=== PATIENT | male | born 1940 | race Two or more races ===

== ENCOUNTER → 2016-11-29 | Outpatient (CLI) | payer OTHER ==
[~2016-11-29] MED LIST: AMLO10TA2; ISOS1TAB37; LISI-646; SIMV-13 OR; WARF5INJ
[2016-11-29 09:54] LABS: Urine RBC None Seen /hpf (0 - 3)
[2016-11-29 10:02] LABS: Basophils # (auto) 0 uL; Basophils % (auto) 0.5 % (0.0-2.0); Eosinophils # (auto) 0.2 uL; Eosinophils % (auto) 2.5 % (0.0-7.0); Hematocrit 43.4 % (41.0-53.0); Hemoglobin 14.6 g/dL (13.5-17.5); Lymphocytes # (auto) 1.9 uL; Lymphocytes % (auto) 24.2 % (10.0-50.0); Mean Corpuscular Hemoglobin 29.6 pg (28.0-32.0); Mean Corpuscular Hgb Conc. 33.6 g/dL (32.0-36.0); Mean Platelet Volume 8.8 fL (7.4-10.4); Monocytes # (auto) 0.7 uL; Monocytes % (auto) 9.1 % (0.0-12.0); Neutrophils # (auto) 4.9 uL; Neutrophils % (auto) 63.7 % (37.0-80.0); Platelet Count (auto) 259 10^3/uL (140-450); Red Cell Distribution Width 13.8 % (11.6-16.0); White Blood Cell 7.7 10^3/uL (4.4-10.8)
[2016-11-29 10:12] LABS: Urine Bilirubin Negative (Negative); Urine Blood Negative /uL (Negative); Urine Color Yellow (Yellow); Urine Glucose Normal (Normal); Urine Ketone Negative (Negative); Urine Mucus FEW (None Seen); Urine Nitrite Negative (Negative); Urine Squamous Epithelial Cell FEW /hpf (<5); Urine Urobilinogen Normal (Negative); Urine pH 5.5 (5.0-8.0)
[2016-11-29 11:17] LABS: Albumin 4.3 g/dL (3.4-5.0); BUN/Creatinine Ratio 19.5; Bilirubin, Total 0.6 mg/dL (0.2-1.0); Calcium 9.5 mg/dL (8.5-10.1); Potassium 4.8 mmol/L (3.5-5.1); Total Protein 7.9 g/dL (6.4-8.2)
== END | disposition home or self-care (01) ==
LOC: LAB 09:39
PROVIDERS: ATTEND Family Medicine
DX: Z95.2 Presence of prosthetic heart valve (principal)
CPT/HCPCS: 36415; 80053; 80061; 81001; 84153; 85025

== ENCOUNTER → 2017-09-05 | Outpatient (CLI) | payer OTHER ==
[~2017-09-05] MED LIST changes: +ASPI81CH43 PO; +ATO40T PO; +CLOP75TA28 PO; +LISI10TA6 PO; +MET25T PO
[2017-09-05 10:56] LABS: Urine Bacteria FEW /hpf (None Seen); Urine Blood 1+ /uL (Negative); Urine Mucus FEW (None Seen); Urine Specific Gravity 1.016 (1.001-1.035); Urine WBC 14 /hpf (0 - 3)
[2017-09-05 11:12] LABS: Albumin 4.2 g/dL (3.4-5.0); BUN/Creatinine Ratio 20.3; Bilirubin, Total 0.5 mg/dL (0.2-1.0); CRP High Sensitivity 0.33 mg/dL (< 0.3); Calcium 9.1 mg/dL (8.5-10.1); Potassium 4.4 mmol/L (3.5-5.1); Total Protein 7.7 g/dL (6.4-8.2)
== END | disposition home or self-care (01) ==
LOC: LAB 10:09
PROVIDERS: ATTEND Internal Medicine
DX: N52.9 Male erectile dysfunction, unspecified (principal); I10 Essential (primary) hypertension; Z95.4 Presence of other heart-valve replacement
CPT/HCPCS: 36415; 80053; 80061; 81001; 83036; 84153; 84403; 84443; 86141

== ENCOUNTER → 2017-11-18 | Outpatient (CLI) | payer OTHER ==
[~2017-11-18] MED LIST changes: -AMLO10TA2; -LISI-646; -SIMV-13 OR
== END | disposition home or self-care (01) ==
LOC: XYW 09:07
PROVIDERS: ATTEND Internal Medicine
DX: I05.0 Rheumatic mitral stenosis (principal); I35.1 Nonrheumatic aortic (valve) insufficiency; I10 Essential (primary) hypertension; Z95.2 Presence of prosthetic heart valve
CPT/HCPCS: 93306

== ENCOUNTER 2018-03-31 12:18 | Inpatient (IN) | payer OTHER ==
[~2018-03-31] VITALS: Ht 162.6 cm; Wt 63.8 kg
[2018-03-31] VITALS (18 sets, daily range): BP systolic 87–147; BP diastolic 24–57
[2018-03-31] MEDS ORDERED: SODIUM CHLORIDE 0.9% 1,000 ML IVB ONE (12:43)
[2018-03-31] MEDS ORDERED: MORPHINE SULFATE 4 MG/ML SYR/VIAL IV ONE (12:45)
[2018-03-31] MEDS ORDERED: ONDANSETRON HCL 4 MG/2 ML VIAL IV ONE (12:45)
[2018-03-31] MEDS ORDERED: ASPirin 81 mg TAB PO ONE (12:45)
[2018-03-31] MEDS ORDERED: fentaNYL CITRATE 100 MCG/2 ML VL ONE (13:13)
[2018-03-31] MEDS ORDERED: EPINEPHrine HCL 1 MG/10 ML SYRG ONE (13:13)
[2018-03-31] MEDS ORDERED: SODIUM CHL 0.9% 50 ML ONE (13:13)
[2018-03-31] MEDS ORDERED: MIDAZOLAM HCL 1MG/1ML-2 ML VIAL ONE (13:13)
[2018-03-31] MEDS ORDERED: ATROPINE SULF 1 MG/10ml SYR ONE (13:13)
[2018-03-31] MEDS ORDERED: ANGIOMAX 250 MG VIAL IV ONE (13:13)
[2018-03-31] MEDS ORDERED: EPTIFIBATIDE DRIP(0.75MG/ML) 0 ML IV ONE (13:14)
[2018-03-31] MEDS ORDERED: EPTIFIBATIDE INJ (2MG/ML) 10ML VIAL IV ONE (13:14)
[2018-03-31] MEDS ORDERED: LIDOCAINE 2% (LOCAL ANESTH.) PF 5ml SDV ONE (13:20)
[2018-03-31] MEDS ORDERED: IODIXANOL 320MG/ML 100ML BTL IV ONE (13:20)
[2018-03-31] MEDS ORDERED: ACETAMINOPHEN 325 MG TAB PO ONE (13:45)
[2018-03-31 14:06] LABS: Basophils # (auto) 0 uL; Basophils % (auto) 0.3 % (0.0-2.0); Eosinophils # (auto) 0 uL; Eosinophils % (auto) 0.3 % (0.0-7.0); Hematocrit 42.8 % (41.0-53.0); Hemoglobin 14.7 g/dL (13.5-17.5); Lymphocytes # (auto) 0.3 uL; Lymphocytes % (auto) 3.5 % (10.0-50.0); Mean Corpuscular Hemoglobin 30.5 pg (28.0-32.0); Mean Corpuscular Hgb Conc. 34.4 g/dL (32.0-36.0); Mean Corpuscular Volume 88.5 fL (80.0-100.0); Monocytes # (auto) 0.2 uL; Monocytes % (auto) 1.8 % (0.0-12.0); Neutrophils # (auto) 7.8 uL; Neutrophils % (auto) 94.1 % (37.0-80.0); Nucleated Red Blood Cells % 0.2 %; Platelet Count (auto) 177 10^3/uL (140-450); Red Blood Cells 4.84 10^6/uL (4.5-5.90); Red Cell Distribution Width 14.2 % (11.8-14.3); White Blood Cell 8.3 10^3/uL (4.4-10.8)
[2018-03-31] MEDS ORDERED: NALOXONE HCL 0.4 MG/ML VIAL ONE (14:12)
[2018-03-31] MEDS ORDERED: diphenhdrAMINE HCL 50 MG/1 ML VL ONE (14:12)
[2018-03-31] MEDS ORDERED: FLUMAZENIL 0.1 MG/ML INJ 10ML MDV IV ONE (14:12)
[2018-03-31] MEDS ORDERED: VANCOMYCIN 1GM/250ML 250 ML IV ONE ×2 (14:18→15:00)
[2018-03-31 14:20] LABS: INR 1.53 (0.9-1.15); Partial Thromboplastin Time 30.2 sec (23.78-33.04)
[2018-03-31 14:47] LABS: Alanine Aminotransferase 30 U/L (16-61); Albumin 3.8 g/dL (3.4-5.0); Anion Gap 10 (5-15); Aspartate Aminotransferase 14 U/L (15-37); Blood Urea Nitrogen 26 mg/dL (7-18); Calcium 8.8 mg/dL (8.5-10.1); Carbon Dioxide 23 mmol/L (21-32); Chloride 105 mmol/L (98-107); GFR African American 65 mL/min; GFR Non-African American 53 mL/min; Glucose 133 mg/dL (74-106); Magnesium 2.2 mg/dL (1.6-2.6); Potassium 4.4 mmol/L (3.5-5.1); Sodium 138 mmol/L (136-145)
[2018-03-31 14:48] LABS: Lactic Acid w/Reflex 2.8 mmol/L (0.4-2.0)
[2018-03-31 14:52] LABS: Alkaline Phosphatase 79 U/L (45-117); Bilirubin, Total 1.2 mg/dL (0.2-1.0); Total Protein 7.6 g/dL (6.4-8.2)
[2018-03-31] MEDS ORDERED: NITROGLYCERIN 0.4 MG SL TAB SL PRN ×4 (15:00→15:45)
[2018-03-31] MEDS ORDERED: MORPHINE SULFATE 4 MG/ML SYR/VIAL IV PRN ×3 (15:00→15:45)
[2018-03-31] MEDS ORDERED: ONDANSETRON HCL 4 MG/2 ML VIAL IV PRN ×2 (15:00→15:45)
[2018-03-31] MEDS ORDERED: cefTRIAXone 1GM/10ml IVPUSH 10 ML IV ONE (15:00)
[2018-03-31] MEDS ORDERED: WARF7.5T20 PO (15:17)
[2018-03-31 15:21] LABS: Urine Bacteria NONE SEEN /hpf (None Seen); Urine Blood 2+ /uL (Negative); Urine WBC 2 /hpf (0 - 3)
[2018-03-31 15:38] LABS: Urine Specific Gravity > 1.050 (1.001-1.035)
[2018-03-31] MEDS ORDERED: ALUM & MAG HYDROX-SIMETH LIQ(MAALOX) 30 ML PO ONE (15:45)
[2018-03-31] MEDS ORDERED: DEXTROSE (50%) 50ML SYRG IV PRN (15:45)
[2018-03-31] MEDS ORDERED: LORazepam 0.5 MG TAB PO PRN (15:45)
[2018-03-31] MEDS ORDERED: ZOLPIDEM TARTRATE 5 MG TAB PO PRN (15:45)
[2018-03-31] MEDS ORDERED: VANCOMYCIN PER PHARMACY 0 MG IV SCH (15:45)
[2018-03-31] MEDS ORDERED: ENOXAPARIN SOD 60 MG/0.6 ML SYRINGE SC ONE (16:00)
[2018-03-31] MEDS ORDERED: WARFARIN SODIUM 5 MG TAB PO ONE (17:00)
[2018-03-31] MEDS: InsuLIN REG 1unit/0.01ml Soln (100units/ml) SC SCH ×2 (17:00→21:02)
[2018-03-31] MEDS: ACETAMINOPHEN 325 MG TAB PO PRN (17:55)
[2018-03-31] MEDS: ACCU-CHEK COMFORT CURVE STRIP VI SCH ×2 (17:57→21:08)
[2018-03-31] MEDS ORDERED: LORazepam 2MG/ML-1ML VIAL ONE (20:49)
[2018-03-31] MEDS ORDERED: ALBUMIN 5% 250 ML IV ONE (21:00)
[2018-03-31] MEDS ORDERED: LORazepam 2MG/ML-1ML VIAL IV ONE (21:00)
[2018-03-31] MEDS ORDERED: LORazepam 2MG/ML-1ML VIAL IM ONE (21:00)
[2018-03-31] MEDS: SODIUM CHLOR 0.9% PF (SALINE LOCK) 10ML VIAL/SYR IV SCH (21:02)
[2018-03-31] MEDS: ATORVASTATIN 20 MG TAB PO SCH (21:02)
[2018-03-31] MEDS: METOPROLOL TARTRATE 25 MG TAB PO SCH (21:02)
[2018-03-31 21:27] LABS: Red Cell Distribution Width 14.5 % (11.8-14.3); White Blood Cell 2.8 10^3/uL (4.4-10.8)
[2018-03-31 21:32] LABS: Hematocrit 39.7 % (41.0-53.0); Hemoglobin 13.7 g/dL (13.5-17.5); Mean Corpuscular Hemoglobin 30.6 pg (28.0-32.0); Mean Corpuscular Hgb Conc. 34.5 g/dL (32.0-36.0); Mean Corpuscular Volume 88.7 fL (80.0-100.0); Platelet Count (auto) 154 10^3/uL (140-450); Red Blood Cells 4.48 10^6/uL (4.5-5.90)
[2018-03-31 21:39] LABS: BUN/Creatinine Ratio 12.9; Calcium 7.9 mg/dL (8.5-10.1); Potassium 4.7 mmol/L (3.5-5.1)
[2018-03-31 21:43] LABS: Basophils % (manual) 0 (0.0-2.0); Blast Cells 0; Eosinophils % (manual) 0 (0-7); Metamyelocytes % 0; Myelocytes % 0; Promyelocytes % 0; Reactive Lymphocytes 0
[2018-03-31 22:36] LABS: Band Neutrophils % (manual) 3; Lymphocytes % (manual) 14 (10.0-50.0); Monocytes % (manual) 2 (0-12)
[2018-04-01] VITALS (52 sets, daily range): BP systolic 77–134; BP diastolic 30–80
[2018-04-01] MEDS: ENOXAPARIN SOD 60 MG/0.6 ML SYRINGE SC SCH ×2 (05:17→18:24)
[2018-04-01] MEDS: SODIUM CHLOR 0.9% PF (SALINE LOCK) 10ML VIAL/SYR IV SCH ×3 (05:17→22:00)
[2018-04-01] MEDS: ACCU-CHEK COMFORT CURVE STRIP VI SCH ×4 (05:18→22:30)
[2018-04-01 06:01] LABS: Basophils # (auto) 0 uL; Basophils % (auto) 0.3 % (0.0-2.0); Eosinophils # (auto) 0 uL; Eosinophils % (auto) 0.4 % (0.0-7.0); Hematocrit 35.7 % (41.0-53.0); Hemoglobin 12.4 g/dL (13.5-17.5); Lymphocytes # (auto) 0.5 uL; Lymphocytes % (auto) 4.5 % (10.0-50.0); Mean Corpuscular Hemoglobin 30.7 pg (28.0-32.0); Mean Corpuscular Hgb Conc. 34.8 g/dL (32.0-36.0); Mean Corpuscular Volume 88.3 fL (80.0-100.0); Monocytes # (auto) 0.5 uL; Neutrophils # (auto) 9.1 uL; Neutrophils % (auto) 89.8 % (37.0-80.0); Platelet Count (auto) 137 10^3/uL (140-450); Red Blood Cells 4.04 10^6/uL (4.5-5.90); Red Cell Distribution Width 14.7 % (11.8-14.3); White Blood Cell 10.2 10^3/uL (4.4-10.8)
[2018-04-01] MEDS: InsuLIN REG 1unit/0.01ml Soln (100units/ml) SC SCH ×4 (06:04→22:30)
[2018-04-01 06:25] LABS: Albumin 3.1 g/dL (3.4-5.0); BUN/Creatinine Ratio 15.5; Bilirubin, Total 1.2 mg/dL (0.2-1.0); Calcium 7.6 mg/dL (8.5-10.1); Magnesium 2.1 mg/dL (1.6-2.6); Potassium 4.9 mmol/L (3.5-5.1); Total Protein 6.1 g/dL (6.4-8.2)
[2018-04-01] MEDS: ACETAMINOPHEN 500 MG TAB PO PRN ×3 (08:03→18:48)
[2018-04-01 08:42] LABS: Basophils # (auto) 0 uL; Basophils % (auto) 0.5 % (0.0-2.0); Eosinophils # (auto) 0 uL; Eosinophils % (auto) 0.3 % (0.0-7.0); Hematocrit 36.1 % (41.0-53.0); Hemoglobin 12.1 g/dL (13.5-17.5); Lymphocytes # (auto) 0.4 uL; Lymphocytes % (auto) 4.4 % (10.0-50.0); Mean Corpuscular Hemoglobin 29.3 pg (28.0-32.0); Mean Corpuscular Hgb Conc. 33.4 g/dL (32.0-36.0); Mean Corpuscular Volume 87.6 fL (80.0-100.0); Monocytes # (auto) 0.4 uL; Monocytes % (auto) 4.3 % (0.0-12.0); Neutrophils # (auto) 7.6 uL; Neutrophils % (auto) 90.5 % (37.0-80.0); Platelet Count (auto) 136 10^3/uL (140-450); Red Blood Cells 4.13 10^6/uL (4.5-5.90); Red Cell Distribution Width 14.6 % (11.8-14.3); White Blood Cell 8.4 10^3/uL (4.4-10.8)
[2018-04-01 08:58] LABS: INR 2.1 (0.9-1.15); Partial Thromboplastin Time 45.9 sec (23.78-33.04); Prothrombin Time 21.5 sec (9.27-12.13)
[2018-04-01] MEDS ORDERED: cefTRIAXone 1GM/10ml IVPUSH 10 ML IV SCH (09:00)
[2018-04-01] MEDS: METOPROLOL TARTRATE 25 MG TAB PO SCH (10:00)
[2018-04-01] MEDS ORDERED: CLOPIDOGREL BISULFATE 75 MG TAB PO SCH (10:00)
[2018-04-01] MEDS ORDERED: LISINOPRIL 10 MG TAB PO SCH (10:00)
[2018-04-01] MEDS: DOCUSATE SOD 100 MG CAP PO SCH (10:08)
[2018-04-01] MEDS: CLOPIDOGREL BISULFATE 75 MG TAB PO SCH (10:08)
[2018-04-01] MEDS ORDERED: KETOROLAC TROMETH 30 MG/ML 1ML VIAL IV PRN ×2 (11:00→18:45)
[2018-04-01] MEDS ORDERED: D5W/SOD CHLO 0.9% 1,000 ML IV SCH (13:00)
[2018-04-01] MEDS ORDERED: VANCOMYCIN 1GM/250ML 250 ML IV SCH (14:00)
[2018-04-01] MEDS ORDERED: SODIUM CHLORIDE 0.9% 1,000 ML IV SCH (14:30)
[2018-04-01] MEDS ORDERED: WARFARIN SODIUM 5 MG TAB PO ONE (17:00)
[2018-04-01] MEDS ORDERED: ETOMIDATE (2MG/ML) 20ML VIAL IV ONE (17:07)
[2018-04-01] MEDS ORDERED: SUCCINYLCHOLINE CHLORIDE 20 MG/ML 10ML VIAL IV ONE (17:07)
[2018-04-01] MEDS ORDERED: ROCURONIUM 10MG/ML 10ML VIAL IV ONE (17:07)
[2018-04-01] MEDS ORDERED: FUROSEMIDE 40 MG/4 ML VIAL ONE (17:09)
[2018-04-01] MEDS: PIPERACILLIN-TAZOB 2.25GM 50 ML IV SCH (18:24)
[2018-04-01] MEDS: ACETAMINOPHEN 325 MG TAB PO PRN (22:40)
[2018-04-01] MEDS: ATORVASTATIN 20 MG TAB PO SCH (23:28)
[2018-04-02] VITALS (83 sets, daily range): BP systolic 59–148; BP diastolic 30–83
[2018-04-02] MEDS: PIPERACILLIN-TAZOB 2.25GM 50 ML IV SCH ×2 (00:03→06:33)
[2018-04-02] MEDS: PHENYLEPHRINE INJ 20 MG in SODIUM CHL 0.9% 250 ML IV SCH ×3 (00:20→16:55)
[2018-04-02] MEDS ORDERED: PHENYLEPHRINE IV 250 ML IV ONE (00:21)
[2018-04-02] MEDS: SOD CHL 0.45% 1,000 ML IV SCH ×2 (00:39→13:35)
[2018-04-02 04:05] LABS: Basophils # (auto) 0 uL; Basophils % (auto) 0.2 % (0.0-2.0); Eosinophils # (auto) 0.2 uL; Eosinophils % (auto) 1.3 % (0.0-7.0); Hematocrit 33.8 % (41.0-53.0); Hemoglobin 11.4 g/dL (13.5-17.5); Lymphocytes # (auto) 0.6 uL; Lymphocytes % (auto) 4.7 % (10.0-50.0); Mean Corpuscular Hemoglobin 29.7 pg (28.0-32.0); Mean Corpuscular Hgb Conc. 33.7 g/dL (32.0-36.0); Mean Corpuscular Volume 87.9 fL (80.0-100.0); Monocytes # (auto) 0.6 uL; Monocytes % (auto) 4.4 % (0.0-12.0); Neutrophils # (auto) 11.5 uL; Neutrophils % (auto) 89.4 % (37.0-80.0); Platelet Count (auto) 108 10^3/uL (140-450); Red Blood Cells 3.85 10^6/uL (4.5-5.90); Red Cell Distribution Width 14.8 % (11.8-14.3); White Blood Cell 12.9 10^3/uL (4.4-10.8)
[2018-04-02 04:10] LABS: INR 2.08 (0.9-1.15); Prothrombin Time 21.4 sec (9.27-12.13)
[2018-04-02 04:25] LABS: Albumin 2.8 g/dL (3.4-5.0); BUN/Creatinine Ratio 16.3; Calcium 7.3 mg/dL (8.5-10.1); Potassium 4.6 mmol/L (3.5-5.1); Total Protein 6.1 g/dL (6.4-8.2)
[2018-04-02] MEDS: ENOXAPARIN SOD 60 MG/0.6 ML SYRINGE SC SCH (06:00)
[2018-04-02] MEDS: SODIUM CHLOR 0.9% PF (SALINE LOCK) 10ML VIAL/SYR IV SCH ×3 (06:19→22:00)
[2018-04-02] MEDS: InsuLIN REG 1unit/0.01ml Soln (100units/ml) SC SCH ×2 (06:42→12:40)
[2018-04-02] MEDS: ACCU-CHEK COMFORT CURVE STRIP VI SCH ×2 (06:42→12:30)
[2018-04-02] MEDS: ACETAMINOPHEN 500 MG TAB PO PRN (08:00)
[2018-04-02] MEDS: CLOPIDOGREL BISULFATE 75 MG TAB PO SCH (09:59)
[2018-04-02] MEDS ORDERED: ENOXAPARIN SOD 30 MG/0.3 ML SYRINGE SC SCH (10:00)
[2018-04-02] MEDS: DOCUSATE SOD 100 MG CAP PO SCH (10:00)
[2018-04-02] MEDS ORDERED: ENOXAPARIN SOD 60 MG/0.6 ML SYRINGE SC SCH (10:00)
[2018-04-02 10:12] LABS: INR 2.21 (0.9-1.15); Partial Thromboplastin Time 47.5 sec (23.78-33.04); Prothrombin Time 22.6 sec (9.27-12.13)
[2018-04-02] MEDS ORDERED: ERTAPENEM SOD INJ 1 GM in SODIUM CHL 0.9% 50 ML IV ONE (10:30)
[2018-04-02] MEDS ORDERED: fentaNYL CITRATE 100 MCG/2 ML VL ONE (13:31)
[2018-04-02] MEDS ORDERED: MIDAZOLAM HCL 5 MG/ML-1ML VIAL ONE (13:31)
[2018-04-02] MEDS ORDERED: WARFARIN SODIUM 5 MG TAB PO ONE (17:00)
[2018-04-02] MEDS: ATORVASTATIN 20 MG TAB PO SCH (22:00)
[2018-04-03] VITALS (32 sets, daily range): BP systolic 109–145; BP diastolic 31–97
[2018-04-03] MEDS: PHENYLEPHRINE INJ 20 MG in SODIUM CHL 0.9% 250 ML IV SCH ×2 (01:15→09:35)
[2018-04-03] MEDS: SOD CHL 0.45% 1,000 ML IV SCH ×2 (03:30→16:15)
[2018-04-03 03:48] LABS: Basophils # (auto) 0 uL; Basophils % (auto) 0.2 % (0.0-2.0); Eosinophils # (auto) 0.1 uL; Eosinophils % (auto) 1.1 % (0.0-7.0); Hematocrit 30.1 % (41.0-53.0); Hemoglobin 10.5 g/dL (13.5-17.5); Lymphocytes # (auto) 0.6 uL; Mean Corpuscular Hemoglobin 29.8 pg (28.0-32.0); Mean Corpuscular Hgb Conc. 34.8 g/dL (32.0-36.0); Mean Corpuscular Volume 85.6 fL (80.0-100.0); Monocytes # (auto) 0.6 uL; Monocytes % (auto) 7.8 % (0.0-12.0); Neutrophils # (auto) 6.3 uL; Neutrophils % (auto) 82.9 % (37.0-80.0); Platelet Count (auto) 89 10^3/uL (140-450); Red Blood Cells 3.51 10^6/uL (4.5-5.90); Red Cell Distribution Width 14.9 % (11.8-14.3); White Blood Cell 7.6 10^3/uL (4.4-10.8)
[2018-04-03 04:01] LABS: INR 3.19 (0.9-1.15)
[2018-04-03 04:07] LABS: BUN/Creatinine Ratio 29.5; Calcium 7.2 mg/dL (8.5-10.1); Potassium 3.9 mmol/L (3.5-5.1)
[2018-04-03] MEDS: SODIUM CHLOR 0.9% PF (SALINE LOCK) 10ML VIAL/SYR IV SCH ×3 (06:00→21:55)
[2018-04-03] MEDS: CLOPIDOGREL BISULFATE 75 MG TAB PO SCH (10:32)
[2018-04-03] MEDS: ERTAPENEM SOD INJ 0.5 GM in SODIUM CHL 0.9% 50 ML IV SCH (10:32)
[2018-04-03] MEDS ORDERED: WARFARIN SODIUM 5 MG TAB PO ONE (17:00)
[2018-04-03] MEDS: TAMSULOSIN HYDROCHLORIDE 0.4 MG CAP PO SCH (18:02)
[2018-04-03] MEDS: ACETAMINOPHEN 500 MG TAB PO PRN (18:02)
[2018-04-03] MEDS: ATORVASTATIN 20 MG TAB PO SCH (21:55)
[2018-04-04 06:00] VITALS: BP 132/67
[2018-04-04] MEDS: SODIUM CHLOR 0.9% PF (SALINE LOCK) 10ML VIAL/SYR IV SCH ×3 (06:00→22:29)
[2018-04-04] MEDS: SOD CHL 0.45% 1,000 ML IV SCH (06:36)
[2018-04-04 07:45] LABS: Basophils # (auto) 0 uL; Basophils % (auto) 0.3 % (0.0-2.0); Eosinophils # (auto) 0.2 uL; Eosinophils % (auto) 2.4 % (0.0-7.0); Hematocrit 30.8 % (41.0-53.0); Hemoglobin 10.8 g/dL (13.5-17.5); Lymphocytes # (auto) 0.5 uL; Lymphocytes % (auto) 6.7 % (10.0-50.0); Mean Corpuscular Hemoglobin 30.5 pg (28.0-32.0); Mean Corpuscular Hgb Conc. 35.2 g/dL (32.0-36.0); Mean Corpuscular Volume 86.8 fL (80.0-100.0); Monocytes # (auto) 0.9 uL; Monocytes % (auto) 12.4 % (0.0-12.0); Neutrophils # (auto) 5.8 uL; Neutrophils % (auto) 78.2 % (37.0-80.0); Platelet Count (auto) 109 10^3/uL (140-450); Red Blood Cells 3.55 10^6/uL (4.5-5.90); Red Cell Distribution Width 14.7 % (11.8-14.3); White Blood Cell 7.4 10^3/uL (4.4-10.8)
[2018-04-04 07:56] LABS: BUN/Creatinine Ratio 28.6; Calcium 7.7 mg/dL (8.5-10.1); Potassium 4.3 mmol/L (3.5-5.1)
[2018-04-04 08:03] LABS: INR 3.49 (0.9-1.15); Partial Thromboplastin Time 50.9 sec (23.78-33.04); Prothrombin Time 34.8 sec (9.27-12.13)
[2018-04-04 08:40] VITALS: BP 119/51
[2018-04-04] MEDS: CLOPIDOGREL BISULFATE 75 MG TAB PO SCH (11:06)
[2018-04-04] MEDS: ERTAPENEM SOD INJ 0.5 GM in SODIUM CHL 0.9% 50 ML IV SCH (11:07)
[2018-04-04] MEDS: ACETAMINOPHEN 500 MG TAB PO PRN (12:21)
[2018-04-04 12:27] VITALS: BP 127/58
[2018-04-04] MEDS: ENSURE CLEAR Mixed Berry 8oz Carton PO SCH ×2 (13:57→18:12)
[2018-04-04] MEDS ORDERED: WARFARIN SODIUM 1 MG TAB PO ONE (17:00)
[2018-04-04 17:02] VITALS: BP 120/59
[2018-04-04] MEDS: TAMSULOSIN HYDROCHLORIDE 0.4 MG CAP PO SCH (18:12)
[2018-04-04 22:24] VITALS: BP 124/53
[2018-04-04] MEDS: ATORVASTATIN 20 MG TAB PO SCH (22:30)
[2018-04-05 05:20] VITALS: BP 138/63
[2018-04-05 05:54] LABS: INR 3.49 (0.9-1.15); Prothrombin Time 34.8 sec (9.27-12.13)
[2018-04-05] MEDS: SODIUM CHLOR 0.9% PF (SALINE LOCK) 10ML VIAL/SYR IV SCH ×3 (06:00→22:45)
[2018-04-05 06:02] LABS: Calcium 8.1 mg/dL (8.5-10.1)
[2018-04-05 06:04] LABS: BUN/Creatinine Ratio 23.4
[2018-04-05 08:36] VITALS: BP 128/60
[2018-04-05] MEDS: ENSURE CLEAR Mixed Berry 8oz Carton PO SCH ×3 (10:57→18:16)
[2018-04-05] MEDS: CLOPIDOGREL BISULFATE 75 MG TAB PO SCH (10:57)
[2018-04-05] MEDS: ERTAPENEM SOD INJ 1 GM in SODIUM CHL 0.9% 50 ML IV SCH (10:57)
[2018-04-05 12:32] VITALS: BP 142/72
[2018-04-05 17:00] VITALS: BP 135/69
[2018-04-05] MEDS ORDERED: WARFARIN SODIUM 2 MG TAB PO ONE (17:00)
[2018-04-05] MEDS: TAMSULOSIN HYDROCHLORIDE 0.4 MG CAP PO SCH (17:14)
[2018-04-05 22:21] VITALS: BP 136/60
[2018-04-05] MEDS: ATORVASTATIN 20 MG TAB PO SCH (22:45)
[2018-04-06 05:47] VITALS: BP 127/64
[2018-04-06 05:54] LABS: INR 2.57 (0.9-1.15); Prothrombin Time 26.1 sec (9.27-12.13)
[2018-04-06] MEDS: SODIUM CHLOR 0.9% PF (SALINE LOCK) 10ML VIAL/SYR IV SCH ×3 (06:00→22:18)
[2018-04-06 08:00] VITALS: BP 140/65
[2018-04-06] MEDS: CLOPIDOGREL BISULFATE 75 MG TAB PO SCH (10:11)
[2018-04-06] MEDS: ERTAPENEM SOD INJ 1 GM in SODIUM CHL 0.9% 50 ML IV SCH (10:11)
[2018-04-06] MEDS: ENSURE CLEAR Mixed Berry 8oz Carton PO SCH ×3 (10:12→18:17)
[2018-04-06 12:00] VITALS: BP 132/60
[2018-04-06 17:00] VITALS: BP 132/56
[2018-04-06] MEDS ORDERED: WARFARIN SODIUM 1 MG TAB PO ONE (17:00)
[2018-04-06] MEDS: TAMSULOSIN HYDROCHLORIDE 0.4 MG CAP PO SCH (17:29)
[2018-04-06 21:30] VITALS: BP 126/58
[2018-04-06] MEDS: ATORVASTATIN 20 MG TAB PO SCH (22:19)
[2018-04-07 04:55] VITALS: BP 109/47
[2018-04-07] MEDS: SODIUM CHLOR 0.9% PF (SALINE LOCK) 10ML VIAL/SYR IV SCH ×3 (05:47→22:28)
[2018-04-07 06:13] LABS: Hematocrit 33.2 % (41.0-53.0); Hemoglobin 11.6 g/dL (13.5-17.5); Mean Corpuscular Hemoglobin 30.1 pg (28.0-32.0); Mean Corpuscular Volume 86.1 fL (80.0-100.0); Platelet Count (auto) 242 10^3/uL (140-450); Red Blood Cells 3.86 10^6/uL (4.5-5.90); Red Cell Distribution Width 14.4 % (11.8-14.3); White Blood Cell 8.8 10^3/uL (4.4-10.8)
[2018-04-07 06:21] LABS: Basophils % (manual) 0 (0.0-2.0); Blast Cells 0; Promyelocytes % 0; Reactive Lymphocytes 0
[2018-04-07 06:24] LABS: INR 1.98 (0.9-1.15); Prothrombin Time 20.4 sec (9.27-12.13)
[2018-04-07 06:28] LABS: Calcium 8.3 mg/dL (8.5-10.1); Potassium 3.8 mmol/L (3.5-5.1)
[2018-04-07 06:32] LABS: BUN/Creatinine Ratio 18.4
[2018-04-07 06:56] LABS: Band Neutrophils % (manual) 2; Eosinophils % (manual) 6 (0-7); Lymphocytes % (manual) 17 (10.0-50.0); Metamyelocytes % 1; Monocytes % (manual) 6 (0-12); Myelocytes % 1
[2018-04-07 08:43] VITALS: BP 133/62
[2018-04-07] MEDS: ERTAPENEM SOD INJ 1 GM in SODIUM CHL 0.9% 50 ML IV SCH (09:42)
[2018-04-07] MEDS: ENSURE CLEAR Mixed Berry 8oz Carton PO SCH ×3 (09:42→19:12)
[2018-04-07] MEDS: CLOPIDOGREL BISULFATE 75 MG TAB PO SCH (09:42)
[2018-04-07 13:00] VITALS: BP 106/63
[2018-04-07 17:00] VITALS: BP 120/49
[2018-04-07] MEDS ORDERED: WARFARIN SODIUM 1 MG TAB PO ONE (17:00)
[2018-04-07] MEDS: TAMSULOSIN HYDROCHLORIDE 0.4 MG CAP PO SCH (17:19)
[2018-04-07 20:00] VITALS: BP 118/54
[2018-04-07] MEDS: ATORVASTATIN 20 MG TAB PO SCH (22:28)
[2018-04-08 05:00] VITALS: BP 115/58
[2018-04-08] MEDS: SODIUM CHLOR 0.9% PF (SALINE LOCK) 10ML VIAL/SYR IV SCH ×2 (06:12→13:48)
[2018-04-08 06:30] LABS: INR 1.66 (0.9-1.15); Prothrombin Time 17.3 sec (9.27-12.13)
[2018-04-08 07:46] VITALS: BP 121/49
[2018-04-08] MEDS: CLOPIDOGREL BISULFATE 75 MG TAB PO SCH (09:34)
[2018-04-08] MEDS: ERTAPENEM SOD INJ 1 GM in SODIUM CHL 0.9% 50 ML IV SCH (09:34)
[2018-04-08] MEDS: ENSURE CLEAR Mixed Berry 8oz Carton PO SCH ×3 (09:34→18:51)
[2018-04-08] MEDS ORDERED: POTASSIUM EFFERVESENT TAB 25 MEQ PO ONE (11:30)
[2018-04-08] MEDS ORDERED: CARVEDILOL 3.125 MG TAB PO ONE (11:30)
[2018-04-08 11:56] LABS: Albumin 2.4 g/dL (3.4-5.0); BUN/Creatinine Ratio 21.8; Bilirubin, Total 0.8 mg/dL (0.2-1.0); Calcium 7.7 mg/dL (8.5-10.1)
[2018-04-08 12:10] VITALS: BP 119/46
[2018-04-08] MEDS: MAGNESIUM SULFATE 1GM/100ML 100 ML IV SCH ×2 (12:40→13:48)
[2018-04-08] MEDS ORDERED: WARFARIN SODIUM 2 MG TAB PO ONE (17:00)
[2018-04-08 17:15] VITALS: BP 118/61
[2018-04-08] MEDS: TAMSULOSIN HYDROCHLORIDE 0.4 MG CAP PO SCH (17:34)
[2018-04-08] MEDS ORDERED: CARVEDILOL 3.125 MG TAB PO SCH (22:00)
[2018-04-17] MEDS ORDERED: fentaNYL CITRATE 100 MCG/2 ML VL IV ONE (07:45)
[2018-04-17] MEDS ORDERED: MIDAZOLAM HCL 1MG/1ML-2 ML VIAL IV ONE (07:45)
== END 2018-04-08 21:30 | disposition home health service (06) | DRG 853 ==
LOC: ER 12:33 → CATH 1 13:32 → DOU IN ICU 13:33 → ICU WEST 04-01 17:16 → TELE-EAST 04-03 17:16
PROVIDERS: ADMIT Internal Medicine; ATTEND Internal Medicine
PROC: 027034Z Dilation of Coronary Artery, One Artery with Drug-eluting Intraluminal Device, Percutaneous Approach (ICD-10-PCS; principal; 2018-03-31)
PROC: 4A023N7 Measurement of Cardiac Sampling and Pressure, Left Heart, Percutaneous Approach (ICD-10-PCS; 2018-03-31)
PROC: B2111ZZ Fluoroscopy of Multiple Coronary Arteries using Low Osmolar Contrast (ICD-10-PCS; 2018-03-31)
PROC: B2131ZZ Fluoroscopy of Multiple Coronary Artery Bypass Grafts using Low Osmolar Contrast (ICD-10-PCS; 2018-03-31)
PROC: B24BZZ4 Ultrasonography of Heart with Aorta, Transesophageal (ICD-10-PCS; 2018-04-02)
DX: A41.51 Sepsis due to Escherichia coli [E. coli] (principal); I21.3 ST elevation (STEMI) myocardial infarction of unspecified site; R65.21 Severe sepsis with septic shock; N17.0 Acute kidney failure with tubular necrosis; D68.9 Coagulation defect, unspecified; I13.0 Hypertensive heart and chronic kidney disease with heart failure and stage 1 through stage 4 chronic kidney disease, or unspecified chronic kidney disease; N39.0 Urinary tract infection, site not specified; I42.9 Cardiomyopathy, unspecified; I38 Endocarditis, valve unspecified; I25.710 Atherosclerosis of autologous vein coronary artery bypass graft(s) with unstable angina pectoris; B96.20 Unspecified Escherichia coli [E. coli] as the cause of diseases classified elsewhere; E11.21 Type 2 diabetes mellitus with diabetic nephropathy; E11.22 Type 2 diabetes mellitus with diabetic chronic kidney disease; E11.65 Type 2 diabetes mellitus with hyperglycemia; E78.5 Hyperlipidemia, unspecified; N40.0 Benign prostatic hyperplasia without lower urinary tract symptoms; Z16.12 Extended spectrum beta lactamase (ESBL) resistance; Z79.01 Long term (current) use of anticoagulants; Z82.49 Family history of ischemic heart disease and other diseases of the circulatory system; Z95.1 Presence of aortocoronary bypass graft; Z95.2 Presence of prosthetic heart valve; Z95.5 Presence of coronary angioplasty implant and graft; Z90.49 Acquired absence of other specified parts of digestive tract; I50.9 Heart failure, unspecified
CPT/HCPCS: 36415; 36600; 70450; 71045; 74176; 78582; 80048; 80053; 80061; 81001; 82805; 82962; 83036; 83605; 83735; 83880; 84443; 84484; 85007; 85025; 85027; 85379; 85610; 85730; 87040; 87077; 87081; 87086; 87186; 92937; 93005; 93306; 93312; 93459; 97110; 97116; 97163; 97530; 99152; 99153; A6257; C1874; J0330; J0696; J1335; J1885; J2001; J2250; J2405; J2543; J7042; Q9967

== ENCOUNTER → 2018-04-22 | Outpatient (CLI) | payer OTHER ==
[~2018-04-22] MED LIST changes: -ASPI81CH43 PO; -ISOS1TAB37; -WARF5INJ; +WARF7.5T20 PO
[2018-04-22 09:46] LABS: Basophils # (auto) 0.1 uL; Basophils % (auto) 0.8 % (0.0-2.0); Eosinophils # (auto) 0.2 uL; Eosinophils % (auto) 3.1 % (0.0-7.0); Hematocrit 39.2 % (41.0-53.0); Lymphocytes # (auto) 1.1 uL; Lymphocytes % (auto) 14.3 % (10.0-50.0); Mean Corpuscular Hemoglobin 28.8 pg (28.0-32.0); Mean Corpuscular Hgb Conc. 33.2 g/dL (32.0-36.0); Mean Corpuscular Volume 86.8 fL (80.0-100.0); Monocytes # (auto) 0.7 uL; Monocytes % (auto) 8.6 % (0.0-12.0); Neutrophils # (auto) 5.7 uL; Neutrophils % (auto) 73.2 % (37.0-80.0); Platelet Count (auto) 351 10^3/uL (140-450); Red Blood Cells 4.52 10^6/uL (4.5-5.90); Red Cell Distribution Width 14.6 % (11.8-14.3); White Blood Cell 7.7 10^3/uL (4.4-10.8)
[2018-04-22 09:52] LABS: Urine Bacteria FEW /hpf (None Seen); Urine Blood Negative /uL (Negative); Urine Mucus FEW (None Seen); Urine Specific Gravity 1.016 (1.001-1.035); Urine WBC 103 /hpf (0 - 3)
[2018-04-22 10:16] LABS: Albumin 3.5 g/dL (3.4-5.0); BUN/Creatinine Ratio 17.3; Bilirubin, Total 0.6 mg/dL (0.2-1.0); Calcium 8.7 mg/dL (8.5-10.1); Total Protein 7.3 g/dL (6.4-8.2)
== END | disposition home or self-care (01) ==
LOC: LAB 09:26
PROVIDERS: ATTEND Nurse Practitioner
DX: N39.0 Urinary tract infection, site not specified (principal)
CPT/HCPCS: 36415; 80053; 81001; 85025

== ENCOUNTER 2018-11-29 11:33 | Emergency (ER) | payer OTHER ==
[~2018-11-29] VITALS: Ht 162.6 cm; Wt 63.5 kg
[~2018-11-29 11:33] MED LIST changes: +ATOR40TA52 PO; +CARV3.1240 PO; +METO25TA5 PO; +TAMS0.4C36 PO; +TICA90TA PO; +WARF6TAB21 PO
[2018-11-29 12:10] LABS: Basophils # (auto) 0 uL; Basophils % (auto) 0.5 % (0.0-2.0); Eosinophils # (auto) 0.1 uL; Eosinophils % (auto) 1.5 % (0.0-7.0); Hematocrit 41.6 % (41.0-53.0); Lymphocytes # (auto) 1.1 uL; Lymphocytes % (auto) 14.9 % (10.0-50.0); Mean Corpuscular Hemoglobin 30.1 pg (28.0-32.0); Mean Corpuscular Hgb Conc. 33.5 g/dL (32.0-36.0); Mean Corpuscular Volume 89.7 fL (80.0-100.0); Monocytes # (auto) 0.7 uL; Monocytes % (auto) 9.4 % (0.0-12.0); Neutrophils # (auto) 5.4 uL; Neutrophils % (auto) 73.7 % (37.0-80.0); Nucleated Red Blood Cells % 0.1 %; Platelet Count (auto) 215 10^3/uL (140-450); Red Blood Cells 4.64 10^6/uL (4.5-5.90); Red Cell Distribution Width 14.5 % (11.8-14.3); White Blood Cell 7.4 10^3/uL (4.4-10.8)
[2018-11-29 12:21] LABS: Albumin 3.9 g/dL (3.4-5.0); Calcium 8.4 mg/dL (8.5-10.1); Potassium 4.1 mmol/L (3.5-5.1)
[2018-11-29 12:26] LABS: BUN/Creatinine Ratio 17.7; Bilirubin, Total 0.5 mg/dL (0.2-1.0); Total Protein 7.4 g/dL (6.4-8.2)
[2018-11-29] MEDS ORDERED: DONNATAL 5ml ORAL Elix (BELLADONNA ALK-PHENOBARB) PO ONE (13:15)
[2018-11-29] MEDS ORDERED: LIDOCAINE VISCOUS 2% 15ML UD PO ONE (13:15)
[2018-11-29] MEDS ORDERED: ALUM & MAG HYDROX-SIMETH LIQ(MAALOX) 30 ML PO ONE (13:15)
[2018-11-29 13:26] LABS: Urine Bacteria NONE SEEN /hpf (None Seen); Urine Blood Negative /uL (Negative); Urine Specific Gravity 1.006 (1.001-1.035); Urine WBC 2 /hpf (0 - 3)
[2018-11-29 14:16] VITALS: BP 137/58
== END 2018-11-29 14:24 | disposition home or self-care (01) ==
LOC: ER 11:33 → MERGE 11:33 → ER 14:23
DX: K29.70 Gastritis, unspecified, without bleeding (principal); I10 Essential (primary) hypertension; Z95.1 Presence of aortocoronary bypass graft; Z98.61 Coronary angioplasty status
CPT/HCPCS: 36415; 80053; 81001; 84484; 85025; 93005

== ENCOUNTER → 2018-12-28 | Outpatient (CLI) | payer OTHER ==
[2018-12-28 10:11] LABS: Basophils # (auto) 0 uL; Basophils % (auto) 0.7 % (0.0-2.0); Eosinophils # (auto) 0.2 uL; Eosinophils % (auto) 2.6 % (0.0-7.0); Hematocrit 38.1 % (41.0-53.0); Hemoglobin 13.2 g/dL (13.5-17.5); Lymphocytes # (auto) 1.1 uL; Mean Corpuscular Hemoglobin 30.9 pg (28.0-32.0); Mean Corpuscular Hgb Conc. 34.7 g/dL (32.0-36.0); Monocytes # (auto) 0.5 uL; Monocytes % (auto) 8.2 % (0.0-12.0); Neutrophils # (auto) 4.7 uL; Neutrophils % (auto) 71.5 % (37.0-80.0); Platelet Count (auto) 292 10^3/uL (140-450); Red Blood Cells 4.28 10^6/uL (4.5-5.90); White Blood Cell 6.6 10^3/uL (4.4-10.8)
[2018-12-28 10:16] LABS: Urine Bacteria NONE SEEN /hpf (None Seen); Urine Blood Negative /uL (Negative); Urine Specific Gravity 1.013 (1.001-1.035); Urine WBC 4 /hpf (0 - 3)
[2018-12-28 12:26] LABS: Potassium 4.3 mmol/L (3.5-5.1)
[2018-12-28 12:41] LABS: Albumin 3.6 g/dL (3.4-5.0); BUN/Creatinine Ratio 23.4; Bilirubin, Total 0.5 mg/dL (0.2-1.0); Total Protein 7.1 g/dL (6.4-8.2); Uric Acid 7.2 mg/dL (3.5-7.2)
[2018-12-28 12:56] LABS: Prostate Specific Antigen 1.9 ng/mL (0.0-4.0)
[2018-12-28 12:57] LABS: Folate (Folic Acid) 17.52 ng/mL (5.38-24)
== END | disposition home or self-care (01) ==
LOC: LAB 09:37
PROVIDERS: ATTEND Nurse Practitioner
DX: E78.5 Hyperlipidemia, unspecified (principal)
CPT/HCPCS: 36415; 80053; 80061; 81001; 82306; 82607; 82746; 83036; 84153; 84443; 84550; 85025

== ENCOUNTER → 2019-04-06 | Outpatient (CLI) | payer OTHER, MEDICARE ==
[2019-04-06 10:17] LABS: BUN/Creatinine Ratio 24.8; Calcium 8.4 mg/dL (8.5-10.1); Potassium 4.5 mmol/L (3.5-5.1)
== END | disposition home or self-care (01) ==
LOC: LAB 09:04
PROVIDERS: ATTEND Urology
DX: N40.0 Benign prostatic hyperplasia without lower urinary tract symptoms (principal)
CPT/HCPCS: 36415; 80048; 84153

== ENCOUNTER → 2019-04-13 | Outpatient (CLI) | payer OTHER ==
[~2019-04-13] VITALS: Ht 162.6 cm; Wt 63.5 kg
[~2019-04-13] MED LIST changes: +ADENOSINE 53 MG in GIVE UN-DILUTED 0 ML IV STA
[2019-04-13 09:30] VITALS: BP 137/55
== END | disposition home or self-care (01) ==
LOC: XY 08:04
PROVIDERS: ATTEND Internal Medicine
DX: Z01.818 Encounter for other preprocedural examination (principal); I10 Essential (primary) hypertension; E78.5 Hyperlipidemia, unspecified; Z87.891 Personal history of nicotine dependence
CPT/HCPCS: 78452; 93017; A9500; J0153

== ENCOUNTER 2019-06-07 05:58 | Day surgery (SDC) | payer OTHER ==
[2019-06-03 12:42] LABS: Basophils # (auto) 0 uL; Basophils % (auto) 0.8 % (0.0-2.0); Eosinophils # (auto) 0.2 uL; Eosinophils % (auto) 3.6 % (0.0-7.0); Hematocrit 39.4 % (41.0-53.0); Hemoglobin 13.4 g/dL (13.5-17.5); Lymphocytes # (auto) 1.1 uL; Lymphocytes % (auto) 18.6 % (10.0-50.0); Mean Corpuscular Hemoglobin 30.2 pg (28.0-32.0); Mean Corpuscular Hgb Conc. 34.1 g/dL (32.0-36.0); Mean Corpuscular Volume 88.6 fL (80.0-100.0); Monocytes # (auto) 0.7 uL; Monocytes % (auto) 10.8 % (0.0-12.0); Neutrophils % (auto) 66.2 % (37.0-80.0); Nucleated Red Blood Cells % 0.1 %; Platelet Count (auto) 201 10^3/uL (140-450); Red Blood Cells 4.44 10^6/uL (4.5-5.90); Red Cell Distribution Width 14.2 % (11.8-14.3); White Blood Cell 6.1 10^3/uL (4.4-10.8)
[2019-06-03 12:57] LABS: INR 2.38 (0.9-1.15); Partial Thromboplastin Time 34.5 sec (23.64-32.05)
[2019-06-03 13:28] LABS: Urine Bacteria FEW /hpf (None Seen); Urine Blood Negative /uL (Negative); Urine Mucus FEW (None Seen); Urine Specific Gravity 1.015 (1.001-1.035); Urine WBC 11 /hpf (0 - 3)
[2019-06-03 13:58] LABS: Albumin 3.9 g/dL (3.4-5.0); Calcium 8.9 mg/dL (8.5-10.1); Potassium 5.3 mmol/L (3.5-5.1)
[2019-06-03 14:03] LABS: BUN/Creatinine Ratio 25.2; Bilirubin, Total 0.4 mg/dL (0.2-1.0); Total Protein 7.2 g/dL (6.4-8.2)
[~2019-06-07] VITALS: Ht 162.6 cm; Wt 63.5 kg
[~2019-06-07 05:58] MED LIST changes: -ADENOSINE 53 MG in GIVE UN-DILUTED 0 ML IV STA; -ATOR40TA52 PO; -CLOP75TA28 PO; -METO25TA5 PO; -TICA90TA PO; -WARF6TAB21 PO
[2019-06-07] MEDS ORDERED: SUCCINYLCHOLINE CHLORIDE 20 MG/ML 10ML VIAL IV ONE (07:02)
[2019-06-07] MEDS ORDERED: MITOMYCIN 40 MG in STERILE WATER 60 ML IS ONE (07:15)
[2019-06-07] MEDS ORDERED: ROCURONIUM 10MG/ML 10ML VIAL IV ONE (07:22)
[2019-06-07] MEDS ORDERED: MIDAZOLAM HCL 1MG/1ML-2 ML VIAL ONE (07:22)
[2019-06-07] MEDS ORDERED: ONDANSETRON HCL 4 MG/2 ML VIAL ONE (07:22)
[2019-06-07] MEDS ORDERED: fentaNYL CITRATE 100 MCG/2 ML VL ONE (07:22)
[2019-06-07] MEDS ORDERED: PROPOFOL 10 MG/ML 20 ML IV ONE (07:22)
[2019-06-07] MEDS ORDERED: SODIUM CHLORIDE LOCK 10 ML ONE ×2 (07:22→08:19)
[2019-06-07 07:38] LABS: INR 1.16 (0.9-1.15); Partial Thromboplastin Time 27.7 sec (23.64-32.05)
[2019-06-07 07:43] LABS: BUN/Creatinine Ratio 26.4; Calcium 8.1 mg/dL (8.5-10.1); Potassium 4.6 mmol/L (3.5-5.1)
[2019-06-07] MEDS ORDERED: ceFAZolin 1GM/50ML 50 ML IV ONE (07:46)
[2019-06-07] MEDS ORDERED: fentaNYL CITRATE 100 MCG/2 ML VL IV PRN (08:45)
[2019-06-07] MEDS ORDERED: HYDROmorphone HCL 2 MG/ML VL IV PRN (08:45)
[2019-06-07] MEDS ORDERED: METOCLOPRAMIDE HCL 5MG/ml INJ 2ml VIAL IV PRN (08:45)
[2019-06-07 10:15] VITALS: BP 134/59
[2019-06-09] MEDS ORDERED: ceFAZolin 1GM/50ML 100 ML IV ONE (12:53)
== END 2019-06-07 10:25 | disposition home or self-care (01) ==
LOC: SUR 05:58
PROVIDERS: ATTEND Urology
DX: D49.4 Neoplasm of unspecified behavior of bladder (principal); C67.5 Malignant neoplasm of bladder neck; C67.4 Malignant neoplasm of posterior wall of bladder; N36.8 Other specified disorders of urethra; I12.9 Hypertensive chronic kidney disease with stage 1 through stage 4 chronic kidney disease, or unspecified chronic kidney disease; N18.3 Chronic kidney disease, stage 3 (moderate); I25.2 Old myocardial infarction; E78.5 Hyperlipidemia, unspecified; I25.10 Atherosclerotic heart disease of native coronary artery without angina pectoris; I72.2 Aneurysm of renal artery; Z79.01 Long term (current) use of anticoagulants; Z79.899 Other long term (current) drug therapy; Z88.8 Allergy status to other drugs, medicaments and biological substances; Z95.2 Presence of prosthetic heart valve; Z95.1 Presence of aortocoronary bypass graft; Z95.818 Presence of other cardiac implants and grafts
CPT/HCPCS: 36415; 51720; 52235; 53899; 80048; 80053; 81001; 85025; 85610; 85730; 88305; J0330; J0690; J2250; J2405; J2704; J3010; J9280

== ENCOUNTER 2019-06-14 20:17 | Emergency (ER) | payer OTHER ==
[~2019-06-14] VITALS: Ht 162.6 cm; Wt 63.5 kg
[2019-06-14 22:13] LABS: Urine Bacteria NONE SEEN /hpf (None Seen); Urine Blood 2+ /uL (Negative); Urine Mucus FEW (None Seen); Urine Specific Gravity 1.014 (1.001-1.035); Urine WBC 1426 /hpf (0 - 3)
[2019-06-14] MEDS ORDERED: LEVOFLOXACIN 250 MG TAB PO ONE (22:30)
[2019-06-14] MEDS ORDERED: PHENAZOPYRIDINE HCL 100 MG TAB PO ONE (22:30)
[2019-06-14] MEDS ORDERED: PHENAZOPYRIDINE HCL 100 MG TAB ONE (22:47)
[2019-06-14 22:52] VITALS: BP 140/32
== END 2019-06-14 22:55 | disposition home or self-care (01) ==
LOC: ER 20:19
DX: N39.0 Urinary tract infection, site not specified (principal); I10 Essential (primary) hypertension; E78.5 Hyperlipidemia, unspecified; Z86.73 Personal history of transient ischemic attack (TIA), and cerebral infarction without residual deficits; Z90.49 Acquired absence of other specified parts of digestive tract; Z98.61 Coronary angioplasty status; Z90.89 Acquired absence of other organs
CPT/HCPCS: 81001

== ENCOUNTER → 2019-06-17 | Outpatient (CLI) | payer OTHER | END | disposition home or self-care (01) | LOC: LAB 17:00 | PROVIDERS: ATTEND Urology | DX: R35.1 Nocturia (principal) | CPT/HCPCS: 87086 ==

== ENCOUNTER → 2019-07-05 | Outpatient (CLI) | payer OTHER ==
[2019-07-05 09:34] LABS: Basophils # (auto) 0 uL; Basophils % (auto) 0.6 % (0.0-2.0); Eosinophils # (auto) 0.4 uL; Eosinophils % (auto) 5.4 % (0.0-7.0); Hematocrit 35.9 % (41.0-53.0); Hemoglobin 12.2 g/dL (13.5-17.5); Lymphocytes # (auto) 0.9 uL; Lymphocytes % (auto) 14.4 % (10.0-50.0); Mean Corpuscular Hemoglobin 30.4 pg (28.0-32.0); Mean Corpuscular Volume 89.4 fL (80.0-100.0); Monocytes # (auto) 0.6 uL; Monocytes % (auto) 9.7 % (0.0-12.0); Neutrophils # (auto) 4.6 uL; Neutrophils % (auto) 69.9 % (37.0-80.0); Platelet Count (auto) 214 10^3/uL (140-450); Red Blood Cells 4.02 10^6/uL (4.5-5.90); Red Cell Distribution Width 14.2 % (11.8-14.3); White Blood Cell 6.5 10^3/uL (4.4-10.8)
[2019-07-05 09:39] LABS: Urine Bacteria FEW /hpf (None Seen); Urine Blood 1+ /uL (Negative); Urine Specific Gravity 1.013 (1.001-1.035); Urine WBC 135 /hpf (0 - 3); Urine WBC Clumps PRESENT /hpf (None Seen)
[2019-07-05 10:19] LABS: Potassium 4.7 mmol/L (3.5-5.1)
[2019-07-05 10:29] LABS: Albumin 3.5 g/dL (3.4-5.0); Bilirubin, Total 0.6 mg/dL (0.2-1.0); Calcium 8.3 mg/dL (8.5-10.1); Total Protein 6.7 g/dL (6.4-8.2)
== END | disposition home or self-care (01) ==
LOC: LAB 08:55
PROVIDERS: ATTEND Nurse Practitioner
DX: E78.5 Hyperlipidemia, unspecified (principal); Z87.891 Personal history of nicotine dependence; Z95.1 Presence of aortocoronary bypass graft; Z98.890 Other specified postprocedural states; Z83.42 Family history of familial hypercholesterolemia; Z82.5 Family history of asthma and other chronic lower respiratory diseases; Z82.3 Family history of stroke; Z82.49 Family history of ischemic heart disease and other diseases of the circulatory system; Z80.1 Family history of malignant neoplasm of trachea, bronchus and lung
CPT/HCPCS: 36415; 80053; 80061; 81001; 85025

== ENCOUNTER 2019-07-19 09:05 | Day surgery (SDC) | payer OTHER ==
[2019-07-15 10:50] LABS: Basophils # (auto) 0 uL; Basophils % (auto) 0.7 % (0.0-2.0); Eosinophils # (auto) 0.3 uL; Eosinophils % (auto) 4.4 % (0.0-7.0); Hematocrit 36.4 % (41.0-53.0); Hemoglobin 12.4 g/dL (13.5-17.5); Lymphocytes # (auto) 0.8 uL; Lymphocytes % (auto) 13.3 % (10.0-50.0); Mean Corpuscular Hemoglobin 30.6 pg (28.0-32.0); Monocytes # (auto) 0.5 uL; Neutrophils # (auto) 4.6 uL; Neutrophils % (auto) 73.6 % (37.0-80.0); Platelet Count (auto) 174 10^3/uL (140-450); Red Blood Cells 4.04 10^6/uL (4.5-5.90); Red Cell Distribution Width 14.4 % (11.8-14.3); White Blood Cell 6.3 10^3/uL (4.4-10.8)
[2019-07-15 10:59] LABS: INR 3.12 (0.9-1.15); Partial Thromboplastin Time 39.3 sec (23.64-32.05)
[~2019-07-19] VITALS: Ht 162.6 cm; Wt 63.5 kg
[2019-07-19] MEDS ORDERED: SODIUM CHLORIDE LOCK 10 ML ONE (09:12)
[2019-07-19] MEDS ORDERED: LIDOCAINE VISCOUS 2% 15ML UD ONE (09:12)
[2019-07-19] MEDS ORDERED: diphenhdrAMINE HCL 50 MG/1 ML VL ONE (09:13)
[2019-07-19 10:24] LABS: INR 1.22 (0.9-1.15); Partial Thromboplastin Time 28.3 sec (23.64-32.05)
[2019-07-19] MEDS: MIDAZOLAM HCL 5 MG/ML-1ML VIAL ONE ×2 (11:28→11:31)
[2019-07-19] MEDS: fentaNYL CITRATE 100 MCG/2 ML VL ONE ×2 (11:28→11:31)
[2019-07-19 12:52] VITALS: BP 139/53
== END 2019-07-19 12:56 | disposition home or self-care (01) ==
LOC: GI 09:05
PROVIDERS: ATTEND Internal Medicine Gastroenterology
DX: Z12.11 Encounter for screening for malignant neoplasm of colon (principal); K63.89 Other specified diseases of intestine; K29.50 Unspecified chronic gastritis without bleeding; K29.80 Duodenitis without bleeding; K64.8 Other hemorrhoids; K57.30 Diverticulosis of large intestine without perforation or abscess without bleeding; Z87.19 Personal history of other diseases of the digestive system; Z88.8 Allergy status to other drugs, medicaments and biological substances; Z79.01 Long term (current) use of anticoagulants; Z79.899 Other long term (current) drug therapy; Z98.890 Other specified postprocedural states; Z95.1 Presence of aortocoronary bypass graft; Z95.818 Presence of other cardiac implants and grafts
CPT/HCPCS: 36415; 43239; 45380; 85025; 85610; 85730; 88305; 88342; J1200; J2250; J3010; J7030; 99152

== ENCOUNTER 2019-08-17 23:56 | Inpatient (IN) | payer OTHER ==
[~2019-08-17] VITALS: Ht 162.6 cm; Wt 68.0 kg
[2019-08-18] MEDS ORDERED: IPRATROPIUM BROM 0.5 MG/2.5ML INH SOL HHN ONE (00:30)
[2019-08-18] MEDS ORDERED: ALBUTEROL SULF 2.5 MG/0.5ML(0.5%) NEB SOLN HHN ONE (00:30)
[2019-08-18 00:40] LABS: Basophils # (auto) 0.1 uL; Basophils % (auto) 1.4 % (0.0-2.0); Eosinophils # (auto) 0.6 uL; Eosinophils % (auto) 6.8 % (0.0-7.0); Hematocrit 39.4 % (41.0-53.0); Hemoglobin 13.2 g/dL (13.5-17.5); Lymphocytes # (auto) 1.5 uL; Lymphocytes % (auto) 18.2 % (10.0-50.0); Mean Corpuscular Hemoglobin 30.1 pg (28.0-32.0); Mean Corpuscular Hgb Conc. 33.6 g/dL (32.0-36.0); Mean Corpuscular Volume 89.4 fL (80.0-100.0); Monocytes # (auto) 0.9 uL; Monocytes % (auto) 10.9 % (0.0-12.0); Neutrophils # (auto) 5.1 uL; Neutrophils % (auto) 62.7 % (37.0-80.0); Platelet Count (auto) 205 10^3/uL (140-450); Red Blood Cells 4.41 10^6/uL (4.5-5.90); Red Cell Distribution Width 14.2 % (11.8-14.3); White Blood Cell 8.1 10^3/uL (4.4-10.8)
[2019-08-18 00:56] LABS: INR 2.69 (0.9-1.15); Partial Thromboplastin Time 41.2 sec (23.64-32.05)
[2019-08-18 01:00] LABS: Albumin 3.6 g/dL (3.4-5.0); Anion Gap 8 (5-15); Aspartate Aminotransferase 29 U/L (15-37); BUN/Creatinine Ratio 17.1; Blood Urea Nitrogen 22 mg/dL (7-18); Calcium 8.3 mg/dL (8.5-10.1); Carbon Dioxide 19 mmol/L (21-32); Chloride 109 mmol/L (98-107); GFR African American 69 mL/min; GFR Non-African American 57 mL/min; Glucose 152 mg/dL (74-106); Sodium 136 mmol/L (136-145)
[2019-08-18 01:13] LABS: Alanine Aminotransferase 33 U/L (16-61); Alkaline Phosphatase 93 U/L (45-117); Bilirubin, Total 0.3 mg/dL (0.2-1.0); Total Protein 7.6 g/dL (6.4-8.2)
[2019-08-18] MEDS ORDERED: IPRATROPIUM BROM 0.5 MG/2.5ML INH SOL NEB ONE (02:30)
[2019-08-18] MEDS ORDERED: ALBUTEROL SULF 2.5 MG/0.5ML(0.5%) NEB SOLN NEB ONE (02:30)
[2019-08-18] MEDS ORDERED: ACETAMINOPHEN 325 MG TAB PO ONE (03:30)
[2019-08-18] MEDS ORDERED: methylPREDNISolone SOD SUCC 125 MG/2 ML VL IV ONE (03:45)
[2019-08-18] MEDS ORDERED: IPRATROPIUM BROM 0.5 MG/2.5ML INH SOL NEB PRN (05:15)
[2019-08-18] MEDS ORDERED: ONDANSETRON HCL 4 MG/2 ML VIAL IV PRN (05:15)
[2019-08-18] MEDS ORDERED: TEMAZEPAM 15 MG CAP PO PRN (05:15)
[2019-08-18] MEDS ORDERED: ACETAMINOPHEN 325 MG TAB PO PRN (05:15)
[2019-08-18] MEDS: guaiFENesin-DM 100/10mg/5ml SYR PO PRN ×2 (06:44→16:52)
[2019-08-18] MEDS: ALBUTEROL SULF 2.5 MG/0.5ML(0.5%) NEB SOLN NEB SCH ×2 (06:55→11:34)
[2019-08-18 07:07] VITALS: BP 135/52
--- NOTE | 2019-08-18 08:40 | NUR ---
MS admit from ER SAMUEL FISHMAN admitted to tele/MS, no SBAR received. Patient oriented to TOD HAQUE RN primary RN, unit, room, bed, and unit policies regarding patient care and visiting hours. Patient is awake, alert and oriented x4. No signs or symptoms of distress noted at this time. Patient is on room air, respirations even and unlabored. Patient denies pain at this time. Reviewed plan of care with patient, patient verbalized understanding. Bed in low and locked position, call light within reach. Will continue to monitor Q1 hour and PRN.
[2019-08-18] MEDS ORDERED: cefTRIAXone 1GM/50ML D5W 50 ML IV SCH (09:00)
[2019-08-18 09:25] VITALS: BP 152/73
[2019-08-18] MEDS ORDERED: methylPREDNISolone SOD SUCC 125 MG/2 ML VL IV SCH (10:00)
[2019-08-18] MEDS ORDERED: LISINOPRIL 10 MG TAB PO SCH (10:00)
[2019-08-18] MEDS ORDERED: METOPROLOL SUCCINATE XL 50 MG TAB PO SCH (10:00)
[2019-08-18] MEDS ORDERED: FAMOTIDINE 20 MG TAB PO SCH (10:00)
[2019-08-18] MEDS ORDERED: CARVEDILOL 3.125 MG TAB PO SCH (10:00)
--- NOTE | 2019-08-18 11:36 | NUR ---
Dr. Mary at bedside Discussing plan of care with patient and this RN. Patient is to discharge later today after receiving another breathing treatment. Patient verbalized understanding. Bed in low and locked position, call light within reach. Will continue to monitor Q1 hour and PRN.
[2019-08-18 13:00] VITALS: BP 138/69
--- NOTE | 2019-08-18 15:21 | NUR ---
Dr. Mary at bedside Updating patient on plan of care. Instructed patient and daughter to discontinue home medication Metoprolol. Patient verbalized understanding. Awaiting discharge order. Will continue to monitor Q1 hour and PRN.
[2019-08-18 16:04] VITALS: BP 138/69
[2019-08-18 17:00] VITALS: BP 147/66
[2019-08-18] MEDS ORDERED: WARFARIN SODIUM 1 MG TAB PO ONE (17:00)
--- NOTE | 2019-08-18 17:33 | NUR ---
Discharge Discharge instructions given as ordered. Encourage to follow up with PMD as instructed. All questions and concerns addressed. Patient verbalized understanding. Medication reconciliation form completed and copy given to patient. New prescriptions filled in [facility] for patient. IV catheter remove, catheter intact, pressure dressing applied. Patient refused to be taken down via wheelchair, patient ambulated to private vehicle accompanied by daughter with all personal belongings. No signs or symptoms of distress noted at this time.
[2019-08-18] MEDS ORDERED: TAMSULOSIN HYDROCHLORIDE 0.4 MG CAP PO SCH (18:00)
[2019-08-18] MEDS ORDERED: ATORVASTATIN 20 MG TAB PO SCH (22:00)
== END 2019-08-18 17:30 | disposition home or self-care (01) | DRG 190 ==
LOC: ER 23:58 → OVERFLOW 23:59 → EAST 08-18 08:47
PROVIDERS: ADMIT Nurse Practitioner; ATTEND Internal Medicine
DX: J44.0 Chronic obstructive pulmonary disease with (acute) lower respiratory infection (principal); J18.9 Pneumonia, unspecified organism; D68.9 Coagulation defect, unspecified; I25.10 Atherosclerotic heart disease of native coronary artery without angina pectoris; I10 Essential (primary) hypertension; E78.5 Hyperlipidemia, unspecified; Z82.49 Family history of ischemic heart disease and other diseases of the circulatory system; Z95.2 Presence of prosthetic heart valve; Z95.1 Presence of aortocoronary bypass graft; Z90.49 Acquired absence of other specified parts of digestive tract
CPT/HCPCS: 36415; 36600; 71045; 80053; 82805; 83036; 83735; 83880; 84484; 85025; 85610; 85730; 87804; 93005; 94640; 96374; G0378; J0696

== ENCOUNTER → 2019-10-15 | Outpatient (CLI) | payer OTHER ==
[~2019-10-15] MED LIST changes: -MET25T PO
== END | disposition home or self-care (01) ==
LOC: XYW 08:32
PROVIDERS: ATTEND Internal Medicine
DX: Z01.818 Encounter for other preprocedural examination (principal); I35.1 Nonrheumatic aortic (valve) insufficiency; I51.7 Cardiomegaly; Z95.2 Presence of prosthetic heart valve
CPT/HCPCS: 93306

== ENCOUNTER 2019-11-24 07:48 | Day surgery (SDC) | payer OTHER ==
[2019-11-22 11:00] LABS: Basophils # (auto) 0 10 ^3/uL (0-0.2); Basophils % (auto) 0.8 % (0.0-2.0); Eosinophils # (auto) 0.2 10 ^3/uL (0-0.8); Eosinophils % (auto) 3.5 % (0.0-7.0); Hematocrit 39.3 % (41.0-53.0); Hemoglobin 13.6 g/dL (13.5-17.5); Lymphocytes # (auto) 1.1 10 ^3/uL (0.4-5.4); Lymphocytes % (auto) 16.8 % (10.0-50.0); Mean Corpuscular Hemoglobin 30.4 pg (28.0-32.0); Mean Corpuscular Hgb Conc. 34.6 g/dL (32.0-36.0); Mean Corpuscular Volume 87.9 fL (80.0-100.0); Monocytes # (auto) 0.6 10 ^3/uL (0-1.3); Monocytes % (auto) 9.3 % (0.0-12.0); Neutrophils # (auto) 4.4 10 ^3/uL (1.6-8.6); Neutrophils % (auto) 69.6 % (37.0-80.0); Nucleated Red Blood Cells % 0.1 %; Platelet Count (auto) 178 10^3/uL (140-450); Red Blood Cells 4.47 10^6/uL (4.5-5.90); White Blood Cell 6.3 10^3/uL (4.4-10.8)
[2019-11-22 11:15] LABS: Albumin 3.7 g/dL (3.4-5.0); Calcium 9.2 mg/dL (8.5-10.1); Partial Thromboplastin Time 31.7 sec (23.64-32.05); Potassium 4.9 mmol/L (3.5-5.1)
[2019-11-22 11:19] LABS: BUN/Creatinine Ratio 19.2; Bilirubin, Total 0.6 mg/dL (0.2-1.0); Total Protein 7.2 g/dL (6.4-8.2)
[~2019-11-24] VITALS: Ht 162.6 cm; Wt 63.5 kg
[~2019-11-24 07:48] MED LIST changes: +METO25TA5 PO
[2019-11-24] MEDS ORDERED: LIDOCAINE 2%HCL (LOCAL ANESTH.) INJ 20ML MDV ONE (08:35)
[2019-11-24] MEDS ORDERED: IODIXANOL 320MG/ML 100ML BTL IV ONE ×2 (08:35→08:37)
[2019-11-24] MEDS ORDERED: fentaNYL CITRATE 100 MCG/2 ML VL ONE (08:37)
[2019-11-24] MEDS ORDERED: MIDAZOLAM HCL 1MG/1ML-2 ML VIAL ONE (08:37)
[2019-11-24] MEDS ORDERED: ANGIOMAX 250 MG VIAL IV ONE (08:37)
[2019-11-24] MEDS ORDERED: SODIUM CHL 0.9% 0 ML ONE (08:37)
[2019-11-24] MEDS ORDERED: HEPARIN SODIUM (PORCINE) 5000 UNITS/ML 1ML VIAL ONE ×2 (08:40→10:09)
[2019-11-24] MEDS ORDERED: VERAPAMIL 2.5MG/ML INJ 2ML VIAL IV ONE (08:40)
[2019-11-24] MEDS ORDERED: diphenhdrAMINE HCL 50 MG/1 ML VL ONE (09:54)
[2019-11-24] MEDS ORDERED: ONDANSETRON HCL 4 MG/2 ML VIAL IV PRN (11:15)
[2019-11-24] MEDS ORDERED: HYDROcodone-ACET 5/325MG TAB PO PRN (11:15)
[2019-11-24] MEDS ORDERED: ACETAMINOPHEN 500 MG TAB PO PRN (11:15)
== END 2019-11-24 14:36 | disposition home or self-care (01) ==
LOC: CATH 07:48
PROVIDERS: ATTEND Internal Medicine
DX: I25.10 Atherosclerotic heart disease of native coronary artery without angina pectoris (principal); I42.9 Cardiomyopathy, unspecified; I11.0 Hypertensive heart disease with heart failure; I50.9 Heart failure, unspecified; I43 Cardiomyopathy in diseases classified elsewhere; Z95.1 Presence of aortocoronary bypass graft; Z79.01 Long term (current) use of anticoagulants; Z87.891 Personal history of nicotine dependence; Z79.899 Other long term (current) drug therapy; Z88.8 Allergy status to other drugs, medicaments and biological substances
CPT/HCPCS: 36415; 80053; 85025; 85610; 85730; 93459; C1769; C1887; C1894; J1200; J1644; J2250; J3010; J7030; Q9967; 99152; 99153

== ENCOUNTER 2020-02-09 10:45 | Inpatient (IN) | payer MEDICARE, OTHER ==
[~2020-02-09] VITALS: Ht 162.6 cm; Wt 67.6 kg
[~2020-02-09 10:45] MED LIST changes: -CARV3.1240 PO; -METO25TA5 PO
[2020-02-09 11:31] LABS: Basophils # (auto) 0 10 ^3/uL (0-0.2); Basophils % (auto) 0.6 % (0.0-2.0); Eosinophils # (auto) 0.2 10 ^3/uL (0-0.8); Eosinophils % (auto) 2.4 % (0.0-7.0); Hematocrit 39.5 % (41.0-53.0); Hemoglobin 13.3 g/dL (13.5-17.5); Lymphocytes # (auto) 1.1 10 ^3/uL (0.4-5.4); Lymphocytes % (auto) 17.3 % (10.0-50.0); Mean Corpuscular Hemoglobin 29.6 pg (28.0-32.0); Mean Corpuscular Hgb Conc. 33.6 g/dL (32.0-36.0); Mean Corpuscular Volume 88.1 fL (80.0-100.0); Monocytes # (auto) 0.5 10 ^3/uL (0-1.3); Neutrophils # (auto) 4.7 10 ^3/uL (1.6-8.6); Neutrophils % (auto) 71.7 % (37.0-80.0); Platelet Count (auto) 200 10^3/uL (140-450); Red Blood Cells 4.48 10^6/uL (4.5-5.90); Red Cell Distribution Width 14.2 % (11.8-14.3); White Blood Cell 6.6 10^3/uL (4.4-10.8)
[2020-02-09 11:50] LABS: INR 1.14 (0.9-1.15); Partial Thromboplastin Time 27.1 sec (23.64-32.05)
[2020-02-09 11:51] LABS: Albumin 3.7 g/dL (3.4-5.0); Anion Gap 4 (5-15); Blood Urea Nitrogen 29 mg/dL (7-18); Calcium 8.4 mg/dL (8.5-10.1); Carbon Dioxide 24 mmol/L (21-32); Chloride 110 mmol/L (98-107); Glucose 157 mg/dL (74-106); Magnesium 2.4 mg/dL (1.6-2.6); Potassium 4.7 mmol/L (3.5-5.1); Sodium 138 mmol/L (136-145)
[2020-02-09 11:58] LABS: Alanine Aminotransferase 45 U/L (16-61); Alkaline Phosphatase 91 U/L (45-117); Aspartate Aminotransferase 31 U/L (15-37); BUN/Creatinine Ratio 20.1; Bilirubin, Total 0.7 mg/dL (0.2-1.0); GFR African American 61 mL/min; GFR Non-African American 50 mL/min; Total Protein 6.8 g/dL (6.4-8.2)
[2020-02-09] MEDS ORDERED: HYDROcodone-ACET 5/325MG TAB PO PRN (14:30)
[2020-02-09] MEDS ORDERED: ONDANSETRON HCL 4 MG/2 ML VIAL IV PRN (14:30)
[2020-02-09] MEDS ORDERED: ACETAMINOPHEN 500 MG TAB PO PRN (14:30)
[2020-02-09] MEDS ORDERED: MORPHINE SULF INJ 2 MG/ML SYRINGE 1ML IV PRN (14:30)
[2020-02-09] MEDS ORDERED: NITROGLYCERIN 0.4 MG SL TAB SL PRN (14:30)
[2020-02-09] MEDS: SODIUM CHLORIDE 0.9% 1,000 ML IV SCH (15:15)
[2020-02-09 15:29] LABS: Cholesterol 130 mg/dL (< 200)
[2020-02-09 15:32] LABS: HDL Cholesterol 39 mg/dL (40-59); LDL Cholesterol 84 mg/dL (< 100); Triglycerides 68 mg/dL (< 150)
[2020-02-09] MEDS: CARVEDILOL 3.125 MG TAB PO SCH (18:17)
[2020-02-09] MEDS: TAMSULOSIN HYDROCHLORIDE 0.4 MG CAP PO SCH (18:18)
[2020-02-09 22:00] VITALS: BP 164/73
[2020-02-09] MEDS: LISINOPRIL 10 MG TAB PO SCH (22:34)
[2020-02-10] MEDS: SODIUM CHLORIDE 0.9% 1,000 ML IV SCH ×2 (03:36→10:30)
[2020-02-10 05:00] VITALS: BP 146/65
[2020-02-10] MEDS: CARVEDILOL 3.125 MG TAB PO SCH ×2 (08:00→18:40)
[2020-02-10 09:14] LABS: Urine Bacteria NONE SEEN /hpf (None Seen); Urine Blood Negative /uL (Negative); Urine Specific Gravity 1.012 (1.001-1.035); Urine WBC 2 /hpf (0 - 3)
[2020-02-10 09:49] VITALS: BP 145/65
[2020-02-10] MEDS: ATORVASTATIN 20 MG TAB PO SCH (09:51)
[2020-02-10] MEDS: FAMOTIDINE 20 MG TAB PO SCH (09:51)
[2020-02-10] MEDS ORDERED: CIPROFLOXACIN 400MG/200ML 200 ML IV ONE (10:53)
[2020-02-10] MEDS ORDERED: VANCOMYCIN PER PHARMACY 0 MG IV SCH (11:15)
[2020-02-10] MEDS ORDERED: PIPERACILLIN-TAZO 4.5GM 100 ML IV ONE (11:15)
[2020-02-10] MEDS ORDERED: VANCOMYCIN HCL 1000 MG VL ONE (11:21)
[2020-02-10] MEDS ORDERED: fentaNYL CITRATE 100 MCG/2 ML VL ONE (11:44)
[2020-02-10] MEDS ORDERED: PROPOFOL 10 MG/ML 20 ML IV ONE (11:46)
[2020-02-10] MEDS ORDERED: LISI-646 PO (12:06)
[2020-02-10] MEDS ORDERED: MORPHINE SULF INJ 2 MG/ML SYRINGE 1ML ONE (13:03)
[2020-02-10] MEDS ORDERED: MORPHINE SULF INJ 2 MG/ML SYRINGE 1ML IV ONE (13:15)
[2020-02-10 14:00] VITALS: BP 152/76
[2020-02-10] MEDS: MORPHINE SULF INJ 2 MG/ML SYRINGE 1ML IV PRN ×2 (14:24→20:01)
[2020-02-10] MEDS ORDERED: VANCOMYCIN 750mg/250ml 250 ML IV SCH (15:00)
[2020-02-10 16:18] VITALS: BP 147/66
[2020-02-10] MEDS: PIPERACILLIN-TAZOB 3.375GM 100 ML IV SCH (18:00)
[2020-02-10] MEDS: TAMSULOSIN HYDROCHLORIDE 0.4 MG CAP PO SCH (18:39)
[2020-02-10] MEDS: LISINOPRIL 10 MG TAB PO SCH (22:41)
[2020-02-10 23:00] VITALS: BP 138/65
[2020-02-11] MEDS: PIPERACILLIN-TAZOB 3.375GM 100 ML IV SCH ×3 (00:17→12:48)
[2020-02-11 05:10] VITALS: BP 120/59
[2020-02-11 06:01] LABS: Basophils # (auto) 0 10 ^3/uL (0-0.2); Basophils % (auto) 0.4 % (0.0-2.0); Eosinophils # (auto) 0.2 10 ^3/uL (0-0.8); Eosinophils % (auto) 2.2 % (0.0-7.0); Hematocrit 37.2 % (41.0-53.0); Hemoglobin 12.6 g/dL (13.5-17.5); Lymphocytes # (auto) 0.6 10 ^3/uL (0.4-5.4); Lymphocytes % (auto) 6.4 % (10.0-50.0); Mean Corpuscular Hemoglobin 30.1 pg (28.0-32.0); Mean Corpuscular Volume 88.7 fL (80.0-100.0); Monocytes # (auto) 0.8 10 ^3/uL (0-1.3); Monocytes % (auto) 7.7 % (0.0-12.0); Neutrophils # (auto) 8.2 10 ^3/uL (1.6-8.6); Neutrophils % (auto) 83.3 % (37.0-80.0); Nucleated Red Blood Cells % 0.1 %; Platelet Count (auto) 184 10^3/uL (140-450); Red Blood Cells 4.19 10^6/uL (4.5-5.90); White Blood Cell 9.9 10^3/uL (4.4-10.8)
[2020-02-11 06:22] LABS: Potassium 4.2 mmol/L (3.5-5.1)
[2020-02-11 06:28] LABS: INR 1.13 (0.9-1.15)
[2020-02-11 06:31] LABS: BUN/Creatinine Ratio 16.5; Calcium 8.4 mg/dL (8.5-10.1)
[2020-02-11 08:43] VITALS: BP 131/62
[2020-02-11] MEDS: ATORVASTATIN 20 MG TAB PO SCH (09:34)
[2020-02-11] MEDS: CARVEDILOL 3.125 MG TAB PO SCH (09:34)
[2020-02-11] MEDS: FAMOTIDINE 20 MG TAB PO SCH (09:34)
[2020-02-11] MEDS ORDERED: BELLADONNA ALKAL/OPIUM (16.2/30MG) RECT SUPP PR SCH (10:00)
[2020-02-11 12:39] VITALS: BP 132/59
[2020-02-11 14:20] VITALS: BP 132/59
[2020-02-12] MEDS ORDERED: FAMOTIDINE 20 MG TAB PO SCH (10:00)
== END 2020-02-11 15:00 | disposition home or self-care (01) | DRG 713 ==
LOC: ER 10:45 → TELE 10:46 → TELE-CENTR 22:57
PROVIDERS: ADMIT Nurse Practitioner Acute Care; ATTEND Internal Medicine
PROC: 0VB08ZZ Excision of Prostate, Via Natural or Artificial Opening Endoscopic (ICD-10-PCS; principal; 2020-02-10 11:35)
DX: N40.0 Benign prostatic hyperplasia without lower urinary tract symptoms (principal); N17.0 Acute kidney failure with tubular necrosis; I42.9 Cardiomyopathy, unspecified; I50.22 Chronic systolic (congestive) heart failure; I49.9 Cardiac arrhythmia, unspecified; I25.10 Atherosclerotic heart disease of native coronary artery without angina pectoris; E86.0 Dehydration; I49.3 Ventricular premature depolarization; I34.0 Nonrheumatic mitral (valve) insufficiency; R31.9 Hematuria, unspecified; I11.0 Hypertensive heart disease with heart failure; E78.5 Hyperlipidemia, unspecified; I44.0 Atrioventricular block, first degree; I48.91 Unspecified atrial fibrillation; Z79.01 Long term (current) use of anticoagulants; Z79.899 Other long term (current) drug therapy; Z82.49 Family history of ischemic heart disease and other diseases of the circulatory system; Z83.3 Family history of diabetes mellitus; Z95.1 Presence of aortocoronary bypass graft; Z95.2 Presence of prosthetic heart valve; Z95.5 Presence of coronary angioplasty implant and graft; Z90.49 Acquired absence of other specified parts of digestive tract
CPT/HCPCS: 36415; 80048; 80053; 80061; 81001; 83036; 83735; 84484; 85025; 85610; 85730; 86850; 86900; 86901; 93005; G0378; J2405; J2543; J2704

== ENCOUNTER → 2020-03-17 | Outpatient (CLI) | payer OTHER ==
[~2020-03-17] MED LIST changes: +LISI-646 PO; -LISI10TA6 PO
[2020-03-17 10:03] LABS: Basophils # (auto) 0.1 10 ^3/uL (0-0.2); Basophils % (auto) 0.8 % (0.0-2.0); Eosinophils # (auto) 0.3 10 ^3/uL (0-0.8); Eosinophils % (auto) 3.9 % (0.0-7.0); Hemoglobin 13.3 g/dL (13.5-17.5); Lymphocytes # (auto) 1.2 10 ^3/uL (0.4-5.4); Lymphocytes % (auto) 16.9 % (10.0-50.0); Mean Corpuscular Hemoglobin 29.9 pg (28.0-32.0); Mean Corpuscular Hgb Conc. 34.1 g/dL (32.0-36.0); Mean Corpuscular Volume 87.7 fL (80.0-100.0); Monocytes # (auto) 0.6 10 ^3/uL (0-1.3); Monocytes % (auto) 9.2 % (0.0-12.0); Neutrophils # (auto) 4.8 10 ^3/uL (1.6-8.6); Neutrophils % (auto) 69.2 % (37.0-80.0); Nucleated Red Blood Cells % 0.1 %; Platelet Count (auto) 179 10^3/uL (140-450); Red Blood Cells 4.44 10^6/uL (4.5-5.90); Red Cell Distribution Width 14.3 % (11.8-14.3); White Blood Cell 6.9 10^3/uL (4.4-10.8)
[2020-03-17 10:09] LABS: Urine Bacteria FEW /hpf (None Seen); Urine Blood 2+ /uL (Negative); Urine Specific Gravity 1.017 (1.001-1.035); Urine WBC 199 /hpf (0 - 3); Urine WBC Clumps PRESENT /hpf (None Seen)
[2020-03-17 10:58] LABS: Albumin 3.8 g/dL (3.4-5.0); BUN/Creatinine Ratio 23.9; Bilirubin, Total 0.6 mg/dL (0.2-1.0); Calcium 9.1 mg/dL (8.5-10.1); Total Protein 7.1 g/dL (6.4-8.2)
[2020-03-17 11:36] LABS: Potassium 5.7 mmol/L (3.5-5.1)
== END | disposition home or self-care (01) ==
LOC: LAB 09:48
PROVIDERS: ATTEND Nurse Practitioner
DX: I10 Essential (primary) hypertension (principal); E78.5 Hyperlipidemia, unspecified
CPT/HCPCS: 36415; 80053; 80061; 81001; 84443; 85025

== ENCOUNTER → 2020-03-21 | Outpatient (CLI) | payer OTHER ==
[2020-03-21 11:11] LABS: Albumin 3.7 g/dL (3.4-5.0); Calcium 8.4 mg/dL (8.5-10.1); Potassium 4.9 mmol/L (3.5-5.1)
[2020-03-21 11:14] LABS: BUN/Creatinine Ratio 23.9; Bilirubin, Total 0.5 mg/dL (0.2-1.0)
== END | disposition home or self-care (01) ==
LOC: LAB 10:11
PROVIDERS: ATTEND Nurse Practitioner
DX: E87.6 Hypokalemia (principal)
CPT/HCPCS: 36415; 80053

== ENCOUNTER → 2020-06-12 | Outpatient (CLI) | payer OTHER | END | disposition home or self-care (01) | LOC: LAB 09:51 | PROVIDERS: ATTEND Urology | DX: N40.1 Benign prostatic hyperplasia with lower urinary tract symptoms (principal) | CPT/HCPCS: 84153 ==

== ENCOUNTER → 2020-11-17 | Outpatient (CLI) | payer OTHER ==
[2020-11-17 11:06] LABS: Urine Bacteria NONE SEEN /hpf (None Seen); Urine Blood TRACE /uL (Negative); Urine Specific Gravity 1.015 (1.001-1.035); Urine WBC 23 /hpf (0 - 3)
== END | disposition home or self-care (01) ==
LOC: LAB 10:25
PROVIDERS: ATTEND Urology
DX: C67.9 Malignant neoplasm of bladder, unspecified (principal); N40.0 Benign prostatic hyperplasia without lower urinary tract symptoms
CPT/HCPCS: 81001; 84153

== ENCOUNTER → 2021-02-23 | Outpatient (CLI) | payer OTHER ==
[~2021-02-23] MED LIST changes: -LISI-646 PO; +LISI20TA28 PO
== END | disposition home or self-care (01) ==
LOC: XYW 09:48
PROVIDERS: ATTEND Internal Medicine
DX: Z01.810 Encounter for preprocedural cardiovascular examination (principal); I08.2 Rheumatic disorders of both aortic and tricuspid valves; I44.0 Atrioventricular block, first degree
CPT/HCPCS: 93306

== ENCOUNTER 2021-03-15 12:14 | Emergency (ER) | payer OTHER ==
[~2021-03-15] VITALS: Ht 160 cm; Wt 63.5 kg
[2021-03-15 12:54] LABS: Basophils # (auto) 0.1 10 ^3/uL (0-0.2); Basophils % (auto) 0.6 % (0.0-2.0); Eosinophils # (auto) 0 10 ^3/uL (0-0.8); Eosinophils % (auto) 0.3 % (0.0-7.0); Hematocrit 39.8 % (41.0-53.0); Hemoglobin 13.6 g/dL (13.5-17.5); Lymphocytes % (auto) 7.1 % (10.0-50.0); Mean Corpuscular Hgb Conc. 34.2 g/dL (32.0-36.0); Mean Corpuscular Volume 87.6 fL (80.0-100.0); Monocytes # (auto) 0.6 10 ^3/uL (0-1.3); Monocytes % (auto) 4.4 % (0.0-12.0); Neutrophils # (auto) 12.7 10 ^3/uL (1.6-8.6); Neutrophils % (auto) 87.6 % (37.0-80.0); Red Blood Cells 4.54 10^6/uL (4.5-5.90); Red Cell Distribution Width 14.2 % (11.8-14.3); White Blood Cell 14.5 10^3/uL (4.4-10.8)
[2021-03-15 13:05] LABS: Albumin 3.9 g/dL (3.4-5.0); Anion Gap 6 (5-15); Blood Urea Nitrogen 23 mg/dL (7-18); Calcium 8.8 mg/dL (8.5-10.1); Carbon Dioxide 20 mmol/L (21-32); Chloride 115 mmol/L (98-107); Glucose 165 mg/dL (74-106); Lipase 229 U/L (73-393); Potassium 3.9 mmol/L (3.5-5.1); Sodium 141 mmol/L (136-145)
[2021-03-15 13:11] LABS: Alanine Aminotransferase 40 U/L (16-61); Alkaline Phosphatase 79 U/L (45-117); Aspartate Aminotransferase 25 U/L (15-37); BUN/Creatinine Ratio 17.6; Bilirubin, Total 0.6 mg/dL (0.2-1.0); GFR African American 68 mL/min; GFR Non-African American 56 mL/min; Total Protein 7.2 g/dL (6.4-8.2)
[2021-03-15] MEDS ORDERED: SODIUM CHLORIDE 0.9% 1,000 ML IV ONE (14:45)
[2021-03-15 17:52] LABS: Urine Bacteria FEW /hpf (None Seen); Urine Blood TRACE /uL (Negative); Urine Mucus FEW (None Seen); Urine Specific Gravity 1.016 (1.001-1.035); Urine WBC 3 /hpf (0 - 3)
[2021-03-15 18:00] VITALS: BP 142/45
== END 2021-03-15 18:29 | disposition home or self-care (01) ==
LOC: ER 12:14
DX: G45.9 Transient cerebral ischemic attack, unspecified (principal); E78.5 Hyperlipidemia, unspecified; I10 Essential (primary) hypertension; Z86.73 Personal history of transient ischemic attack (TIA), and cerebral infarction without residual deficits; Z90.49 Acquired absence of other specified parts of digestive tract; Z98.61 Coronary angioplasty status; Z95.1 Presence of aortocoronary bypass graft; Z90.89 Acquired absence of other organs; Z20.822 Contact with and (suspected) exposure to COVID-19
CPT/HCPCS: 36415; 70450; 71045; 80053; 81001; 83690; 84484; 85025; 87426; 93005; 99285; J7030; 96360

== ENCOUNTER → 2021-03-20 | Outpatient (CLI) | payer OTHER ==
[~2021-03-20] VITALS: Ht 162.6 cm; Wt 63.5 kg
[~2021-03-20] MED LIST changes: +ADENOSINE 53 MG in GIVE UN-DILUTED 0 ML IV ONE
[2021-03-20 10:15] VITALS: BP 133/57
== END | disposition home or self-care (01) ==
LOC: XY 08:49
PROVIDERS: ATTEND Internal Medicine
DX: Z01.810 Encounter for preprocedural cardiovascular examination (principal); I10 Essential (primary) hypertension; I25.10 Atherosclerotic heart disease of native coronary artery without angina pectoris; E78.5 Hyperlipidemia, unspecified
CPT/HCPCS: 78452; 93017; A9500; J0153

== ENCOUNTER 2021-04-05 07:09 | Day surgery (SDC) | payer OTHER ==
[2021-04-02 12:54] LABS: Basophils # (auto) 0 10 ^3/uL (0-0.2); Basophils % (auto) 0.6 % (0.0-2.0); Eosinophils # (auto) 0.1 10 ^3/uL (0-0.8); Eosinophils % (auto) 1.2 % (0.0-7.0); Hematocrit 39.1 % (41.0-53.0); Hemoglobin 13.5 g/dL (13.5-17.5); Lymphocytes # (auto) 1.2 10 ^3/uL (0.4-5.4); Lymphocytes % (auto) 15.1 % (10.0-50.0); Mean Corpuscular Hemoglobin 30.2 pg (28.0-32.0); Mean Corpuscular Hgb Conc. 34.5 g/dL (32.0-36.0); Mean Corpuscular Volume 87.5 fL (80.0-100.0); Monocytes # (auto) 0.8 10 ^3/uL (0-1.3); Monocytes % (auto) 10.1 % (0.0-12.0); Neutrophils # (auto) 5.6 10 ^3/uL (1.6-8.6); Red Blood Cells 4.47 10^6/uL (4.5-5.90); Red Cell Distribution Width 14.1 % (11.8-14.3); White Blood Cell 7.7 10^3/uL (4.4-10.8)
[2021-04-02 12:59] LABS: Urine Bacteria NONE SEEN /hpf (None Seen); Urine Blood Negative /uL (Negative); Urine WBC 1 /hpf (0 - 3)
[2021-04-02 13:34] LABS: Calcium 8.9 mg/dL (8.5-10.1); Potassium 5.1 mmol/L (3.5-5.1)
[2021-04-02 13:42] LABS: Albumin 3.7 g/dL (3.4-5.0); BUN/Creatinine Ratio 17.2; Bilirubin, Total 0.6 mg/dL (0.2-1.0); Total Protein 7.1 g/dL (6.4-8.2)
[~2021-04-05] VITALS: Ht 162.6 cm; Wt 63.5 kg
[~2021-04-05 07:09] MED LIST changes: -ADENOSINE 53 MG in GIVE UN-DILUTED 0 ML IV ONE
[2021-04-05] MEDS ORDERED: PHENYLEPHRINE HCL 10 MG/ML VL IV ONE (07:10)
[2021-04-05 08:34] LABS: INR 1.1 (0.9-1.15); Partial Thromboplastin Time 24.4 sec (23.6-33.0)
[2021-04-05] MEDS ORDERED: CIPROFLOXACIN 400MG/200ML 200 ML IV ONE (09:04)
[2021-04-05] MEDS ORDERED: fentaNYL CITRATE 100 MCG/2 ML VL ONE (10:00)
[2021-04-05] MEDS ORDERED: MIDAZOLAM HCL 2MG/2ML 2ml VIAL (1mg/ml) ONE (10:01)
[2021-04-05] MEDS ORDERED: ROPIVACAINE 0.5% (5MG/ML) 20ML AMPULE IJ ONE (10:04)
[2021-04-05] MEDS ORDERED: BUPIVACAINE 0.5% P/F INJ 10 ML VIAL ONE (10:05)
[2021-04-05] MEDS ORDERED: PROPOFOL 10 MG/ML 20 ML IV ONE (10:27)
[2021-04-05] MEDS ORDERED: ePHEDrine SULFATE 50 MG/ML AMP IV PRN (10:30)
[2021-04-05] MEDS ORDERED: MORPHINE SULFATE 4 MG/ML SYR/VIAL IV PRN (10:30)
[2021-04-05] MEDS ORDERED: MIDAZOLAM HCL 2MG/2ML 2ml VIAL (1mg/ml) IV PRN (10:30)
[2021-04-05] MEDS ORDERED: HYDROmorphone HCL 2 MG/ML VL IV PRN (10:30)
[2021-04-05] MEDS ORDERED: ONDANSETRON HCL 4 MG/2 ML VIAL IV PRN (10:30)
[2021-04-05] MEDS ORDERED: LABETALOL HCL 5 MG/ML 4ML SYRINGE IV PRN (10:30)
[2021-04-05 12:05] VITALS: BP 129/46
== END 2021-04-05 13:10 | disposition home or self-care (01) ==
LOC: SUR 07:09
PROVIDERS: ATTEND Urology
DX: N32.0 Bladder-neck obstruction (principal); I10 Essential (primary) hypertension; I25.810 Atherosclerosis of coronary artery bypass graft(s) without angina pectoris; E78.5 Hyperlipidemia, unspecified; N40.0 Benign prostatic hyperplasia without lower urinary tract symptoms; I25.2 Old myocardial infarction; Z79.899 Other long term (current) drug therapy; Z98.890 Other specified postprocedural states; Z85.3 Personal history of malignant neoplasm of breast; Z20.822 Contact with and (suspected) exposure to COVID-19
CPT/HCPCS: 36415; 52640; 80053; 81001; 85025; 85610; 85730; J0744; J2250; J2370; J2704; J2795; J3010; J3490; U0003

== ENCOUNTER 2021-04-22 15:59 | Emergency (ER) | payer OTHER ==
[~2021-04-22] VITALS: Ht 162.6 cm; Wt 63.5 kg
[2021-04-22 16:08] VITALS: BP 108/66
[2021-04-22 18:28] LABS: Basophils # (auto) 0.1 10 ^3/uL (0-0.2); Basophils % (auto) 0.6 % (0.0-2.0); Eosinophils # (auto) 0.2 10 ^3/uL (0-0.8); Eosinophils % (auto) 2.8 % (0.0-7.0); Hematocrit 39.9 % (41.0-53.0); Hemoglobin 13.6 g/dL (13.5-17.5); Lymphocytes # (auto) 1.3 10 ^3/uL (0.4-5.4); Lymphocytes % (auto) 15.3 % (10.0-50.0); Mean Corpuscular Hemoglobin 29.9 pg (28.0-32.0); Mean Corpuscular Hgb Conc. 34.1 g/dL (32.0-36.0); Mean Corpuscular Volume 87.9 fL (80.0-100.0); Monocytes # (auto) 0.7 10 ^3/uL (0-1.3); Monocytes % (auto) 8.4 % (0.0-12.0); Neutrophils # (auto) 6.4 10 ^3/uL (1.6-8.6); Neutrophils % (auto) 72.9 % (37.0-80.0); Nucleated Red Blood Cells % 0.1 %; Red Blood Cells 4.54 10^6/uL (4.5-5.90); Red Cell Distribution Width 14.3 % (11.8-14.3); White Blood Cell 8.8 10^3/uL (4.4-10.8)
[2021-04-22 18:40] LABS: INR 2.82 (0.9-1.15); Partial Thromboplastin Time 34.2 sec (23.6-33.0)
[2021-04-22 19:15] LABS: Urine Bacteria NONE SEEN /hpf (None Seen); Urine Blood 3+ /uL (Negative); Urine WBC 1171 /hpf (0 - 3); Urine WBC Clumps PRESENT /hpf (None Seen)
== END 2021-04-22 23:17 | disposition left against medical advice (07) ==
LOC: ER 15:59
DX: R31.9 Hematuria, unspecified (principal); I10 Essential (primary) hypertension; I25.2 Old myocardial infarction; E78.5 Hyperlipidemia, unspecified; Z90.49 Acquired absence of other specified parts of digestive tract; Z98.61 Coronary angioplasty status; Z95.1 Presence of aortocoronary bypass graft; Z90.89 Acquired absence of other organs; Z86.73 Personal history of transient ischemic attack (TIA), and cerebral infarction without residual deficits; Z53.29 Procedure and treatment not carried out because of patient's decision for other reasons
CPT/HCPCS: 36415; 81001; 85025; 85610; 85730; 87086

== ENCOUNTER → 2021-10-18 | Outpatient (CLI) | payer OTHER ==
[2021-10-18 10:27] LABS: Urine Bacteria NONE SEEN /hpf (None Seen); Urine Blood TRACE /uL (Negative); Urine Specific Gravity 1.015 (1.001-1.035); Urine WBC 12 /hpf (0 - 3)
== END | disposition home or self-care (01) ==
LOC: LAB 09:42
PROVIDERS: ATTEND Urology
DX: C67.9 Malignant neoplasm of bladder, unspecified (principal); R30.0 Dysuria; N32.0 Bladder-neck obstruction; R97.0 Elevated carcinoembryonic antigen [CEA]
CPT/HCPCS: 81001; 84153; 87086

== ENCOUNTER → 2021-10-23 | Outpatient (CLI) | payer OTHER | END | disposition home or self-care (01) | LOC: XYW 08:54 | PROVIDERS: ATTEND Internal Medicine | DX: I11.0 Hypertensive heart disease with heart failure (principal); I50.22 Chronic systolic (congestive) heart failure; I35.8 Other nonrheumatic aortic valve disorders | CPT/HCPCS: 93306 ==

== ENCOUNTER → 2021-10-26 | Outpatient (CLI) | payer OTHER ==
[~2021-10-26] VITALS: Ht 162.6 cm; Wt 63.5 kg
[~2021-10-26] MED LIST changes: +ADENOSINE 54 MG in GIVE UN-DILUTED 0 ML IV STA
== END | disposition home or self-care (01) ==
LOC: XY 08:04
PROVIDERS: ATTEND Internal Medicine
DX: I13.0 Hypertensive heart and chronic kidney disease with heart failure and stage 1 through stage 4 chronic kidney disease, or unspecified chronic kidney disease (principal); I50.22 Chronic systolic (congestive) heart failure; N18.31 Chronic kidney disease, stage 3a; I48.20 Chronic atrial fibrillation, unspecified; I70.0 Atherosclerosis of aorta; I42.8 Other cardiomyopathies; Z95.2 Presence of prosthetic heart valve
CPT/HCPCS: 78452; 93017; A9500; J0153

== ENCOUNTER 2021-11-28 09:35 | Day surgery (SDC) | payer OTHER ==
[2021-11-26 12:24] LABS: Basophils # (auto) 0 10 ^3/uL (0-0.2); Basophils % (auto) 0.4 % (0.0-2.0); Eosinophils # (auto) 0.1 10 ^3/uL (0-0.8); Eosinophils % (auto) 1.1 % (0.0-7.0); Hematocrit 38.4 % (41.0-53.0); Hemoglobin 13.6 g/dL (13.5-17.5); Lymphocytes # (auto) 0.9 10 ^3/uL (0.4-5.4); Lymphocytes % (auto) 11.7 % (10.0-50.0); Mean Corpuscular Hemoglobin 30.2 pg (28.0-32.0); Mean Corpuscular Hgb Conc. 35.4 g/dL (32.0-36.0); Mean Corpuscular Volume 85.3 fL (80.0-100.0); Monocytes # (auto) 0.7 10 ^3/uL (0-1.3); Monocytes % (auto) 8.8 % (0.0-12.0); Neutrophils # (auto) 5.8 10 ^3/uL (1.6-8.6); Red Blood Cells 4.51 10^6/uL (4.5-5.90); Red Cell Distribution Width 13.8 % (11.8-14.3); White Blood Cell 7.5 10^3/uL (4.4-10.8)
[2021-11-26 12:40] LABS: INR 1.42 (0.9-1.15); Partial Thromboplastin Time 29.1 sec (23.6-33.0)
[2021-11-26 12:52] LABS: Albumin 3.7 g/dL (3.4-5.0); Calcium 8.9 mg/dL (8.5-10.1); Potassium 4.4 mmol/L (3.5-5.1)
[2021-11-26 12:57] LABS: Bilirubin, Total 0.6 mg/dL (0.2-1.0); Total Protein 6.8 g/dL (6.4-8.2)
[~2021-11-28] VITALS: Ht 162.6 cm; Wt 56.3 kg
[~2021-11-28 09:35] MED LIST changes: -ADENOSINE 54 MG in GIVE UN-DILUTED 0 ML IV STA; +CARV3.1240 PO; -LISI20TA28 PO; +PANT40TA2 PO; +SACU1TAB4 PO
[2021-11-28] MEDS ORDERED: HEPARIN SODIUM (PORCINE) 5000 UNITS/ML 1ML VIAL ONE (12:03)
[2021-11-28] MEDS ORDERED: ANGIOMAX 250 MG VIAL IV ONE (12:03)
[2021-11-28] MEDS ORDERED: MIDAZOLAM HCL 2MG/2ML 2ml VIAL (1mg/ml) ONE (12:04)
[2021-11-28] MEDS ORDERED: LIDOCAINE 2%HCL (LOCAL ANESTH.) INJ 10ml MDV ONE ×2 (12:04→12:53)
[2021-11-28] MEDS ORDERED: IODIXANOL 320MG/ML 100ML BTL IV ONE (12:04)
[2021-11-28] MEDS ORDERED: VERAPAMIL 2.5MG/ML INJ 2ML VIAL IV ONE (12:04)
[2021-11-28] MEDS ORDERED: SODIUM CHL 0.9% 0 ML ONE (12:04)
[2021-11-28] MEDS ORDERED: fentaNYL CITRATE 100 MCG/2 ML VL ONE (12:04)
== END 2021-11-28 16:20 | disposition home or self-care (01) ==
LOC: CATH 09:35
PROVIDERS: ATTEND Internal Medicine
DX: R94.39 Abnormal result of other cardiovascular function study (principal); I25.118 Atherosclerotic heart disease of native coronary artery with other forms of angina pectoris; I10 Essential (primary) hypertension; E78.5 Hyperlipidemia, unspecified; Z95.5 Presence of coronary angioplasty implant and graft; Z82.5 Family history of asthma and other chronic lower respiratory diseases; Z83.42 Family history of familial hypercholesterolemia; Z80.1 Family history of malignant neoplasm of trachea, bronchus and lung; Z82.49 Family history of ischemic heart disease and other diseases of the circulatory system; Z83.3 Family history of diabetes mellitus; Z83.49 Family history of other endocrine, nutritional and metabolic diseases; Z82.69 Family history of other diseases of the musculoskeletal system and connective tissue; Z20.822 Contact with and (suspected) exposure to COVID-19; Z87.891 Personal history of nicotine dependence; Z79.02 Long term (current) use of antithrombotics/antiplatelets
CPT/HCPCS: 36415; 80053; 85025; 85610; 85730; 93458; C1760; C1769; C1887; C1894; J1644; J2001; J2250; J3010; J7030; Q9967; U0003; 99152; 99153

== ENCOUNTER 2021-12-11 20:35 | Inpatient (IN) | payer OTHER ==
[~2021-12-11] VITALS: Ht 162.6 cm; Wt 65.3 kg
[2021-12-11] MEDS ORDERED: IOHEXOL 350 MG/ML 100ML IJ ONE ×2 (21:12→21:13)
[2021-12-11 21:26] LABS: Basophils # (auto) 0.1 10 ^3/uL (0-0.2); Basophils % (auto) 0.8 % (0.0-2.0); Eosinophils # (auto) 0.1 10 ^3/uL (0-0.8); Hematocrit 39.4 % (41.0-53.0); Lymphocytes # (auto) 1.9 10 ^3/uL (0.4-5.4); Lymphocytes % (auto) 20.3 % (10.0-50.0); Mean Corpuscular Hemoglobin 30.7 pg (28.0-32.0); Mean Corpuscular Hgb Conc. 35.4 g/dL (32.0-36.0); Mean Corpuscular Volume 86.8 fL (80.0-100.0); Monocytes # (auto) 0.9 10 ^3/uL (0-1.3); Monocytes % (auto) 9.7 % (0.0-12.0); Neutrophils # (auto) 6.6 10 ^3/uL (1.6-8.6); Neutrophils % (auto) 68.2 % (37.0-80.0); Nucleated Red Blood Cells % 0.1 %; Red Blood Cells 4.54 10^6/uL (4.5-5.90); Red Cell Distribution Width 14.3 % (11.8-14.3); White Blood Cell 9.6 10^3/uL (4.4-10.8)
[2021-12-11 21:36] LABS: Urine Bacteria NONE SEEN /hpf (None Seen); Urine Blood 1+ /uL (Negative); Urine Specific Gravity 1.005 (1.001-1.035); Urine WBC 1 /hpf (0 - 3)
[2021-12-11 21:40] LABS: Albumin 3.8 g/dL (3.4-5.0); Calcium 8.7 mg/dL (8.5-10.1); Potassium 3.7 mmol/L (3.5-5.1)
[2021-12-11 21:45] LABS: BUN/Creatinine Ratio 16.8; Bilirubin, Total 0.6 mg/dL (0.2-1.0); Total Protein 7.1 g/dL (6.4-8.2)
[2021-12-11 21:49] LABS: INR 1.99 (0.9-1.15); Partial Thromboplastin Time 32.3 sec (23.6-33.0)
[2021-12-12] MEDS ORDERED: NITROGLYCERIN 0.4 MG SL TAB SL PRN (01:30)
[2021-12-12] MEDS ORDERED: ACETAMINOPHEN 325 MG TAB PO PRN (01:30)
[2021-12-12] MEDS ORDERED: ONDANSETRON HCL 4 MG/2 ML VIAL IV PRN (01:30)
[2021-12-12] MEDS ORDERED: MORPHINE SULFATE INJECTION 2 MG/ML SYRG IV PRN (01:30)
[2021-12-12] MEDS ORDERED: PNEUMOCOCCAL VACC POLYS 25 MCG/0.5 ML VIAL IM ONE (05:45)
[2021-12-12 06:00] VITALS: BP 129/57
[2021-12-12 09:00] VITALS: BP 129/57
[2021-12-12] MEDS: SACUBITRIL-VALSARTAN 24mg/26mg TAB PO SCH ×2 (10:23→21:44)
[2021-12-12] MEDS: PANTOPRAZOLE 40 MG TAB PO SCH (10:23)
[2021-12-12] MEDS: CARVEDILOL 3.125 MG TAB PO SCH ×2 (10:24→21:44)
[2021-12-12 17:00] VITALS: BP 131/61
[2021-12-12] MEDS ORDERED: SODIUM CHLORIDE 0.9% 500 ML IV SCH (17:15)
[2021-12-12] MEDS ORDERED: SODIUM CHLORIDE 0.9% 1,000 ML IV SCH (17:15)
[2021-12-12] MEDS ORDERED: TAMSULOSIN HYDROCHLORIDE 0.4 MG CAP PO SCH (18:00)
[2021-12-12 22:00] VITALS: BP 120/57
[2021-12-12] MEDS ORDERED: ATORVASTATIN 20 MG TAB PO SCH (22:00)
[2021-12-13 05:00] VITALS: BP 120/66
[2021-12-13 06:30] LABS: Basophils # (auto) 0.1 10 ^3/uL (0-0.2); Basophils % (auto) 0.8 % (0.0-2.0); Eosinophils # (auto) 0.3 10 ^3/uL (0-0.8); Eosinophils % (auto) 3.6 % (0.0-7.0); Hematocrit 35.1 % (41.0-53.0); Hemoglobin 12.7 g/dL (13.5-17.5); Lymphocytes # (auto) 1.4 10 ^3/uL (0.4-5.4); Lymphocytes % (auto) 18.2 % (10.0-50.0); Mean Corpuscular Hemoglobin 30.9 pg (28.0-32.0); Mean Corpuscular Hgb Conc. 36.2 g/dL (32.0-36.0); Mean Corpuscular Volume 85.6 fL (80.0-100.0); Monocytes # (auto) 0.8 10 ^3/uL (0-1.3); Monocytes % (auto) 10.3 % (0.0-12.0); Neutrophils % (auto) 67.1 % (37.0-80.0); Red Cell Distribution Width 14.2 % (11.8-14.3); White Blood Cell 7.5 10^3/uL (4.4-10.8)
[2021-12-13 06:44] LABS: Albumin 3.3 g/dL (3.4-5.0); BUN/Creatinine Ratio 19.1; Bilirubin, Total 0.9 mg/dL (0.2-1.0); Calcium 8.4 mg/dL (8.5-10.1); Total Protein 6.1 g/dL (6.4-8.2)
[2021-12-13 09:00] VITALS: BP 143/57
[2021-12-13] MEDS: SACUBITRIL-VALSARTAN 24mg/26mg TAB PO SCH (09:46)
[2021-12-13] MEDS: CARVEDILOL 3.125 MG TAB PO SCH (09:47)
[2021-12-13] MEDS: PANTOPRAZOLE 40 MG TAB PO SCH (09:47)
[2021-12-13 13:00] VITALS: BP 147/60
[2021-12-13 15:51] VITALS: BP 143/57
== END 2021-12-13 17:10 | disposition home or self-care (01) | DRG 64 ==
LOC: ER 20:35 → TELE 12-12 01:28 → TELE-WESTW 12-12 04:15
PROVIDERS: ADMIT Nurse Practitioner; ATTEND Internal Medicine
DX: I63.519 Cerebral infarction due to unspecified occlusion or stenosis of unspecified middle cerebral artery (principal); N17.0 Acute kidney failure with tubular necrosis; I50.22 Chronic systolic (congestive) heart failure; E78.5 Hyperlipidemia, unspecified; Z20.822 Contact with and (suspected) exposure to COVID-19; I25.10 Atherosclerotic heart disease of native coronary artery without angina pectoris; I11.0 Hypertensive heart disease with heart failure; Z53.29 Procedure and treatment not carried out because of patient's decision for other reasons; Z82.49 Family history of ischemic heart disease and other diseases of the circulatory system; Z83.3 Family history of diabetes mellitus; Z95.1 Presence of aortocoronary bypass graft; Z95.2 Presence of prosthetic heart valve; Z79.01 Long term (current) use of anticoagulants; Z90.49 Acquired absence of other specified parts of digestive tract; I25.2 Old myocardial infarction
CPT/HCPCS: 36415; 70450; 70496; 70498; 70545; 70551; 71045; 80053; 81001; 84484; 85025; 85610; 85730; 93005; 97116; 97530; 99291; G0378

== ENCOUNTER → 2021-12-20 | Day surgery (SDC) | payer OTHER ==
[2021-12-17 14:46] LABS: Urine Bacteria NONE SEEN /hpf (None Seen); Urine Blood Negative /uL (Negative); Urine Specific Gravity 1.006 (1.001-1.035); Urine WBC 2 /hpf (0 - 3)
[2021-12-17 14:48] LABS: Basophils # (auto) 0.1 10 ^3/uL (0-0.2); Basophils % (auto) 0.9 % (0.0-2.0); Eosinophils # (auto) 0.2 10 ^3/uL (0-0.8); Eosinophils % (auto) 2.1 % (0.0-7.0); Hematocrit 37.8 % (41.0-53.0); Lymphocytes % (auto) 13.9 % (10.0-50.0); Mean Corpuscular Hemoglobin 30.1 pg (28.0-32.0); Mean Corpuscular Hgb Conc. 34.3 g/dL (32.0-36.0); Mean Corpuscular Volume 87.6 fL (80.0-100.0); Monocytes # (auto) 0.6 10 ^3/uL (0-1.3); Monocytes % (auto) 7.4 % (0.0-12.0); Neutrophils # (auto) 5.7 10 ^3/uL (1.6-8.6); Neutrophils % (auto) 75.7 % (37.0-80.0); Nucleated Red Blood Cells % 0.1 %; Red Blood Cells 4.32 10^6/uL (4.5-5.90); Red Cell Distribution Width 14.4 % (11.8-14.3); White Blood Cell 7.5 10^3/uL (4.4-10.8)
[2021-12-17 15:10] LABS: INR 1.1 (0.9-1.15); Partial Thromboplastin Time 25.9 sec (23.6-33.0)
[2021-12-17 15:13] LABS: Albumin 3.5 g/dL (3.4-5.0); BUN/Creatinine Ratio 16.7; Calcium 8.4 mg/dL (8.5-10.1); Potassium 4.7 mmol/L (3.5-5.1)
[2021-12-17 15:16] LABS: Bilirubin, Total 0.6 mg/dL (0.2-1.0); Total Protein 6.5 g/dL (6.4-8.2)
[~2021-12-20] VITALS: Ht 162.6 cm; Wt 63.5 kg
[~2021-12-20] MED LIST changes: +DexAMETHasone SOD PHOS 10MG/1ML VIAL INJ ONE; +ETOMIDATE (2MG/ML) 20ML VIAL IV ONE; +LIDOCAINE 2% (LOCAL ANESTH.) PF 5ml SDV IJ ONE; +MIDAZOLAM HCL 2MG/2ML 2ml VIAL (1mg/ml) ONE; +ONDANSETRON HCL 4 MG/2 ML VIAL ONE; -PANT40TA2 PO; +PROPOFOL 10 MG/ML 20 ML IV ONE; +SUCCINYLCHOLINE CHLORIDE 20 MG/ML 10ML VIAL IV ONE; -TAMS0.4C36 PO; +ceFAZolin 1GM/50ML 100 ML IV ONE; +fentaNYL CITRATE 100 MCG/2 ML VL ONE
[2021-12-20 13:00] VITALS: BP 134/52
== END | disposition home or self-care (01) ==
LOC: SUR 08:04
PROVIDERS: ATTEND Urology
DX: R31.0 Gross hematuria (principal); I13.0 Hypertensive heart and chronic kidney disease with heart failure and stage 1 through stage 4 chronic kidney disease, or unspecified chronic kidney disease; I50.9 Heart failure, unspecified; N18.9 Chronic kidney disease, unspecified; I25.119 Atherosclerotic heart disease of native coronary artery with unspecified angina pectoris; E78.5 Hyperlipidemia, unspecified; Z98.890 Other specified postprocedural states; Z95.5 Presence of coronary angioplasty implant and graft; Z79.899 Other long term (current) drug therapy; Z20.822 Contact with and (suspected) exposure to COVID-19; Z82.49 Family history of ischemic heart disease and other diseases of the circulatory system; Z83.42 Family history of familial hypercholesterolemia; Z80.1 Family history of malignant neoplasm of trachea, bronchus and lung; Z82.5 Family history of asthma and other chronic lower respiratory diseases; Z82.69 Family history of other diseases of the musculoskeletal system and connective tissue; Z83.49 Family history of other endocrine, nutritional and metabolic diseases; Z83.3 Family history of diabetes mellitus
CPT/HCPCS: 36415; 52224; 80053; 81001; 85025; 85610; 85730; 86850; 86900; 86901; J0330; J0690; J1100; J2250; J2405; J2704; J3010; J7030; U0003; J2001

== ENCOUNTER 2021-12-22 10:22 | Emergency (ER) | payer OTHER ==
[~2021-12-22] VITALS: Ht 162.6 cm; Wt 63.5 kg
[~2021-12-22 10:22] MED LIST changes: -DexAMETHasone SOD PHOS 10MG/1ML VIAL INJ ONE; -ETOMIDATE (2MG/ML) 20ML VIAL IV ONE; -LIDOCAINE 2% (LOCAL ANESTH.) PF 5ml SDV IJ ONE; -MIDAZOLAM HCL 2MG/2ML 2ml VIAL (1mg/ml) ONE; -ONDANSETRON HCL 4 MG/2 ML VIAL ONE; -PROPOFOL 10 MG/ML 20 ML IV ONE; -SUCCINYLCHOLINE CHLORIDE 20 MG/ML 10ML VIAL IV ONE; -ceFAZolin 1GM/50ML 100 ML IV ONE; -fentaNYL CITRATE 100 MCG/2 ML VL ONE
[2021-12-22 11:24] LABS: Basophils # (auto) 0 10 ^3/uL (0-0.2); Basophils % (auto) 0.4 % (0.0-2.0); Eosinophils # (auto) 0.3 10 ^3/uL (0-0.8); Eosinophils % (auto) 3.1 % (0.0-7.0); Hematocrit 38.3 % (41.0-53.0); Hemoglobin 12.4 g/dL (13.5-17.5); Lymphocytes # (auto) 1.2 10 ^3/uL (0.4-5.4); Lymphocytes % (auto) 12.1 % (10.0-50.0); Mean Corpuscular Hemoglobin 29.1 pg (28.0-32.0); Mean Corpuscular Hgb Conc. 32.5 g/dL (32.0-36.0); Mean Corpuscular Volume 89.7 fL (80.0-100.0); Monocytes # (auto) 0.7 10 ^3/uL (0-1.3); Neutrophils # (auto) 7.6 10 ^3/uL (1.6-8.6); Neutrophils % (auto) 77.4 % (37.0-80.0); Red Blood Cells 4.27 10^6/uL (4.5-5.90); Red Cell Distribution Width 14.6 % (11.8-14.3); White Blood Cell 9.8 10^3/uL (4.4-10.8)
[2021-12-22 11:32] LABS: Albumin 3.4 g/dL (3.4-5.0); BUN/Creatinine Ratio 18.1; Calcium 8.6 mg/dL (8.5-10.1); Potassium 4.3 mmol/L (3.5-5.1)
[2021-12-22 11:34] LABS: Bilirubin, Total 0.5 mg/dL (0.2-1.0); Total Protein 6.1 g/dL (6.4-8.2)
[2021-12-22 11:45] LABS: INR 1.08 (0.9-1.15)
[2021-12-22 11:51] LABS: Urine Bacteria NONE SEEN /hpf (None Seen); Urine Blood 3+ /uL (Negative); Urine Hyaline Cast MOD /lpf (0 - 2); Urine WBC 187 /hpf (0 - 3)
[2021-12-22 14:29] LABS: Magnesium 2.2 mg/dL (1.6-2.6)
[2021-12-22] MEDS ORDERED: IOHEXOL 350 MG/ML 100ML IJ ONE (19:29)
[2021-12-22] MEDS ORDERED: SODIUM CHLORIDE 0.9% 1,000 ML IV ONE (19:30)
[2021-12-22 20:56] LABS: Albumin 2.4 g/dL (3.4-5.0); Calcium 6.7 mg/dL (8.5-10.1); Potassium 3.5 mmol/L (3.5-5.1)
[2021-12-22 20:59] LABS: Bilirubin, Total 0.4 mg/dL (0.2-1.0); Total Protein 4.3 g/dL (6.4-8.2)
[2021-12-22 23:26] VITALS: BP 127/51
== END 2021-12-22 23:28 | disposition home or self-care (01) ==
LOC: ER 10:22
DX: M54.50 Low back pain, unspecified (principal); M79.652 Pain in left thigh; M79.651 Pain in right thigh; E78.5 Hyperlipidemia, unspecified; I10 Essential (primary) hypertension; Z90.49 Acquired absence of other specified parts of digestive tract
CPT/HCPCS: 36415; 71275; 74176; 80053; 81001; 82550; 82553; 83605; 83735; 85025; 85379; 85610; 93005; 93970; 96360; 99285; J7030; Q9967

== ENCOUNTER → 2022-03-28 | Outpatient (CLI) | payer OTHER | END | disposition home or self-care (01) | LOC: XYW 08:54 | PROVIDERS: ATTEND Internal Medicine | DX: I70.0 Atherosclerosis of aorta (principal) | CPT/HCPCS: 93886 ==

== ENCOUNTER → 2022-04-08 | Outpatient (CLI) | payer OTHER ==
[2022-04-08 11:29] LABS: Basophils # (auto) 0 10 ^3/uL (0-0.2); Basophils % (auto) 0.6 % (0.0-2.0); Eosinophils # (auto) 0.2 10 ^3/uL (0-0.8); Eosinophils % (auto) 2.2 % (0.0-7.0); Hematocrit 41.6 % (41.0-53.0); Hemoglobin 13.7 g/dL (13.5-17.5); Lymphocytes # (auto) 1.2 10 ^3/uL (0.4-5.4); Lymphocytes % (auto) 15.6 % (10.0-50.0); Mean Corpuscular Volume 87.8 fL (80.0-100.0); Monocytes # (auto) 0.6 10 ^3/uL (0-1.3); Monocytes % (auto) 7.7 % (0.0-12.0); Neutrophils # (auto) 5.6 10 ^3/uL (1.6-8.6); Neutrophils % (auto) 73.9 % (37.0-80.0); Red Blood Cells 4.74 10^6/uL (4.5-5.90); Red Cell Distribution Width 14.5 % (11.8-14.3); White Blood Cell 7.6 10^3/uL (4.4-10.8)
[2022-04-08 11:48] LABS: Albumin 3.6 g/dL (3.4-5.0); Potassium 5.5 mmol/L (3.5-5.1)
[2022-04-08 11:54] LABS: Bilirubin, Total 0.7 mg/dL (0.2-1.0); Total Protein 6.9 g/dL (6.4-8.2)
== END | disposition home or self-care (01) ==
LOC: LAB 10:40
PROVIDERS: ATTEND Internal Medicine
DX: I11.0 Hypertensive heart disease with heart failure (principal); I50.32 Chronic diastolic (congestive) heart failure; E78.5 Hyperlipidemia, unspecified
CPT/HCPCS: 36415; 80053; 80061; 84439; 84443; 85025

== ENCOUNTER → 2022-05-09 | Outpatient (CLI) | payer OTHER | END | disposition home or self-care (01) | LOC: LAB 10:05 | PROVIDERS: ATTEND Otolaryngology | DX: Z01.812 Encounter for preprocedural laboratory examination (principal) | CPT/HCPCS: 36415; 82565; 84520 ==

== ENCOUNTER → 2022-06-07 | Outpatient (CLI) | payer OTHER, MEDICARE | END | disposition home or self-care (01) | LOC: LAB 10:03 | PROVIDERS: ATTEND Urology | DX: N40.0 Benign prostatic hyperplasia without lower urinary tract symptoms (principal); N32.0 Bladder-neck obstruction | CPT/HCPCS: 84153 ==

== ENCOUNTER → 2022-06-14 | Outpatient (CLI) | payer OTHER ==
[2022-06-14 12:53] LABS: Urine Bacteria NONE SEEN /hpf (None Seen); Urine Blood 3+ /uL (Negative); Urine WBC 3 /hpf (0 - 3)
== END | disposition home or self-care (01) ==
LOC: LAB 09:37
PROVIDERS: ATTEND Urology
DX: N39.0 Urinary tract infection, site not specified (principal)
CPT/HCPCS: 81001; 87086

== ENCOUNTER → 2022-08-16 | Outpatient (CLI) | payer OTHER ==
[2022-08-16 10:07] LABS: INR 5.22 (0.9-1.15)
== END | disposition home or self-care (01) ==
LOC: LAB 09:31
PROVIDERS: ATTEND Physician Assistant
DX: Z95.4 Presence of other heart-valve replacement (principal)
CPT/HCPCS: 36415; 85610

== ENCOUNTER 2022-10-25 11:36 | Inpatient (IN) | payer MEDICARE, OTHER ==
[~2022-10-25] VITALS: Ht 162.6 cm; Wt 64.9 kg
[2022-10-25 12:44] LABS: Basophils # (auto) 0 10 ^3/uL (0-0.2); Basophils % (auto) 0.5 % (0.0-2.0); Eosinophils # (auto) 0.1 10 ^3/uL (0-0.8); Hematocrit 36.7 % (41.0-53.0); Lymphocytes # (auto) 0.7 10 ^3/uL (0.4-5.4); Lymphocytes % (auto) 8.6 % (10.0-50.0); Mean Corpuscular Hemoglobin 31.1 pg (28.0-32.0); Mean Corpuscular Hgb Conc. 35.4 g/dL (32.0-36.0); Mean Corpuscular Volume 87.9 fL (80.0-100.0); Monocytes # (auto) 0.9 10 ^3/uL (0-1.3); Monocytes % (auto) 11.6 % (0.0-12.0); Neutrophils # (auto) 6.1 10 ^3/uL (1.6-8.6); Neutrophils % (auto) 78.3 % (37.0-80.0); Red Blood Cells 4.17 10^6/uL (4.5-5.90); Red Cell Distribution Width 14.6 % (11.8-14.3); White Blood Cell 7.8 10^3/uL (4.4-10.8)
[2022-10-25] MEDS ORDERED: SODIUM CHLORIDE 0.9% 500 ML IV ONE (13:00)
[2022-10-25] MEDS ORDERED: ACETAMINOPHEN 500 MG TAB PO ONE (13:00)
[2022-10-25 13:06] LABS: Albumin 3.4 g/dL (3.4-5.0); Potassium 3.9 mmol/L (3.5-5.1)
[2022-10-25 13:08] LABS: BUN/Creatinine Ratio 26.9
[2022-10-25 13:11] LABS: Bilirubin, Total 0.5 mg/dL (0.2-1.0); Total Protein 6.4 g/dL (6.4-8.2)
[2022-10-25 13:31] LABS: Urine Bacteria NONE SEEN /hpf (None Seen); Urine Blood 3+ /uL (Negative); Urine Specific Gravity 1.017 (1.001-1.035); Urine WBC 13 /hpf (0 - 3)
[2022-10-26] MEDS: FOLIC ACID 1 MG, MULTIPLE VITAMIN 10 ML, MAGNESIUM SULF SDV 50% 8 MEQ, THIAMINE INJ 100... INJ SCH ×10 (00:17→14:30)
[2022-10-26] MEDS ORDERED: NITROGLYCERIN 0.4 MG SL TAB SL PRN (01:15)
[2022-10-26] MEDS ORDERED: ACETAMINOPHEN 325 MG TAB PO PRN (01:15)
[2022-10-26] MEDS ORDERED: ONDANSETRON HCL 4 MG/2 ML VIAL IV PRN (01:15)
[2022-10-26] MEDS ORDERED: HYDROcodone-ACET 5/325MG TAB PO PRN (01:15)
[2022-10-26] MEDS ORDERED: MORPHINE SULFATE INJ 2 MG/ml SYRG IV PRN (01:15)
[2022-10-26] MEDS: SODIUM CHLORIDE 0.9% 1,000 ML IV SCH ×2 (01:51→18:36)
[2022-10-26 06:14] LABS: Basophils # (auto) 0 10 ^3/uL (0-0.2); Basophils % (auto) 0.5 % (0.0-2.0); Eosinophils # (auto) 0.2 10 ^3/uL (0-0.8); Eosinophils % (auto) 3.8 % (0.0-7.0); Hematocrit 32.4 % (41.0-53.0); Hemoglobin 11.4 g/dL (13.5-17.5); Lymphocytes # (auto) 0.9 10 ^3/uL (0.4-5.4); Lymphocytes % (auto) 20.1 % (10.0-50.0); Mean Corpuscular Hgb Conc. 35.1 g/dL (32.0-36.0); Mean Corpuscular Volume 88.1 fL (80.0-100.0); Monocytes # (auto) 0.8 10 ^3/uL (0-1.3); Monocytes % (auto) 16.6 % (0.0-12.0); Neutrophils # (auto) 2.7 10 ^3/uL (1.6-8.6); Red Blood Cells 3.68 10^6/uL (4.5-5.90); White Blood Cell 4.7 10^3/uL (4.4-10.8)
[2022-10-26 06:38] LABS: Albumin 2.7 g/dL (3.4-5.0); BUN/Creatinine Ratio 26.4; Calcium 7.8 mg/dL (8.5-10.1); Potassium 4.6 mmol/L (3.5-5.1)
[2022-10-26 06:41] LABS: Bilirubin, Total 0.3 mg/dL (0.2-1.0); Total Protein 5.4 g/dL (6.4-8.2)
[2022-10-27 05:03] LABS: Basophils # (auto) 0 10 ^3/uL (0-0.2); Basophils % (auto) 0.6 % (0.0-2.0); Eosinophils # (auto) 0.3 10 ^3/uL (0-0.8); Eosinophils % (auto) 4.2 % (0.0-7.0); Hemoglobin 11.7 g/dL (13.5-17.5); Lymphocytes # (auto) 1.2 10 ^3/uL (0.4-5.4); Mean Corpuscular Hemoglobin 31.4 pg (28.0-32.0); Mean Corpuscular Hgb Conc. 35.6 g/dL (32.0-36.0); Mean Corpuscular Volume 88.3 fL (80.0-100.0); Monocytes # (auto) 0.9 10 ^3/uL (0-1.3); Neutrophils # (auto) 3.9 10 ^3/uL (1.6-8.6); Neutrophils % (auto) 62.2 % (37.0-80.0); Nucleated Red Blood Cells % 0.1 %; Red Blood Cells 3.74 10^6/uL (4.5-5.90); Red Cell Distribution Width 15.1 % (11.8-14.3); White Blood Cell 6.2 10^3/uL (4.4-10.8)
[2022-10-27 06:05] LABS: BUN/Creatinine Ratio 17.2; Bilirubin, Total 0.4 mg/dL (0.2-1.0); Calcium 7.7 mg/dL (8.5-10.1); Phosphorus 2.4 mg/dL (2.5-4.90); Potassium 4.5 mmol/L (3.5-5.1); Total Protein 5.6 g/dL (6.4-8.2); Uric Acid 5.8 mg/dL (3.5-7.2)
[2022-10-27] MEDS: metroNIDAZOLE 500MG/100ML 100 ML IV SCH ×2 (06:12→14:49)
[2022-10-27] MEDS: SODIUM CHLORIDE 0.9% 1,000 ML IV SCH (10:35)
[2022-10-27] MEDS: FOLIC ACID 1 MG, MULTIPLE VITAMIN 10 ML, MAGNESIUM SULF SDV 50% 8 MEQ, THIAMINE INJ 100... INJ SCH ×5 (12:00)
[2022-10-27 12:22] VITALS: BP 148/56
[2022-10-27] MEDS ORDERED: MIRA50TA PO (12:37)
[2022-10-27 13:00] VITALS: BP 141/53
[2022-10-27 13:24] LABS: Urine Blood TRACE /uL (Negative); Urine Specific Gravity 1.014 (1.001-1.035)
[2022-10-27] MEDS ORDERED: CIPR500T4 PO (16:47)
[2022-10-27] MEDS ORDERED: METR500T PO (16:47)
[2022-10-27 17:07] VITALS: BP 139/48
[2022-10-27 17:59] VITALS: BP 139/48
== END 2022-10-27 19:14 | disposition home or self-care (01) | DRG 391 ==
LOC: ER 11:36 → OVERFLOW 10-26 01:13 → CENTRAL 10-27 12:10
PROVIDERS: ADMIT Nurse Practitioner Family; ATTEND Nurse Practitioner Family
DX: K52.9 Noninfective gastroenteritis and colitis, unspecified (principal); N17.0 Acute kidney failure with tubular necrosis; E86.0 Dehydration; I10 Essential (primary) hypertension; N40.0 Benign prostatic hyperplasia without lower urinary tract symptoms; R53.1 Weakness; Z20.822 Contact with and (suspected) exposure to COVID-19; E78.5 Hyperlipidemia, unspecified; I25.10 Atherosclerotic heart disease of native coronary artery without angina pectoris; R73.9 Hyperglycemia, unspecified; Z90.49 Acquired absence of other specified parts of digestive tract; Z95.1 Presence of aortocoronary bypass graft; Z98.61 Coronary angioplasty status; I25.2 Old myocardial infarction; Z82.49 Family history of ischemic heart disease and other diseases of the circulatory system; Z83.3 Family history of diabetes mellitus
CPT/HCPCS: 36415; 74176; 80053; 81001; 81003; 82570; 83036; 83735; 84100; 84156; 84300; 84550; 85025; 87426; 96360; G0378; J3490

== ENCOUNTER → 2022-12-13 | Outpatient (CLI) | payer OTHER ==
[~2022-12-13] MED LIST changes: +CIPR500T4 PO; +METR500T PO; +MIRA50TA PO
[2022-12-13 11:36] LABS: Calcium 9.6 mg/dL (8.5-10.1)
== END | disposition home or self-care (01) ==
LOC: LAB 10:15
PROVIDERS: ATTEND Internal Medicine
DX: I67.1 Cerebral aneurysm, nonruptured (principal); G45.9 Transient cerebral ischemic attack, unspecified
CPT/HCPCS: 36415; 80048

== ENCOUNTER 2023-01-27 08:11 | Inpatient (IN) | payer MEDICARE, OTHER ==
[~2023-01-27] VITALS: Ht 162.6 cm; Wt 61.2 kg
[~2023-01-27 08:11] MED LIST changes: +WARF-114 PO; -WARF7.5T20 PO
[2023-01-27 08:40] LABS: Basophils # (auto) 0 10 ^3/uL (0-0.2); Basophils % (auto) 0.4 % (0.0-2.0); Eosinophils # (auto) 0.1 10 ^3/uL (0-0.8); Eosinophils % (auto) 1.3 % (0.0-7.0); Hematocrit 37.5 % (41.0-53.0); Hemoglobin 13.1 g/dL (13.5-17.5); Lymphocytes # (auto) 0.4 10 ^3/uL (0.4-5.4); Lymphocytes % (auto) 5.6 % (10.0-50.0); Mean Corpuscular Hemoglobin 30.6 pg (28.0-32.0); Mean Corpuscular Hgb Conc. 34.9 g/dL (32.0-36.0); Mean Corpuscular Volume 87.7 fL (80.0-100.0); Monocytes # (auto) 0.1 10 ^3/uL (0-1.3); Monocytes % (auto) 1.2 % (0.0-12.0); Neutrophils # (auto) 7.2 10 ^3/uL (1.6-8.6); Neutrophils % (auto) 91.5 % (37.0-80.0); Nucleated Red Blood Cells % 0.1 %; Red Blood Cells 4.27 10^6/uL (4.5-5.90); Red Cell Distribution Width 14.6 % (11.8-14.3); White Blood Cell 7.9 10^3/uL (4.4-10.8)
[2023-01-27 08:59] LABS: Albumin 3.4 g/dL (3.4-5.0); Calcium 8.1 mg/dL (8.5-10.1); Potassium 4.6 mmol/L (3.5-5.1)
[2023-01-27 09:02] LABS: BUN/Creatinine Ratio 18.4 (10.0-20.0); Bilirubin, Total 1.2 mg/dL (0.2-1.0); Total Protein 6.4 g/dL (6.4-8.2)
[2023-01-27] MEDS ORDERED: SODIUM CHLORIDE 0.9% 1,000 ML IV ONE ×2 (10:45→20:15)
[2023-01-27 12:48] LABS: Urine Bacteria NONE SEEN /hpf (None Seen); Urine Blood Negative /uL (Negative); Urine Specific Gravity 1.017 (1.001-1.035); Urine WBC 6 /hpf (0 - 3)
[2023-01-27] MEDS ORDERED: ONDANSETRON HCL 4 MG/2 ML VIAL IV ONE (13:15)
[2023-01-27] MEDS ORDERED: MORPHINE SULFATE INJ 2 MG/ml SYRG IV ONE (13:15)
[2023-01-27] MEDS ORDERED: HYDROcodone-ACET 5/325MG TAB PO ONE (15:15)
[2023-01-27] MEDS ORDERED: MORPHINE SULFATE INJ 2 MG/ml SYRG IV PRN (16:45)
[2023-01-27] MEDS ORDERED: NITROGLYCERIN 0.4 MG SL TAB SL PRN (16:45)
[2023-01-27] MEDS ORDERED: AZITHROMYCIN 500MG/ 250ML 250 ML IV SCH (17:30)
[2023-01-27] MEDS: cefTRIAXone 1GM/50ML D5W 50 ML IV SCH (17:57)
[2023-01-27] MEDS ORDERED: WARFARIN SODIUM 2.5 MG TAB PO ONE (18:30)
[2023-01-27] MEDS ORDERED: ASPirin 81 mg TAB PO ONE (18:45)
[2023-01-27 19:55] LABS: Partial Thromboplastin Time 50.1 sec (24.6-33.4)
[2023-01-27 19:58] LABS: INR 4.5 (0.9-1.15)
[2023-01-27 22:00] VITALS: BP 104/52
[2023-01-27] MEDS ORDERED: CARVEDILOL 3.125 MG TAB PO SCH (22:00)
[2023-01-27] MEDS: ATORVASTATIN 20 MG TAB PO SCH (22:06)
[2023-01-27 22:33] VITALS: BP 104/52
[2023-01-28 05:00] VITALS: BP 112/50
[2023-01-28 06:18] LABS: INR 3.79 (0.9-1.15)
[2023-01-28 06:25] LABS: Calcium 7.2 mg/dL (8.5-10.1)
[2023-01-28 06:30] LABS: Albumin 2.6 g/dL (3.4-5.0); Bilirubin, Total 1.1 mg/dL (0.2-1.0); Total Protein 5.2 g/dL (6.4-8.2)
[2023-01-28 06:36] LABS: BUN/Creatinine Ratio 21.4 (10.0-20.0)
[2023-01-28 06:50] LABS: Basophils # (auto) 0 10 ^3/uL (0-0.2); Basophils % (auto) 0.4 % (0.0-2.0); Eosinophils # (auto) 0.2 10 ^3/uL (0-0.8); Eosinophils % (auto) 1.7 % (0.0-7.0); Hematocrit 32.1 % (41.0-53.0); Hemoglobin 11.2 g/dL (13.5-17.5); Lymphocytes # (auto) 1.1 10 ^3/uL (0.4-5.4); Lymphocytes % (auto) 11.8 % (10.0-50.0); Mean Corpuscular Hemoglobin 30.9 pg (28.0-32.0); Mean Corpuscular Hgb Conc. 34.7 g/dL (32.0-36.0); Monocytes # (auto) 1.3 10 ^3/uL (0-1.3); Monocytes % (auto) 13.8 % (0.0-12.0); Neutrophils % (auto) 72.3 % (37.0-80.0); Nucleated Red Blood Cells % 0.2 %; Red Blood Cells 3.61 10^6/uL (4.5-5.90); Red Cell Distribution Width 14.8 % (11.8-14.3); White Blood Cell 9.6 10^3/uL (4.4-10.8)
[2023-01-28 09:00] VITALS: BP 144/57
[2023-01-28] MEDS: FUROSEMIDE 20 MG/2 ML VIAL IV SCH (09:19)
[2023-01-28] MEDS: cefTRIAXone 1GM/50ML D5W 50 ML IV SCH (09:19)
[2023-01-28] MEDS: ASPirin 81 mg TAB PO SCH (09:20)
[2023-01-28 13:00] VITALS: BP 119/46
[2023-01-28 17:00] VITALS: BP 142/59
[2023-01-28] MEDS: ATORVASTATIN 20 MG TAB PO SCH (21:26)
[2023-01-28 22:00] VITALS: BP 147/58
[2023-01-28] MEDS ORDERED: ACETAMINOPHEN 325 MG TAB PO PRN (23:30)
[2023-01-29] VITALS (9 sets, daily range): BP systolic 116–152; BP diastolic 48–100
[2023-01-29 05:46] LABS: Basophils # (auto) 0.1 10 ^3/uL (0-0.2); Basophils % (auto) 1.1 % (0.0-2.0); Eosinophils # (auto) 0.2 10 ^3/uL (0-0.8); Eosinophils % (auto) 2.7 % (0.0-7.0); Hematocrit 30.7 % (41.0-53.0); Hemoglobin 11.2 g/dL (13.5-17.5); Lymphocytes % (auto) 11.5 % (10.0-50.0); Mean Corpuscular Hemoglobin 31.5 pg (28.0-32.0); Mean Corpuscular Hgb Conc. 36.3 g/dL (32.0-36.0); Mean Corpuscular Volume 86.8 fL (80.0-100.0); Monocytes # (auto) 1.2 10 ^3/uL (0-1.3); Monocytes % (auto) 13.9 % (0.0-12.0); Neutrophils # (auto) 6.1 10 ^3/uL (1.6-8.6); Neutrophils % (auto) 70.8 % (37.0-80.0); Red Blood Cells 3.54 10^6/uL (4.5-5.90); Red Cell Distribution Width 14.4 % (11.8-14.3); White Blood Cell 8.7 10^3/uL (4.4-10.8)
[2023-01-29 06:01] LABS: Calcium 7.7 mg/dL (8.5-10.1); Magnesium 1.9 mg/dL (1.6-2.6); Potassium 4.2 mmol/L (3.5-5.1)
[2023-01-29 06:08] LABS: Albumin 2.7 g/dL (3.4-5.0); BUN/Creatinine Ratio 24.7 (10.0-20.0); Bilirubin, Total 0.8 mg/dL (0.2-1.0); Total Protein 4.9 g/dL (6.4-8.2)
[2023-01-29 06:35] LABS: INR 1.67 (0.9-1.15); Partial Thromboplastin Time 46.1 sec (24.6-33.4)
[2023-01-29] MEDS: ASPirin 81 mg TAB PO SCH (09:08)
[2023-01-29] MEDS: FUROSEMIDE 20 MG/2 ML VIAL IV SCH (09:09)
[2023-01-29] MEDS: cefTRIAXone 1GM/50ML D5W 50 ML IV SCH (09:09)
[2023-01-29] MEDS ORDERED: ERGOCALCIFEROL 50,000 UNIT(1.25MG) CAP PO SCH (10:00)
[2023-01-29] MEDS: SODIUM CHLORIDE 0.9% 500 ML IV SCH ×2 (11:00→21:13)
[2023-01-29] MEDS ORDERED: ANGIOMAX 250 MG VIAL IV ONE (14:23)
[2023-01-29] MEDS ORDERED: SODIUM CHL 0.9% 0 ML ONE (14:24)
[2023-01-29] MEDS ORDERED: MIDAZOLAM HCL 2MG/2ML 2ml VIAL (1mg/ml) ONE (14:24)
[2023-01-29] MEDS ORDERED: fentaNYL CITRATE 100 MCG/2 ML VL ONE (14:24)
[2023-01-29] MEDS ORDERED: VERAPAMIL 2.5MG/ML INJ 2ML VIAL IV ONE (14:24)
[2023-01-29] MEDS ORDERED: HEPARIN SODIUM (PORCINE) 5000 UNITS/ML 1ML VIAL ONE (14:24)
[2023-01-29] MEDS ORDERED: WARFARIN SODIUM 5 MG TAB PO ONE (17:00)
[2023-01-29] MEDS: ATORVASTATIN 20 MG TAB PO SCH (21:13)
[2023-01-30] MEDS: SODIUM CHLORIDE 0.9% 500 ML IV SCH (02:00)
[2023-01-30 05:00] VITALS: BP 141/53
[2023-01-30 05:18] LABS: Basophils # (auto) 0 10 ^3/uL (0-0.2); Basophils % (auto) 0.4 % (0.0-2.0); Eosinophils # (auto) 0.3 10 ^3/uL (0-0.8); Eosinophils % (auto) 3.6 % (0.0-7.0); Hematocrit 32.3 % (41.0-53.0); Hemoglobin 11.5 g/dL (13.5-17.5); Lymphocytes # (auto) 0.9 10 ^3/uL (0.4-5.4); Lymphocytes % (auto) 11.6 % (10.0-50.0); Mean Corpuscular Hemoglobin 30.9 pg (28.0-32.0); Mean Corpuscular Hgb Conc. 35.6 g/dL (32.0-36.0); Monocytes # (auto) 1.1 10 ^3/uL (0-1.3); Monocytes % (auto) 13.8 % (0.0-12.0); Neutrophils # (auto) 5.4 10 ^3/uL (1.6-8.6); Neutrophils % (auto) 70.6 % (37.0-80.0); Red Blood Cells 3.71 10^6/uL (4.5-5.90); Red Cell Distribution Width 14.4 % (11.8-14.3); White Blood Cell 7.6 10^3/uL (4.4-10.8)
[2023-01-30 05:31] LABS: INR 1.46 (0.9-1.15)
[2023-01-30 05:38] LABS: BUN/Creatinine Ratio 23.1 (10.0-20.0); Calcium 8.5 mg/dL (8.5-10.1); Potassium 4.2 mmol/L (3.5-5.1)
[2023-01-30 09:00] VITALS: BP 131/58
[2023-01-30] MEDS: FUROSEMIDE 20 MG/2 ML VIAL IV SCH (09:30)
[2023-01-30] MEDS: ASPirin 81 mg TAB PO SCH (09:30)
[2023-01-30] MEDS: cefTRIAXone 1GM/50ML D5W 50 ML IV SCH (09:31)
[2023-01-30 13:00] VITALS: BP 141/52
[2023-01-30 15:16] VITALS: BP 141/52
[2023-01-30 16:36] VITALS: BP 140/83
[2023-01-30] MEDS ORDERED: WARFARIN SODIUM 2 MG TAB PO ONE (17:00)
[2023-01-30] MEDS ORDERED: CIPROFLOXACIN HCL 500 MG TAB PO SCH (22:00)
== END 2023-01-30 17:00 | disposition home or self-care (01) | DRG 280 ==
LOC: EDBD 08:11 → ER 08:11 → TELE 16:53 → TELE-CENTR 21:30
PROVIDERS: ADMIT Nurse Practitioner Family; ATTEND Internal Medicine Geriatric Medicine
PROC: 4A023N7 Measurement of Cardiac Sampling and Pressure, Left Heart, Percutaneous Approach (ICD-10-PCS; principal; 2023-01-29)
PROC: B215YZZ Fluoroscopy of Left Heart using Other Contrast (ICD-10-PCS; 2023-01-29)
PROC: B21FYZZ Fluoroscopy of Other Bypass Graft using Other Contrast (ICD-10-PCS; 2023-01-29)
PROC: B218YZZ Fluoroscopy of Left Internal Mammary Bypass Graft using Other Contrast (ICD-10-PCS; 2023-01-29)
DX: I21.4 Non-ST elevation (NSTEMI) myocardial infarction (principal); J18.9 Pneumonia, unspecified organism; N17.0 Acute kidney failure with tubular necrosis; I13.0 Hypertensive heart and chronic kidney disease with heart failure and stage 1 through stage 4 chronic kidney disease, or unspecified chronic kidney disease; I42.9 Cardiomyopathy, unspecified; N30.00 Acute cystitis without hematuria; E44.0 Moderate protein-calorie malnutrition; E78.5 Hyperlipidemia, unspecified; E86.0 Dehydration; I25.10 Atherosclerotic heart disease of native coronary artery without angina pectoris; N18.32 Chronic kidney disease, stage 3b; B96.20 Unspecified Escherichia coli [E. coli] as the cause of diseases classified elsewhere; Z68.23 Body mass index [BMI] 23.0-23.9, adult; I25.2 Old myocardial infarction; Z79.01 Long term (current) use of anticoagulants; Z82.49 Family history of ischemic heart disease and other diseases of the circulatory system; Z83.3 Family history of diabetes mellitus; Z95.1 Presence of aortocoronary bypass graft; Z95.2 Presence of prosthetic heart valve; Z90.49 Acquired absence of other specified parts of digestive tract
CPT/HCPCS: 36415; 71045; 74176; 76775; 76937; 78582; 80048; 80053; 80061; 81001; 82306; 83036; 83605; 83735; 83880; 84443; 84484; 85025; 85379; 85610; 85730; 86850; 86900; 86901; 87040; 87086; 87088; 87186; 87205; 93005; 93306; 93459; 93970; 99152; G0378; J0696; J2250; J2405

== ENCOUNTER → 2023-03-13 | Outpatient (CLI) | payer OTHER ==
[2023-03-13 10:09] LABS: INR 2.69 (0.9-1.15); Partial Thromboplastin Time 44.1 SEC (24.5-34.5)
== END | disposition home or self-care (01) ==
LOC: LAB 09:27
PROVIDERS: ATTEND Physician Assistant
DX: D68.69 Other thrombophilia (principal); Z95.4 Presence of other heart-valve replacement
CPT/HCPCS: 36415; 85610; 85730

== ENCOUNTER → 2023-06-12 | Outpatient (CLI) | payer OTHER ==
[2023-06-12 13:30] LABS: Basophils # (auto) 0 10 ^3/uL (0-0.2); Basophils % (auto) 0.2 % (0.0-2.0); Eosinophils # (auto) 0.2 10 ^3/uL (0-0.8); Eosinophils % (auto) 2.6 % (0.0-7.0); Hemoglobin 12.6 g/dL (13.5-17.5); Lymphocytes % (auto) 12.5 % (10.0-50.0); Mean Corpuscular Hemoglobin 30.4 pg (28.0-32.0); Mean Corpuscular Hgb Conc. 33.9 g/dL (32.0-36.0); Mean Corpuscular Volume 89.6 fL (80.0-100.0); Monocytes # (auto) 0.7 10 ^3/uL (0-1.3); Neutrophils # (auto) 6.1 10 ^3/uL (1.6-8.6); Neutrophils % (auto) 75.7 % (37.0-80.0); Red Blood Cells 4.13 10^6/uL (4.5-5.90); Red Cell Distribution Width 14.3 % (11.8-14.3); White Blood Cell 8.1 10^3/uL (4.4-10.8)
[2023-06-12 13:51] LABS: Alanine Aminotransferase 20 U/L (7-40); Albumin 4.1 g/dL (3.2-4.8); Alkaline Phosphatase 80 U/L (46-116); Anion Gap 6 (5-15); Aspartate Aminotransferase 15 U/L (13-40); BUN/Creatinine Ratio 14.7 (10.0-20.0); Bilirubin, Total 1.1 mg/dL (0.2-1.0); Blood Urea Nitrogen 24 mg/dL (9-23); Calcium 9.4 mg/dL (8.5-10.1); Carbon Dioxide 25 mmol/L (20-30); Chloride 108 mmol/L (98-107); Cholesterol 119 mg/dL (< 200); Glucose 110 mg/dL (74-106); HDL Cholesterol 39 mg/dL (40-59); LDL Cholesterol 65 mg/dL (< 100); Sodium 139 mmol/L (136-145); Total Protein 6.8 g/dL (5.7-8.2); Triglycerides 72 mg/dL (< 150)
[2023-06-12 15:04] LABS: Uric Acid 6.6 mg/dL (3.7-9.2)
== END | disposition home or self-care (01) ==
LOC: LAB 13:06
PROVIDERS: ATTEND Internal Medicine
DX: I13.0 Hypertensive heart and chronic kidney disease with heart failure and stage 1 through stage 4 chronic kidney disease, or unspecified chronic kidney disease (principal); I50.32 Chronic diastolic (congestive) heart failure; N18.2 Chronic kidney disease, stage 2 (mild)
CPT/HCPCS: 36415; 80053; 80061; 83036; 84443; 84550; 85025

== ENCOUNTER → 2023-06-23 | Outpatient (CLI) | payer OTHER ==
[2023-06-23 12:38] LABS: Calcium 9.1 mg/dL (8.7-10.4); Chloride 107 mmol/L (98-107); Sodium 138 mmol/L (136-145)
[2023-06-23 12:39] LABS: Anion Gap 7 (5-15); Carbon Dioxide 24 mmol/L (20-30)
[2023-06-23 12:44] LABS: BUN/Creatinine Ratio 18.5 (10.0-20.0); Blood Urea Nitrogen 27 mg/dL (9-23); Glucose 137 mg/dL (74-106)
== END | disposition home or self-care (01) ==
LOC: LAB 11:25
PROVIDERS: ATTEND Internal Medicine
DX: I42.8 Other cardiomyopathies (principal)
CPT/HCPCS: 36415; 80048

== ENCOUNTER 2023-07-16 15:01 | Inpatient (IN) | payer MEDICARE, OTHER ==
[~2023-07-16] VITALS: Ht 160 cm; Wt 60.0 kg
[2023-07-16 16:03] LABS: Basophils # (auto) 0 10 ^3/uL (0-0.2); Basophils % (auto) 0.6 % (0.0-2.0); Eosinophils # (auto) 0.3 10 ^3/uL (0-0.8); Eosinophils % (auto) 3.7 % (0.0-7.0); Hemoglobin 13.1 g/dL (13.5-17.5); Lymphocytes # (auto) 1.4 10 ^3/uL (0.4-5.4); Lymphocytes % (auto) 19.8 % (10.0-50.0); Mean Corpuscular Hemoglobin 30.8 pg (28.0-32.0); Mean Corpuscular Hgb Conc. 34.4 g/dL (32.0-36.0); Mean Corpuscular Volume 89.6 fL (80.0-100.0); Monocytes # (auto) 0.7 10 ^3/uL (0-1.3); Monocytes % (auto) 9.5 % (0.0-12.0); Neutrophils # (auto) 4.7 10 ^3/uL (1.6-8.6); Neutrophils % (auto) 66.4 % (37.0-80.0); Nucleated Red Blood Cells % 0.1 %; Red Blood Cells 4.24 10^6/uL (4.5-5.90); Red Cell Distribution Width 14.3 % (11.8-14.3); White Blood Cell 7.1 10^3/uL (4.4-10.8)
[2023-07-16 16:11] LABS: Alanine Aminotransferase 38 U/L (7-40); Albumin 3.9 g/dL (3.2-4.8); Alkaline Phosphatase 77 U/L (46-116); Anion Gap 5 (5-15); Aspartate Aminotransferase 32 U/L (13-40); BUN/Creatinine Ratio 21.5 (10.0-20.0); Blood Urea Nitrogen 26 mg/dL (9-23); Calcium 8.9 mg/dL (8.5-10.1); Carbon Dioxide 25 mmol/L (20-30); Chloride 110 mmol/L (98-107); Glucose 145 mg/dL (74-106); Potassium 5.1 mmol/L (3.5-5.1); Sodium 140 mmol/L (136-145)
[2023-07-16 16:12] LABS: Bilirubin, Total 0.5 mg/dL (0.2-1.0)
[2023-07-16 16:20] LABS: Urine Bacteria NONE SEEN /hpf (None Seen); Urine Blood TRACE /uL (Negative); Urine Clarity Clear (Clear); Urine Color Colorless (Yellow); Urine Protein, UAD Negative (Negative); Urine Specific Gravity 1.007 (1.001-1.035); Urine Urobilinogen Normal (Negative); Urine WBC 1 /hpf (0 - 3); Urine pH 5.5 (5.0-8.0)
[2023-07-16 16:24] LABS: Lipase 76 U/L (12-53)
[2023-07-16] MEDS ORDERED: PIPERACILLIN-TAZOB 3.375GM 100 ML IV ONE (18:45)
[2023-07-16] MEDS ORDERED: ASPirin 325 MG TAB PO ONE (18:45)
[2023-07-16] MEDS ORDERED: LABETALOL HCL 5 MG/ML 4ML SYRINGE IV ONE (18:45)
[2023-07-16 19:36] VITALS: PULSE 67; RESP 11; O2SAT 97
[2023-07-16] MEDS ORDERED: ACETAMINOPHEN 325 MG TAB PO PRN (21:15)
[2023-07-16] MEDS ORDERED: hydrALAZINE HCL 20 MG/ML VL IV PRN (21:15)
[2023-07-16] MEDS ORDERED: ONDANSETRON HCL 4 MG/2 ML VIAL IV PRN (21:15)
[2023-07-16] MEDS ORDERED: NITROGLYCERIN 0.4 MG SL TAB SL PRN (21:15)
[2023-07-16] MEDS ORDERED: MORPHINE SULFATE INJ 2 MG/ml SYRG IV PRN (21:15)
[2023-07-16 21:39] LABS: Chloride 113 mmol/L (98-107); Potassium 4.7 mmol/L (3.5-5.1); Sodium 139 mmol/L (136-145)
[2023-07-16 21:40] LABS: Anion Gap 4 (5-15); Calcium 8.6 mg/dL (8.7-10.4); Carbon Dioxide 22 mmol/L (20-30)
[2023-07-16 21:41] LABS: INR 2.86 (0.9-1.15); Partial Thromboplastin Time 38.1 SEC (24.5-34.5)
[2023-07-16 21:45] LABS: BUN/Creatinine Ratio 14.2 (10.0-20.0); Blood Urea Nitrogen 18 mg/dL (9-23); Glucose 132 mg/dL (74-106)
[2023-07-16] MEDS ORDERED: ATORVASTATIN 20 MG TAB PO SCH (22:00)
[2023-07-16] MEDS: CARVEDILOL 3.125 MG TAB PO SCH (22:34)
[2023-07-16] MEDS: SACUBITRIL-VALSARTAN 24mg/26mg TAB PO SCH (22:37)
[2023-07-17 05:09] LABS: Basophils # (auto) 0 10 ^3/uL (0-0.2); Basophils % (auto) 0.7 % (0.0-2.0); Eosinophils # (auto) 0.3 10 ^3/uL (0-0.8); Hematocrit 35.5 % (41.0-53.0); Hemoglobin 12.3 g/dL (13.5-17.5); Lymphocytes # (auto) 1.5 10 ^3/uL (0.4-5.4); Lymphocytes % (auto) 21.7 % (10.0-50.0); Mean Corpuscular Hemoglobin 30.6 pg (28.0-32.0); Mean Corpuscular Hgb Conc. 34.7 g/dL (32.0-36.0); Mean Corpuscular Volume 88.3 fL (80.0-100.0); Monocytes # (auto) 0.7 10 ^3/uL (0-1.3); Monocytes % (auto) 10.4 % (0.0-12.0); Neutrophils # (auto) 4.4 10 ^3/uL (1.6-8.6); Neutrophils % (auto) 63.2 % (37.0-80.0); Red Blood Cells 4.03 10^6/uL (4.5-5.90); Red Cell Distribution Width 14.4 % (11.8-14.3); White Blood Cell 6.9 10^3/uL (4.4-10.8)
[2023-07-17 05:18] LABS: Alanine Aminotransferase 30 U/L (7-40); Albumin 3.6 g/dL (3.2-4.8); Alkaline Phosphatase 69 U/L (46-116); Anion Gap 6 (5-15); Aspartate Aminotransferase 21 U/L (13-40); Blood Urea Nitrogen 22 mg/dL (9-23); Calcium 8.4 mg/dL (8.7-10.4); Carbon Dioxide 23 mmol/L (20-30); Chloride 112 mmol/L (98-107); Glucose 97 mg/dL (74-106); Potassium 4.5 mmol/L (3.5-5.1); Sodium 141 mmol/L (136-145)
[2023-07-17 05:19] LABS: Bilirubin, Total 0.7 mg/dL (0.2-1.0); Total Protein 5.6 g/dL (5.7-8.2)
[2023-07-17 07:27] LABS: BUN/Creatinine Ratio 16.2 (10.0-20.0)
[2023-07-17 07:40] VITALS: PULSE 65; RESP 18; TEMP 97.8; O2SAT 97
[2023-07-17] MEDS ORDERED: ASPirin 81 mg TAB PO SCH (10:00)
[2023-07-17] MEDS ORDERED: EMPA1TAB PO (11:30)
[2023-07-17] MEDS ORDERED: SPIR25TA PO (11:30)
[2023-07-17] MEDS ORDERED: ASPI-325 PO (11:30)
[2023-07-17] MEDS ORDERED: SACU1TAB PO (11:30)
[2023-07-17] MEDS: SACUBITRIL-VALSARTAN 24mg/26mg TAB PO SCH (11:46)
[2023-07-17] MEDS: CARVEDILOL 3.125 MG TAB PO SCH (11:47)
[2023-07-17 12:19] LABS: INR 2.47 (0.9-1.15); Partial Thromboplastin Time 35.8 SEC (24.5-34.5); Prothrombin Time 24.4 sec (9.3-11.8)
[2023-07-17 15:37] VITALS: BP 140/62; PULSE 76; RESP 16; O2SAT 97
[2023-07-18] MEDS ORDERED: EMPAGLIFLOZIN 10 MG TAB PO SCH (07:00)
[2023-07-18] MEDS ORDERED: SPIRONOLACTONE 25 MG TAB PO SCH (10:00)
[2023-07-18] MEDS ORDERED: ASPirin 81 mg TAB PO SCH (10:00)
== END 2023-07-17 15:38 | disposition home or self-care (01) | DRG 280 ==
LOC: ER 15:01 → TELE 21:11
PROVIDERS: ADMIT Internal Medicine
DX: I16.0 Hypertensive urgency (principal); I21.A1 Myocardial infarction type 2; I50.23 Acute on chronic systolic (congestive) heart failure; I11.0 Hypertensive heart disease with heart failure; E78.5 Hyperlipidemia, unspecified; I25.10 Atherosclerotic heart disease of native coronary artery without angina pectoris; Z79.01 Long term (current) use of anticoagulants; Z95.5 Presence of coronary angioplasty implant and graft; Z90.49 Acquired absence of other specified parts of digestive tract; Z95.2 Presence of prosthetic heart valve; Z95.1 Presence of aortocoronary bypass graft; Z83.3 Family history of diabetes mellitus; Z82.49 Family history of ischemic heart disease and other diseases of the circulatory system
CPT/HCPCS: 36415; 70450; 71045; 74176; 80048; 80053; 81001; 83036; 83605; 83690; 83880; 84443; 84484; 85025; 85610; 85730; 93005; 93306; 96365; G0378; J2543

== ENCOUNTER → 2023-08-11 | Outpatient (CLI) | payer OTHER ==
[~2023-08-11] MED LIST changes: +ASPI-325 PO; +EMPA1TAB PO; +SACU1TAB PO; +SPIR25TA PO
[2023-08-11 12:22] LABS: Urine Bacteria NONE SEEN /hpf (None Seen); Urine Blood Negative /uL (Negative); Urine Clarity Clear (Clear); Urine Protein, UAD Negative (Negative); Urine Specific Gravity 1.011 (1.001-1.035); Urine Urobilinogen Normal (Negative); Urine WBC <1 /hpf (0 - 3); Urine pH 6.5 (5.0-8.0)
[2023-08-11 12:24] LABS: Urine Color Straw (Yellow)
== END | disposition home or self-care (01) ==
LOC: LAB 07:43
PROVIDERS: ATTEND Urology
DX: R30.0 Dysuria (principal)
CPT/HCPCS: 81001; 87086; 87088; 87186

== ENCOUNTER 2023-09-12 13:54 | Emergency (ER) | payer OTHER ==
[~2023-09-12] VITALS: Ht 162.6 cm; Wt 60.5 kg
[2023-09-12 17:09] LABS: Chloride 109 mmol/L (98-107); Potassium 5.5 mmol/L (3.5-5.1); Sodium 141 mmol/L (136-145)
[2023-09-12 17:10] LABS: Anion Gap 4 (5-15); Carbon Dioxide 28 mmol/L (20-30)
[2023-09-12 17:11] LABS: Basophils # (auto) 0.1 10 ^3/uL (0-0.2); Basophils % (auto) 0.7 % (0.0-2.0); Calcium 9.7 mg/dL (8.5-10.1); Eosinophils # (auto) 0.3 10 ^3/uL (0-0.8); Eosinophils % (auto) 4.3 % (0.0-7.0); Hemoglobin 12.6 g/dL (13.5-17.5); Lymphocytes # (auto) 1.3 10 ^3/uL (0.4-5.4); Lymphocytes % (auto) 15.8 % (10.0-50.0); Mean Corpuscular Hemoglobin 30.1 pg (28.0-32.0); Mean Corpuscular Hgb Conc. 33.2 g/dL (32.0-36.0); Mean Corpuscular Volume 90.7 fL (80.0-100.0); Monocytes # (auto) 0.8 10 ^3/uL (0-1.3); Monocytes % (auto) 10.6 % (0.0-12.0); Neutrophils # (auto) 5.5 10 ^3/uL (1.6-8.6); Neutrophils % (auto) 68.6 % (37.0-80.0); Nucleated Red Blood Cells % 0.2 %; Red Blood Cells 4.19 10^6/uL (4.5-5.90); Red Cell Distribution Width 14.7 % (11.8-14.3)
[2023-09-12 17:15] LABS: BUN/Creatinine Ratio 16.2 (10.0-20.0); Glucose 114 mg/dL (74-106)
[2023-09-12 17:19] LABS: Blood Urea Nitrogen 32 mg/dL (9-23)
[2023-09-12] MEDS ORDERED: SODIUM ZIRCONIUM CYCL 10 GM PAK PO ONE (18:30)
[2023-09-12 18:39] VITALS: BP 130/51; PULSE 72; RESP 17; TEMP 97.8; O2SAT 99
== END 2023-09-12 18:49 | disposition home or self-care (01) ==
LOC: ER 13:54
DX: E87.5 Hyperkalemia (principal); I10 Essential (primary) hypertension; I25.10 Atherosclerotic heart disease of native coronary artery without angina pectoris; I25.2 Old myocardial infarction; Z98.890 Other specified postprocedural states; Z79.899 Other long term (current) drug therapy
CPT/HCPCS: 36415; 80048; 84132; 85025; 93005

== ENCOUNTER 2023-09-18 14:08 | Emergency (ER) | payer OTHER ==
[~2023-09-18] VITALS: Ht 162.6 cm; Wt 57.5 kg
[2023-09-18] MEDS ORDERED: SODIUM BICARBONATE 8.4 % INJ 50ML VIAL IV ONE (17:00)
[2023-09-18] MEDS ORDERED: CALCIUM GLUC 1,000mg/50ml-NS 50 ML IV ONE (17:00)
[2023-09-18 17:12] LABS: Basophils # (auto) 0 10 ^3/uL (0-0.2); Basophils % (auto) 0.4 % (0.0-2.0); Eosinophils # (auto) 0.3 10 ^3/uL (0-0.8); Eosinophils % (auto) 4.2 % (0.0-7.0); Hematocrit 36.9 % (41.0-53.0); Hemoglobin 12.5 g/dL (13.5-17.5); Lymphocytes # (auto) 1.2 10 ^3/uL (0.4-5.4); Lymphocytes % (auto) 15.2 % (10.0-50.0); Mean Corpuscular Hemoglobin 30.6 pg (28.0-32.0); Mean Corpuscular Hgb Conc. 33.8 g/dL (32.0-36.0); Mean Corpuscular Volume 90.6 fL (80.0-100.0); Monocytes # (auto) 0.8 10 ^3/uL (0-1.3); Monocytes % (auto) 10.1 % (0.0-12.0); Neutrophils # (auto) 5.6 10 ^3/uL (1.6-8.6); Neutrophils % (auto) 70.1 % (37.0-80.0); Nucleated Red Blood Cells % 0.1 %; Red Blood Cells 4.07 10^6/uL (4.5-5.90); Red Cell Distribution Width 15.2 % (11.8-14.3)
[2023-09-18 17:13] LABS: Chloride 111 mmol/L (98-107); Sodium 139 mmol/L (136-145)
[2023-09-18 17:14] LABS: Anion Gap 5 (5-15); Calcium 9.3 mg/dL (8.5-10.1); Carbon Dioxide 23 mmol/L (20-30)
[2023-09-18 17:19] LABS: Blood Urea Nitrogen 29 mg/dL (9-23); Glucose 102 mg/dL (74-106)
[2023-09-18 17:35] VITALS: BP 144/52; PULSE 77; RESP 16; TEMP 98; O2SAT 100
== END 2023-09-18 17:39 | disposition home or self-care (01) ==
LOC: ER 14:08
DX: R79.89 Other specified abnormal findings of blood chemistry (principal); I10 Essential (primary) hypertension; I25.2 Old myocardial infarction; I25.10 Atherosclerotic heart disease of native coronary artery without angina pectoris; Z98.890 Other specified postprocedural states; Z79.899 Other long term (current) drug therapy
CPT/HCPCS: 36415; 80048; 85025; 93005

== ENCOUNTER → 2023-09-18 | Outpatient (CLI) | payer OTHER ==
[2023-09-18 13:05] LABS: Chloride 110 mmol/L (98-107); Sodium 139 mmol/L (136-145)
[2023-09-18 13:06] LABS: Anion Gap 4 (5-15); Carbon Dioxide 25 mmol/L (20-30)
[2023-09-18 13:07] LABS: Calcium 9.9 mg/dL (8.5-10.1)
[2023-09-18 13:11] LABS: BUN/Creatinine Ratio 21.6 (10.0-20.0); Blood Urea Nitrogen 30 mg/dL (9-23); Glucose 105 mg/dL (74-106)
[2023-09-18 13:13] LABS: % Iron Saturation 29.3 % (20-55)
[2023-09-18 13:17] LABS: Ferritin 107.5 ng/mL (22-322); Folate (Folic Acid) > 24.00 ng/mL (>5.38)
[2023-09-18 13:24] LABS: Potassium 5.9 mmol/L (3.5-5.1)
== END | disposition home or self-care (01) ==
LOC: LAB 11:57
PROVIDERS: ATTEND Internal Medicine
DX: N18.31 Chronic kidney disease, stage 3a (principal); E87.5 Hyperkalemia
CPT/HCPCS: 36415; 80048; 82607; 82728; 82746; 83036; 83540; 83550

== ENCOUNTER 2023-10-25 21:04 | Inpatient (IN) | payer OTHER ==
[~2023-10-25] VITALS: Ht 162.6 cm; Wt 66.5 kg
[2023-10-25 21:51] LABS: Urine Bacteria FEW /hpf (None Seen); Urine Blood 3+ /uL (Negative); Urine Clarity Clear (Clear); Urine Color Yellow (Yellow); Urine Hyaline Cast FEW /lpf (0 - 2); Urine Protein, UAD 1+ (Negative); Urine Specific Gravity 1.007 (1.001-1.035); Urine Urobilinogen Normal (Negative); Urine WBC 65 /hpf (0 - 3)
[2023-10-25 21:59] LABS: Basophils # (auto) 0.1 10 ^3/uL (0-0.2); Basophils % (auto) 0.6 % (0.0-2.0); Eosinophils # (auto) 0.2 10 ^3/uL (0-0.8); Eosinophils % (auto) 2.7 % (0.0-7.0); Hematocrit 36.8 % (41.0-53.0); Hemoglobin 12.6 g/dL (13.5-17.5); Lymphocytes # (auto) 1.2 10 ^3/uL (0.4-5.4); Lymphocytes % (auto) 13.7 % (10.0-50.0); Mean Corpuscular Hemoglobin 30.1 pg (28.0-32.0); Mean Corpuscular Hgb Conc. 34.1 g/dL (32.0-36.0); Mean Corpuscular Volume 88.3 fL (80.0-100.0); Monocytes # (auto) 1.1 10 ^3/uL (0-1.3); Monocytes % (auto) 12.4 % (0.0-12.0); Neutrophils # (auto) 6.1 10 ^3/uL (1.6-8.6); Neutrophils % (auto) 70.6 % (37.0-80.0); Red Blood Cells 4.17 10^6/uL (4.5-5.90); Red Cell Distribution Width 14.6 % (11.8-14.3); White Blood Cell 8.6 10^3/uL (4.4-10.8)
[2023-10-25 22:15] LABS: Alanine Aminotransferase 17 U/L (7-40); Albumin 4.1 g/dL (3.2-4.8); Alkaline Phosphatase 79 U/L (46-116); Anion Gap 6 (5-15); Aspartate Aminotransferase 19 U/L (13-40); BUN/Creatinine Ratio 15.4 (10.0-20.0); Bilirubin, Total 0.7 mg/dL (0.2-1.0); Blood Urea Nitrogen 23 mg/dL (9-23); Calcium 8.8 mg/dL (8.7-10.4); Carbon Dioxide 24 mmol/L (20-30); Chloride 107 mmol/L (98-107); Glucose 111 mg/dL (74-106); Potassium 4.9 mmol/L (3.5-5.1); Sodium 137 mmol/L (136-145)
[2023-10-25 22:16] LABS: Total Protein 6.5 g/dL (5.7-8.2)
[2023-10-25 23:14] LABS: INR 2.38 (0.9-1.15); Prothrombin Time 23.6 sec (9.3-11.8)
[2023-10-26] VITALS (8 sets, daily range): BP systolic 121–133; BP diastolic 39–76; PULSE 39–89; RESP 12–68; TEMP 97.2–98.3; O2SAT 96–99
[2023-10-26] MEDS: ONDANSETRON HCL 4 MG/2 ML VIAL IV ONE (01:51)
[2023-10-26] MEDS: SODIUM CHLORIDE 0.9% 1,000 ML IV ONE (01:51)
[2023-10-26] MEDS: ACETAMINOPHEN 325 MG TAB PO ONE (01:51)
[2023-10-26] MEDS: cefTRIAXone 1GM/50ML D5W 50 ML IV ONE (01:52)
[2023-10-26] MEDS ORDERED: MORPHINE SULFATE INJ 2 MG/ml SYRG IV PRN (02:15)
[2023-10-26] MEDS ORDERED: NITROGLYCERIN 0.4 MG SL TAB SL PRN (02:15)
[2023-10-26] MEDS ORDERED: ONDANSETRON HCL 4 MG/2 ML VIAL IV PRN (02:15)
[2023-10-26] MEDS: SODIUM CHLORIDE 0.9% 1,000 ML IV SCH (04:06)
[2023-10-26 05:06] LABS: Basophils # (auto) 0 10 ^3/uL (0-0.2); Basophils % (auto) 0.5 % (0.0-2.0); Eosinophils # (auto) 0.2 10 ^3/uL (0-0.8); Eosinophils % (auto) 2.9 % (0.0-7.0); Hematocrit 33.6 % (41.0-53.0); Hemoglobin 11.5 g/dL (13.5-17.5); Lymphocytes # (auto) 1.4 10 ^3/uL (0.4-5.4); Lymphocytes % (auto) 19.8 % (10.0-50.0); Mean Corpuscular Hgb Conc. 34.2 g/dL (32.0-36.0); Mean Corpuscular Volume 90.6 fL (80.0-100.0); Monocytes # (auto) 0.9 10 ^3/uL (0-1.3); Monocytes % (auto) 13.1 % (0.0-12.0); Neutrophils # (auto) 4.6 10 ^3/uL (1.6-8.6); Neutrophils % (auto) 63.7 % (37.0-80.0); Nucleated Red Blood Cells % 0.1 %; Red Blood Cells 3.71 10^6/uL (4.5-5.90); Red Cell Distribution Width 14.4 % (11.8-14.3); White Blood Cell 7.2 10^3/uL (4.4-10.8)
[2023-10-26 05:19] LABS: Alanine Aminotransferase 14 U/L (7-40); Albumin 3.5 g/dL (3.2-4.8); Alkaline Phosphatase 66 U/L (46-116); Anion Gap 6 (5-15); Aspartate Aminotransferase 16 U/L (13-40); BUN/Creatinine Ratio 16.5 (10.0-20.0); Bilirubin, Total 0.6 mg/dL (0.2-1.0); Blood Urea Nitrogen 23 mg/dL (9-23); Calcium 8.3 mg/dL (8.7-10.4); Carbon Dioxide 23 mmol/L (20-30); Chloride 111 mmol/L (98-107); Glucose 104 mg/dL (74-106); Potassium 4.8 mmol/L (3.5-5.1); Sodium 140 mmol/L (136-145); Total Protein 5.6 g/dL (5.7-8.2)
[2023-10-26] MEDS: FAMOTIDINE (10MG/ML) 2ML VL IV SCH (13:33)
[2023-10-26] MEDS: ACETAMINOPHEN 325 MG TAB PO PRN (13:55)
[2023-10-26] MEDS: HYDROcodone-ACET 5/325MG TAB PO PRN (18:31)
[2023-10-27] VITALS (8 sets, daily range): BP systolic 114–146; BP diastolic 44–69; PULSE 60–77; RESP 16–72; TEMP 97.8–98.3; O2SAT 96–99
[2023-10-27] MEDS: cefTRIAXone 1GM/50ML D5W 50 ML IV SCH (05:08)
[2023-10-27 06:59] LABS: Basophils # (auto) 0 10 ^3/uL (0-0.2); Basophils % (auto) 0.7 % (0.0-2.0); Eosinophils # (auto) 0.2 10 ^3/uL (0-0.8); Eosinophils % (auto) 3.4 % (0.0-7.0); Hematocrit 30.1 % (41.0-53.0); Hemoglobin 10.6 g/dL (13.5-17.5); Lymphocytes # (auto) 1.2 10 ^3/uL (0.4-5.4); Lymphocytes % (auto) 18.2 % (10.0-50.0); Mean Corpuscular Hemoglobin 31.1 pg (28.0-32.0); Mean Corpuscular Hgb Conc. 35.2 g/dL (32.0-36.0); Mean Corpuscular Volume 88.3 fL (80.0-100.0); Monocytes # (auto) 0.7 10 ^3/uL (0-1.3); Monocytes % (auto) 11.2 % (0.0-12.0); Neutrophils # (auto) 4.3 10 ^3/uL (1.6-8.6); Neutrophils % (auto) 66.5 % (37.0-80.0); Nucleated Red Blood Cells % 0.1 %; Red Blood Cells 3.41 10^6/uL (4.5-5.90); Red Cell Distribution Width 14.5 % (11.8-14.3); White Blood Cell 6.4 10^3/uL (4.4-10.8)
[2023-10-27 07:31] LABS: Alanine Aminotransferase 14 U/L (7-40); Alkaline Phosphatase 58 U/L (46-116); Anion Gap 6 (5-15); BUN/Creatinine Ratio 15.2 (10.0-20.0); Blood Urea Nitrogen 19 mg/dL (9-23); Calcium 8.4 mg/dL (8.5-10.1); Carbon Dioxide 21 mmol/L (20-30); Chloride 113 mmol/L (98-107); Glucose 87 mg/dL (74-106); Potassium 4.4 mmol/L (3.5-5.1); Sodium 140 mmol/L (136-145)
[2023-10-27 07:32] LABS: Albumin 3.2 g/dL (3.2-4.8); Aspartate Aminotransferase 25 U/L (13-40); Bilirubin, Total 0.6 mg/dL (0.2-1.0); Total Protein 5.4 g/dL (5.7-8.2)
[2023-10-27 22:14] LABS: Basophils # (auto) 0.1 10 ^3/uL (0-0.2); Basophils % (auto) 1.1 % (0.0-2.0); Eosinophils # (auto) 0.2 10 ^3/uL (0-0.8); Eosinophils % (auto) 3.6 % (0.0-7.0); Hematocrit 32.9 % (41.0-53.0); Lymphocytes # (auto) 1.1 10 ^3/uL (0.4-5.4); Lymphocytes % (auto) 17.1 % (10.0-50.0); Mean Corpuscular Hemoglobin 29.9 pg (28.0-32.0); Mean Corpuscular Hgb Conc. 33.4 g/dL (32.0-36.0); Mean Corpuscular Volume 89.5 fL (80.0-100.0); Monocytes # (auto) 0.6 10 ^3/uL (0-1.3); Monocytes % (auto) 9.9 % (0.0-12.0); Neutrophils # (auto) 4.3 10 ^3/uL (1.6-8.6); Neutrophils % (auto) 68.3 % (37.0-80.0); Red Blood Cells 3.68 10^6/uL (4.5-5.90); Red Cell Distribution Width 14.5 % (11.8-14.3); White Blood Cell 6.3 10^3/uL (4.4-10.8)
[2023-10-27 22:29] LABS: INR 1.4 (0.9-1.15); Partial Thromboplastin Time 31.3 SEC (24.5-34.5); Prothrombin Time 14.4 sec (9.3-11.8)
[2023-10-27 22:33] LABS: Alanine Aminotransferase 15 U/L (7-40); Albumin 3.6 g/dL (3.2-4.8); Alkaline Phosphatase 62 U/L (46-116); Anion Gap 5 (5-15); Aspartate Aminotransferase 20 U/L (13-40); BUN/Creatinine Ratio 14.4 (10.0-20.0); Blood Urea Nitrogen 19 mg/dL (9-23); Calcium 8.5 mg/dL (8.7-10.4); Carbon Dioxide 22 mmol/L (20-30); Chloride 112 mmol/L (98-107); Glucose 99 mg/dL (74-106); Potassium 4.3 mmol/L (3.5-5.1); Sodium 139 mmol/L (136-145)
[2023-10-27 22:34] LABS: Bilirubin, Total 0.8 mg/dL (0.2-1.0); Total Protein 5.8 g/dL (5.7-8.2)
[2023-10-28] VITALS (7 sets, daily range): BP systolic 119–158; BP diastolic 50–63; PULSE 43–96; RESP 16–18; TEMP 97.5–98.3; O2SAT 96–99
[2023-10-28] MEDS ORDERED: LIDOCAINE HCL 2% TOP JELLY 5ML TOP ONE (12:00)
[2023-10-28] MEDS ORDERED: DexAMETHasone SOD PHOS 10MG/1ML VIAL INJ ONE (12:00)
[2023-10-28] MEDS ORDERED: PROPOFOL 10 MG/ML 20 ML IV ONE (12:00)
[2023-10-28] MEDS ORDERED: SUGAMMADEX 200mg/2ml Vial (100MG/ML) IV ONE (12:00)
[2023-10-28] MEDS ORDERED: GLYCOPYRROLATE 0.2 MG/ML 1ML VIAL ONE (12:00)
[2023-10-28] MEDS ORDERED: ONDANSETRON HCL 4 MG/2 ML VIAL ONE (12:00)
[2023-10-28] MEDS ORDERED: LIDOCAINE 2% (LOCAL ANESTH.) PF 5ml SDV ONE (12:00)
[2023-10-28] MEDS ORDERED: KETAMINE 50mg/ML 1ml syringe ONE (12:01)
[2023-10-28] MEDS: CIPROFLOXACIN 400MG/200ML 200 ML IV ONE (12:18)
[2023-10-28] MEDS ORDERED: SODIUM CHLORIDE LOCK 10 ML ONE (12:54)
[2023-10-28] MEDS ORDERED: METOPROLOL TARTRATE 1MG/1ML-5ML VIAL IV ONE (13:24)
[2023-10-28] MEDS ORDERED: PHYTONADIONE (VIT K)10 MG/ML 1ML VIAL SUBCUT ONE (13:45)
[2023-10-28] MEDS ORDERED: fentaNYL CITRATE 100 MCG/2 ML VL ONE (13:50)
[2023-10-28] MEDS: HYDROmorphone HCL 2 MG/ML VL/or syr IV PRN (14:14)
[2023-10-28] MEDS ORDERED: NALOXONE HCL 0.4 MG/ML VIAL IV PRN (14:15)
[2023-10-28] MEDS ORDERED: hydrALAZINE HCL 20 MG/ML VL IV PRN (14:15)
[2023-10-28] MEDS ORDERED: ONDANSETRON HCL 4 MG/2 ML VIAL IV PRN (14:15)
[2023-10-28] MEDS ORDERED: LABETALOL HCL 5 MG/ML 4ML SYRINGE IV PRN (14:15)
[2023-10-28] MEDS ORDERED: FLUMAZENIL 0.1 MG/ML INJ 10ML MDV IV PRN (14:15)
[2023-10-28] MEDS ORDERED: ePHEDrine SULFATE 50 MG/ML AMP IV PRN (14:15)
[2023-10-28] MEDS ORDERED: fentaNYL CITRATE 100 MCG/2 ML VL IV PRN (14:15)
[2023-10-28] MEDS: phytonadione 2.5 MG in SODIUM CHL 0.9% 50 ML IV ONE (15:00)
[2023-10-28] MEDS ORDERED: PHENYLEPHRINE HCL 0.25 % NASAL SPRAY 15ML ONE (15:15)
[2023-10-29] VITALS (7 sets, daily range): BP systolic 113–157; BP diastolic 44–80; PULSE 61–81; RESP 14–18; TEMP 97.3–98.4; O2SAT 96–100
[2023-10-29 06:07] LABS: Basophils # (auto) 0 10 ^3/uL (0-0.2); Basophils % (auto) 0.1 % (0.0-2.0); Eosinophils # (auto) 0 10 ^3/uL (0-0.8); Hematocrit 28.5 % (41.0-53.0); Hemoglobin 9.9 g/dL (13.5-17.5); Lymphocytes # (auto) 0.5 10 ^3/uL (0.4-5.4); Lymphocytes % (auto) 5.6 % (10.0-50.0); Mean Corpuscular Hemoglobin 31.1 pg (28.0-32.0); Mean Corpuscular Hgb Conc. 34.6 g/dL (32.0-36.0); Mean Corpuscular Volume 89.8 fL (80.0-100.0); Monocytes # (auto) 0.6 10 ^3/uL (0-1.3); Monocytes % (auto) 7.6 % (0.0-12.0); Neutrophils # (auto) 7.2 10 ^3/uL (1.6-8.6); Neutrophils % (auto) 86.7 % (37.0-80.0); Red Blood Cells 3.18 10^6/uL (4.5-5.90); Red Cell Distribution Width 14.6 % (11.8-14.3); White Blood Cell 8.3 10^3/uL (4.4-10.8)
[2023-10-29 06:18] LABS: Anion Gap 6 (5-15); Carbon Dioxide 21 mmol/L (20-30); Chloride 114 mmol/L (98-107); Sodium 141 mmol/L (136-145)
[2023-10-29 06:19] LABS: Calcium 8.6 mg/dL (8.5-10.1)
[2023-10-29 06:24] LABS: Blood Urea Nitrogen 22 mg/dL (9-23); Glucose 171 mg/dL (74-106)
[2023-10-29 06:32] LABS: BUN/Creatinine Ratio 15.2 (10.0-20.0)
[2023-10-29] MEDS: DOCUSATE SOD 100 MG CAP PO PRN (17:56)
[2023-10-30 05:00] VITALS: BP 101/50; PULSE 63; RESP 18; TEMP 97.6; O2SAT 97
[2023-10-30 07:29] LABS: Basophils # (auto) 0.1 10 ^3/uL (0-0.2); Basophils % (auto) 0.6 % (0.0-2.0); Eosinophils # (auto) 0.4 10 ^3/uL (0-0.8); Eosinophils % (auto) 3.8 % (0.0-7.0); Hemoglobin 10.2 g/dL (13.5-17.5); Lymphocytes # (auto) 1.4 10 ^3/uL (0.4-5.4); Lymphocytes % (auto) 14.4 % (10.0-50.0); Mean Corpuscular Hemoglobin 30.6 pg (28.0-32.0); Mean Corpuscular Hgb Conc. 34.2 g/dL (32.0-36.0); Mean Corpuscular Volume 89.6 fL (80.0-100.0); Monocytes # (auto) 0.8 10 ^3/uL (0-1.3); Monocytes % (auto) 8.4 % (0.0-12.0); Neutrophils # (auto) 6.8 10 ^3/uL (1.6-8.6); Neutrophils % (auto) 72.8 % (37.0-80.0); Red Blood Cells 3.34 10^6/uL (4.5-5.90); Red Cell Distribution Width 14.2 % (11.8-14.3); White Blood Cell 9.4 10^3/uL (4.4-10.8)
[2023-10-30 07:32] LABS: Anion Gap 6 (5-15); Carbon Dioxide 24 mmol/L (20-30); Chloride 114 mmol/L (98-107); Potassium 4.3 mmol/L (3.5-5.1); Sodium 144 mmol/L (136-145)
[2023-10-30 07:34] LABS: Calcium 9.2 mg/dL (8.5-10.1)
[2023-10-30 07:38] LABS: Glucose 93 mg/dL (74-106)
[2023-10-30 07:39] LABS: BUN/Creatinine Ratio 15.3 (10.0-20.0); Blood Urea Nitrogen 18 mg/dL (9-23)
[2023-10-30 07:55] VITALS: BP 97/58; PULSE 74; RESP 16; TEMP 97.8; O2SAT 97
[2023-10-30 09:17] VITALS: BP 97/58; PULSE 74; RESP 16; TEMP 97.8; O2SAT 97
[2023-10-30 13:27] VITALS: BP 133/59; PULSE 81; RESP 18; TEMP 97.4; O2SAT 96
[2023-10-30] MEDS ORDERED: CIPR-173 PO (15:53)
[2023-10-30 17:05] VITALS: BP 133/59; PULSE 81; RESP 18; TEMP 97.4; O2SAT 96
[2023-10-30 17:51] VITALS: BP 156/52; PULSE 86; RESP 18; TEMP 97.4; O2SAT 100
== END 2023-10-30 18:06 | disposition home or self-care (01) | DRG 666 ==
LOC: ER 21:04 → TELE 10-26 02:15 → TELE-WESTW 10-26 07:57 → WEST WING 10-29
PROVIDERS: ADMIT Nurse Practitioner Family; ATTEND Internal Medicine
PROC: 0VT08ZZ Resection of Prostate, Via Natural or Artificial Opening Endoscopic (ICD-10-PCS; 2023-10-28)
PROC: 0TBC8ZZ Excision of Bladder Neck, Via Natural or Artificial Opening Endoscopic (ICD-10-PCS; principal; 2023-10-28 12:54)
DX: T83.511A Infection and inflammatory reaction due to indwelling urethral catheter, initial encounter (principal); D68.9 Coagulation defect, unspecified; N17.9 Acute kidney failure, unspecified; C67.9 Malignant neoplasm of bladder, unspecified; N39.0 Urinary tract infection, site not specified; R31.0 Gross hematuria; Y84.6 Urinary catheterization as the cause of abnormal reaction of the patient, or of later complication, without mention of misadventure at the time of the procedure; E11.9 Type 2 diabetes mellitus without complications; K57.90 Diverticulosis of intestine, part unspecified, without perforation or abscess without bleeding; N40.0 Benign prostatic hyperplasia without lower urinary tract symptoms; I25.10 Atherosclerotic heart disease of native coronary artery without angina pectoris; E78.00 Pure hypercholesterolemia, unspecified; Z85.51 Personal history of malignant neoplasm of bladder; Z95.1 Presence of aortocoronary bypass graft; Z79.82 Long term (current) use of aspirin; Z79.899 Other long term (current) drug therapy; Z79.2 Long term (current) use of antibiotics; Z83.3 Family history of diabetes mellitus; Z82.49 Family history of ischemic heart disease and other diseases of the circulatory system; Y92.89 Other specified places as the place of occurrence of the external cause; Z79.84 Long term (current) use of oral hypoglycemic drugs
CPT/HCPCS: 36415; 71045; 80048; 80053; 81001; 83605; 85025; 85610; 85730; 86850; 86900; 86901; 87040; 87077; 87081; 87086; G0378; J1100; J2001; J2405; J2704; J3430; J3490

== ENCOUNTER → 2023-11-03 | Outpatient (CLI) | payer OTHER ==
[~2023-11-03] MED LIST changes: +CIPR-173 PO; -CIPR500T4 PO; -METR500T PO; -SACU1TAB4 PO
[2023-11-03 11:43] LABS: Alanine Aminotransferase 22 U/L (7-40); Albumin 3.8 g/dL (3.2-4.8); Alkaline Phosphatase 66 U/L (46-116); Anion Gap 5 (5-15); Aspartate Aminotransferase 17 U/L (13-40); BUN/Creatinine Ratio 14.1 (10.0-20.0); Blood Urea Nitrogen 19 mg/dL (9-23); Calcium 9.4 mg/dL (8.5-10.1); Carbon Dioxide 26 mmol/L (20-30); Chloride 110 mmol/L (98-107); Glucose 124 mg/dL (74-106); Potassium 5.1 mmol/L (3.5-5.1); Sodium 141 mmol/L (136-145)
[2023-11-03 11:44] LABS: Bilirubin, Total 0.7 mg/dL (0.2-1.0); Total Protein 5.8 g/dL (5.7-8.2)
== END | disposition home or self-care (01) ==
LOC: LAB 10:28
PROVIDERS: ATTEND Student in an Organized Health Care Education/Training Program
DX: I42.0 Dilated cardiomyopathy (principal); I10 Essential (primary) hypertension
CPT/HCPCS: 36415; 80053

== ENCOUNTER → 2023-12-19 | Outpatient (CLI) | payer OTHER ==
[~2023-12-19] MED LIST changes: -ATO40T PO; +ATOR-507 PO
[2023-12-19 10:00] LABS: Urine Bacteria None Seen /hpf (None Seen)
[2023-12-19 10:41] LABS: Alanine Aminotransferase 24 U/L (7-40); Albumin 4.1 g/dL (3.2-4.8); Alkaline Phosphatase 71 U/L (46-116); Anion Gap 10 (5-15); Aspartate Aminotransferase 22 U/L (13-40); BUN/Creatinine Ratio 14.5 (10.0-20.0); Bilirubin, Total 0.6 mg/dL (0.2-1.0); Blood Urea Nitrogen 24 mg/dL (9-23); Calcium 9.5 mg/dL (8.5-10.1); Carbon Dioxide 21 mmol/L (20-30); Chloride 107 mmol/L (98-107); Cholesterol 126 mg/dL (< 200); Glucose 134 mg/dL (74-106); HDL Cholesterol 34 mg/dL (40-59); LDL Cholesterol 76 mg/dL (< 100); Potassium 5.2 mmol/L (3.5-5.1); Sodium 138 mmol/L (136-145); Total Protein 6.3 g/dL (5.7-8.2); Triglycerides 91 mg/dL (< 150)
[2023-12-19 10:49] LABS: Basophils # (auto) 0.1 10 ^3/uL (0-0.2); Basophils % (auto) 0.8 % (0.0-2.0); Eosinophils # (auto) 0.3 10 ^3/uL (0-0.8); Eosinophils % (auto) 3.6 % (0.0-7.0); Hematocrit 37.6 % (41.0-53.0); Hemoglobin 12.6 g/dL (13.5-17.5); Lymphocytes # (auto) 1.3 10 ^3/uL (0.4-5.4); Lymphocytes % (auto) 16.8 % (10.0-50.0); Mean Corpuscular Hemoglobin 30.2 pg (28.0-32.0); Mean Corpuscular Hgb Conc. 33.5 g/dL (32.0-36.0); Mean Corpuscular Volume 90.1 fL (80.0-100.0); Monocytes # (auto) 0.8 10 ^3/uL (0-1.3); Monocytes % (auto) 10.5 % (0.0-12.0); Neutrophils # (auto) 5.3 10 ^3/uL (1.6-8.6); Neutrophils % (auto) 68.3 % (37.0-80.0); Nucleated Red Blood Cells % 0.1 %; Red Blood Cells 4.17 10^6/uL (4.5-5.90); Red Cell Distribution Width 13.9 % (11.8-14.3); White Blood Cell 7.7 10^3/uL (4.4-10.8)
[2023-12-19 12:09] LABS: Urine Blood Negative /uL (Negative); Urine Budding Yeast OCCASIONAL /hpf (None Seen); Urine Clarity Clear (Clear); Urine Protein, UAD Negative (Negative); Urine Specific Gravity 1.008 (1.001-1.035); Urine Urobilinogen Normal (Negative); Urine WBC 43 /hpf (0 - 3); Urine pH 6.5 (5.0-9.0)
[2023-12-19 12:14] LABS: Urine Color Yellow (Yellow)
== END | disposition home or self-care (01) ==
LOC: LAB 09:49
PROVIDERS: ATTEND Nurse Practitioner Gerontology
DX: Z13.1 Encounter for screening for diabetes mellitus (principal); Z29.9 Encounter for prophylactic measures, unspecified; I13.0 Hypertensive heart and chronic kidney disease with heart failure and stage 1 through stage 4 chronic kidney disease, or unspecified chronic kidney disease; I50.9 Heart failure, unspecified; N18.9 Chronic kidney disease, unspecified; D64.9 Anemia, unspecified; Z79.899 Other long term (current) drug therapy
CPT/HCPCS: 36415; 80053; 80061; 81001; 85025; 87086

== ENCOUNTER 2024-02-07 15:47 | Inpatient (IN) | payer OTHER ==
[~2024-02-07] VITALS: Ht 162.6 cm; Wt 60.4 kg
[2024-02-07 16:17] LABS: Urine Bacteria None Seen /hpf (None Seen)
[2024-02-07 16:42] LABS: Urine Blood 3+ /uL (Negative); Urine Clarity Ex.Turbid (Clear); Urine Color Colorless (Yellow); Urine Protein, UAD 2+ (Negative); Urine Specific Gravity 1.017 (1.001-1.035); Urine Urobilinogen Normal (Negative); Urine WBC 616 /hpf (0 - 3); Urine pH 5.5 (5.0-9.0)
[2024-02-07] MEDS ORDERED: cefTRIAXone 2GM/50ML D5W 50 ML IV ONE (17:30)
[2024-02-07 17:38] LABS: Basophils # (auto) 0 10 ^3/uL (0-0.2); Basophils % (auto) 0.5 % (0.0-2.0); Eosinophils # (auto) 0.1 10 ^3/uL (0-0.8); Eosinophils % (auto) 1.7 % (0.0-7.0); Hematocrit 32.5 % (41.0-53.0); Hemoglobin 10.9 g/dL (13.5-17.5); Lymphocytes # (auto) 0.9 10 ^3/uL (0.4-5.4); Lymphocytes % (auto) 11.2 % (10.0-50.0); Mean Corpuscular Hemoglobin 31.1 pg (28.0-32.0); Mean Corpuscular Hgb Conc. 33.5 g/dL (32.0-36.0); Mean Corpuscular Volume 92.9 fL (80.0-100.0); Monocytes # (auto) 0.7 10 ^3/uL (0-1.3); Monocytes % (auto) 8.4 % (0.0-12.0); Neutrophils # (auto) 6.4 10 ^3/uL (1.6-8.6); Neutrophils % (auto) 78.2 % (37.0-80.0); Red Blood Cells 3.49 10^6/uL (4.5-5.90); Red Cell Distribution Width 14.8 % (11.8-14.3); White Blood Cell 8.2 10^3/uL (4.4-10.8)
[2024-02-07 17:46] LABS: Alanine Aminotransferase 29 U/L (7-40); Albumin 4.2 g/dL (3.2-4.8); Alkaline Phosphatase 71 U/L (46-116); Anion Gap 11 (5-15); Aspartate Aminotransferase 21 U/L (13-40); BUN/Creatinine Ratio 16.5 (10.0-20.0); Bilirubin, Total 0.4 mg/dL (0.2-1.0); Blood Urea Nitrogen 40 mg/dL (9-23); Calcium 9.7 mg/dL (8.7-10.4); Carbon Dioxide 16 mmol/L (20-30); Chloride 111 mmol/L (98-107); Glucose 104 mg/dL (74-106); Lipase 102 U/L (12-53); Sodium 138 mmol/L (136-145); Total Protein 6.8 g/dL (5.7-8.2)
[2024-02-07 17:56] LABS: INR 1.91 (0.9-1.15); Partial Thromboplastin Time 30.7 SEC (24.5-34.5); Prothrombin Time 19.3 sec (9.3-11.8)
[2024-02-07 18:12] LABS: Potassium 5.8 mmol/L (3.5-5.1)
[2024-02-07] MEDS ORDERED: InsuLIN REG 1unit/0.01ml Soln (100units/ml) IV ONE (18:45)
[2024-02-07] MEDS ORDERED: DEXTROSE (50%) 50ML SYRG IV ONE (18:45)
[2024-02-07] MEDS: ALBUTEROL SULF 2.5 MG/0.5ML(0.5%) NEB SOLN NEB ONE (18:58)
[2024-02-07] MEDS: SODIUM CHLORIDE 0.9% 1,000 ML IVB ONE (20:57)
[2024-02-07] MEDS: cefTRIAXone 1GM/50ML D5W 50 ML IV ONE (21:19)
[2024-02-07] MEDS: LACTULOSE 20Gm/30ML SOLN PO ONE (22:19)
[2024-02-07] MEDS ORDERED: ACETAMINOPHEN 325 MG TAB PO PRN (23:00)
[2024-02-07] MEDS ORDERED: HYDROcodone-ACET 5/325MG TAB PO PRN (23:00)
[2024-02-07] MEDS ORDERED: hydrALAZINE HCL 20 MG/ML VL IV PRN (23:00)
[2024-02-07] MEDS ORDERED: ONDANSETRON HCL 4 MG/2 ML VIAL IV PRN (23:00)
[2024-02-07] MEDS ORDERED: DOCUSATE SOD 100 MG CAP PO PRN (23:00)
[2024-02-07] MEDS: SODIUM CHLORIDE 0.9% 1,000 ML IV SCH (23:00)
[2024-02-08] MEDS ORDERED: NITROGLYCERIN 0.4 MG SL TAB SL PRN
[2024-02-08] MEDS ORDERED: MORPHINE SULFATE INJ 2 MG/ml SYRG IV PRN
[2024-02-08 03:10] LABS: Basophils # (auto) 0 10 ^3/uL (0-0.2); Basophils % (auto) 0.5 % (0.0-2.0); Eosinophils # (auto) 0.1 10 ^3/uL (0-0.8); Eosinophils % (auto) 1.3 % (0.0-7.0); Hematocrit 30.8 % (41.0-53.0); Hemoglobin 10.5 g/dL (13.5-17.5); Lymphocytes # (auto) 0.8 10 ^3/uL (0.4-5.4); Lymphocytes % (auto) 10.9 % (10.0-50.0); Mean Corpuscular Hemoglobin 31.2 pg (28.0-32.0); Mean Corpuscular Hgb Conc. 34.2 g/dL (32.0-36.0); Monocytes # (auto) 0.9 10 ^3/uL (0-1.3); Monocytes % (auto) 12.9 % (0.0-12.0); Neutrophils # (auto) 5.2 10 ^3/uL (1.6-8.6); Neutrophils % (auto) 74.4 % (37.0-80.0); Nucleated Red Blood Cells % 0.1 %; Red Blood Cells 3.38 10^6/uL (4.5-5.90); Red Cell Distribution Width 14.3 % (11.8-14.3)
[2024-02-08 03:20] LABS: Alanine Aminotransferase 31 U/L (7-40); Alkaline Phosphatase 68 U/L (46-116); Anion Gap 9 (5-15); Aspartate Aminotransferase 21 U/L (13-40); BUN/Creatinine Ratio 19.4 (10.0-20.0); Blood Urea Nitrogen 44 mg/dL (9-23); Calcium 9.4 mg/dL (8.7-10.4); Carbon Dioxide 15 mmol/L (20-30); Chloride 114 mmol/L (98-107); Glucose 109 mg/dL (74-106); Sodium 138 mmol/L (136-145)
[2024-02-08 03:21] LABS: Bilirubin, Total 0.3 mg/dL (0.2-1.0); Total Protein 6.1 g/dL (5.7-8.2)
[2024-02-08 03:23] LABS: Potassium 5.7 mmol/L (3.5-5.1)
[2024-02-08] MEDS: SODIUM BICARB 50mEq/50ml Vial 150 ML in D5W 5% 1,000 ML IV ONE (08:45)
[2024-02-08] MEDS: CARVEDILOL 3.125 MG TAB PO SCH (10:08)
[2024-02-08] MEDS: ASPirin 81 mg TAB PO SCH (10:08)
[2024-02-08] MEDS: cefTRIAXone 1GM/50ML D5W 50 ML IV SCH (10:09)
[2024-02-08] MEDS: SODIUM ZIRCONIUM CYCL 10 GM PAK PO SCH (18:15)
[2024-02-08 18:32] VITALS: BP 132/54; PULSE 71; RESP 18; TEMP 98.2; O2SAT 98
[2024-02-08 20:00] VITALS: PULSE 69; RESP 18; O2SAT 99
[2024-02-08] MEDS ORDERED: CARV6.2551 PO (20:23)
[2024-02-08] MEDS ORDERED: SACU1TAB4 PO (20:23)
[2024-02-08 22:00] VITALS: BP 145/48; PULSE 69; RESP 18; TEMP 97.8; O2SAT 99
[2024-02-08] MEDS: ATORVASTATIN 20 MG TAB PO SCH (23:20)
[2024-02-09 01:00] VITALS: BP 137/46; PULSE 85; RESP 19; TEMP 97.6; O2SAT 96
[2024-02-09 05:00] VITALS: BP 119/46; PULSE 80; RESP 18; TEMP 97.6; O2SAT 97
[2024-02-09 06:35] LABS: Anion Gap 5 (5-15); Carbon Dioxide 18 mmol/L (20-30); Chloride 114 mmol/L (98-107); Sodium 137 mmol/L (136-145)
[2024-02-09 06:37] LABS: Calcium 9.1 mg/dL (8.5-10.1)
[2024-02-09 06:41] LABS: Glucose 89 mg/dL (74-106)
[2024-02-09 06:42] LABS: BUN/Creatinine Ratio 18.1 (10.0-20.0); Blood Urea Nitrogen 35 mg/dL (9-23)
[2024-02-09 08:45] VITALS: BP 124/54; PULSE 72; RESP 15; TEMP 97.6; O2SAT 98
[2024-02-09 13:00] VITALS: BP 136/50; PULSE 71; RESP 15; TEMP 97.8; O2SAT 99
[2024-02-09 16:45] VITALS: BP 136/50; PULSE 62; RESP 15; TEMP 97.5; O2SAT 97
[2024-02-09] MEDS: SODIUM BICARB 50mEq/50ml Vial 50 ML in SOD CHL 0.45% 1,000 ML IV SCH (18:55)
[2024-02-09 21:00] VITALS: BP 141/47; PULSE 61; RESP 22; TEMP 97.6; O2SAT 99
[2024-02-10 01:00] VITALS: BP 146/51; PULSE 67; RESP 20; TEMP 97.8; O2SAT 97
[2024-02-10 05:00] VITALS: BP 126/45; PULSE 65; RESP 20; TEMP 97.8; O2SAT 97
[2024-02-10 07:29] LABS: Chloride 112 mmol/L (98-107); Potassium 3.9 mmol/L (3.5-5.1); Sodium 141 mmol/L (136-145)
[2024-02-10 07:30] LABS: Anion Gap 6 (5-15); Carbon Dioxide 23 mmol/L (20-30)
[2024-02-10 07:31] LABS: Calcium 8.7 mg/dL (8.7-10.4)
[2024-02-10 07:35] LABS: Glucose 85 mg/dL (74-106)
[2024-02-10 07:36] LABS: BUN/Creatinine Ratio 19.3 (10.0-20.0); Blood Urea Nitrogen 31 mg/dL (9-23)
[2024-02-10 08:35] VITALS: BP 127/65; PULSE 71; RESP 16; TEMP 97.8; O2SAT 96
[2024-02-10] MEDS ORDERED: CEPH250C PO (11:17)
[2024-02-10 12:04] VITALS: BP 137/65; PULSE 69; TEMP 36.6
[2024-02-10 12:35] VITALS: BP 139/64; PULSE 68; RESP 14; TEMP 97.5; O2SAT 100
== END 2024-02-10 14:10 | disposition home or self-care (01) | DRG 690 ==
LOC: ER 15:47 → OVERFLOW 23:50 → WEST WING 02-08 18:26
PROVIDERS: ADMIT Nurse Practitioner Family; ATTEND Internal Medicine
DX: N13.6 Pyonephrosis (principal); E87.20 Acidosis, unspecified; N17.9 Acute kidney failure, unspecified; E87.5 Hyperkalemia; I10 Essential (primary) hypertension; D64.9 Anemia, unspecified; N40.0 Benign prostatic hyperplasia without lower urinary tract symptoms; C67.9 Malignant neoplasm of bladder, unspecified; I25.10 Atherosclerotic heart disease of native coronary artery without angina pectoris; E78.5 Hyperlipidemia, unspecified; Z95.1 Presence of aortocoronary bypass graft; I25.2 Old myocardial infarction; Z90.49 Acquired absence of other specified parts of digestive tract; Z98.61 Coronary angioplasty status; Z83.3 Family history of diabetes mellitus; Z82.49 Family history of ischemic heart disease and other diseases of the circulatory system
CPT/HCPCS: 36415; 74176; 80048; 80053; 81001; 83605; 83690; 84132; 84484; 85025; 85610; 85730; 87040; 87086; 94640; G0378

== ENCOUNTER → 2024-02-19 | Outpatient (CLI) | payer OTHER ==
[~2024-02-19] MED LIST changes: -ASPI-325 PO; -CARV3.1240 PO; +CARV6.2551 PO; +CEPH250C PO; -CIPR-173 PO; -EMPA1TAB PO; -MIRA50TA PO; -SACU1TAB PO; -SPIR25TA PO
[2024-02-19 06:29] LABS: Urine Bacteria None Seen /hpf (None Seen)
[2024-02-19 11:16] LABS: Urine Blood 2+ /uL (Negative); Urine Clarity Clear (Clear); Urine Color Light-Yellow (Yellow); Urine Protein, UAD Negative (Negative); Urine Urobilinogen Normal (Negative); Urine WBC 41 /hpf (0 - 3)
== END | disposition home or self-care (01) ==
LOC: LAB 06:26
PROVIDERS: ATTEND Urology
DX: N39.0 Urinary tract infection, site not specified (principal)
CPT/HCPCS: 81001; 87086

== ENCOUNTER → 2024-02-20 | Outpatient (CLI) | payer OTHER ==
[2024-02-20 14:14] LABS: Urine Bacteria None Seen /hpf (None Seen)
[2024-02-20 14:43] LABS: Urine Blood TRACE /uL (Negative); Urine Budding Yeast OCCASIONAL /hpf (None Seen); Urine Clarity Clear (Clear); Urine Color Light-Yellow (Yellow); Urine Protein, UAD TRACE (Negative); Urine Specific Gravity 1.012 (1.001-1.035); Urine Urobilinogen Normal (Negative); Urine WBC 8 /hpf (0 - 3)
== END | disposition home or self-care (01) ==
LOC: LAB 14:10
PROVIDERS: ATTEND Internal Medicine
DX: N39.0 Urinary tract infection, site not specified (principal)
CPT/HCPCS: 81001; 87086

== ENCOUNTER → 2024-03-08 | Outpatient (CLI) | payer OTHER ==
[2024-03-08 10:56] LABS: Urine Bacteria None Seen /hpf (None Seen)
[2024-03-08 11:16] LABS: Urine Blood 3+ /uL (Negative); Urine Clarity Turbid (Clear); Urine Color Light-Brown (Yellow); Urine Mucus FEW (None Seen); Urine Protein, UAD 1+ (Negative); Urine Specific Gravity 1.016 (1.001-1.035); Urine Urobilinogen Normal (Negative); Urine WBC 444 /hpf (0 - 3); Urine WBC Clumps PRESENT /hpf (None Seen); Urine pH 5.5 (5.0-9.0)
[2024-03-08 12:02] LABS: Potassium 4.4 mmol/L (3.5-5.1)
[2024-03-08 12:03] LABS: Calcium 9.7 mg/dL (8.7-10.4)
[2024-03-08 12:07] LABS: Uric Acid 7.3 mg/dL (3.7-9.2)
[2024-03-08 12:08] LABS: BUN/Creatinine Ratio 17.6 (10.0-20.0)
[2024-03-08 12:10] LABS: Albumin 3.9 g/dL (3.2-4.8)
[2024-03-08 12:39] LABS: Basophils # (auto) 0.1 10 ^3/uL (0-0.2); Basophils % (auto) 0.8 % (0.0-2.0); Eosinophils # (auto) 0.2 10 ^3/uL (0-0.8); Eosinophils % (auto) 2.5 % (0.0-7.0); Hematocrit 32.9 % (41.0-53.0); Hemoglobin 11.1 g/dL (13.5-17.5); Lymphocytes # (auto) 0.9 10 ^3/uL (0.4-5.4); Lymphocytes % (auto) 13.1 % (10.0-50.0); Mean Corpuscular Hemoglobin 30.6 pg (28.0-32.0); Mean Corpuscular Hgb Conc. 33.8 g/dL (32.0-36.0); Mean Corpuscular Volume 90.5 fL (80.0-100.0); Monocytes # (auto) 0.6 10 ^3/uL (0-1.3); Monocytes % (auto) 9.2 % (0.0-12.0); Neutrophils # (auto) 4.9 10 ^3/uL (1.6-8.6); Neutrophils % (auto) 74.4 % (37.0-80.0); Red Blood Cells 3.63 10^6/uL (4.5-5.90); Red Cell Distribution Width 14.9 % (11.8-14.3); White Blood Cell 6.6 10^3/uL (4.4-10.8)
[2024-03-08 14:30] LABS: Creatinine, Urine 105.55 mg/dL (30.0-125.0)
== END | disposition home or self-care (01) ==
LOC: LAB 10:43
PROVIDERS: ATTEND Internal Medicine
DX: E11.21 Type 2 diabetes mellitus with diabetic nephropathy (principal); E55.9 Vitamin D deficiency, unspecified; M10.9 Gout, unspecified; E21.3 Hyperparathyroidism, unspecified; R80.9 Proteinuria, unspecified; N39.0 Urinary tract infection, site not specified; D63.1 Anemia in chronic kidney disease; N18.30 Chronic kidney disease, stage 3 unspecified
CPT/HCPCS: 36415; 80069; 81001; 82043; 82306; 82570; 83970; 84550; 85025; 87086

== ENCOUNTER → 2024-03-29 | Outpatient (CLI) | payer OTHER ==
[2024-03-29 11:19] LABS: Basophils # (auto) 0 10 ^3/uL (0-0.2); Basophils % (auto) 0.7 % (0.0-2.0); Eosinophils # (auto) 0.3 10 ^3/uL (0-0.8); Eosinophils % (auto) 4.3 % (0.0-7.0); Hematocrit 34.9 % (41.0-53.0); Hemoglobin 11.8 g/dL (13.5-17.5); Lymphocytes # (auto) 0.8 10 ^3/uL (0.4-5.4); Lymphocytes % (auto) 12.9 % (10.0-50.0); Mean Corpuscular Hemoglobin 31.1 pg (28.0-32.0); Mean Corpuscular Hgb Conc. 33.7 g/dL (32.0-36.0); Mean Corpuscular Volume 92.3 fL (80.0-100.0); Monocytes # (auto) 0.5 10 ^3/uL (0-1.3); Monocytes % (auto) 8.6 % (0.0-12.0); Neutrophils # (auto) 4.3 10 ^3/uL (1.6-8.6); Neutrophils % (auto) 73.5 % (37.0-80.0); Red Blood Cells 3.78 10^6/uL (4.5-5.90); Red Cell Distribution Width 14.4 % (11.8-14.3); White Blood Cell 5.9 10^3/uL (4.4-10.8)
[2024-03-29 11:38] LABS: Anion Gap 6 (5-15); Calcium 9.2 mg/dL (8.7-10.4); Carbon Dioxide 22 mmol/L (20-30); Chloride 110 mmol/L (98-107); Potassium 4.6 mmol/L (3.5-5.1); Sodium 138 mmol/L (136-145)
[2024-03-29 11:44] LABS: BUN/Creatinine Ratio 18.9 (10.0-20.0); Blood Urea Nitrogen 28 mg/dL (9-23); Glucose 140 mg/dL (74-106)
== END | disposition home or self-care (01) ==
LOC: LAB 10:45
PROVIDERS: ATTEND Internal Medicine
DX: I13.0 Hypertensive heart and chronic kidney disease with heart failure and stage 1 through stage 4 chronic kidney disease, or unspecified chronic kidney disease (principal); I50.9 Heart failure, unspecified; N18.9 Chronic kidney disease, unspecified; E87.5 Hyperkalemia; D64.9 Anemia, unspecified
CPT/HCPCS: 36415; 80048; 85025

== ENCOUNTER 2024-05-18 06:09 | Day surgery (SDC) | payer OTHER ==
[2024-05-13 12:31] LABS: Urine Bacteria None Seen /hpf (None Seen)
[2024-05-13 12:40] LABS: Basophils # (auto) 0 10 ^3/uL (0-0.2); Basophils % (auto) 0.7 % (0.0-2.0); Eosinophils # (auto) 0.2 10 ^3/uL (0-0.8); Eosinophils % (auto) 2.9 % (0.0-7.0); Hematocrit 34.8 % (41.0-53.0); Hemoglobin 12.2 g/dL (13.5-17.5); Lymphocytes % (auto) 15.8 % (10.0-50.0); Mean Corpuscular Hemoglobin 31.5 pg (28.0-32.0); Mean Corpuscular Volume 89.9 fL (80.0-100.0); Monocytes # (auto) 0.7 10 ^3/uL (0-1.3); Monocytes % (auto) 10.7 % (0.0-12.0); Neutrophils # (auto) 4.5 10 ^3/uL (1.6-8.6); Neutrophils % (auto) 69.9 % (37.0-80.0); Platelet Count (auto) 164 10^3/uL (140-450); Red Blood Cells 3.88 10^6/uL (4.5-5.90); Red Cell Distribution Width 13.4 % (11.8-14.3); White Blood Cell 6.4 10^3/uL (4.4-10.8)
[2024-05-13 12:56] LABS: Urine Blood TRACE /uL (Negative); Urine Clarity Clear (Clear); Urine Color Light-Yellow (Yellow); Urine Protein, UAD Negative (Negative); Urine Specific Gravity 1.006 (1.001-1.035); Urine Urobilinogen Normal (Negative); Urine WBC 51 /hpf (0 - 3)
[2024-05-13 12:57] LABS: INR 2.36 (0.9-1.15); Partial Thromboplastin Time 32.3 SEC (24.5-34.5); Prothrombin Time 23.5 sec (9.3-11.8)
[2024-05-13 13:48] LABS: Alanine Aminotransferase 17 U/L (7-40); Albumin 4.1 g/dL (3.2-4.8); Alkaline Phosphatase 78 U/L (46-116); Anion Gap 5 (5-15); Aspartate Aminotransferase 12 U/L (13-40); BUN/Creatinine Ratio 12.9 (10.0-20.0); Bilirubin, Total 0.5 mg/dL (0.2-1.0); Blood Urea Nitrogen 26 mg/dL (9-23); Calcium 9.4 mg/dL (8.7-10.4); Carbon Dioxide 26 mmol/L (20-30); Chloride 108 mmol/L (98-107); Glucose 106 mg/dL (74-106); Sodium 139 mmol/L (136-145); Total Protein 6.2 g/dL (5.7-8.2)
[2024-05-13 13:51] LABS: Potassium 5.6 mmol/L (3.5-5.1)
[~2024-05-18] VITALS: Ht 160 cm; Wt 59.0 kg
[~2024-05-18 06:09] MED LIST changes: -CEPH250C PO; +HYDR50TA47 PO
[2024-05-18 07:29] LABS: INR 1.17 (0.9-1.15); Partial Thromboplastin Time 25.6 SEC (24.5-34.5); Prothrombin Time 12.3 sec (9.3-11.8)
[2024-05-18] MEDS ORDERED: fentaNYL CITRATE 100 MCG/2 ML VL ONE (08:52)
[2024-05-18] MEDS ORDERED: PROPOFOL 10 MG/ML 20 ML IV ONE (08:52)
[2024-05-18] MEDS: CIPROFLOXACIN 400MG/200ML 200 ML IV ONE (09:09)
[2024-05-18] MEDS: mitoMYcin 40 MG in STERILE WATER 80 ML IS ONE (09:44)
[2024-05-18 09:54] VITALS: TEMP 97.4
[2024-05-18 11:10] VITALS: BP 158/60; PULSE 71; RESP 18; O2SAT 96
== END 2024-05-18 11:20 | disposition home or self-care (01) ==
LOC: SUR 06:09
PROVIDERS: ATTEND Urology
DX: N32.9 Bladder disorder, unspecified (principal); N32.0 Bladder-neck obstruction; N30.20 Other chronic cystitis without hematuria; I25.2 Old myocardial infarction; I12.9 Hypertensive chronic kidney disease with stage 1 through stage 4 chronic kidney disease, or unspecified chronic kidney disease; N18.30 Chronic kidney disease, stage 3 unspecified; I25.10 Atherosclerotic heart disease of native coronary artery without angina pectoris; I48.91 Unspecified atrial fibrillation; E21.3 Hyperparathyroidism, unspecified; Z95.1 Presence of aortocoronary bypass graft; Z95.4 Presence of other heart-valve replacement; Z86.2 Personal history of diseases of the blood and blood-forming organs and certain disorders involving the immune mechanism; Z85.51 Personal history of malignant neoplasm of bladder; Z86.73 Personal history of transient ischemic attack (TIA), and cerebral infarction without residual deficits
CPT/HCPCS: 36415; 51720; 52240; 52500; 80053; 81001; 85025; 85610; 85730; 87086; 87088; 87186; 88307; J0744; J2704; J3010; J7030; J9280; 93459; C9602

== ENCOUNTER → 2024-08-06 | Outpatient (CLI) | payer OTHER ==
[2024-08-06 11:02] LABS: Urine Bacteria None Seen /hpf (None Seen)
[2024-08-06 11:26] LABS: Basophils # (auto) 0 10 ^3/uL (0-0.2); Basophils % (auto) 0.5 % (0.0-2.0); Eosinophils # (auto) 0.2 10 ^3/uL (0-0.8); Hematocrit 35.3 % (41.0-53.0); Lymphocytes % (auto) 15.4 % (10.0-50.0); Mean Corpuscular Hemoglobin 30.7 pg (28.0-32.0); Mean Corpuscular Hgb Conc. 34.1 g/dL (32.0-36.0); Mean Corpuscular Volume 90.1 fL (80.0-100.0); Monocytes # (auto) 0.5 10 ^3/uL (0-1.3); Monocytes % (auto) 7.8 % (0.0-12.0); Neutrophils # (auto) 4.7 10 ^3/uL (1.6-8.6); Neutrophils % (auto) 73.3 % (37.0-80.0); Nucleated Red Blood Cells % 0.1 %; Platelet Count (auto) 187 10^3/uL (140-450); Red Blood Cells 3.92 10^6/uL (4.5-5.90); Red Cell Distribution Width 14.8 % (11.8-14.3); White Blood Cell 6.5 10^3/uL (4.4-10.8)
[2024-08-06 11:31] LABS: Urine Blood 3+ /uL (Negative); Urine Clarity Clear (Clear); Urine Color Colorless (Yellow); Urine Protein, UAD Negative (Negative); Urine Specific Gravity 1.012 (1.001-1.035); Urine Urobilinogen Normal (Negative); Urine WBC 22 /hpf (0 - 3); Urine pH 6.5 (5.0-9.0)
[2024-08-06 11:41] LABS: Calcium 9.5 mg/dL (8.7-10.4)
[2024-08-06 11:45] LABS: Uric Acid 7.7 mg/dL (3.7-9.2)
[2024-08-06 11:46] LABS: BUN/Creatinine Ratio 18.1 (10.0-20.0)
[2024-08-06 11:48] LABS: Albumin 4.2 g/dL (3.2-4.8)
[2024-08-06 11:49] LABS: Phosphorus 3.7 mg/dL (2.4-5.1)
[2024-08-06 11:55] LABS: Protein, Urine 16.7 mg/dL (1-14)
[2024-08-06 11:56] LABS: Creatinine, Urine 52.39 mg/dL (30.0-125.0); Urine Protein/Creatinine Ratio 0.32
[2024-08-06 13:09] LABS: Potassium 5.9 mmol/L (3.5-5.1)
== END | disposition home or self-care (01) ==
LOC: LAB 10:47
PROVIDERS: ATTEND Internal Medicine
DX: E11.21 Type 2 diabetes mellitus with diabetic nephropathy (principal); E11.22 Type 2 diabetes mellitus with diabetic chronic kidney disease; N18.30 Chronic kidney disease, stage 3 unspecified; N39.0 Urinary tract infection, site not specified; R80.9 Proteinuria, unspecified; E21.3 Hyperparathyroidism, unspecified; M10.9 Gout, unspecified; E55.9 Vitamin D deficiency, unspecified; D63.1 Anemia in chronic kidney disease
CPT/HCPCS: 36415; 80069; 81001; 82570; 83970; 84156; 84550; 85025

== ENCOUNTER 2024-09-10 13:37 | Emergency (ER) | payer OTHER ==
[~2024-09-10] VITALS: Ht 160 cm; Wt 60.2 kg
--- NOTE | 2024-09-10 14:23 | ED.PDOC ---
History of Present Illness HPI Comments 84 year old male presents to the ED with chief complaint of HTN. Patient reports that he took his blood pressure this morning and it was noted to be in the 190s systolically. Patient relays that he takes Carvedilol daily and has not had any recent salty foods. Patient denies any chest pain, SOB, dizziness, headache, numbness, weakness, or N/V. Chief Complaint: High Blood Pressure Time Seen by MD: 14:21 Primary Care Provider: PARIS Evans Notes: Nurses Notes, Medications, Allergies Allergies: Coded Allergies: NO KNOWN ALLERGIES (Unverified , 03/20/21) Home Meds Reported Medications Hydralazine Hcl (Hydralazine Hcl) 50 Mg Tab, 25 MG PO, TAB 05/17/24 Carvedilol (Carvedilol) 6.25 Mg Tab, 1 TAB PO DAILY 02/08/24 Warfarin Sodium (Warfarin Sodium) 7.5 Mg Tab, 7.5 MG PO HS for CAD TAKE 1 TABLET PO EVERY DAY EXCEPT 0.5 TABLET ON Fri & Friday03/31/18 Atorvastatin Calcium (Lipitor) 40 Mg Tab, 1 TAB PO QPM for HIGH CHOLESTEROL 11/13/17 Information Source: Patient Mode of Arrival: Ambulatory Severity: Moderate Timing: Hours Duration: Since onset Prehospital treatment: None Medication Refill: For: Hypertension Past Medical History PAST MEDICAL HISTORY: CAD, High Lipids, HTN, SD Surgical History: Appendectomy, CABG, Cholecystectomy, Hernia Repair, PTCA Family History Family History: Family hx of DM, Family hx of heart mari, Family hx of HTN Social History Smoker: Non-Smoker Alcohol: Denies ETOH Use Drugs: Denies Drug Use Lives In: Home Constitutional: denies: chills, diaphoresis, fatigue, fever, malaise, sweats, weakness, others EENTM: denies: blurred vision, double vision, ear bleeding, ear discharge, ear drainage, ear pain, ear ringing, eye pain, eye redness, hearing loss, mouth pain, mouth swelling, nasal discharge, nose bleeding, nose congestion, nose pain, photophobia, tearing, throat pain, throat swelling, voice changes, others Respiratory: denies: cough, hemoptysis, orthopnea, SOB at rest, shortness of breath, SOB with excertion, stridor, wheezing, others Cardiovascular: denies: chest pain, dizzy spells, diaphoresis, Dyspnea on exertion, edema, irregular heart beat, left arm pain, lightheadedness, palpitations, PND, syncope, others Gastrointestinal: denies: abdomen distended, abdominal pain, blood streaked bowels, constipated, diarrhea, dysphagia, difficulty swallowing, hematemesis, melena, nausea, poor appetite, poor fluid intake, rectal bleeding, rectal pain, vomiting, others Genitourinary: denies: burning, dysuria, flank pain, frequency, hematuria, incontinence, penile discharge, penile sore, pain, testicle pain, testicle swelling, urgency, others Neurological: denies: dizziness, fainting, headache, left sided numbness, left sided weakness, numbness, paresthesia, pre-existing deficit, right sided numbness, right sided weakness, seizure, speech problems, tingling, tremors, weakness, others Musculoskeletal: denies: back pain, gout, joint pain, joint swelling, muscle pain, muscle stiffness, neck pain, others Integumetry: denies: bruises, change in color, change in hair/nails, dryness, laceration, lesions, lumps, rash, wounds, others Allergic/Immunocompromised: denies: Difficulty Healing, Frequent Infections, Hives, Itching, others Hematologic/Lymphatic: denies: anemia, blood clots, easy bleeding, easy bruising, swollen glands, others Endocrine: denies: excessive hunger, excessive sweating, excessive thirst, excessive urination, flushing, intolerance to cold, intolerance to heat, unexplained weight gain, unexplained weight loss, others Psychiatric: denies: anxiety, bipolar disorder, depression, hopeless, panic disorder, schizophrenia, sleepless, suicidal, others All Other Systems: Reviewed and Negative Physical Exam General Appearance: No Apparent Distress, Normal HEENT: Normal ENT Inspection, PERRL/EOMI Neck: Full Range of Motion, Non-Tender, Normal, Normal Inspection Respiratory: Chest Non-Tender, Lungs Clear, No Accessory Muscle Use, No Respiratory Distress, Normal Breath Sounds Cardiovascular: No Edema, No JVD, No Murmur, No Gallop, Normal Peripheral Pulses, Regular Rate/Rhythm Breast Exam: Deferred Gastrointestinal: No Organomegaly, Non Tender, No Pulsatile Mass, Normal Bowel Sounds, Soft Genitalia: Deferred Pelvic: Deferred Rectal: Deferred Extremities: No calf tenderness, Normal capillary refill, Normal inspection, Normal range of motion, Non-tender, No pedal edema Musculoskeletal : Apperance: Normal 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 Was a procedure done?: No Differential Dx Considerations may include: Medication noncompliance, anxiety, weight gain, dietary indiscretion X-Ray, Labs, Meds, VS Vital Signs Date Time Temp Pulse Resp B/P (MAP) Pulse Ox O2 Delivery O2 Flow Rate FiO2 09/10/24 14:43 72 09/10/24 13:40 97.7 78 24 166/60 (95) 99 Lab Test 09/10/24 15:46 09/10/24 14:34 Range/Units Troponin I High Sensitivity 24 22 </=54 ng/L White Blood Count 6.7 4.4-10.8 10^3/uL Red Blood Count 3.94 L 4.5-5.90 10^6/uL Hemoglobin 12.2 L 13.5-17.5 g/dL Hematocrit 35.4 L 41.0-53.0 % Mean Corpuscular Volume 89.8 80.0-100.0 fL Mean Corpuscular Hemoglobin 30.9 28.0-32.0 pg Mean Corpuscular Hemoglobin Concent 34.5 32.0-36.0 g/dL Red Cell Distribution Width 14.6 H 11.8-14.3 % Platelet Count 208 140-450 10^3/uL Mean Platelet Volume 9.2 6.9-10.8 fL Neutrophils (%) (Auto) 71.5 37.0-80.0 % Lymphocytes (%) (Auto) 14.8 10.0-50.0 % Monocytes (%) (Auto) 10.1 0.0-12.0 % Eosinophils (%) (Auto) 3.0 0.0-7.0 % Basophils (%) (Auto) 0.6 0.0-2.0 % Neutrophils # (Auto) 4.8 1.6-8.6 10 ^3/uL Lymphocytes # (Auto) 1.0 0.4-5.4 10 ^3/uL Monocytes # (Auto) 0.7 0-1.3 10 ^3/uL Eosinophils # (Auto) 0.2 0-0.8 10 ^3/uL Basophils # (Auto) 0 0-0.2 10 ^3/uL Nucleated Red Blood Cells 0.1 % Sodium Level 138 136-145 mmol/L Potassium Level 5.5 H 3.5-5.1 mmol/L Chloride Level 107 98-107 mmol/L Carbon Dioxide Level 27 20-31 mmol/L Anion Gap 4 L 5-15 Blood Urea Nitrogen 25 H 9-23 mg/dL Creatinine 1.85 H 0.700-1.30 mg/dL Glomerular Filtration Rate Calc 35 >90 mL/min BUN/Creatinine Ratio 13.5 10.0-20.0 Serum Glucose 104 74-106 mg/dL Calcium Level 9.5 8.7-10.4 mg/dL Chest XR: FINDINGS: Lines and Tubes: Sternal wire sutures in place. Cardiac prosthetic valve visualized. Lungs: No focal consolidation. Pleura: No effusion. No pneumothorax. Cardiomediastinal contours: Unremarkable Bones: No acute osseous abnormality. IMPRESSION: 1. No acute cardiopulmonary disease. 2. No significant change from 10/28/2023 Time of 1ST Reevaluation: 15:21 Reevaluation 1ST: Improved (Latest blood pressure is in 160s. Patient was and remained asymptomatic.) Patient Education/Counseling: Diagnosis, Treatment Family Education/Counseling: No Family Present Additional Information I reviewed the following notes from patient's past medical encounters: 02/07/2024 for UTI The following tests were ordered, and results were reviewed by me: Chest XR, EKG, CBC, BMP, Troponin Additional Information was gathered from interviewing the following independent historians: None I reviewed and agreed with the following test results read by other providers: Chest XR I discussed treatment and results with medical personnel. Departure 1 Departure Time of Disposition: 17:07 Impression: Primary Impression: Uncontrolled hypertension Disposition: 01 HOME / SELF CARE / HOMELESS Condition: Stable Additional Instructions: Thank you for visiting our Emergency Room. I wish you full and complete recovery. Please follow the following instructions: 1. Take your medication bottles with you to EVERY DOCTOR'S VISIT (including your primary doctor). 2. Please follow up with your primary doctor in 2-3 days or sooner if symptoms do not improve. 3. Please read all the papers given to you at the time of the discharge so that you understand your condition better. 4. Please note that the emergency room visits are focused and not necessarily comprehensive. Therefore, it is possible that some occult medical conditions may go undiagnosed in the ER. 5. The emergency room visits are not and should not be thought of as replacement for regular visits with your primary doctor. 6. Therefore, it is absolutely critical that you follows up with your primary doctor on regular basis to make sure you receives a complete and comprehensive care. 7. I recommended the you take the hospital discharge papers to your primary care physician and other doctors' offices with you. 8. Go to your nearest emergency room if you think your condition gets worse or you think your condition is an emergency. Follow up with your primary care physician right away to better control the blood pressure. Discharged With: Self Critical Care Note Critical Care Time?: No Stability Stability form required: No Heart Score Heart Score: Heart Score Response (Comments) Value History Moderate Suspicious 1 EKG Normal 0 Age >65 2 Risk Factors >3 or Hx ASHD 2 Troponin Normal limit 0 Total 5 I personally scribed for RADHA ARROYO MD ([email or web address]) on 09/10/24 at 14:23. Electronically submitted by Victor Manuel Connolly ([email or web address]). I personally scribed for RADHA ARROYO MD ([email or web address]) on 09/10/24 at 15:12. Electronically submitted by Victor Manuel Connolly ([email or web address]). RADHA ARROYO MD Sep 10, 2024 14:23
--- NOTE | 2024-09-10 14:37 | DVH ---
CHEST RADIOGRAPH Indication: sob Technique: Single frontal view of the chest was obtained Comparison: XY CHEST PORTABLE on DOS: 10/28/23, XY CHEST PORTABLE on DOS: 07/16/23, XY CHEST PORTABLE on DOS: 01/27/23 FINDINGS: Lines and Tubes: Sternal wire sutures in place. Cardiac prosthetic valve visualized. Lungs: No focal consolidation. Pleura: No effusion. No pneumothorax. Cardiomediastinal contours: Unremarkable Bones: No acute osseous abnormality. IMPRESSION: 1. No acute cardiopulmonary disease. 2. No significant change from 10/28/2023
[2024-09-10 15:27] LABS: Basophils # (auto) 0 10 ^3/uL (0-0.2); Basophils % (auto) 0.6 % (0.0-2.0); Eosinophils # (auto) 0.2 10 ^3/uL (0-0.8); Hematocrit 35.4 % (41.0-53.0); Hemoglobin 12.2 g/dL (13.5-17.5); Lymphocytes % (auto) 14.8 % (10.0-50.0); Mean Corpuscular Hemoglobin 30.9 pg (28.0-32.0); Mean Corpuscular Hgb Conc. 34.5 g/dL (32.0-36.0); Mean Corpuscular Volume 89.8 fL (80.0-100.0); Monocytes # (auto) 0.7 10 ^3/uL (0-1.3); Monocytes % (auto) 10.1 % (0.0-12.0); Neutrophils # (auto) 4.8 10 ^3/uL (1.6-8.6); Neutrophils % (auto) 71.5 % (37.0-80.0); Nucleated Red Blood Cells % 0.1 %; Platelet Count (auto) 208 10^3/uL (140-450); Red Blood Cells 3.94 10^6/uL (4.5-5.90); Red Cell Distribution Width 14.6 % (11.8-14.3); White Blood Cell 6.7 10^3/uL (4.4-10.8)
[2024-09-10 15:36] LABS: Chloride 107 mmol/L (98-107); Sodium 138 mmol/L (136-145)
[2024-09-10 15:37] LABS: Anion Gap 4 (5-15); Carbon Dioxide 27 mmol/L (20-31)
[2024-09-10 15:38] LABS: Calcium 9.5 mg/dL (8.7-10.4)
[2024-09-10 15:43] LABS: BUN/Creatinine Ratio 13.5 (10.0-20.0); Glucose 104 mg/dL (74-106)
[2024-09-10 15:46] LABS: Blood Urea Nitrogen 25 mg/dL (9-23); Potassium 5.5 mmol/L (3.5-5.1)
[2024-09-10 18:46] VITALS: BP 157/65; PULSE 67; RESP 17; TEMP 98.7; O2SAT 99
--- NOTE | 2024-09-15 09:45 | ECG ---
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
--- NOTE | 2024-09-16 12:50 | ECG ---
[facility] Test Date: 2024-09-10 Test Time: 14:43:19 Pat Name: SAMUEL BAH Department: ER Room: Gender: M [employer] [place] Measurer: Musa : 1940 Requested By: RADHA ARROYO Order Number: [id number] Reading MD: Measurements Intervals [place] Rate: 72 P: 263 [place]: 309 QRS: 68 QRSD: 116 T: 198 QT: 396 QTc: 434 Interpretive Statements Sinus or ectopic atrial rhythm Prolonged [place] interval LVH with IVCD and secondary repol abnrm Anterior ST elevation, probably due to LVH Baseline wander in lead(s) V3 Please click the below link to view image of tracing.
== END 2024-09-10 18:53 | disposition home or self-care (01) ==
LOC: ER 13:37
DX: I10 Essential (primary) hypertension (principal); I25.10 Atherosclerotic heart disease of native coronary artery without angina pectoris; Z79.899 Other long term (current) drug therapy; Z87.440 Personal history of urinary (tract) infections; Z90.49 Acquired absence of other specified parts of digestive tract; Z95.1 Presence of aortocoronary bypass graft; Z98.890 Other specified postprocedural states
CPT/HCPCS: 36415; 71045; 80048; 84484; 85025; 93005

== ENCOUNTER → 2024-10-14 | Day surgery (SDC) | payer OTHER ==
[2024-10-07 11:15] LABS: Urine Bacteria None Seen /hpf (None Seen)
[2024-10-07 11:27] LABS: Basophils # (auto) 0 10 ^3/uL (0-0.2); Basophils % (auto) 0.8 % (0.0-2.0); Eosinophils # (auto) 0.2 10 ^3/uL (0-0.8); Eosinophils % (auto) 3.3 % (0.0-7.0); Mean Corpuscular Hgb Conc. 34.2 g/dL (32.0-36.0); Mean Corpuscular Volume 90.6 fL (80.0-100.0); Monocytes # (auto) 0.5 10 ^3/uL (0-1.3); Monocytes % (auto) 8.6 % (0.0-12.0); Neutrophils # (auto) 4.3 10 ^3/uL (1.6-8.6); Neutrophils % (auto) 71.3 % (37.0-80.0); Nucleated Red Blood Cells % 0.1 %; Platelet Count (auto) 178 10^3/uL (140-450); Red Blood Cells 3.86 10^6/uL (4.5-5.90); Red Cell Distribution Width 14.7 % (11.8-14.3)
[2024-10-07 11:40] LABS: INR 1.77 (0.9-1.15); Partial Thromboplastin Time 30.3 SEC (24.5-34.5); Prothrombin Time 17.7 sec (9.3-11.8)
[2024-10-07 11:45] LABS: Urine Blood 2+ /uL (Negative); Urine Clarity Clear (Clear); Urine Color Colorless (Yellow); Urine Protein, UAD Negative (Negative); Urine Specific Gravity 1.006 (1.001-1.035); Urine Squamous Epithelial Cell None Seen /hpf (<5); Urine Urobilinogen Normal (Negative); Urine WBC 1 /HPF (0-3); Urine pH 6.5 (5.0-9.0)
[2024-10-07 11:48] LABS: Alanine Aminotransferase 23 U/L (7-40); Albumin 4.2 g/dL (3.2-4.8); Alkaline Phosphatase 82 U/L (46-116); Anion Gap 7 (5-15); Aspartate Aminotransferase 17 U/L (13-40); BUN/Creatinine Ratio 14.5 (10.0-20.0); Bilirubin, Total 0.6 mg/dL (0.2-1.0); Blood Urea Nitrogen 22 mg/dL (9-23); Calcium 9.5 mg/dL (8.7-10.4); Carbon Dioxide 25 mmol/L (20-31); Chloride 107 mmol/L (98-107); Potassium 4.9 mmol/L (3.5-5.1); Sodium 139 mmol/L (136-145); Total Protein 6.5 g/dL (5.7-8.2)
[2024-10-07 11:51] LABS: Glucose 148 mg/dL (74-106)
[~2024-10-14] VITALS: Ht 160 cm; Wt 59.0 kg
[~2024-10-14] MED LIST changes: +DexAMETHasone SOD PHOS 10MG/1ML VIAL INJ ONE; +ETOMIDATE (2MG/ML) 20ML VIAL IV ONE; +MEPERIDINE HCL (25 MG/ML) 1ML VIAL ONE; +MIDAZOLAM HCL 2MG/2ML 2ml VIAL (1mg/ml) IV PRN; +MIDAZOLAM HCL 2MG/2ML 2ml VIAL (1mg/ml) ONE; +MORPHINE SULFATE 4 MG/ML SYR/VIAL IV PRN; +ONDANSETRON HCL 4 MG/2 ML VIAL IV ONE; +SOLI10TA39 PO; +ePHEDrine SULFATE 50 MG/ML AMP IV PRN; +fentaNYL CITRATE 100 MCG/2 ML VL ONE; +hydrALAZINE HCL 20 MG/ML VL IV PRN; +mitoMYcin 40 MG in STERILE WATER 80 ML IS ONE
[2024-10-14 11:36] LABS: INR 1.24 (0.9-1.15); Partial Thromboplastin Time 27.8 SEC (24.5-34.5); Prothrombin Time 12.9 sec (9.3-11.8)
[2024-10-14] MEDS: CIPROFLOXACIN 400MG/200ML 200 ML IV ONE (12:01)
[2024-10-14 12:50] VITALS: PULSE 79; RESP 15; TEMP 97.6; O2SAT 96
[2024-10-14 12:55] VITALS: PULSE 76; PULSE 79; RESP 12; O2SAT 97; O2SAT 99
[2024-10-14] MEDS: HYDROmorphone HCL 2 MG/ML VL/or syr IV PRN (13:28)
[2024-10-14 14:45] VITALS: BP 151/48; PULSE 70; RESP 16; O2SAT 94
== END | disposition home or self-care (01) ==
LOC: SUR 10:22
PROVIDERS: ATTEND Urology
DX: N30.00 Acute cystitis without hematuria (principal); D49.4 Neoplasm of unspecified behavior of bladder; N32.89 Other specified disorders of bladder; N30.20 Other chronic cystitis without hematuria; I25.2 Old myocardial infarction; Z79.899 Other long term (current) drug therapy; I12.9 Hypertensive chronic kidney disease with stage 1 through stage 4 chronic kidney disease, or unspecified chronic kidney disease; N18.30 Chronic kidney disease, stage 3 unspecified; N40.0 Benign prostatic hyperplasia without lower urinary tract symptoms; Z98.890 Other specified postprocedural states; Z86.73 Personal history of transient ischemic attack (TIA), and cerebral infarction without residual deficits; Z90.49 Acquired absence of other specified parts of digestive tract; Z95.1 Presence of aortocoronary bypass graft
CPT/HCPCS: 36415; 51720; 52204; 52500; 80053; 81001; 85025; 85610; 85730; 87086; 88307; 88312; 88342; J0744; J1100; J1171; J2175; J2250; J3010; J9280

== ENCOUNTER → 2024-12-15 | Outpatient (CLI) | payer OTHER ==
[~2024-12-15] MED LIST changes: -DexAMETHasone SOD PHOS 10MG/1ML VIAL INJ ONE; -ETOMIDATE (2MG/ML) 20ML VIAL IV ONE; -MEPERIDINE HCL (25 MG/ML) 1ML VIAL ONE; -MIDAZOLAM HCL 2MG/2ML 2ml VIAL (1mg/ml) IV PRN; -MIDAZOLAM HCL 2MG/2ML 2ml VIAL (1mg/ml) ONE; -MORPHINE SULFATE 4 MG/ML SYR/VIAL IV PRN; -ONDANSETRON HCL 4 MG/2 ML VIAL IV ONE; -ePHEDrine SULFATE 50 MG/ML AMP IV PRN; -fentaNYL CITRATE 100 MCG/2 ML VL ONE; -hydrALAZINE HCL 20 MG/ML VL IV PRN; -mitoMYcin 40 MG in STERILE WATER 80 ML IS ONE
[2024-12-15 10:33] LABS: Urine Bacteria None Seen /hpf (None Seen)
[2024-12-15 10:58] LABS: Basophils # (auto) 0 10 ^3/uL (0-0.2); Basophils % (auto) 0.8 % (0.0-2.0); Eosinophils # (auto) 0.3 10 ^3/uL (0-0.8); Eosinophils % (auto) 4.4 % (0.0-7.0); Hemoglobin 11.7 g/dL (13.5-17.5); Lymphocytes # (auto) 0.8 10 ^3/uL (0.4-5.4); Lymphocytes % (auto) 13.5 % (10.0-50.0); Mean Corpuscular Hemoglobin 30.3 pg (28.0-32.0); Mean Corpuscular Hgb Conc. 33.4 g/dL (32.0-36.0); Mean Corpuscular Volume 90.6 fL (80.0-100.0); Monocytes # (auto) 0.6 10 ^3/uL (0-1.3); Monocytes % (auto) 9.3 % (0.0-12.0); Neutrophils # (auto) 4.3 10 ^3/uL (1.6-8.6); Platelet Count (auto) 160 10^3/uL (140-450); Red Blood Cells 3.86 10^6/uL (4.5-5.90); Red Cell Distribution Width 13.8 % (11.8-14.3)
[2024-12-15 11:16] LABS: Urine Blood TRACE /uL (Negative); Urine Clarity Clear (Clear); Urine Color Light-Yellow (Yellow); Urine Protein, UAD TRACE (Negative); Urine Specific Gravity 1.017 (1.001-1.035); Urine Squamous Epithelial Cell None Seen /hpf (<5); Urine Urobilinogen Normal (Negative); Urine WBC 19 /HPF (0-3)
[2024-12-15 11:20] LABS: Protein, Urine 47.6 mg/dL (1-14)
[2024-12-15 11:23] LABS: Creatinine, Urine 102.66 mg/dL (30.0-125.0); Urine Protein/Creatinine Ratio 0.46
[2024-12-15 11:26] LABS: Alanine Aminotransferase 18 U/L (7-40); Albumin 3.9 g/dL (3.2-4.8); Alkaline Phosphatase 86 U/L (46-116); Anion Gap 7 (5-15); Aspartate Aminotransferase 16 U/L (13-40); BUN/Creatinine Ratio 17.1 (10.0-20.0); Bilirubin, Total 0.8 mg/dL (0.2-1.0); Calcium 9.2 mg/dL (8.7-10.4); Carbon Dioxide 25 mmol/L (20-31); Potassium 4.3 mmol/L (3.5-5.1); Sodium 141 mmol/L (136-145); Total Protein 6.4 g/dL (5.7-8.2); Uric Acid 7.4 mg/dL (3.7-9.2)
[2024-12-15 11:29] LABS: Blood Urea Nitrogen 26 mg/dL (9-23); Chloride 109 mmol/L (98-107); Glucose 108 mg/dL (74-106)
== END | disposition home or self-care (01) ==
LOC: LAB 10:15
PROVIDERS: ATTEND Internal Medicine
DX: E11.22 Type 2 diabetes mellitus with diabetic chronic kidney disease (principal); N18.30 Chronic kidney disease, stage 3 unspecified; E11.21 Type 2 diabetes mellitus with diabetic nephropathy; E21.3 Hyperparathyroidism, unspecified; E55.9 Vitamin D deficiency, unspecified; M10.9 Gout, unspecified; N39.0 Urinary tract infection, site not specified; R80.9 Proteinuria, unspecified; D63.1 Anemia in chronic kidney disease
CPT/HCPCS: 36415; 80053; 81001; 82306; 82570; 83970; 84156; 84550; 85025

== ENCOUNTER 2025-02-09 09:15 | Outpatient (CLI) | payer OTHER ==
[2025-02-09 09:29] LABS: Urine Bacteria None Seen /hpf (None Seen)
[2025-02-09 09:35] LABS: Basophils # (auto) 0 10 ^3/uL (0-0.2); Basophils % (auto) 0.6 % (0.0-2.0); Eosinophils # (auto) 0.2 10 ^3/uL (0-0.8); Eosinophils % (auto) 3.7 % (0.0-7.0); Hematocrit 34.2 % (41.0-53.0); Hemoglobin 11.7 g/dL (13.5-17.5); Lymphocytes # (auto) 0.9 10 ^3/uL (0.4-5.4); Lymphocytes % (auto) 12.9 % (10.0-50.0); Mean Corpuscular Hemoglobin 30.5 pg (28.0-32.0); Mean Corpuscular Hgb Conc. 34.1 g/dL (32.0-36.0); Mean Corpuscular Volume 89.5 fL (80.0-100.0); Monocytes # (auto) 0.7 10 ^3/uL (0-1.3); Neutrophils # (auto) 4.9 10 ^3/uL (1.6-8.6); Neutrophils % (auto) 72.8 % (37.0-80.0); Platelet Count (auto) 155 10^3/uL (140-450); Red Blood Cells 3.83 10^6/uL (4.5-5.90); Red Cell Distribution Width 14.4 % (11.8-14.3); White Blood Cell 6.7 10^3/uL (4.4-10.8)
[2025-02-09 10:01] LABS: Alanine Aminotransferase 16 U/L (7-40); Albumin 3.8 g/dL (3.2-4.8); Alkaline Phosphatase 71 U/L (46-116); Anion Gap 6 (5-15); Aspartate Aminotransferase 15 U/L (13-40); Calcium 9.3 mg/dL (8.7-10.4); Carbon Dioxide 27 mmol/L (20-31); Cholesterol 116 mg/dL (< 200); LDL Cholesterol 72 mg/dL (< 100); Sodium 143 mmol/L (136-145); Total Protein 6.1 g/dL (5.7-8.2); Triglycerides 52 mg/dL (< 150)
[2025-02-09 10:02] LABS: Bilirubin, Total 0.6 mg/dL (0.2-1.0)
[2025-02-09 10:03] LABS: Blood Urea Nitrogen 33 mg/dL (9-23); Chloride 110 mmol/L (98-107); Glucose 111 mg/dL (74-106); HDL Cholesterol 33 mg/dL (40-59); Potassium 5.5 mmol/L (3.5-5.1)
[2025-02-09 10:18] LABS: Urine Blood 3+ /uL (Negative); Urine Clarity Turbid (Clear); Urine Color Yellow (Yellow); Urine Hyaline Cast FEW /lpf (0 - 2); Urine Protein, UAD TRACE (Negative); Urine Specific Gravity 1.019 (1.001-1.035); Urine Squamous Epithelial Cell FEW /hpf (<5); Urine Urobilinogen Normal (Negative); Urine WBC 142 /HPF (0-3)
== END 2025-02-09 17:00 | disposition home or self-care (01) ==
LOC: LAB 09:15
PROVIDERS: ATTEND Internal Medicine
DX: I13.0 Hypertensive heart and chronic kidney disease with heart failure and stage 1 through stage 4 chronic kidney disease, or unspecified chronic kidney disease (principal); N18.32 Chronic kidney disease, stage 3b; I50.42 Chronic combined systolic (congestive) and diastolic (congestive) heart failure; Z00.01 Encounter for general adult medical examination with abnormal findings; Z79.899 Other long term (current) drug therapy
CPT/HCPCS: 36415; 80053; 80061; 81001; 83036; 84439; 84443; 85025

== ENCOUNTER 2025-02-16 11:13 | Outpatient (CLI) | payer OTHER ==
[2025-02-16 11:57] LABS: Potassium 4.6 mmol/L (3.5-5.1); Sodium 143 mmol/L (136-145)
[2025-02-16 11:58] LABS: Anion Gap 8 (5-15); Carbon Dioxide 23 mmol/L (20-31)
[2025-02-16 11:59] LABS: Calcium 9.4 mg/dL (8.7-10.4)
[2025-02-16 12:04] LABS: BUN/Creatinine Ratio 18.5 (10.0-20.0)
[2025-02-16 12:08] LABS: Chloride 112 mmol/L (98-107); Glucose 117 mg/dL (74-106)
[2025-02-16 12:09] LABS: Blood Urea Nitrogen 29 mg/dL (9-23)
== END 2025-02-16 17:00 | disposition home or self-care (01) ==
LOC: LAB 11:13
PROVIDERS: ATTEND Internal Medicine
DX: N18.32 Chronic kidney disease, stage 3b (principal); E78.5 Hyperlipidemia, unspecified; N17.9 Acute kidney failure, unspecified
CPT/HCPCS: 36415; 80048

== ENCOUNTER 2025-02-22 03:38 | Inpatient (IN) | payer OTHER ==
[~2025-02-22] VITALS: Ht 165.1 cm; Wt 68.5 kg
[2025-02-22] VITALS (7 sets, daily range): BP systolic 114–124; BP diastolic 38–49; PULSE 74–120; RESP 18–21; TEMP 97.4–98.1; O2SAT 93–95
--- NOTE | 2025-02-22 04:07 | ECG ---
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
--- NOTE | 2025-02-22 04:12 | ED.PDOC ---
History of Present Illness HPI Comments 84 y/o Russian speaking M is BIBA for c/o generalized weakness. Per EMS report, patient is A&Ox2 at baseline. Family called after patient had 2x witnessed falls when attempting to go use the bathroom, this morning. And with the ports that patient syncopized however they caught him and did not let admit his head. He was assisted to the ground in both instances without sustaining any injuries, with exception of an abrasion wound to the right side of his forehead. Only reported history of CVA and HTN. Vitals were noted to have been stable and within normal limits on scene and en route. Patient has no further reported acute symptoms at this time. Chief Complaint: Fall Injury Time Seen by MD: 03:50 Reviewed Notes: Nurses Notes, Automated Equipment Engineer Technician Notes, Medications, Allergies Allergies: Coded Allergies: NO KNOWN ALLERGIES (Unverified , 02/22/25) Information Source: Emergency Med Personnel Mode of Arrival: EMS Severity: Moderate Timing: Hours Duration: Since onset Prehospital treatment: 12 Lead EKG, Accucheck, Film Reader Past Medical History PAST MEDICAL HISTORY: CVA, HTN Past Medical History (Other): A&O x2 at baseline Surgical History: Unknown, Unobtainable Family History Family History: Unknown, Unobtainable Social History Smoker: Unknown, Unobtainable Alcohol: Unknown, Unobtainable Drugs: Unknown, Unobtainable Lives In: Home, Assisted Care All Other Systems: Reviewed and Negative (Comprehensive systems review obtained and negative except for what is stated in the HPI.) Physical Exam General Appearance: No Apparent Distress, Normal HEENT: Normal ENT Inspection, Pharynx Normal, TMs Normal Neck: Full Range of Motion, Non-Tender, Normal, Normal Inspection Respiratory: Chest Non-Tender, Lungs Clear, No Accessory Muscle Use, No Respiratory Distress, Normal Breath Sounds Cardiovascular: No Edema, No JVD, No Murmur, No Gallop, Normal Peripheral Pulses, Regular Rate/Rhythm Breast Exam: Deferred Gastrointestinal: No Organomegaly, Non Tender, No Pulsatile Mass, Normal Bowel Sounds, Soft Genitalia: Deferred Pelvic: Deferred Rectal: Deferred Extremities: No calf tenderness, Normal capillary refill, Normal inspection, Normal range of motion, Non-tender, No pedal edema Musculoskeletal : Apperance: Normal Neurologic: Alert (Alert and oriented x2), video photographer II-XII nml as Tested, No Motor Deficits, Normal Affect, Normal Mood, No Sensory Deficits Cerebellar Function: Normal Reflexes: Normal Skin: Dry, Normal Color, Warm, Wounds (Abrasion wound to right side of head) Lymphatic: No Adenopathy Was a procedure done? Was a procedure done?: No EKG EKG : Pulse Rate (adult): 94 [place]: Normal Cardiac Rhythm: NSR Block: None Hypertrophy: None ST: Normal Differential Dx Considerations may include: Electrolyte imbalance, viral syndrome, dehydration, URI, UTI, among others X-Ray, Labs, Meds, VS Vital Signs Date Time Temp Pulse Resp B/P (MAP) Pulse Ox O2 Delivery O2 Flow Rate FiO2 02/22/25 04:12 94 02/22/25 04:03 99.0 91 20 97/41 (59) 94 99.0 02/22/25 04:03 91 20 94 Room Air* 0 21 02/22/25 03:47 94 02/22/25 03:44 99.7 99 18 120/50 (73) 96 99.7 Lab Test 02/22/25 04:04 Range/Units White Blood Count 6.3 4.4-10.8 10^3/uL Red Blood Count 3.55 L 4.5-5.90 10^6/uL Hemoglobin 11.0 L 13.5-17.5 g/dL Hematocrit 31.4 L 41.0-53.0 % Mean Corpuscular Volume 88.6 80.0-100.0 fL Mean Corpuscular Hemoglobin 30.9 28.0-32.0 pg Mean Corpuscular Hemoglobin Concent 34.9 32.0-36.0 g/dL Red Cell Distribution Width 14.3 11.8-14.3 % Platelet Count 87 L 140-450 10^3/uL Mean Platelet Volume 8.6 6.9-10.8 fL Neutrophils (%) (Auto) 93.6 H 37.0-80.0 % Lymphocytes (%) (Auto) 2.2 L 10.0-50.0 % Monocytes (%) (Auto) 3.9 0.0-12.0 % Eosinophils (%) (Auto) 0.0 0.0-7.0 % Basophils (%) (Auto) 0.3 0.0-2.0 % Neutrophils # (Auto) 5.9 1.6-8.6 10 ^3/uL Lymphocytes # (Auto) 0.1 L 0.4-5.4 10 ^3/uL Monocytes # (Auto) 0.2 0-1.3 10 ^3/uL Eosinophils # (Auto) 0 0-0.8 10 ^3/uL Basophils # (Auto) 0 0-0.2 10 ^3/uL Nucleated Red Blood Cells 0.0 % Prothrombin Time 15.2 H 9.3-11.8 sec Prothrombin Time INR 1.49 H 0.9-1.15 Activated Partial Thromboplast Time 31.5 24.5-34.5 SEC Sodium Level 139 136-145 mmol/L Potassium Level 4.4 3.5-5.1 mmol/L Chloride Level 106 98-107 mmol/L Carbon Dioxide Level 21 20-31 mmol/L Anion Gap 12 5-15 Blood Urea Nitrogen 42 H 9-23 mg/dL Creatinine 2.28 H 0.700-1.30 mg/dL Glomerular Filtration Rate Calc 27 >90 mL/min BUN/Creatinine Ratio 18.4 10.0-20.0 Serum Glucose 117 H 74-106 mg/dL Lactic Acid Level 3.2 *H 0.4-2.0 mmol/L Calcium Level 8.6 L 8.7-10.4 mg/dL Troponin I High Sensitivity 91 *H </=54 ng/L B-Type Natriuretic Peptide 544.70 0-100 pg/mL Current Medications Medications (Trade) Dose Ordered Sig/Ophelia Route Start Time Stop Time Status Last Admin Sodium Chloride 1,000 ml @ 1,000 mls/hr Q1H ONCE IV 02/22/25 05:00 02/22/25 05:59 02/22/25 05:05 Cefepime HCl 50 ml @ 12.5 mls/hr ONCE ONCE IV 02/22/25 05:00 02/22/25 08:59 02/22/25 05:05 Vancomycin HCl 200 ml @ 200 mls/hr ONCE ONCE IV 02/22/25 05:00 02/22/25 05:59 02/22/25 05:[address] [address] Ph: [phone] DIAGNOSTIC IMAGING Diagnostic Imaging Report : [id number] Signed PATIENT: SAMUEL BAH ACCT: [id number] UNIT: [id number] : 1940 LOC: ER ROOM / BED: / AGE / SEX: 84 / M ADM STATUS: REG ER SERVICE 9 ORDERING PHYSICIAN: MARY PLASCENCIA MD PROCEDURE(s): RSHD2 - R SHOULDER 2+ VIEW XRAY REASON: fall ORDER NUMBER(s): [id number], ACCESSION NUMBER(s): [id number] EXAM: XY R SHOULDER 2+ VIEW XRAY HISTORY: fall COMPARISON: None TECHNIQUE: 3 views of the right shoulder were performed. FINDINGS: No acute fracture or dislocation are identified about the right shoulder. There is acromioclavicular hypertrophy. There is near-complete loss of subacromial space. There are postoperative changes of median sternotomy and cardiac valve replacement. IMPRESSION: 1. No acute fracture of the right shoulder. 2. Acromioclavicular hypertrophy and high-riding humeral head consistent with significant rotator cuff tendinopathy. ATED BY: LAZ MESSER MD DICTATED DATE/TIME: 02/22/25456 SIGNED BY: LAZ MESSER MD SIGNED DATE/TIME: 02/22/25456 CC: [place] [id number] Ph: [phone] DIAGNOSTIC IMAGING Diagnostic Imaging Report : [id number] Signed PATIENT: SAMUEL BAH ACCT: [id number] UNIT: [id number] : 1940 LOC: ER ROOM / BED: / AGE / SEX: 84 / M ADM STATUS: REG ER SERVICE 9 ORDERING PHYSICIAN: MARY PLASCENCIA MD PROCEDURE(s): HWOCT - HEAD WITHOUT CONTRAST REASON: syncope ORDER NUMBER(s): [id number], ACCESSION NUMBER(s): [id number] EXAM: CT HEAD WITHOUT CONTRAST HISTORY: syncope COMPARISON: None TECHNIQUE: Noncontrast axial CT images of the head were performed. Sagittal and coronal reformatted images were obtained. This CT exam was performed using 1 or more of the following dose reduction techniques: Automated exposure control, adjustment of the mA and/or kv according to patient size, or the use of i terative reconstruction techniques. Radiation Dose: CTDI volume is 53.97 mGy. Dose-length product is 757.24 mGy*cm FINDINGS: There is global brain atrophy. There is an old right temporal lobe infarct. There is an old lacunar infarct of the left frontal periventricular white matter. There are old infarcts of the bilateral cerebellar hemispheres. No intracranial hemorrhage, mass, midline shift, hydrocephalus, or evidence of acute large vessel infarct. There is mucosal thickening of the bilateral ethmoid and right maxillary sinuses, although the paranasal sinuses are not fully imaged here. There are old bilateral nasal bone fractures. The bilateral mastoid air cells and middle ear spaces are clear. No cranial fracture. There may be mild left frontal supraorbital scalp edema versus artifactual appearance. IMPRESSION: 1. Global brain atrophy and chronic ischemic changes without evidence of acute intracranial process. 2. Paranasal sinus disease. 3. Old bilateral nasal bone fractures. ATED BY: LAZ MESSER MD DICTATED DATE/TIME: 02/22/25454 SIGNED BY: LAZ MESSER MD SIGNED DATE/TIME: 02/22/25454 CC: [place] [id number] Ph: [phone] DIAGNOSTIC IMAGING Diagnostic Imaging Report : [id number] Signed PATIENT: SAMUEL BAH ACCT: [id number] UNIT: [id number] : 1940 LOC: ER ROOM / BED: / AGE / SEX: 84 / M ADM STATUS: REG ER SERVICE 9 ORDERING PHYSICIAN: MARY PLASCENCIA MD PROCEDURE(s): CXRP - CHEST PORTABLE REASON: syncope ORDER NUMBER(s): [id number], ACCESSION NUMBER(s): [id number] EXAM: XY CHEST PORTABLE HISTORY: syncope COMPARISON: None TECHNIQUE: Portable AP view of the chest was performed. FINDINGS: No no pneumothorax or consolidative infiltrates. There is Central interstitial prominence. There are postoperative changes of median sternotomy and cardiac valve replacement. The heart is borderline enlarged. The right humeral head is high-riding consistent with significant rotator cuff tendinopathy. IMPRESSION: 1. Central interstitial prominence BB due to reactive airways disease or CHF. 2. Postoperative changes of the heart and borderline cardiomegaly. ATED BY: LAZ MESSER MD DICTATED DATE/TIME: 02/22/25452 SIGNED BY: LAZ MESSER MD SIGNED DATE/TIME: 02/22/25452 CC: Time of 1ST Reevaluation: 04:20 Reevaluation 1ST: Unchanged Patient Education/Counseling: Other (Patient is altered at baseline) Family Education/Counseling: No Family Present Additional Information Previous visits reviewed: N/A The following tests were ordered, and results were reviewed by me: PT PTT, EKG, troponin, blood culture, chest x-ray, head CT without contrast, lactic acid with reflex, UA, CBC, BMP, BNP Additional Information was gathered from interviewing the following independent historians: EMS I reviewed and agreed with the following test results read by other providers: chest x-ray, head CT without contrast I discussed treatment and results with medical personnel and: patient SEPSIS Sepsis Screen Date sepsis recognized/suspect: Feb 22, 2025 Time Sepsis recognized/suspect: 345 Recent Procedure: No On Antibiotic Therapy: No Respiratory Rate >20: No Heart Rate >90: No Temp<36 C (96.8 F) or >38.3 C: No SBP <90 or MAP <65 mmHG: No New Acute Mental Status Change: No Is the patient on CPAP, BIPAP,: No Physician Orders Urinalysis (02/22/25 03:53) Head Without Contrast (02/22/25 04:30) Chest Portable (02/22/25 04:30) Blood Culture (02/22/25 03:53) Troponin-I Hs (02/22/25 04:53) Troponin-I Hs (02/22/25 06:53) Electrocardigram (02/22/25 04:53) Electrocardigram (02/22/25 06:53) R Shoulder 2+ View Xray (02/22/25 04:30) Sodium Chloride 0.9% (02/22/25 05:00) Cefepime 2gm/50ml Ns (Maxipime 2gm/50ml) (02/22/25 05:00) Vancomycin 1gm/200ml Pm (02/22/25 05:00) Vital Signs Date Time Temp Pulse Resp B/P (MAP) Pulse Ox O2 Delivery O2 Flow Rate FiO2 02/22/25 04:12 94 02/22/25 04:03 99.0 91 20 97/41 (59) 94 99.0 02/22/25 04:03 91 20 94 Room Air* 0 21 02/22/25 03:47 94 02/22/25 03:44 99.7 99 18 120/50 (73) 96 99.7 Laboratory Tests Test 02/22/25 04:04 Lactic Acid Level 3.2 mmol/L (0.4-2.0) *H White Blood Count 6.3 10^3/uL (4.4-10.8) Medications Medications Dose Ordered Sig/Ophelia Route Start Time Stop Time Status Last Admin Dose Admin Cefepime HCl 50 ml @ 12.5 mls/hr ONCE ONCE IV 02/22/25 05:00 02/22/25 08:59 02/22/25 05:05 Sodium Chloride 1,000 ml @ 1,000 mls/hr Q1H ONCE IV 02/22/25 05:00 02/22/25 05:59 02/22/25 05:05 Vancomycin HCl 200 ml @ 200 mls/hr ONCE ONCE IV 02/22/25 05:00 02/22/25 05:59 02/22/25 05:02 Departure 1 Departure Time of Disposition: 05:32 (Patient presented with syncope today and should be admitted. Data: 1. I ordered and reviewed the result of at least 3 labs including a CBC, BMP, and troponin. 2. I independently interpreted the following tests: EKG which shows a tenderness over the and a chest x-ray which shows benign chest and a CT head which shows benign brain.Risk:This patient has a high risk of morbidity due to further diagnostic testing or treatment and may suffer from an acute cardiac, neurologic, or infectious disorder. Rationale: Patient sh ould be admitted to the hospital for further management.) Impression: Primary Impression: Syncope and collapse Additional Impression: Generalized weakness Disposition: ADMITTED INPATIENT Admit to: Med Surg Condition: Guarded Critical Care Note Critical Care Time?: Yes Critical care comment: Altered mental status Authorized and Performed by: Mary Plascencia MD Total critical care time: Approximately 38 minutes Due to a high probability of clinically significant, life threatening deterioration, the patient required my highest level of preparedness to inte rvene emergently and I personally spent this critical care time directly and personally managing the patient. This critical care time included obtaining a history; examining the patient; pulse oximetry; ordering and review of studies; arranging urgent treatment with development of a management plan; evaluation of patient's response to treatment; frequent reassessment; and, discussions with other providers. This critical care time was performed to assess and manage the high probability of imminent, life-threatening deterioration that could result in multi-organ failure. It was exclusive of separately billable procedures and treating other patients and teaching time. Please see my other sections and the rest of the note for further information on patient assessment and treatment. Stability Stability form required: No Heart Score Heart Score: Heart Score Response (Comments) Value History N/A 0 EKG N/A 0 Age N/A 0 Risk Factors N/A 0 Troponin N/A 0 Total 0 I personally scribed for MARY PLASCENCIA MD ([email or web address]) on 02/22/25 at 04:12. El ectronically submitted by Juan Malcolm ([email or web address]). I personally scribed for MARY PLASCENCIA MD ([email or web address]) on 02/22/25 at 05:18. Electronically submitted by Juan Malcolm ([email or web address]). MARY PLASCENCIA MD Feb 22, 2025 04:12
[2025-02-22 04:32] LABS: Chloride 106 mmol/L (98-107); Potassium 4.4 mmol/L (3.5-5.1); Sodium 139 mmol/L (136-145)
[2025-02-22 04:33] LABS: Anion Gap 12 (5-15); Basophils # (auto) 0 10 ^3/uL (0-0.2); Basophils % (auto) 0.3 % (0.0-2.0); Carbon Dioxide 21 mmol/L (20-31); Eosinophils # (auto) 0 10 ^3/uL (0-0.8); Hematocrit 31.4 % (41.0-53.0); Lymphocytes # (auto) 0.1 10 ^3/uL (0.4-5.4); Lymphocytes % (auto) 2.2 % (10.0-50.0); Mean Corpuscular Hemoglobin 30.9 pg (28.0-32.0); Mean Corpuscular Hgb Conc. 34.9 g/dL (32.0-36.0); Mean Corpuscular Volume 88.6 fL (80.0-100.0); Monocytes # (auto) 0.2 10 ^3/uL (0-1.3); Monocytes % (auto) 3.9 % (0.0-12.0); Neutrophils # (auto) 5.9 10 ^3/uL (1.6-8.6); Neutrophils % (auto) 93.6 % (37.0-80.0); Platelet Count (auto) 87 10^3/uL (140-450); Red Blood Cells 3.55 10^6/uL (4.5-5.90); Red Cell Distribution Width 14.3 % (11.8-14.3); White Blood Cell 6.3 10^3/uL (4.4-10.8)
[2025-02-22 04:35] LABS: Calcium 8.6 mg/dL (8.7-10.4)
[2025-02-22 04:36] LABS: INR 1.49 (0.9-1.15); Partial Thromboplastin Time 31.5 SEC (24.5-34.5); Prothrombin Time 15.2 sec (9.3-11.8)
[2025-02-22 04:38] LABS: BUN/Creatinine Ratio 18.4 (10.0-20.0)
[2025-02-22 04:44] LABS: Lactic Acid w/Reflex 3.2 mmol/L (0.4-2.0)
[2025-02-22 04:45] LABS: Blood Urea Nitrogen 42 mg/dL (9-23); Glucose 117 mg/dL (74-106)
--- NOTE | 2025-02-22 04:56 | DVH ---
EXAM: XY CHEST PORTABLE HISTORY: syncope COMPARISON: None TECHNIQUE: Portable AP view of the chest was performed. FINDINGS: No no pneumothorax or consolidative infiltrates. There is Central interstitial prominence. There are postoperative changes of median sternotomy and cardiac valve replacement. The heart is borderline en larged. The right humeral head is high-riding consistent with significant rotator cuff tendinopathy. IMPRESSION: 1. Central interstitial prominence BB due to reactive airways disease or CHF. 2. Postoperative changes of the heart and borderline cardiomegaly.
--- NOTE | 2025-02-22 04:58 | DVH ---
EXAM: CT HEAD WITHOUT CONTRAST HISTORY: syncope COMPARISON: None TECHNIQUE: Noncontrast axial CT images of the head were performed. Sagittal and coronal reformatted i mages were obtained. This CT exam was performed using 1 or more of the following dose reduction techn iques: Automated exposure control, adjustment of the mA and/or kv according to patient size, or the u se of iterative reconstruction techniques. Radiation Dose: CTDI volume is 53.97 mGy. Dose-length product is 757.24 mGy*cm FINDINGS: There is global brain atrophy. There is an old right temporal lobe infarct. There is an old lacunar i nfarct of the left frontal periventricular white matter. There are old infarcts of the bilateral cere bellar hemispheres. No intracranial hemorrhage, mass, midline shift, hydrocephalus, or evidence of ac caryn large vessel infarct. There is mucosal thickening of the bilateral ethmoid and right maxillary si nuses, although the paranasal sinuses are not fully imaged here. There are old bilateral nasal bone f ractures. The bilateral mastoid air cells and middle ear spaces are clear. No cranial fracture. Ther e may be mild left frontal supraorbital scalp edema versus artifactual appearance. IMPRESSION: 1. Global brain atrophy and chronic ischemic changes without evidence of acute intracranial process. 2. Paranasal sinus disease. 3. Old bilateral nasal bone fractures.
--- NOTE | 2025-02-22 05:00 | DVH ---
EXAM: XY R SHOULDER 2+ VIEW XRAY HISTORY: fall COMPARISON: None TECHNIQUE: 3 views of the right shoulder were performed. FINDINGS: No acute fracture or dislocation are identified about the right shoulder. There is acromioclavicular hypertrophy. There is near-complete loss of subacromial space. There are postoperative changes of me sabine sternotomy and cardiac valve replacement. IMPRESSION: 1. No acute fracture of the right shoulder. 2. Acromioclavicular hypertrophy and high-riding humeral head consistent with significant rotator cuf f tendinopathy.
[2025-02-22] MEDS: VANCOMYCIN 1GM/200ML PM 200 ML IV ONE (05:02)
[2025-02-22] MEDS: CEFEPIME 2GM/50ML NS 50 ML IV ONE (05:05)
[2025-02-22] MEDS: SODIUM CHLORIDE 0.9% 1,000 ML IV ONE ×3 (05:05→18:34)
[2025-02-22] MEDS: MORPHINE SULFATE 4 MG/ML SYR/VIAL IV ONE (07:30)
[2025-02-22] MEDS: ONDANSETRON HCL 4 MG/2 ML VIAL IV ONE (07:30)
[2025-02-22] MEDS ORDERED: DOCUSATE SOD 100 MG CAP PO PRN (09:15)
[2025-02-22] MEDS ORDERED: MORPHINE SULFATE INJ 2 MG/ml SYRG IV PRN (09:15)
[2025-02-22] MEDS ORDERED: NITROGLYCERIN 0.4 MG SL TAB SL PRN (09:15)
[2025-02-22] MEDS ORDERED: ONDANSETRON HCL 4 MG/2 ML VIAL IV PRN (09:15)
--- NOTE | 2025-02-22 09:40 | DVHHP2 ---
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 Patient states he was at home attempting to use the restroom when he became dizzy and fell. His family member was able to catch him and help breath his fall so he did not hit the ground to hard, but he still hit on the right side of his body. He has a small abrasion to the right side of his face, and complains of severe pain to his right shoulder and difficulty moving the arm. 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 Past Surgical History: Cholecystectomy, Other (Open heart surgery-mechanical valve, PTCA-cardiac stents) Smoke: No ALCOHOL: none Drugs: None Lives: with Family Domestic Violence: Neg Review of Systems Constitutional: No: Fever, Chills, Sweats, Weakness, Malaise, Other Eyes: No: Pain, Vision change, Conjunctivae inflammation, Eyelid inflammation, Other, Redness ENT: No: Ear pain, Ear discharge, Nose pain, Nose discharge, Nose congestion, Mouth pain, Mouth swelling, Throat pain, Throat swelling, Other Respiratory: No: Cough, Dry, Shortness of breath, SOB with excertion, Wheezing, Hemoptysis, Pleuritic Pain, Sputum, Wheezing, Other Cardiovascular: No: Chest Pain, Palpitations, Orthopnea, Paroxysmal Noc. Dyspnea, Edema, Lt Headedness, Other Gastrointestinal: No: Nausea, Vomiting, Abdominal Pain, Diarrhea, Constipation, Melena, Hematochezia, Other Genitourinary: No Dysuria, No Frequency, No Incontinence, No Hematuria, No Retention, No Other Musculoskeletal: No: other, neck pain, shoulder pain, arm pain, back pain, hand pain, leg pain, foot pain Skin: No: Rash, Lesions, Jaundice, Bruising, Other Neurological: Weakness, Incoordination, Other (Dizziness); No: Numbness, Change in speech, Confusion, Seizures Allergies: Coded Allergies: NO KNOWN ALLERGIES (Unverified , 02/22/25) Medications Current Medications Medications Dose Ordered Sig/Ophelia Route Start Time Stop Time Status Last Admin Dose Admin Acetaminophen/ Hydrocodone Bitart 1 tab Q4HP PRN PO 02/22/25 09:15 UNV Exam Vital Signs Vital Signs Date Time Temp Pulse Resp B/P (MAP) Pulse Ox O2 Delivery O2 Flow Rate FiO2 02/22/25 08:00 90 02/22/25 07:30 98.0 20 106/52 (70) 94 98.0 02/22/25 04:03 Room Air* 0 21 General Appearance: Alert, Oriented X3, Cooperative, mild distress HEENT: Atraumatic, PERRLA Respiratory: Clear to auscultation, Normal air movement Cardiovascular: Regular rate, Normal S1, Normal S2 Abdominal: Normal bowel sounds, Soft, No tenderness Extremities: No clubbing, No cyanosis, No edema, Normal pulses, Other (right shoulder pain) Skin: No rashes, No breakdown, No significant lesion Neuro: Normal speech Psych/Mental Status: Mental status NL, Mood NL Labs/Xrays Labs Test 02/22/25 08:25 02/22/25 06:23 02/22/25 04:04 Range/Units Troponin I High Sensitivity 196 *H </=54 ng/L Lactic Acid Level 2.1 *H 0.4-2.0 mmol/L White Blood Count 6.3 4.4-10.8 10^3/uL Red Blood Count 3.55 L 4.5-5.90 10^6/uL Hemoglobin 11.0 L 13.5-17.5 g/dL Hematocrit 31.4 L 41.0-53.0 % Mean Corpuscular Volume 88.6 80.0-100.0 fL Mean Corpuscular Hemoglobin 30.9 28.0-32.0 pg Mean Corpuscular Hemoglobin Concent 34.9 32.0-36.0 g/dL Red Cell Distribution Width 14.3 11.8-14.3 % Platelet Count 87 L 140-450 10^3/uL Mean Platelet Volume 8.6 6.9-10.8 fL Neutrophils (%) (Auto) 93.6 H 37.0-80.0 % Lymphocytes (%) (Auto) 2.2 L 10.0-50.0 % Monocytes (%) (Auto) 3.9 0.0-12.0 % Eosinophils (%) (Auto) 0.0 0.0-7.0 % Basophils (%) (Auto) 0.3 0.0-2.0 % Neutrophils # (Auto) 5.9 1.6-8.6 10 ^3/uL Lymphocytes # (Auto) 0.1 L 0.4-5.4 10 ^3/uL Monocytes # (Auto) 0.2 0-1.3 10 ^3/uL Eosinophils # (Auto) 0 0-0.8 10 ^3/uL Basophils # (Auto) 0 0-0.2 10 ^3/uL Nucleated Red Blood Cells 0.0 % Prothrombin Time 15.2 H 9.3-11.8 sec Prothrombin Time INR 1.49 H 0.9-1.15 Activated Partial Thromboplast Time 31.5 24.5-34.5 SEC Sodium Level 139 136-145 mmol/L Potassium Level 4.4 3.5-5.1 mmol/L Chloride Level 106 98-107 mmol/L Carbon Dioxide Level 21 20-31 mmol/L Anion Gap 12 5-15 Blood Urea Nitrogen 42 H 9-23 mg/dL Creatinine 2.28 H 0.700-1.30 mg/dL Glomerular Filtration Rate Calc 27 >90 mL/min BUN/Creatinine Ratio 18.4 10.0-20.0 Serum Glucose 117 H 74-106 mg/dL Calcium Level 8.6 L 8.7-10.4 mg/dL B-Type Natriuretic Peptide 544.70 0-100 pg/mL EXAM: XY CHEST PORTABLE FINDINGS: No no pneumothorax or consolidative infiltrates. There is Central interstitial prominence. There are postoperative changes of median sternotomy and cardiac valve replacement. The heart is borderline enlarged. The right humeral head is high-riding consistent with significant rotator cuff tendinopathy. IMPRESSION: 1. Central interstitial prominence BB due to reactive airways disease or CHF. 2. Postoperative changes of the heart and borderline cardiomegaly. EXAM: CT HEAD WITHOUT CONTRAST FINDINGS: There is global brain atrophy. There is an old right temporal lobe infarct. There is an old lacunar infarct of the left frontal periventricular white matter. There are old infarcts of the bilateral cerebellar hemispheres. No in tracranial hemorrhage, mass, midline shift, hydrocephalus, or evidence of acute large vessel infarct. There is mucosal thickening of the bilateral ethmoid and right maxillary sinuses, although the paranasal sinuses are not fully imaged here. There are old bilateral nasal bone fractures. The bilateral mastoid air cells and middle ear spaces are clear. No cranial fracture. There may be mild left frontal supraorbital scalp edema versus artifactual appearance. IMPRESSION: 1. Global brain atrophy and chronic ischemic changes without evidence of acute intracranial process. 2. Paranasal sinus disease. 3. Old bilateral nasal bone fractures. EXAM: XY R SHOULDER 2+ VIEW X-RAY FINDINGS: No acute fracture or dislocation are identified about the right shoulder. There is acromioclavicular hypertrophy. There is near-complete loss of subacromial space. There are postoperative changes of median sternotomy and cardiac valve replacement. IMPRESSION: 1. No acute fracture of the right shoulder. 2. Acromioclavicular hypertrophy and high-riding humeral head consistent with significant rotator cuff tendinopathy. Assessment/Plan Assessment/Plan Assessment: Syncope and collapse, lactic acidosis, Elevated troponin, Acute kidney injury, Coronary artery disease, Mechanical valve, Plan: Admit to Tele, Cardiology consult, Consider Neurology consult, Carotid duplex, ECHO, TSH, Lipid panel, A1c, IV hydration, Fall precautions, Physical therapy evaluation, Blood cultures, Repeat labs in the afternoon, Consider shoulder MRI if symptoms do not improve, Home medications reconciled, Plan discussed with: Patient My Orders Orders - SUSAN OTTO [employer] Procedure Category Date Status Time Admit ADMIT 02/22/25 Transmitted 09:08 Code Status CODE 02/22/25 Transmitted 09:08 2 Gm Sodium Diet DIET 02/22/25 Transmitted Breakfast Hydrocodone-Acet PHA 02/22/25 Logged 5/325mg Tab ([place] 09:15 Ondansetron Hcl PHA 02/22/25 Transmitted (Zofran) 09:15 Docusate Sodium PHA 02/22/25 Transmitted Capsule (Colace 09:15 Fall Risk Precautions ROBYN 02/22/[address] 09:08 Complete Blood Count LAB 02/23/25 Verified 04:00 Comprehensive LAB 02/23/25 Verified Metabolic Panel 04:00 Pt Request For Service PT 02/22/25 Logged 09:08 Condition: Serious ROBYN 02/22/25 In Process 09:08 Acetaminophen Tablet PHA 02/22/25 Transmitted (Tylenol Tablet) 09:15 Morphine Sulfate PHA 02/22/25 Transmitted Injection 09:15 Nitroglycerin PHA 02/22/25 Transmitted Sublingual (Ntrostat 09:15 Morphine Sulfate PHA 02/22/25 Transmitted Injection 09:15 Stat Ekg For Chest ROBYN 02/22/25 In Process Pain 09:08 Notify Of Changes ROBYN 02/22/25 In Process From Base 09:08 [employer]ision [employer] Technician For [facility] 02/22/25 In Process 24 Hours 09:08 Emergency Dysrhythmia [facility] 02/22/25 In Process Protocol 09:08 Rhythm Strips Once [facility] 02/22/25 In Process Every Shift 09:08 Oxygen By Nasal RT 02/22/25 Transmitted Cannula 09:08 * Cardiology Consult CONS 02/22/25 Transmitted 09:08 Warfarin Per Rx PHA 02/22/25 Transmitted Protocol (Coumadin 09:30 Carvedilol Tablet PHA 02/22/25 Transmitted (Coreg Tablet) 10:00 Hydralazine Hcl [facility] 02/22/25 Transmitted Tablet (Apresoline 14:00 (Nf) Atorvastatin PHA 02/22/25 Transmitted Calcium 22:00 (Nf) Solifenacin [facility] 02/22/25 Transmitted Succinate 10:00 Date of Service: Feb 22, 2025 Billing Provider: SUSAN OTTO Common Visit Codes: [id number] INP/OBS CARE (MOD) SUSAN OTTO Feb 22, 2025 09:40
[2025-02-22 10:06] LABS: Triglycerides 99 mg/dL (< 150)
[2025-02-22 10:07] LABS: LDL Cholesterol 46 mg/dL (< 100)
[2025-02-22 10:08] LABS: Cholesterol 91 mg/dL (< 200); HDL Cholesterol 22 mg/dL (40-59)
[2025-02-22] MEDS: cefTRIAXone 1GM/50ML D5W 50 ML IV SCH (10:42)
--- NOTE | 2025-02-22 10:59 | DVHCONRES ---
Date Seen: Feb 22, 2025 Resident Creating Document: COLLETTE REHMAN RESIDENT Reason for Consultation Syncope and collapse, elevated trop History of Present Illness Patient is an 84-year-old male with past medical history of CVA, hypertension, s/p mechanical mitral valve, who comes in after sustaining a mechanical fall. According to the patient, yesterday on 02/21/2025 as he was returning from the bathroom after having an episode of vomiting, he lost balance and fell, patient notes he hit the right side of his head against his night stand and notes some impact to the right shoulder. Denies having similar symptoms in the past. Prior to the fall, patient had a visit to the urgent care for flu-like symptoms, nausea and vomiting that has been ongoing for the last 3-4 days. At baseline patient is able to ambulate independently without using a wheelchair or walker. On review of systems patient is complaining of fatigue, chills, nausea and constipation. CXR showed central interstitial prominence due to reactive airway disease or CHF, head CT showed global brain atrophy and chronic ischemic changes without evidence of acute intracranial process, paranasal sinus disease and old bilateral nasal bone fractures. Shoulder x-ray showed no acute fracture of the right shoulder. Serial troponins were 91, 144, 196. Serum BNP was 554, serum INR 1.49 (patient is on warfarin) and serum lactic acid 2.1. EKG shows ST depressions most prominent in V5 and V6 Past Medical History CVA, hypertension, s/p mechanical mitral valve Past Surgical History S/p mechanical mitral valve replacement, cholecystectomy Social History Smoking: Quit 40-50 years ago Alcohol: Denies Drugs: Denies Allergies: Coded Allergies: NO KNOWN ALLERGIES (Unverified , 02/22/25) Home Meds Reported Medications Solifenacin Succinate (Solifenacin Succinate) 10 Mg Tab, 1 TAB PO DAILY 02/22/25 Warfarin Sodium (Warfarin Sodium) 7.5 Mg Tab, 1 TAB PO DAILY 02/22/25 Hydralazine HCl (Hydralazine HCl) 25 Mg Tab, 1 TAB PO TID 02/22/25 Atorvastatin Calcium (ATORVASTATIN CALCIUM) 40 Mg Tab, 1 TAB PO HS 02/22/25 Carvedilol (Carvedilol) 12.5 Mg Tab, 1 TAB PO BID 02/22/25 Current Medications Current Medications Medications (Trade) Dose Ordered Sig/Ophelia Route PRN Reason Start Time Stop Time Status Last Admin Acetaminophen/ Hydrocodone Bitart ([place] 5/325MG Tab) 1 tab Q4HP PRN PO MODERATE PAIN (4-6 PAIN SCALE) 02/22/25 09:15 Ondansetron HCl (Zofran) 4 mg Q4HP PRN IV NAUSEA / VOMITING 02/22/25 09:15 Docusate Sodium (Colace Capsule) 100 mg BIDPRN PRN PO FOR CONSTIPATION 02/22/25 09:15 Acetaminophen (Tylenol Tablet) 650 mg Q6HP PRN PO PAIN SCALE 1-3 OR TEMP>100.4 02/22/25 09:15 Morphine Sulfate 2 mg Q4HPRN PRN IV SEVERE PAIN (7-10 PAIN SCALE) 02/22/25 09:15 Nitroglycerin (Ntrostat Sublingual) 0.4 mg Q5MINP PRN SL FOR CHEST PAIN 02/22/25 09:15 Morphine Sulfate 2 mg Q30M PRN IV FOR CHEST PAIN 02/22/25 09:15 Warfarin Sodium (Coumadin Per Rx Protocol) RX PROTOCOL PER PHARMACY PO 02/22/25 09:30 UNV Carvedilol (Coreg Tablet) 12.5 mg BID PO 02/22/25 10:00 UNV Hydralazine HCl (Apresoline Tablet) 25 mg TID PO 02/22/25 14:00 UNV Patient Own Medication 1 tab HS PO 02/22/25 22:00 UNV Patient Own Medication 1 tab DAILY PO 02/22/25 10:00 UNV Ceftriaxone Sodium 50 ml @ 100 mls/hr DAILY@09 IV 02/22/25 10:00 02/22/25 10:42 Review of Systems Patient seen and examined at bedside. Patient is alert and oriented to time, place person and responding to all questions. General: Fatigue, chills Eyes: No Pain, No Vision change, No Conjunctivae inflammation, No Eyelid inflammation, No Other, No Redness ENT: No Ear pain, No Ear discharge, No Nose pain, No Nose discharge, No Nose congestion, No Mouth pain, No Mouth swelling, No Throat pain, No Throat swelling, No Other Cardiovascular: No Chest Pain, No Palpitations, No Orthopnea, No Paroxysmal No Dyspnea, No Edema, No Lt Headedness, No Other Respiratory: No Cough, No Dry, No Shortness of breath, No SOB with exertion, No Wheezing, No Hemoptysis, No Pleuritic Pain, No Sputum, No Other Gastrointestinal: Nausea, No Vomiting, No Abdominal Pain, No Diarrhea, Constipation, No Melena, No Hematochezia, No Other Genitourinary: No Dysuria, No Frequency, No Incontinence, No Hematuria, No Retention, No Other Musculoskeletal: No other, No neck pain, No shoulder pain, No arm pain, No back pain, No hand pain, No leg pain, No foot pain Skin: No Rash, No Lesions, No Jaundice, No Bruising, No Other Vital Signs Vital Signs Date Time Temp Pulse Resp B/P (MAP) Pulse Ox O2 Delivery O2 Flow Rate FiO2 02/22/25 09:45 92 21 95 Room Air* 0 21 02/22/25 09:30 105/38 (60) 02/22/25 07:30 98.0 98.0 Physical Exam General Appearance: Cooperative. Well developed. Dry mucous membranes Head Exam: Normal inspection. Bruising noted along right temporal region Neck Exam: Normal inspection. Non-tender. Normal alignment Pulmonary/Respiratory: Chest non-tender. Clear bilateral breath sounds, no crackles, no wheezing. Cardiovascular/Chest: Regular rate and rhythm. No murmurs. No JVD. Peripheral Pulses: 2+ Radial (R). 2+ Radial (L). 2+ Pedal (R). 2+ Pedal (L) Abdominal Exam: Normal bowel sounds. Soft. normal abdomen, no visible veins, Nontender. No hepatospenomegaly. No masses Lower extremities: Trace lower extremity edema Neuro/Mental Status: A&O x4. Coherent. Thoughts/Psych: Normal thought pattern. Appropriate mood and affect. Good judgement and insight Skin Exam: Normal inspection. Normal color. Warm. Dry Labs/Diagnostic Data Labs Test 02/22/25 08:25 02/22/25 06:23 02/22/25 04:04 Range/Units Troponin I High Sensitivity 196 *H </=54 ng/L Lactic Acid Level 2.1 *H 0.4-2.0 mmol/L White Blood Count 6.3 4.4-10.8 10^3/uL Red Blood Count 3.55 L 4.5-5.90 10^6/uL Hemoglobin 11.0 L 13.5-17.5 g/dL Hematocrit 31.4 L 41.0-53.0 % Mean Corpuscular Volume 88.6 80.0-100.0 fL Mean Corpuscular Hemoglobin 30.9 28.0-32.0 pg Mean Corpuscular Hemoglobin Concent 34.9 32.0-36.0 g/dL Red Cell Distribution Width 14.3 11.8-14.3 % Platelet Count 87 L 140-450 10^3/uL Mean Platelet Volume 8.6 6.9-10.8 fL Neutrophils (%) (Auto) 93.6 H 37.0-80.0 % Lymphocytes (%) (Auto) 2.2 L 10.0-50.0 % Monocytes (%) (Auto) 3.9 0.0-12.0 % Eosinophils (%) (Auto) 0.0 0.0-7.0 % Basophils (%) (Auto) 0.3 0.0-2.0 % Neutrophils # (Auto) 5.9 1.6-8.6 10 ^3/uL Lymphocytes # (Auto) 0.1 L 0.4-5.4 10 ^3/uL Monocytes # (Auto) 0.2 0-1.3 10 ^3/uL Eosinophils # (Auto) 0 0-0.8 10 ^3/uL Basophils # (Auto) 0 0-0.2 10 ^3/uL Nucleated Red Blood Cells 0.0 % Prothrombin Time 15.2 H 9.3-11.8 sec Prothrombin Time INR 1.49 H 0.9-1.15 Activated Partial Thromboplast Time 31.5 24.5-34.5 SEC Sodium Level 139 136-145 mmol/L Potassium Level 4.4 3.5-5.1 mmol/L Chloride Level 106 98-107 mmol/L Carbon Dioxide Level 21 20-31 mmol/L Anion Gap 12 5-15 Blood Urea Nitrogen 42 H 9-23 mg/dL Creatinine 2.28 H 0.700-1.30 mg/dL Glomerular Filtration Rate Calc 27 >90 mL/min BUN/Creatinine Ratio 18.4 10.0-20.0 Serum Glucose 117 H 74-106 mg/dL Hemoglobin A1c 5.2 <5.7 % A1C Calcium Level 8.6 L 8.7-10.4 mg/dL B-Type Natriuretic Peptide 544.70 0-100 pg/mL Triglycerides Level 99 < 150 mg/dL Cholesterol Level 91 < 200 mg/dL LDL Cholesterol 46 < 100 mg/dL HDL Cholesterol 22 L 40-59 mg/dL Assessment NSTEMI type 1 versus type 2 S/p mechanical fall Possible upper respiratory tract infection History of congestive heart failure S/p mechanical mitral valve Essential hypertension History of CABG History of CVA Dehydration Possible pneumonia Questionable sepsis due to above? Subtherapeutic INR 1.49 Plan: Discontinued warfarin Heparin per pharmacy per ACS protocol Negative head CT Echocardiogram Monitor blood pressure We will consider MARTINA considering patient having subtherapeutic INR We will continue to trend troponins Rest of the plan as per course of hospitalization Thank you so much for the opportunity to consult on your patient. Cardiology team will follow the patient. In case of any questions or concerns please feel free to reach out. Plan discussed with Dr. Topete Plan discussed with: Patient, Other (RN) Visit Coding Cardiology RES Date of Service: Feb 22, 2025 Billing Provider: CARMELO TOPETE MD Cardiology Common Codes: [id number] INP/OBS CARE (High) COLLETTE REHMAN RESIDENT Feb 22, 2025 10:59
[2025-02-22] MEDS: CARVEDILOL 12.5 MG TAB PO SCH (11:26)
--- NOTE | 2025-02-22 11:26 | DVH ---
PROCEDURE: US CAROTID DUPLX W COLOR DOP 02/22/2025 09:56 AM INDICATION: syncope COMPARISON: None TECHNIQUE: Real-time grayscale and color Doppler images of the neck arteries were obtained with spect ral analysis performed. FINDINGS: RIGHT: No significant atherosclerotic plaque identified in the carotid. Normal spectral waveforms are seen. ICA peak systolic velocity: 100 cm/s ICA end-diastolic velocity: 25 cm/s ICA/CCA ratios: 1.2 LEFT: No significant atherosclerotic plaque identified in the carotid. Normal spectral waveforms are seen. ICA peak systolic velocity: 121 cm/s ICA end-diastolic velocity: 44 cm/s ICA/CCA ratios: 1.2 VERTEBRAL ARTERIES: Normal antegrade flow is seen bilaterally. Normal spectral waveforms. IMPRESSION: 1. No hemodynamically significant carotid artery stenosis identified bilaterally. Reference: Radiology 2003; 229:[id number] Normal ICA PSV is <125 cm/sec and no plaque or intimal thickening is visible sonographically addition al criteria include ICA/CCA PSV ratio <2.0 and ICA EDV <40 cm/sec <50% ICA stenosis ICA PSV is <125 cm/sec and plaque or intimal thickening is visible sonographically additional criteria include ICA/CCA PSV ratio <2.0 and ICA EDV <40 cm/sec 50-69% ICA stenosis ICA PSV is 125-230 cm/sec and plaque is visible sonographically additional criter ia include ICA/CCA PSV ratio of 2.0-4.0 and ICA EDV of 40-100 cm/sec 70% ICA stenosis but less than near occlusion ICA PSV is >230 cm/sec and visible plaque and luminal narrowing are seen at rios-scale and color Doppler ultrasound (the higher the Doppler parameters lie above the threshold of 230 cm/sec, the greater the likelihood of severe disease) additional criteria include ICA/CCA PSV ratio >4 and ICA EDV >100 cm/sec
[2025-02-22 11:43] LABS: Hematocrit 31.6 % (41.0-53.0)
[2025-02-22 12:59] LABS: Urine Bacteria FEW /hpf (None Seen); Urine Blood 2+ /uL (Negative); Urine Clarity Turbid (Clear); Urine Color Light-Orange (Yellow); Urine Protein, UAD 1+ (Negative); Urine Specific Gravity 1.023 (1.001-1.035); Urine Squamous Epithelial Cell FEW /hpf (<5); Urine Urobilinogen Normal (Negative); Urine WBC 5 /HPF (0-3); Urine pH 5.5 (5.0-9.0)
[2025-02-22] MEDS: HYDROcodone-ACET 5/325MG TAB PO PRN (15:20)
[2025-02-22] MEDS: hydrALAZINE HCL 25 MG TAB PO SCH (15:20)
[2025-02-22 15:37] LABS: Basophils # (auto) 0.1 10 ^3/uL (0-0.2); Basophils % (auto) 0.5 % (0.0-2.0); Eosinophils # (auto) 0.1 10 ^3/uL (0-0.8); Eosinophils % (auto) 0.6 % (0.0-7.0); Hematocrit 31.2 % (41.0-53.0); Hemoglobin 10.5 g/dL (13.5-17.5); Lymphocytes # (auto) 0.5 10 ^3/uL (0.4-5.4); Lymphocytes % (auto) 3.9 % (10.0-50.0); Mean Corpuscular Hemoglobin 30.4 pg (28.0-32.0); Mean Corpuscular Hgb Conc. 33.6 g/dL (32.0-36.0); Mean Corpuscular Volume 90.4 fL (80.0-100.0); Monocytes # (auto) 0.7 10 ^3/uL (0-1.3); Monocytes % (auto) 5.2 % (0.0-12.0); Neutrophils # (auto) 12.6 10 ^3/uL (1.6-8.6); Neutrophils % (auto) 89.8 % (37.0-80.0); Platelet Count (auto) 70 10^3/uL (140-450); Red Blood Cells 3.45 10^6/uL (4.5-5.90); Red Cell Distribution Width 15.1 % (11.8-14.3)
[2025-02-22 15:46] LABS: Alanine Aminotransferase 32 U/L (7-40); Albumin 3.4 g/dL (3.2-4.8); Alkaline Phosphatase 59 U/L (46-116); Anion Gap 12 (5-15); BUN/Creatinine Ratio 18.2 (10.0-20.0); Bilirubin, Total 0.8 mg/dL (0.2-1.0); Potassium 4.2 mmol/L (3.5-5.1); Sodium 140 mmol/L (136-145)
[2025-02-22 15:47] LABS: Aspartate Aminotransferase 64 U/L (<34); Blood Urea Nitrogen 40 mg/dL (9-23); Calcium 8.3 mg/dL (8.7-10.4); Carbon Dioxide 18 mmol/L (20-31); Chloride 110 mmol/L (98-107); Glucose 130 mg/dL (74-106); Total Protein 5.5 g/dL (5.7-8.2)
[2025-02-22] MEDS: MORPHINE SULFATE INJ 2 MG/ml SYRG IV PRN (16:38)
[2025-02-22] MEDS ORDERED: WARFARIN SODIUM 2.5 MG TAB PO ONE (17:00)
[2025-02-22 17:54] LABS: COVID19 ANTIGEN SOFIA FIA NEGATIVE (NEGATIVE)
[2025-02-22] MEDS: HEPARIN SODIUM (PORCINE) 5000 UNITS/ML 1ML VIAL IV ONE (18:07)
[2025-02-22] MEDS: HEPARIN DRIP/D5W 100UNITS/ML 250 ML IV SCH (18:10)
[2025-02-22] MEDS: ASPirin 81 mg TAB PO ONE (18:18)
[2025-02-22 18:20] LABS: Hemoglobin 11.4 g/dL (13.5-17.5); Mean Corpuscular Hemoglobin 30.1 pg (28.0-32.0); Mean Corpuscular Hgb Conc. 33.5 g/dL (32.0-36.0); Mean Corpuscular Volume 89.8 fL (80.0-100.0); Platelet Count (auto) 80 10^3/uL (140-450); Red Blood Cells 3.79 10^6/uL (4.5-5.90); Red Cell Distribution Width 14.5 % (11.8-14.3); White Blood Cell 11.9 10^3/uL (4.4-10.8)
[2025-02-22 18:23] LABS: Rapid Influenza A Negative (Negative)
[2025-02-22 18:24] LABS: Basophils % (manual) 0 (0.0-2.0); Blast Cells 0; Metamyelocytes % 0; Myelocytes % 0; Promyelocytes % 0; Reactive Lymphocytes 0
[2025-02-22 18:26] LABS: Rapid Influenza B Positive (Negative)
--- NOTE | 2025-02-22 18:26 | CONS ---
Pharmacy Clinical Information: HEPARIN PER PHARMACY PROTOCOL HEPARIN BOLUS FOR ACS 3500UNITS STARTING RATE 700UNITS/HR (STARTED @1810) APTT ORDERED FOR 0000 RN ADAM HINKLE PHARMACIST Feb 22, 2025 18:26
[2025-02-22 18:38] LABS: INR 1.42 (0.9-1.15); Partial Thromboplastin Time 35.4 SEC (24.5-34.5); Prothrombin Time 14.5 sec (9.3-11.8)
[2025-02-22 18:45] LABS: Band Neutrophils % (manual) 11; Eosinophils % (manual) 1 (0-7); Lymphocytes % (manual) 6 (10.0-50.0); Monocytes % (manual) 5 (0-12); Platelet Estimate Decreased
[2025-02-22] MEDS: ATORVASTATIN 20 MG TAB PO SCH (21:44)
--- NOTE | 2025-02-22 23:39 | DVHSR ---
APPROVED REPORT EXAM: Two-dimensional and M-mode echocardiogram with Doppler and color Doppler. Blood Pressure: 106/52 mmHg INDICATION Syncope Surgery/Intervention Valve Replacement: Mechanical Type: MV RISK FACTORS Height: 5'5", Weight: 130 DIMENSIONS LVDd5.6 (3.8-5.7cm)LA (2D)4.8 (1.9-4.0cm)Aortic Root3.5 (2.0-3.7cm) LVDs4.6 (2.5-4.0cm)LA (MM) (1.9-4.0cm)Aortic Cusp Exc1.5 (1.5-2.0cm) EF (%) 35.0 (55-70%)Rt. Atrium3.9 (1.9-4.0cm)Asc. Aorta cm IVSd1.0 (0.7-1.1cm)RV (D)4.6 (1.8-2.4cm) PWd0.9 (0.7-1.1cm) Mitral Valve MitralMitral Stenosis E wave1.97m/sMV Mean GR.11mmHg A wave2.04m/sMV Peak GR.17mmHg E/A ratio1.02D MVAcm2 DECEL [id number] 1/2 [id number] IVRTmsDop MVA3.08cm2 Aortic Valve Aortic ValveAortic Stenosis V11.02m/Serafin Mean GR.6mmHg V21.68m/Serafin Peak GR.11mmHg LVOT Diameter2.0 (1.8-2.4cm)Doppler AVA1.91cm2 AI P 1/2 Ppmk051.59ms Tricuspid Valve TR Velocity2.93m/s [id number] Other Information Technically limited study due to body habitus and valve replacement. Conclusion MODERATELY DILATED LV MODERATE DEGREE GLOBAL LV HYPOKINESIS LV EF IS 35% AND IS REDUCED PROSTHETIC MV FUNCTIONING WELL NO VEGETATION OR THROMBUS MODERATELY DILATED LA AND RV NO EFFUSION MODERATE DEGREE PULMONARY HYPERTENSION
[2025-02-23] VITALS (13 sets, daily range): BP systolic 115–126; BP diastolic 45–71; PULSE 67–97; RESP 17–20; TEMP 98.1–98.6; O2SAT 93–99
[2025-02-23 01:29] LABS: INR 1.48 (0.9-1.15); Prothrombin Time 15.1 sec (9.3-11.8)
[2025-02-23] MEDS: HEPARIN DRIP/D5W 100UNITS/ML 250 ML IV SCH (03:05)
[2025-02-23 06:21] LABS: Basophils # (auto) 0 10 ^3/uL (0-0.2); Basophils % (auto) 0.2 % (0.0-2.0); Eosinophils # (auto) 0.1 10 ^3/uL (0-0.8); Eosinophils % (auto) 1.1 % (0.0-7.0); Hematocrit 31.1 % (41.0-53.0); Hemoglobin 10.7 g/dL (13.5-17.5); Lymphocytes # (auto) 0.6 10 ^3/uL (0.4-5.4); Lymphocytes % (auto) 4.9 % (10.0-50.0); Mean Corpuscular Hemoglobin 30.4 pg (28.0-32.0); Mean Corpuscular Hgb Conc. 34.3 g/dL (32.0-36.0); Mean Corpuscular Volume 88.7 fL (80.0-100.0); Monocytes # (auto) 0.5 10 ^3/uL (0-1.3); Monocytes % (auto) 4.4 % (0.0-12.0); Neutrophils % (auto) 89.4 % (37.0-80.0); Platelet Count (auto) 71 10^3/uL (140-450); Red Blood Cells 3.51 10^6/uL (4.5-5.90); Red Cell Distribution Width 14.7 % (11.8-14.3); White Blood Cell 12.3 10^3/uL (4.4-10.8)
[2025-02-23 06:48] LABS: Albumin 3.3 g/dL (3.2-4.8); Alkaline Phosphatase 75 U/L (46-116); Anion Gap 11 (5-15); BUN/Creatinine Ratio 25.9 (10.0-20.0); Bilirubin, Total 0.6 mg/dL (0.2-1.0); Carbon Dioxide 21 mmol/L (20-31); Chloride 106 mmol/L (98-107); Glucose 105 mg/dL (74-106); Potassium 4.5 mmol/L (3.5-5.1); Sodium 138 mmol/L (136-145)
[2025-02-23 06:49] LABS: Alanine Aminotransferase 49 U/L (7-40); Aspartate Aminotransferase 94 U/L (<34); Blood Urea Nitrogen 57 mg/dL (9-23); Calcium 8.1 mg/dL (8.7-10.4); Total Protein 5.6 g/dL (5.7-8.2)
--- NOTE | 2025-02-23 09:36 | DVH ---
EXAM: XY CHEST PORTABLE Indication: shortness of breath Technique: Single frontal view of the chest was obtained Comparison: XY CHEST PORTABLE on DOS: 02/22/25 FINDINGS: Lines and Tubes: None Lungs: No focal consolidation. Pleura: No effusion. No pneumothorax. Cardiomediastinal contours: Unremarkable. Atherosclerotic vascular calcifications of the thoracic ao rta are noted. Valvular device projects over the mediastinum. Bones: No acute osseous abnormality. IMPRESSION: No acute cardiopulmonary disease.
[2025-02-23] MEDS: ASPirin 81 mg TAB PO SCH (09:52)
[2025-02-23] MEDS ORDERED: HYDROcodone-ACET 5/325MG TAB PO PRN ×2 (11:00→16:45)
[2025-02-23] MEDS: ALBUTEROL SULF 2.5 MG/0.5ML(0.5%) NEB SOLN NEB SCH (11:19)
[2025-02-23] MEDS: IPRATROPIUM BROM 0.5 MG/2.5ML INH SOL NEB SCH (11:19)
--- NOTE | 2025-02-23 11:21 | DVHPN2 ---
Reviewed: Care Plan, H&P, Labs, Medications, Previous Orders, Radiology Changes from previous H/P or p: No Changes Eyes: No Pain, No Vision change, No Conjunctivae inflammation, No Eyelid inflammation, No Other, No Redness ENT: No Ear pain, No Ear discharge, No Nose pain, No Nose discharge, No Nose congestion, No Mouth pain, No Mouth swelling, No Throat pain, No Throat swelling, No Other Cardiovascular: No Chest Pain, No Palpitations, No Orthopnea, No Paroxysmal Noc. Dyspnea, No Edema, No Lt Headedness, No Other Respiratory: No Cough, No Dry, No Shortness of breath, No SOB with excertion, No Wheezing, No Hemoptysis, No Pleuritic Pain, No Sputum, No Other Gastrointestinal: No Nausea, No Vomiting, No Abdominal Pain, No Diarrhea, No Constipation, No Melena, No Hematochezia, No Other Genitourinary: No Dysuria, No Frequency, No Incontinence, No Hematuria, No Retention, No Other Musculoskeletal: No other, No neck pain, No shoulder pain, No arm pain, No back pain, No hand pain, No leg pain, No foot pain Skin: No Rash, No Lesions, No Jaundice, No Bruising, No Other Objective Vitals Vital Signs Date Time Temp Pulse Resp B/P (MAP) Pulse Ox O2 Delivery O2 Flow Rate FiO2 02/23/25 09:30 98.6 97 20 115/45 (68) 96 98.6 02/23/25 08:00 Room Air* 0 21 Intake/Output Intake and Output 02/23/25 07:00 Intake Total 200 ml Output Total 300 ml Balance -100 ml Intake Oral 150 ml IV Total 50 ml Output Urine Total 300 ml # Voids 2 # Bowel Movements 1 Medications Current Medications Medications Dose Ordered Sig/Ophelia Route Start Time Stop Time Status Last Admin Dose Admin Acetaminophen/ Hydrocodone Bitart 1 tab Q4HP PRN PO 02/22/25 09:15 02/22/25 15:20 1 TAB Ondansetron HCl 4 mg Q4HP PRN IV 02/22/25 09:15 Docusate Sodium 100 mg BIDPRN PRN PO 02/22/25 09:15 Acetaminophen 650 mg Q6HP PRN PO 02/22/25 09:15 Morphine Sulfate 2 mg Q4HPRN PRN IV 02/22/25 09:15 02/23/25 01:11 2 MG Nitroglycerin 0.4 mg Q5MINP PRN SL 02/22/25 09:15 Morphine Sulfate 2 mg Q30M PRN IV 02/22/25 09:15 Carvedilol 12.5 mg BID PO 02/22/25 10:00 Hold Hydralazine HCl 25 mg TID PO 02/22/25 14:00 02/23/25 05:20 25 MG Atorvastatin Calcium 40 mg HS PO 02/22/25 22:00 02/22/25 21:44 40 MG Patient Own Medication 1 tab DAILY PO 02/22/25 10:00 Ceftriaxone Sodium 50 ml @ 100 mls/hr DAILY@09 IV 02/22/25 10:00 02/23/25 09:52 100 MLS/HR Aspirin 81 mg DAILY PO 02/23/25 10:00 02/23/25 09:52 81 MG Heparin Sodium/ Dextrose 250 ml @ 4 mls/hr Q24H IV 02/23/25 03:00 02/23/25 03:05 4 MLS/HR Ipratropium [place] 0.5 mg Q6HWA NEB 02/23/25 12:00 Albuterol 2.5 mg Q6HWA NEB 02/23/25 12:00 Acetaminophen/ Hydrocodone Bitart 1 tab Q6HPRN PRN PO 02/23/25 11:00 UNV Lidocaine 1 patch DAILY TOP 02/24/25 10:00 UNV Laboratory Results Laboratory Tests 02/23/25 05:02 Chemistry Test 02/22/25 15:15 02/23/25 05:02 Albumin 3.4 g/dL (3.2-4.8) 3.3 g/dL (3.2-4.8) Calcium Level 8.3 mg/dL (8.7-10.4) L 8.1 mg/dL (8.7-10.4) L Total Protein 5.5 g/dL (5.7-8.2) L 5.6 g/dL (5.7-8.2) L Coagulation Test 02/22/25 18:03 02/23/25 00:44 Prothrombin Time 14.5 sec (9.3-11.8) H 15.1 sec (9.3-11.8) H Prothrombin Time INR 1.42 (0.9-1.15) H 1.48 (0.9-1.15) H Activated Partial Thromboplast Time 35.4 SEC (24.5-34.5) H 129.0 SEC (24.5-34.5) *H LFT Test 02/22/25 15:15 02/23/25 05:02 Alanine Aminotransferase (ALT) 32 U/L (7-40) 49 U/L (7-40) H Alkaline Phosphatase 59 U/L (46-116) 75 U/L (46-116) Aspartate Amino Transferase (AST) 64 U/L (<34) H 94 U/L (<34) H Total Bilirubin 0.8 mg/dL (0.2-1.0) 0.6 mg/dL (0.2-1.0) Urinalysis Test 02/22/25 10:43 Urine Color Light-orange (Yellow) Urine Clarity Turbid (Clear) H Urine pH 5.5 (5.0-9.0) Urine Specific [place] 1.023 (1.001-1.035) Urine Protein 1+ (Negative) H Urine Ketones Trace (Negative) Urine Blood 2+ /uL (Negative) H Urine Nitrite Negative (Negative) Urine Bilirubin Negative (Negative) Urine Urobilinogen Normal mg/dL (Negative) Urine Leukocyte Esterase Negative /uL (Negative) Urine RBC 64 /hpf (0 - 3) Urine Microscopic WBC 5 /HPF (0-3) H Urine Squamous Epithelial Cells Few /hpf (<5) Urine Bacteria Few /hpf (None Seen) H Urine Glucose Normal mg/dL (Normal) Microbiology Microbiology Date/Time Source Procedure Growth Status 02/22/25 04:05 Blood Blood Culture - Preliminary Resulted Labs and/or images reviewed: Labs reviewed by me, Image(s) reviewed by me Assessment/Plan Assessment/Plan Syncope Type B influenza: Tamiflu Sepsis secondary to community-acquired pneumonia: Rocephin azithromycin NSTEMI type 1 versus type 2: Cardiology consult by Dr. Benjamin appreciated on heparin S/p mechanical fall History of congestive heart failure S/p mechanical mitral valve on Coumadin Right shoulder pain status post mechanical fall: X-ray neg: [place] Essential hypertension History of CABG History of CVA Dehydration Will check D-dimer CT head negative Carotid ultrasound negative Chest x-ray negative Right shoulder x-ray negative Plan discussed with: Patient Date of Service: Feb 23, 2025 Billing Provider: WOLFGANG SANTIAGO MD Common Visit Codes: [id number] INP/OBS CARE(HIGH) WOLFGANG SANTIAGO MD Feb 23, 2025 11:21
[2025-02-23 11:44] LABS: INR 1.37 (0.9-1.15); Prothrombin Time 14.1 sec (9.3-11.8)
--- NOTE | 2025-02-23 15:33 | DVHPNRES ---
Progress Note Date Seen: Feb 23, 2025 Resident Creating Document: COLLETTE REHMAN RESIDENT Medical Necessity Reason Pt with a Central, PICC or Fol: No Subjective Review of Systems Patient seen and examined at bedside. Denies any new complaints. Continues to complain of pain in the right shoulder and dyspnea. Objective vital signs Vital Sign Date Time Temp Pulse Resp B/P (MAP) Pulse Ox O2 Delivery O2 Flow Rate FiO2 02/23/25 14:38 98.6 75 18 117/46 97 2.0 98.6 02/23/25 11:15 Nasal Cannula 02/23/25 11:15 28 Total Intake and Output 02/22/25 02/22/25 02/23/25 15:00 23:00 07:00 Intake Total 50 ml 150 ml Output Total 300 ml Balance 50 ml -150 ml medications Current Medications Medications Dose Ordered Sig/Ophelia Route Start Time Stop Time Status Last Admin Dose Admin Acetaminophen/ Hydrocodone Bitart 1 tab Q4HP PRN PO 02/22/25 09:15 02/22/25 15:20 1 TAB Ondansetron HCl 4 mg Q4HP PRN IV 02/22/25 09:15 Docusate Sodium 100 mg BIDPRN PRN PO 02/22/25 09:15 Acetaminophen 650 mg Q6HP PRN PO 02/22/25 09:15 Morphine Sulfate 2 mg Q4HPRN PRN IV 02/22/25 09:15 Hold 02/23/25 01:11 2 MG Nitroglycerin 0.4 mg Q5MINP PRN SL 02/22/25 09:15 Morphine Sulfate 2 mg Q30M PRN IV 02/22/25 09:15 Carvedilol 12.5 mg BID PO 02/22/25 10:00 Hold Hydralazine HCl 25 mg TID PO 02/22/25 14:00 02/23/25 14:15 25 MG Atorvastatin Calcium 40 mg HS PO 02/22/25 22:00 02/22/25 21:44 40 MG Patient Own Medication 1 tab DAILY PO 02/22/25 10:00 Ceftriaxone Sodium 50 ml @ 100 mls/hr DAILY@09 IV 02/22/25 10:00 02/23/25 09:52 100 MLS/HR Aspirin 81 mg DAILY PO 02/23/25 10:00 02/23/25 09:52 81 MG Heparin Sodium/ Dextrose 250 ml @ 4 mls/hr Q24H IV 02/23/25 03:00 02/23/25 03:05 4 MLS/HR Ipratropium [place] 0.5 mg Q6HWA [facility] 02/23/25 12:00 02/23/25 11:19 0.5 MG Albuterol 2.5 mg Q6HWA [facility] 02/23/25 12:00 02/23/25 11:19 2.5 MG Acetaminophen/ Hydrocodone Bitart 1 tab Q6HPRN PRN PO 02/23/25 11:00 Hold Lidocaine 1 patch DAILY TOP 02/24/25 10:00 Oseltamivir Phosphate 30 mg Q24H PO 02/23/25 22:00 02/28/25 21:59 Examination General Appearance: Cooperative. Well developed. Dry mucous membranes Head Exam: Normal inspection. Bruising noted along right temporal region Neck Exam: Normal inspection. Non-tender. Normal alignment Pulmonary/Respiratory: Chest non-tender. Clear bilateral breath sounds, no crackles, no wheezing. Cardiovascular/Chest: Regular rate and rhythm. No murmurs. No JVD. Peripheral Pulses: 2+ Radial (R). 2+ Radial (L). 2+ Pedal (R). 2+ Pedal (L) Abdominal Exam: Normal bowel sounds. Soft. normal abdomen, no visible veins, Nontender. No hepatospenomegaly. No masses Lower extremities: Trace lower extremity edema Neuro/Mental Status: A&O x4. Coherent. Thoughts/Psych: Normal thought pattern. Appropriate mood and affect. Good judgement and insight Skin Exam: Normal inspection. Normal color. Warm. Dry laboratory and microbiology Laboratory Tests 02/23/25 05:02 Test 02/23/25 05:02 Range/Units Serum Glucose 105 74-106 mg/dL Microbiology Date/Time Source Procedure Growth Status 02/22/25 04:05 Blood Blood Culture - Preliminary Resulted Labs and/or images reviewed: Labs reviewed by me, Image(s) reviewed by me Problem List/Assessment/Plan Problem List/Assessment/Plan NSTEMI likely type 1 S/p mechanical fall Possible upper respiratory tract infection Acute on chronic systolic heart failure with reduced ejection fraction 35% Moderate degree pulmonary hypertension S/p mechanical mitral valve, prosthetic mitral valve functioning well on echocardiogram Essential hypertension History of CABG History of CVA Dehydration Possible pneumonia Questionable sepsis due to above? Subtherapeutic INR 1.49 Plan: Discontinued warfarin 02/22/25 Heparin per pharmacy per [facility] protocol Patient will be scheduled for left and right heart catheterization on Friday02/25/25 after an appropriate washout period since discontinuation of warfarin is achieved Due to patient having a very high pre-Oswald score, low to minimal IV fluid hydration at 30 cc per hour Nephrology consultation recommended to optimize renal function Negative head CT Echocardiogram Monitor blood pressure We will consider MARTINA considering patient having subtherapeutic INR Pain management Rest of the plan as per course of hospitalization Thank you so much for the opportunity to consult on your patient. Cardiology team will follow the patient. In case of any questions or concerns please feel free to reach out. Plan discussed with Dr. Yousif Plan discussed with: Patient, Other (RN) My Orders My Orders Orders - COLLETTE REHMAN Procedure Category Date Status Time Platelet Monitoring ROBYN 02/22/25 In Process 17:10 Heparin Per ROBYN 02/22/25 In Process Standardized Proce 17:10 Discontinue All Im ROBYN 02/22/25 In Process Injections 17:10 Aspirin Tablet PHA 02/23/25 In Process 10:00 Heparin Drip/D5w PHA 02/23/25 In Process 100units/Ml 03:00 Hydrocodone-Acet PHA 02/23/25 In Process 5/325mg Tab ([place] 11:00 Lidocaine 5% Topical PHA 02/24/25 In Process Patch (Lidoderm 5% 10:00 PTPTT LAB 02/23/25 Logged 17:00 Heparin Per Pharmacy ROBYN 02/23/25 In Process Protocol 11:56 Visit Coding Cardiology RES Date of Service: Feb 23, 2025 Billing Provider: ALLEN YOUSIF Sr., MD Cardiology Common Codes: [id number] HOSP CARE(COLLETTE Arauz Feb 23, 2025 15:33
[2025-02-23] MEDS: SODIUM CHLORIDE 0.9% 1,000 ML IV SCH (16:21)
[2025-02-23 17:37] LABS: INR 1.29 (0.9-1.15); Partial Thromboplastin Time 51.9 SEC (24.5-34.5); Prothrombin Time 13.3 sec (9.3-11.8)
[2025-02-23] MEDS: OSELTAMIVIR 30 MG CAP PO SCH (22:06)
[2025-02-23 23:38] LABS: INR 1.25 (0.9-1.15)
[2025-02-24] VITALS (15 sets, daily range): BP systolic 113–134; BP diastolic 35–51; PULSE 68–81; RESP 18–19; TEMP 97.6–98.3; O2SAT 95–100
[2025-02-24 06:29] LABS: Basophils # (auto) 0 10 ^3/uL (0-0.2); Basophils % (auto) 0.5 % (0.0-2.0); Eosinophils # (auto) 0.2 10 ^3/uL (0-0.8); Eosinophils % (auto) 2.7 % (0.0-7.0); Hemoglobin 9.7 g/dL (13.5-17.5); Lymphocytes # (auto) 0.9 10 ^3/uL (0.4-5.4); Lymphocytes % (auto) 10.9 % (10.0-50.0); Mean Corpuscular Hemoglobin 30.5 pg (28.0-32.0); Mean Corpuscular Hgb Conc. 34.6 g/dL (32.0-36.0); Mean Corpuscular Volume 88.1 fL (80.0-100.0); Monocytes % (auto) 12.2 % (0.0-12.0); Neutrophils # (auto) 5.9 10 ^3/uL (1.6-8.6); Neutrophils % (auto) 73.7 % (37.0-80.0); Platelet Count (auto) 72 10^3/uL (140-450); Red Blood Cells 3.18 10^6/uL (4.5-5.90); Red Cell Distribution Width 14.8 % (11.8-14.3)
[2025-02-24 06:46] LABS: Alkaline Phosphatase 77 U/L (46-116); Anion Gap 9 (5-15); BUN/Creatinine Ratio 33.2 (10.0-20.0); Bilirubin, Total 0.6 mg/dL (0.2-1.0); Carbon Dioxide 21 mmol/L (20-31); Glucose 102 mg/dL (74-106); Sodium 138 mmol/L (136-145)
[2025-02-24 06:47] LABS: Alanine Aminotransferase 65 U/L (7-40); Albumin 2.9 g/dL (3.2-4.8); Aspartate Aminotransferase 84 U/L (<34); Blood Urea Nitrogen 61 mg/dL (9-23); Calcium 7.9 mg/dL (8.7-10.4); Chloride 108 mmol/L (98-107)
[2025-02-24 07:11] LABS: INR 1.23 (0.9-1.15); Partial Thromboplastin Time 46.7 SEC (24.5-34.5); Prothrombin Time 12.8 sec (9.3-11.8)
--- NOTE | 2025-02-24 07:45 | CONS ---
Pharmacy Clinical Information: INCREASED HEP DRIP FROM 4ML/HR TO 600 UNITS/HR OR 6 ML/HR SINCE APTT = 46.7 @0505 02/24 PER RX PROTOCOL. NEXT APTT CRISSY @1100 02/24 AMANDA HOBBS AWARE AND REPEATED ORDER BACK 6 ML/HR CURRENT RATE AND WILL TRY AGAIN TO LET MD KNOW LOW PLT/HCT/HGB LEVELS. HASN'T RETURNED HER MSG FROM YESTERDAY. JOBY DICKINSON PHARMACIST Feb 24, 2025 07:45
[2025-02-24] MEDS: HEPARIN DRIP/D5W 100UNITS/ML 250 ML IV SCH ×2 (07:49→18:42)
--- NOTE | 2025-02-24 08:09 | DVHPN2 ---
Reviewed: Care Plan, H&P, Labs, Medications, Previous Orders, Radiology Changes from previous H/P or p: No Changes Eyes: No Pain, No Vision change, No Conjunctivae inflammation, No Eyelid inflammation, No Other, No Redness ENT: No Ear pain, No Ear discharge, No Nose pain, No Nose discharge, No Nose congestion, No Mouth pain, No Mouth swelling, No Throat pain, No Throat swelling, No Other Cardiovascular: No Chest Pain, No Palpitations, No Orthopnea, No Paroxysmal Noc. Dyspnea, No Edema, No Lt Headedness, No Other Respiratory: No Cough, No Dry, No Shortness of breath, No SOB with excertion, No Wheezing, No Hemoptysis, No Pleuritic Pain, No Sputum, No Other Gastrointestinal: No Nausea, No Vomiting, No Abdominal Pain, No Diarrhea, No Constipation, No Melena, No Hematochezia, No Other Genitourinary: No Dysuria, No Frequency, No Incontinence, No Hematuria, No Retention, No Other Musculoskeletal: No other, No neck pain, No shoulder pain, No arm pain, No back pain, No hand pain, No leg pain, No foot pain Skin: No Rash, No Lesions, No Jaundice, No Bruising, No Other Objective Vitals Vital Signs Date Time Temp Pulse Resp B/P (MAP) Pulse Ox O2 Delivery O2 Flow Rate FiO2 02/24/25 07:45 76 19 100 02/24/25 07:39 Nasal Cannula* 2 28 02/24/25 05:21 121/46 02/24/25 05:00 98.1 98.1 Intake/Output Intake and Output 02/24/25 07:00 Intake Total 834 ml Output Total 550 ml Balance 284 ml Intake Oral 740 ml IV Total 94 ml Output Urine Total 550 ml # Voids 4 # Bowel Movements 1 Medications Current Medications Medications Dose Ordered Sig/Ophelia Route Start Time Stop Time Status Last Admin Dose Admin Ondansetron HCl 4 mg Q4HP PRN IV 02/22/25 09:15 Docusate Sodium 100 mg BIDPRN PRN PO 02/22/25 09:15 Acetaminophen 650 mg Q6HP PRN PO 02/22/25 09:15 Nitroglycerin 0.4 mg Q5MINP PRN SL 02/22/25 09:15 Morphine Sulfate 2 mg Q30M PRN IV 02/22/25 09:15 Carvedilol 12.5 mg BID PO 02/22/25 10:00 Hold Hydralazine HCl 25 mg TID PO 02/22/25 14:00 02/24/25 05:21 25 MG Atorvastatin Calcium 40 mg HS PO 02/22/25 22:00 02/23/25 22:10 40 MG Patient Own Medication 1 tab DAILY PO 02/22/25 10:00 Ceftriaxone Sodium 50 ml @ 100 mls/hr DAILY@09 IV 02/22/25 10:00 02/23/25 09:52 100 MLS/HR Aspirin 81 mg DAILY PO 02/23/25 10:00 02/23/25 09:52 81 MG Ipratropium [place] 0.5 mg Q6HWA [facility] 02/23/25 12:00 02/24/25 07:39 0.5 MG Albuterol 2.5 mg Q6HWA [facility] 02/23/25 12:00 02/24/25 07:39 2.5 MG Lidocaine 1 patch DAILY TOP 02/24/25 10:00 Oseltamivir Phosphate 30 mg Q24H PO 02/23/25 22:00 02/28/25 21:59 02/23/25 22:06 30 MG Sodium Chloride 1,000 ml @ 30 mls/hr Q24H IV 02/23/25 16:00 Hold 02/23/25 16:21 30 MLS/HR Acetaminophen/ Hydrocodone Bitart 1 tab Q4HP PRN PO 02/23/25 16:45 Acetaminophen/ Hydrocodone Bitart 1 tab Q6HPRN PRN PO 02/23/25 16:45 Heparin Sodium/ Dextrose 250 ml @ 6 mls/hr Q24H IV 02/24/25 07:45 02/24/25 07:49 6 MLS/HR Laboratory Results Laboratory Tests 02/24/25 05:05 Chemistry Test 02/24/25 05:05 Albumin 2.9 g/dL (3.2-4.8) L Calcium Level 7.9 mg/dL (8.7-10.4) L Total Protein 5.0 g/dL (5.7-8.2) L Coagulation Test 02/23/25 10:56 02/23/25 17:16 02/23/25 23:04 02/24/25 05:05 Prothrombin Time 14.1 sec (9.3-11.8) H 13.3 sec (9.3-11.8) H 13.0 sec (9.3-11.8) H 12.8 sec (9.3-11.8) H Prothrombin Time INR 1.37 (0.9-1.15) H 1.29 (0.9-1.15) H 1.25 (0.9-1.15) H 1.23 (0.9-1.15) H Activated Partial Thromboplast Time 58.0 SEC (24.5-34.5) H 51.9 SEC (24.5-34.5) H 51.0 SEC (24.5-34.5) H 46.7 SEC (24.5-34.5) H D-Dimer, Quantitative 1.34 mg/L FEU (0.0-0.49) H LFT Test 02/24/25 05:05 Alanine Aminotransferase (ALT) 65 U/L (7-40) H Alkaline Phosphatase 77 U/L (46-116) Aspartate Amino Transferase (AST) 84 U/L (<34) H Total Bilirubin 0.6 mg/dL (0.2-1.0) Urinalysis Test 02/22/25 10:43 Urine Color Light-orange (Yellow) Urine Clarity Turbid (Clear) H Urine pH 5.5 (5.0-9.0) Urine Specific [place] 1.023 (1.001-1.035) Urine Protein 1+ (Negative) H Urine Ketones Trace (Negative) Urine Blood 2+ /uL (Negative) H Urine Nitrite Negative (Negative) Urine Bilirubin Negative (Negative) Urine Urobilinogen Normal mg/dL (Negative) Urine Leukocyte Esterase Negative /uL (Negative) Urine RBC 64 /hpf (0 - 3) Urine Microscopic WBC 5 /HPF (0-3) H Urine Squamous Epithelial Cells Few /hpf (<5) Urine Bacteria Few /hpf (None Seen) H Urine Glucose Normal mg/dL (Normal) Microbiology Microbiology Date/Time Source Procedure Growth Status 02/22/25 04:05 Blood Blood Culture - Preliminary Resulted Labs and/or images reviewed: Labs reviewed by me, Image(s) reviewed by me Assessment/Plan Assessment/Plan Syncope Type B influenza: Tamiflu Sepsis secondary to community-acquired pneumonia: Rocephin azithromycin NSTEMI type 1 versus type 2: Cardiology consult by Dr. Benjamin appreciated on heparin, scheduled for left heart catheterization on 02/25/2025Friday S/p mechanical fall Thrombocytopenia platelets 72 K, will watch Hypoalbuminemia albumin 2.9 History of congestive heart failure S/p mechanical mitral valve on Coumadin Right shoulder pain status post mechanical fall: X-ray neg: [place] Essential hypertension History of CABG History of CVA Dehydration Severe malnutrition Will check D-dimer CT head negative Carotid ultrasound negative Chest x-ray negative Right shoulder x-ray negative Time spent 70 minutes Advanced care planning time 20 mts Patient is full code Plan discussed with: Patient My Orders Orders - WOLFGANG SANTIAGO MD Procedure Category Date Status Time Complete Blood Count LAB 02/25/25 Verified 04:00 Complete Blood Count LAB 02/26/25 Verified 04:00 Comprehensive LAB 02/25/25 Verified Metabolic Panel 04:00 Comprehensive LAB 02/26/25 Verified Metabolic Panel 04:00 Oseltamivir 30mg PHA 02/23/25 In Process Capsule (Tamiflu 30mg 22:00 Date of Service: Feb 24, 2025 Billing Provider: WOLFGANG SANTIAGO MD Common Visit Codes: [id number] CARE 30-74 MIN WOLFGANG SANTIAGO MD Feb 24, 2025 08:09
--- NOTE | 2025-02-24 09:22 | DVH ---
Bilateral lower extremity venous duplex Clinical History: Rule out DVT; edema Comparison: None Technique: Duplex Doppler evaluation of the deep venous systems of both lower extremities from the common femora l veins to the popliteal veins including color Doppler and spectral/pulsed waveform analysis was perf ormed. Findings: RIGHT SIDE: The common femoral vein demonstrates appropriate compressibility and waveform variability. There is compressibility/patency of the great saphenous vein at the proximal thigh. The femoral vein demonstrates appropriate compressibility and waveform variability. The deep femoral vein demonstrates appropriate compressibility and waveform variability. The popliteal vein demonstrates appropriate compressibility and waveform variability. There is normal compressibility at the tibioperoneal trunk. LEFT SIDE: The common femoral vein demonstrates appropriate compressibility and waveform variability. There is compressibility/patency of the great saphenous vein at the proximal thigh. The femoral vein demonstrates appropriate compressibility and waveform variability. The deep femoral vein demonstrates appropriate compressibility and waveform variability. The popliteal vein demonstrates appropriate compressibility and waveform variability. There is normal compressibility at the tibioperoneal trunk. Impression: No right or left femoropopliteal venous thrombosis.
--- NOTE | 2025-02-24 09:43 | ECG ---
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
[2025-02-24] MEDS: LIDOCAINE 5% TOPICAL PATCH TOP SCH (09:47)
[2025-02-24 11:21] LABS: INR 1.18 (0.9-1.15); Partial Thromboplastin Time 63.6 SEC (24.5-34.5); Prothrombin Time 12.3 sec (9.3-11.8)
--- NOTE | 2025-02-24 11:22 | DVHINCON2 ---
Date of service: Feb 24, [address] Bright Reason for Consultation Acute kidney injury History of Present Illness Patient is a 84-year-old male with past medical history significant for hypertension, hyperlipidemia and CVA is admitted for generalized weakness status post multiple falls at home. On admission patient found to have elevated BUN creatinine nephrology is consulted for acute kidney injury Past Medical History Hypertension, hyperlipidemia, CVA Past Surgical History Unknown Allergies: Coded Allergies: NO KNOWN ALLERGIES (Unverified , 02/22/25) Home Meds Reported Medications Solifenacin Succinate (Solifenacin Succinate) 10 Mg Tab, 1 TAB PO DAILY 02/22/25 Warfarin Sodium (Warfarin Sodium) 7.5 Mg Tab, 1 TAB PO DAILY 02/22/25 Hydralazine HCl (Hydralazine HCl) 25 Mg Tab, 1 TAB PO TID 02/22/25 Atorvastatin Calcium (ATORVASTATIN CALCIUM) 40 Mg Tab, 1 TAB PO HS 02/22/25 Carvedilol (Carvedilol) 12.5 Mg Tab, 1 TAB PO BID 02/22/25 Current Medications Current Medications Medications (Trade) Dose Ordered Sig/Ophelia Route PRN Reason Start Time Stop Time Status Last Admin Lidocaine (Lidoderm 5% Topical Patch) 1 patch DAILY TOP 02/24/25 10:00 02/24/25 09:47 Oseltamivir Phosphate (Tamiflu 30MG Capsule) 30 mg Q24H PO 02/23/25 22:00 02/28/25 21:59 02/23/25 22:06 Sodium Chloride 1,000 ml @ 30 mls/hr Q24H IV 02/23/25 16:00 Hold 02/23/25 16:21 Acetaminophen/ Hydrocodone Bitart ([place] 5/325MG Tab) 1 tab Q4HP PRN PO severe pain (7-10) 02/23/25 16:45 Acetaminophen/ Hydrocodone Bitart ([place] 5/325MG Tab) 1 tab Q6HPRN PRN PO MODERATE PAIN (4-6 PAIN SCALE) 02/23/25 16:45 Heparin Sodium/ Dextrose 250 ml @ 6 mls/hr Q24H IV 02/24/25 07:45 02/24/25 07:49 Family History: Patient reports no known family medical history. Review of Systems All 12 item review of systems reviewed with the patient nonsignificant except what is mentioned in the history of present illness H&P Exam Vital Signs/I&O Vital Sign Date Time Temp Pulse Resp B/P (MAP) Pulse Ox O2 Delivery O2 Flow Rate FiO2 02/24/25 13:48 134/48 02/24/25 12:33 73 18 99 02/24/25 12:27 Nasal Cannula 2.0 02/24/25 12:27 28 02/24/25 09:00 98.3 98.3 Intake and Output 02/23/25 02/24/25 19:00 07:00 Intake Total 450 ml 384 ml Output Total 550 ml Balance 450 ml -166 ml Intake Oral 400 ml 340 ml IV Total 50 ml 44 ml Output Urine Total 550 ml # Voids 4 # Bowel Movements 1 Physical Exam Patient lying comfortably in bed Lungs clear to auscultation bilaterally Cardiac exam regular rate and rhythm GI soft nontender was normal Extremities no clubbing cyanosis or edema Neuro patient is awake and alert Labs/Diagnostic Data Labs/Diagnostic Data Laboratory Tests Test 02/24/25 13:00 02/24/25 10:49 02/24/25 05:05 02/24/25 05:02 Range/Units Urine Color Yellow Yellow Urine Clarity Clear Clear Urine pH 6.0 5.0-9.0 Urine Specific [place] 1.016 1.001-1.035 Urine Protein 1+ H Negative Urine Ketones Negative Negative Urine Blood 1+ H Negative /uL Urine Nitrite Negative Negative Urine Bilirubin Negative Negative Urine Urobilinogen 6 Negative mg/dL Urine Leukocyte Esterase Negative Negative /uL Urine RBC 24 0 - 3 /hpf Urine Microscopic WBC 6 H 0-3 /HPF Urine Squamous Epithelial Cells Few <5 /hpf Urine Bacteria None seen None Seen /hpf Urine Creatinine 62.63 30.0-125.0 mg/dL Urine Protein/Creatinine Ratio 1.14 Urine Sodium 76 40-220 mmol/L Urine Glucose Normal Normal mg/dL Urine Total Protein 71.4 H 1-14 mg/dL Prothrombin Time 12.3 H 12.8 H 9.3-11.8 sec Prothrombin Time INR 1.18 H 1.23 H 0.9-1.15 Activated Partial Thromboplast Time 63.6 H 46.7 H 24.5-34.5 SEC White Blood Count 8.0 # 4.4-10.8 10^3/uL Red Blood Count 3.18 L 4.5-5.90 10^6/uL Hemoglobin 9.7 L 13.5-17.5 g/dL Hematocrit 28.0 L 41.0-53.0 % Mean Corpuscular Volume 88.1 80.0-100.0 fL Mean Corpuscular Hemoglobin 30.5 28.0-32.0 pg Mean Corpuscular Hemoglobin Concent 34.6 32.0-36.0 g/dL Red Cell Distribution Width 14.8 H 11.8-14.3 % Platelet Count 72 L 140-450 10^3/uL Mean Platelet Volume 9.3 6.9-10.8 fL Neutrophils (%) (Auto) 73.7 37.0-80.0 % Lymphocytes (%) (Auto) 10.9 10.0-50.0 % Monocytes (%) (Auto) 12.2 H 0.0-12.0 % Eosinophils (%) (Auto) 2.7 0.0-7.0 % Basophils (%) (Auto) 0.5 0.0-2.0 % Neutrophils # (Auto) 5.9 1.6-8.6 10 ^3/uL Lymphocytes # (Auto) 0.9 0.4-5.4 10 ^3/uL Monocytes # (Auto) 1.0 0-1.3 10 ^3/uL Eosinophils # (Auto) 0.2 0-0.8 10 ^3/uL Basophils # (Auto) 0 0-0.2 10 ^3/uL Nucleated Red Blood Cells 0.0 % Sodium Level 138 136-145 mmol/L Potassium Level 4.0 3.5-5.1 mmol/L Chloride Level 108 H 98-107 mmol/L Carbon Dioxide Level 21 20-31 mmol/L Anion Gap 9 5-15 Blood Urea Nitrogen 61 H 9-23 mg/dL Creatinine 1.84 H 0.700-1.30 mg/dL Glomerular Filtration Rate Calc 35 >90 mL/min BUN/Creatinine Ratio 33.2 H 10.0-20.0 Serum Glucose 102 74-106 mg/dL Calcium Level 7.9 L 8.7-10.4 mg/dL Total Bilirubin 0.6 0.2-1.0 mg/dL Aspartate Amino Transferase (AST) 84 H <34 U/L Alanine Aminotransferase (ALT) 65 H 7-40 U/L Alkaline Phosphatase 77 46-116 U/L Total Protein 5.0 L 5.7-8.2 g/dL Albumin 2.9 L 3.2-4.8 g/dL Vitamin D 25-Hydroxy 27.5 L 30.0-100 ng/mL Parathyroid Hormone (Intact) 153.1 H 18.4-80.1 pg/mL Phosphorus Level 2.7 2.4-5.1 mg/dL Magnesium Level 2.1 1.6-2.6 mg/dL Test 02/23/25 23:04 02/23/25 17:16 02/23/25 10:56 02/23/25 05:02 Range/Units Prothrombin Time 13.0 H 13.3 H 14.1 H 9.3-11.8 sec Prothrombin Time INR 1.25 H 1.29 H 1.37 H 0.9-1.15 Activated Partial Thromboplast Time 51.0 H 51.9 H 58.0 H 24.5-34.5 SEC D-Dimer, Quantitative 1.34 H 0.0-0.49 mg/L FEU White Blood Count 12.3 H 4.4-10.8 10^3/uL Red Blood Count 3.51 L 4.5-5.90 10^6/uL Hemoglobin 10.7 L 13.5-17.5 g/dL Hematocrit 31.1 L 41.0-53.0 % Mean Corpuscular Volume 88.7 80.0-100.0 fL Mean Corpuscular Hemoglobin 30.4 28.0-32.0 pg Mean Corpuscular Hemoglobin Concent 34.3 32.0-36.0 g/dL Red Cell Distribution Width 14.7 H 11.8-14.3 % Platelet Count 71 L 140-450 10^3/uL Mean Platelet Volume 9.6 6.9-10.8 fL Neutrophils (%) (Auto) 89.4 H 37.0-80.0 % Lymphocytes (%) (Auto) 4.9 L 10.0-50.0 % Monocytes (%) (Auto) 4.4 0.0-12.0 % Eosinophils (%) (Auto) 1.1 0.0-7.0 % Basophils (%) (Auto) 0.2 0.0-2.0 % Neutrophils # (Auto) 11.0 H 1.6-8.6 10 ^3/uL Lymphocytes # (Auto) 0.6 0.4-5.4 10 ^3/uL Monocytes # (Auto) 0.5 0-1.3 10 ^3/uL Eosinophils # (Auto) 0.1 0-0.8 10 ^3/uL Basophils # (Auto) 0 0-0.2 10 ^3/uL Nucleated Red Blood Cells 0.0 % Sodium Level 138 136-145 mmol/L Potassium Level 4.5 3.5-5.1 mmol/L Chloride Level 106 98-107 mmol/L Carbon Dioxide Level 21 20-31 mmol/L Anion Gap 11 5-15 Blood Urea Nitrogen 57 #H 9-23 mg/dL Creatinine 2.20 H 0.700-1.30 mg/dL Glomerular Filtration Rate Calc 29 >90 mL/min BUN/Creatinine Ratio 25.9 H 10.0-20.0 Serum Glucose 105 74-106 mg/dL Calcium Level 8.1 L 8.7-10.4 mg/dL Total Bilirubin 0.6 0.2-1.0 mg/dL Aspartate Amino Transferase (AST) 94 H <34 U/L Alanine Aminotransferase (ALT) 49 H 7-40 U/L Alkaline Phosphatase 75 46-116 U/L Troponin I High Sensitivity 1030 *H </=54 ng/L Total Protein 5.6 L 5.7-8.2 g/dL Albumin 3.3 3.2-4.8 g/dL Test 02/23/25 00:44 02/22/25 18:03 02/22/25 16:30 02/22/25 16:10 Range/Units Prothrombin Time 15.1 H 14.5 H 9.3-11.8 sec Prothrombin Time INR 1.48 H 1.42 H 0.9-1.15 Activated Partial Thromboplast Time 129.0 *H 35.4 H 24.5-34.5 SEC White Blood Count 11.9 H 4.4-10.8 10^3/uL Red Blood Count 3.79 L 4.5-5.90 10^6/uL Hemoglobin 11.4 L 13.5-17.5 g/dL Hematocrit 34.0 L 41.0-53.0 % Mean Corpuscular Volume 89.8 80.0-100.0 fL Mean Corpuscular Hemoglobin 30.1 28.0-32.0 pg Mean Corpuscular Hemoglobin Concent 33.5 32.0-36.0 g/dL Red Cell Distribution Width 14.5 H 11.8-14.3 % Platelet Count 80 L 140-450 10^3/uL Mean Platelet Volume 9.4 6.9-10.8 fL Neutrophils (%) (Auto) 37.0-80.0 % Lymphocytes (%) (Auto) 10.0-50.0 % Monocytes (%) (Auto) 0.0-12.0 % Basophils (%) (Auto) 0.0-2.0 % Neutrophils # (Auto) 1.6-8.6 10 ^3/uL Lymphocytes # (Auto) 0.4-5.4 10 ^3/uL Monocytes # (Auto) 0-1.3 10 ^3/uL Differential Total Cells Counted 100.0 100 Neutrophils % (Manual) 77 37.0-80.0 Band Neutrophils % (Manual) 11 Lymphocytes % (Manual) 6 L 10.0-50.0 Monocytes % (Manual) 5 0-12 Eosinophils % (Manual) 1 0-7 Basophils % (Manual) 0 0.0-2.0 Metamyelocytes % (manual) 0 Myelocytes % (Manual) 0 Promyelocytes % (Manual) 0 Blast Cells % (Manual) 0 Reactive Lymphocytes 0 Platelet Estimate Decreased Troponin I High Sensitivity 731 *H 525 *H </=54 ng/L Influenza Type A Antigen Negative Negative Influenza Type B Antigen Positive Negative SARS-CoV-2 Antigen (Rapid) Negative NEGATIVE Test 02/22/25 15:15 02/22/25 11:27 02/22/25 10:43 02/22/25 08:25 Range/Units White Blood Count 14.0 #H 4.4-10.8 10^3/uL Red Blood Count 3.45 L 4.5-5.90 10^6/uL Hemoglobin 10.5 L 11.0 L 13.5-17.5 g/dL Hematocrit 31.2 L 31.6 L 41.0-53.0 % Mean Corpuscular Volume 90.4 80.0-100.0 fL Mean Corpuscular Hemoglobin 30.4 28.0-32.0 pg Mean Corpuscular Hemoglobin Concent 33.6 32.0-36.0 g/dL Red Cell Distribution Width 15.1 H 11.8-14.3 % Platelet Count 70 L 140-450 10^3/uL Mean Platelet Volume 9.1 6.9-10.8 fL Neutrophils (%) (Auto) 89.8 H 37.0-80.0 % Lymphocytes (%) (Auto) 3.9 L 10.0-50.0 % Monocytes (%) (Auto) 5.2 0.0-12.0 % Eosinophils (%) (Auto) 0.6 0.0-7.0 % Basophils (%) (Auto) 0.5 0.0-2.0 % Neutrophils # (Auto) 12.6 H 1.6-8.6 10 ^3/uL Lymphocytes # (Auto) 0.5 0.4-5.4 10 ^3/uL Monocytes # (Auto) 0.7 0-1.3 10 ^3/uL Eosinophils # (Auto) 0.1 0-0.8 10 ^3/uL Basophils # (Auto) 0.1 0-0.2 10 ^3/uL Nucleated Red Blood Cells 0.0 % Sodium Level 140 136-145 mmol/L Potassium Level 4.2 3.5-5.1 mmol/L Chloride Level 110 H 98-107 mmol/L Carbon Dioxide Level 18 L 20-31 mmol/L Anion Gap 12 5-15 Blood Urea Nitrogen 40 H 9-23 mg/dL Creatinine 2.20 H 0.700-1.30 mg/dL Glomerular Filtration Rate Calc 29 >90 mL/min BUN/Creatinine Ratio 18.2 10.0-20.0 Serum Glucose 130 H 74-106 mg/dL Calcium Level 8.3 L 8.7-10.4 mg/dL Total Bilirubin 0.8 0.2-1.0 mg/dL Aspartate Amino Transferase (AST) 64 H <34 U/L Alanine Aminotransferase (ALT) 32 7-40 U/L Alkaline Phosphatase 59 46-116 U/L Troponin I High Sensitivity 490 *H 196 *H </=54 ng/L Total Protein 5.5 L 5.7-8.2 g/dL Albumin 3.4 3.2-4.8 g/dL Urine Color Light-orange Yellow Urine Clarity Turbid H Clear Urine pH 5.5 5.0-9.0 Urine Specific [place] 1.023 1.001-1.035 Urine Protein 1+ H Negative Urine Ketones Trace Negative Urine Blood 2+ H Negative /uL Urine Nitrite Negative Negative Urine Bilirubin Negative Negative Urine Urobilinogen Normal Negative mg/dL Urine Leukocyte Esterase Negative Negative /uL Urine RBC 64 0 - 3 /hpf Urine Microscopic WBC 5 H 0-3 /HPF Urine Squamous Epithelial Cells Few <5 /hpf Urine Bacteria Few H None Seen /hpf Urine Glucose Normal Normal mg/dL Test 02/22/25 06:23 02/22/25 04:04 Range/Units Lactic Acid Level 2.1 *H 3.2 *H 0.4-2.0 mmol/L Troponin I High Sensitivity 144 *H 91 *H </=54 ng/L White Blood Count 6.3 4.4-10.8 10^3/uL Red Blood Count 3.55 L 4.5-5.90 10^6/uL Hemoglobin 11.0 L 13.5-17.5 g/dL Hematocrit 31.4 L 41.0-53.0 % Mean Corpuscular Volume 88.6 80.0-100.0 fL Mean Corpuscular Hemoglobin 30.9 28.0-32.0 pg Mean Corpuscular Hemoglobin Concent 34.9 32.0-36.0 g/dL Red Cell Distribution Width 14.3 11.8-14.3 % Platelet Count 87 L 140-450 10^3/uL Mean Platelet Volume 8.6 6.9-10.8 fL Neutrophils (%) (Auto) 93.6 H 37.0-80.0 % Lymphocytes (%) (Auto) 2.2 L 10.0-50.0 % Monocytes (%) (Auto) 3.9 0.0-12.0 % Eosinophils (%) (Auto) 0.0 0.0-7.0 % Basophils (%) (Auto) 0.3 0.0-2.0 % Neutrophils # (Auto) 5.9 1.6-8.6 10 ^3/uL Lymphocytes # (Auto) 0.1 L 0.4-5.4 10 ^3/uL Monocytes # (Auto) 0.2 0-1.3 10 ^3/uL Eosinophils # (Auto) 0 0-0.8 10 ^3/uL Basophils # (Auto) 0 0-0.2 10 ^3/uL Nucleated Red Blood Cells 0.0 % Prothrombin Time 15.2 H 9.3-11.8 sec Prothrombin Time INR 1.49 H 0.9-1.15 Activated Partial Thromboplast Time 31.5 24.5-34.5 SEC Sodium Level 139 136-145 mmol/L Potassium Level 4.4 3.5-5.1 mmol/L Chloride Level 106 98-107 mmol/L Carbon Dioxide Level 21 20-31 mmol/L Anion Gap 12 5-15 Blood Urea Nitrogen 42 H 9-23 mg/dL Creatinine 2.28 H 0.700-1.30 mg/dL Glomerular Filtration Rate Calc 27 >90 mL/min BUN/Creatinine Ratio 18.4 10.0-20.0 Serum Glucose 117 H 74-106 mg/dL Hemoglobin A1c 5.2 <5.7 % A1C Calcium Level 8.6 L 8.7-10.4 mg/dL B-Type Natriuretic Peptide 544.70 0-100 pg/mL Triglycerides Level 99 < 150 mg/dL Cholesterol Level 91 < 200 mg/dL LDL Cholesterol 46 < 100 mg/dL HDL Cholesterol 22 L 40-59 mg/dL Thyroid Stimulating Hormone (TSH) 1.34 0.55-4.78 uIU/mL Microbiology Date/Time Source Procedure Growth Status 02/22/25 04:05 Blood Blood Culture - Final Klebsiella pneumoniae Complete Assessment Acute kidney injury superimposed Chronic Kidney Disease secondary hemodynamic mediated Generalized weakness Hypertension NSTEMI CVA Anemia of chronic of Kidney disease Thrombocytopenia Elevated liver enzymes Hypoalbuminemia recommendations Closely monitor fluid and electrolytes Avoid nephrotoxic medication Strict I&Os Check urine electrolytes and protein excretion Check kidney ultrasound Blood pressure control Cardiology consult Rule out liver cirrhosis We will continue to follow Patient seen and examined by myself. I discussed my plan of care with the patient and primary nurse at the bedside I would like to thank Dr. Bright for the consult, will follow up Plan discussed with: Patient LESLYE ZARATE MD Feb 24, 2025 11:22
--- NOTE | 2025-02-24 11:36 | DVHPNRES ---
Progress Note Date Seen: Feb 24, 2025 Resident Creating Document: COLLETTE REHMAN RESIDENT Medical Necessity Reason Pt with a Central, PICC or Fol: No Subjective Review of Systems Patient seen and examined at bedside. Reports feeling better compared to yesterday. Improved right shoulder pain since yesterday. Denies any new complaints. Objective vital signs Vital Sign Date Time Temp Pulse Resp B/P (MAP) Pulse Ox O2 Delivery O2 Flow Rate FiO2 02/24/25 09:00 98.3 70 18 124/47 (72) 95 98.3 02/24/25 08:00 Room Air* 0 21 Total Intake and Output 02/23/25 02/23/25 02/24/25 15:00 23:00 07:00 Intake Total 50 ml 400 ml 384 ml Output Total 550 ml Balance 50 ml 400 ml -166 ml medications Current Medications Medications Dose Ordered Sig/Ophelia Route Start Time Stop Time Status Last Admin Dose Admin Ondansetron HCl 4 mg Q4HP PRN IV 02/22/25 09:15 Docusate Sodium 100 mg BIDPRN PRN PO 02/22/25 09:15 Acetaminophen 650 mg Q6HP PRN PO 02/22/25 09:15 Nitroglycerin 0.4 mg Q5MINP PRN SL 02/22/25 09:15 Morphine Sulfate 2 mg Q30M PRN IV 02/22/25 09:15 Carvedilol 12.5 mg BID PO 02/22/25 10:00 Hold Hydralazine HCl 25 mg TID PO 02/22/25 14:00 02/24/25 05:21 25 MG Atorvastatin Calcium 40 mg HS PO 02/22/25 22:00 02/23/25 22:10 40 MG Patient Own Medication 1 tab DAILY PO 02/22/25 10:00 Ceftriaxone Sodium 50 ml @ 100 mls/hr DAILY@09 IV 02/22/25 10:00 02/24/25 08:56 100 MLS/HR Aspirin 81 mg DAILY PO 02/23/25 10:00 02/23/25 09:52 81 MG Ipratropium [place] 0.5 mg Q6HWA NEB 02/23/25 12:00 02/24/25 07:39 0.5 MG Albuterol 2.5 mg Q6HWA NEB 02/23/25 12:00 02/24/25 07:39 2.5 MG Lidocaine 1 patch DAILY TOP 02/24/25 10:00 02/24/25 09:47 1 PATCH Oseltamivir Phosphate 30 mg Q24H PO 02/23/25 22:00 02/28/25 21:59 02/23/25 22:06 30 MG Sodium Chloride 1,000 ml @ 30 mls/hr Q24H IV 02/23/25 16:00 Hold 02/23/25 16:21 30 MLS/HR Acetaminophen/ Hydrocodone Bitart 1 tab Q4HP PRN PO 02/23/25 16:45 Acetaminophen/ Hydrocodone Bitart 1 tab Q6HPRN PRN PO 02/23/25 16:45 Heparin Sodium/ Dextrose 250 ml @ 6 mls/hr Q24H IV 02/24/25 07:45 02/24/25 07:49 6 MLS/HR Examination General Appearance: Cooperative. Well developed. Dry mucous membranes Head Exam: Normal inspection. Bruising noted along right temporal region Neck Exam: Normal inspection. Non-tender. Normal alignment Pulmonary/Respiratory: Chest non-tender. Expiratory wheezes Cardiovascular/Chest: Regular rate and rhythm. No murmurs. No JVD. Peripheral Pulses: 2+ Radial (R). 2+ Radial (L). 2+ Pedal (R). 2+ Pedal (L) Abdominal Exam: Normal bowel sounds. Soft. normal abdomen, no visible veins, Nontender. No hepatospenomegaly. No masses Lower extremities: No lower extremity edema Neuro/Mental Status: A&O x4. Coherent. Thoughts/Psych: Normal thought pattern. Appropriate mood and affect. Good judgement and insight Skin Exam: Normal inspection. Normal color. Warm. 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 Subtherapeutic INR 1.49 Plan: Discontinued warfarin 02/22/25 Heparin per pharmacy per ACS protocol Patient will be scheduled for left and right heart catheterization on Friday02/25/25 after an appropriate washout period since discontinuation of warfarin is achieved Due to patient having a very high pre-Oswald score, low to minimal IV fluid hydration at 30 cc per hour currently holding Nephrology consultation recommended to optimize renal function Negative head CT Echocardiogram Monitor blood pressure We will consider MARTINA considering patient having subtherapeutic INR Pain management Rest of the plan as per course of hospitalization Thank you so much for the opportunity to consult on your patient. Cardiology team will follow the patient. In case of any questions or concerns please feel free to reach out. Plan discussed with Dr. Yousif Plan discussed with: Patient, Other (RN) My Orders My Orders Orders - COLLETTE REHMAN RESIDENT Procedure Category Date Status Time Heparin Per Pharmacy ROBYN 02/23/25 In Process Protocol 11:56 Sodium Chloride 0.9% PHA 02/23/25 In Process 16:00 Hydrocodone-Acet PHA 02/23/25 In Process 5/325mg Tab ([place] 16:45 Heparin Per Pharmacy ROBYN 02/23/25 In Process Protocol 18:28 Heparin Drip/D5w PHA 02/24/25 In Process 100units/Ml 07:45 Heparin Per Pharmacy ROBYN 02/24/25 In Process Protocol 07:41 Npo Except For ROBYN 02/25/25 In Process Medications 00:01 Obtain Consent For: ORDERS 02/24/25 Transmitted 08:05 Hold Enoxaparin Day [facility] 02/25/25 In Process Of Procedu 00:01 D/C Tlc [facility] 02/24/25 In Process 08:05 Shave Both Groins [facility] 02/24/25 In Process 08:05 Provide Education [facility] 02/24/25 In Process Materials 08:05 Cl Left Heart Cath CL 02/24/25 Logged 08:05 Cl Right Heart CL 02/24/25 Logged Catherization 08:05 Npo (Nothing By DIET 02/25/25 Transmitted Mouth) Diet Breakfast Obtain Consent For ROBYN 02/24/25 In Process Anesthesia 08:05 2 Gm Sodium Diet DIET 02/24/25 Transmitted Lunch Visit Coding Cardiology RES Date of Service: Feb 24, 2025 Billing Provider: ALLEN YOUSIF Sr., MD Cardiology Common Codes: 60061-[id number] HOSP CARE(COLLETTE Arauz RESIDENT Feb 24, 2025 11:36
[2025-02-24] MEDS: ACETAMINOPHEN 325 MG TAB PO PRN (12:46)
[2025-02-24 13:00] LABS: Urine Bacteria None Seen /hpf (None Seen)
[2025-02-24 13:14] LABS: Magnesium 2.1 mg/dL (1.6-2.6)
[2025-02-24 13:14] LABS: Urine Blood 1+ /uL (Negative); Urine Clarity Clear (Clear); Urine Color Yellow (Yellow); Urine Protein, UAD 1+ (Negative); Urine Specific Gravity 1.016 (1.001-1.035); Urine Squamous Epithelial Cell FEW /hpf (<5); Urine Urobilinogen 6 mg/dL (Negative); Urine WBC 6 /HPF (0-3)
[2025-02-24 13:16] LABS: Phosphorus 2.7 mg/dL (2.4-5.1)
[2025-02-24 13:24] LABS: Protein, Urine 71.4 mg/dL (1-14)
[2025-02-24 13:27] LABS: Creatinine, Urine 61.7 mg/dL (30.0-125.0); Creatinine, Urine 62.63 mg/dL (30.0-125.0); Urine Protein/Creatinine Ratio 1.14
--- NOTE | 2025-02-24 13:46 | DVH ---
INDICATION: quang TECHNIQUE: Multiple real-time sonographic images of the kidneys and bladder were obtained. COMPARISON: None FINDINGS: The right kidney measures 10 cm in length, which is normal in size. No hydronephrosis. The re is increased echogenicity of the right kidney. The left kidney measures 11 cm in length, which is normal in size. There is increased echogenicity of the left kidney. No hydronephrosis. There is a left renal stone measuring 1 cm. Possible bladder mass measures 1.4 cm. Prior to voiding the bladder volume measures volume 245 cc. IMPRESSION: Echogenic bilateral kidneys suggestive of chronic medical renal disease. No hydronephrosis. Possible bladder mass measuring 1.4 cm. Further evaluation with cystoscopy or CT cystogram is recommended.
--- NOTE | 2025-02-24 13:47 | DVH ---
EXAM: XY CHEST PORTABLE Indication: wheezes Technique: Single frontal view of the chest was obtained Comparison: XY CHEST PORTABLE on DOS: 02/23/25, XY CHEST PORTABLE on DOS: 02/22/25 FINDINGS: Lines and Tubes: None Lungs: No focal consolidation. Bibasilar opacities. Low lung volumes. Pleura: No effusion. No pneumothorax. Cardiomediastinal contours: Unremarkable. Atherosclerotic vascular calcifications of the thoracic ao rta are noted. Valvular device projects over the mediastinum Bones: No acute osseous abnormality. IMPRESSION: No significant change compared to prior exam.
[2025-02-24 17:31] LABS: INR 1.14 (0.9-1.15); Partial Thromboplastin Time 47.5 SEC (24.5-34.5); Prothrombin Time 11.9 sec (9.3-11.8)
--- NOTE | 2025-02-24 18:07 | CONS ---
Pharmacy Clinical Information: INCREASE HEPARIN DRIP RATE TO 800 UNITS/HR PER APTT OF 47.5 NEXT APTT DRAW SCHEDULED @ 0000 ON 02/25 PER RX PROTOCOL ANJEL PATEL CONFIRMED AND READ BACK Lisa Massey PHARMACIST Feb 24, 2025 18:07
[2025-02-25] VITALS (16 sets, daily range): BP systolic 125–147; BP diastolic 46–78; PULSE 61–176; RESP 12–20; TEMP 97.9–98.7; O2SAT 90–100
[2025-02-25 01:05] LABS: INR 1.14 (0.9-1.15); Partial Thromboplastin Time 60.9 SEC (24.5-34.5); Prothrombin Time 11.9 sec (9.3-11.8)
[2025-02-25 06:37] LABS: Basophils # (auto) 0 10 ^3/uL (0-0.2); Basophils % (auto) 0.5 % (0.0-2.0); Eosinophils # (auto) 0.4 10 ^3/uL (0-0.8); Eosinophils % (auto) 4.9 % (0.0-7.0); Hematocrit 28.1 % (41.0-53.0); Hemoglobin 9.9 g/dL (13.5-17.5); Lymphocytes # (auto) 0.7 10 ^3/uL (0.4-5.4); Lymphocytes % (auto) 9.2 % (10.0-50.0); Mean Corpuscular Hemoglobin 31.1 pg (28.0-32.0); Mean Corpuscular Hgb Conc. 35.1 g/dL (32.0-36.0); Mean Corpuscular Volume 88.6 fL (80.0-100.0); Monocytes # (auto) 1.2 10 ^3/uL (0-1.3); Neutrophils # (auto) 5.7 10 ^3/uL (1.6-8.6); Neutrophils % (auto) 70.4 % (37.0-80.0); Nucleated Red Blood Cells % 0.1 %; Platelet Count (auto) 81 10^3/uL (140-450); Red Blood Cells 3.17 10^6/uL (4.5-5.90); White Blood Cell 8.1 10^3/uL (4.4-10.8)
[2025-02-25 06:46] LABS: Alkaline Phosphatase 82 U/L (46-116); Anion Gap 9 (5-15); BUN/Creatinine Ratio 34.9 (10.0-20.0); Carbon Dioxide 21 mmol/L (20-31); Glucose 101 mg/dL (74-106); Potassium 4.4 mmol/L (3.5-5.1); Sodium 140 mmol/L (136-145)
[2025-02-25 06:47] LABS: Bilirubin, Total 0.6 mg/dL (0.2-1.0)
[2025-02-25 06:49] LABS: Alanine Aminotransferase 68 U/L (7-40); Albumin 2.8 g/dL (3.2-4.8); Aspartate Aminotransferase 58 U/L (<34); Blood Urea Nitrogen 53 mg/dL (9-23); Calcium 8.4 mg/dL (8.7-10.4); Chloride 110 mmol/L (98-107); INR 1.15 (0.9-1.15); Partial Thromboplastin Time 56.9 SEC (24.5-34.5); Total Protein 4.6 g/dL (5.7-8.2)
--- NOTE | 2025-02-25 08:01 | ECG ---
[facility] Test Date: 2025-02-25 Test Time: 06:07:23 Pat Name: SAMUEL BAH Department: Room: 0206T A Gender: M Data Analysis Assistant: [place] : [id number] Requested By: WOLFGANG SANTIAGO Order Number: [id number] Reading MD: Jaiden Grier Measurements Intervals [place] Rate: 73 P: -5 VA: 220 QRS: 67 QRSD: 119 T: -8 QT: 420 QTc: 463 Interpretive Statements Sinus rhythm Prolonged VA interval Nonspecific intraventricular conduction delay Borderline repolarization abnormality Electronically Signed On 02-26-2025 20:21:22 PDT by Jaiden Grier Please click the below link to view image of tracing.
--- NOTE | 2025-02-25 08:43 | DVHPN2 ---
Reviewed: Care Plan, H&P, Labs, Medications, Previous Orders, Radiology Changes from previous H/P or p: No Changes Eyes: No Pain, No Vision change, No Conjunctivae inflammation, No Eyelid inflammation, No Other, No Redness ENT: No Ear pain, No Ear discharge, No Nose pain, No Nose discharge, No Nose congestion, No Mouth pain, No Mouth swelling, No Throat pain, No Throat swelling, No Other Cardiovascular: No Chest Pain, No Palpitations, No Orthopnea, No Paroxysmal Noc. Dyspnea, No Edema, No Lt Headedness, No Other Respiratory: No Cough, No Dry, No Shortness of breath, No SOB with excertion, No Wheezing, No Hemoptysis, No Pleuritic Pain, No Sputum, No Other Gastrointestinal: No Nausea, No Vomiting, No Abdominal Pain, No Diarrhea, No Constipation, No Melena, No Hematochezia, No Other Genitourinary: No Dysuria, No Frequency, No Incontinence, No Hematuria, No Retention, No Other Musculoskeletal: No other, No neck pain, No shoulder pain, No arm pain, No back pain, No hand pain, No leg pain, No foot pain Skin: No Rash, No Lesions, No Jaundice, No Bruising, No Other Objective Vitals Vital Signs Date Time Temp Pulse Resp B/P (MAP) Pulse Ox O2 Delivery O2 Flow Rate FiO2 02/25/25 08:05 72 16 100 02/25/25 07:57 Room Air 0.0 02/25/25 07:57 21 02/25/25 05:52 142/50 02/25/25 05:00 98.3 98.3 Intake/Output Intake and Output 02/25/25 07:00 Intake Total 1186 ml Output Total 1550 ml Balance -364 ml Intake Oral 1040 ml IV Total 146 ml Output Urine Total 1550 ml Medications Current Medications Medications Dose Ordered Sig/Ophelia Route Start Time Stop Time Status Last Admin Dose Admin Ondansetron HCl 4 mg Q4HP PRN IV 02/22/25 09:15 Docusate Sodium 100 mg BIDPRN PRN PO 02/22/25 09:15 Acetaminophen 650 mg Q6HP PRN PO 02/22/25 09:15 02/24/25 12:46 650 MG Nitroglycerin 0.4 mg Q5MINP PRN SL 02/22/25 09:15 Morphine Sulfate 2 mg Q30M PRN IV 02/22/25 09:15 Carvedilol 12.5 mg BID PO 02/22/25 10:00 Hold Hydralazine HCl 25 mg TID PO 02/22/25 14:00 02/24/25 21:30 25 MG Atorvastatin Calcium 40 mg HS PO 02/22/25 22:00 02/24/25 21:30 40 MG Patient Own Medication 1 tab DAILY PO 02/22/25 10:00 Ceftriaxone Sodium 50 ml @ 100 mls/hr DAILY@09 IV 02/22/25 10:00 02/24/25 08:56 100 MLS/HR Aspirin 81 mg DAILY PO 02/23/25 10:00 02/23/25 09:52 81 MG Ipratropium [place] 0.5 mg Q6HWA [facility] 02/23/25 12:00 02/25/25 07:57 0.5 MG Albuterol 2.5 mg Q6HWA [facility] 02/23/25 12:00 02/25/25 07:56 2.5 MG Lidocaine 1 patch DAILY TOP 02/24/25 10:00 02/24/25 09:47 1 PATCH Oseltamivir Phosphate 30 mg Q24H PO 02/23/25 22:00 02/28/25 21:59 02/24/25 21:30 30 MG Sodium Chloride 1,000 ml @ 30 mls/hr Q24H IV 02/23/25 16:00 Hold 02/23/25 16:21 30 MLS/HR Acetaminophen/ Hydrocodone Bitart 1 tab Q4HP PRN PO 02/23/25 16:45 Acetaminophen/ Hydrocodone Bitart 1 tab Q6HPRN PRN PO 02/23/25 16:45 Heparin Sodium/ Dextrose 250 ml @ 8 mls/hr Q24H IV 02/24/25 18:15 02/24/25 18:42 8 MLS/HR Laboratory Results Laboratory Tests 02/25/25 04:46 Chemistry Test 02/25/25 04:46 Albumin 2.8 g/dL (3.2-4.8) L Calcium Level 8.4 mg/dL (8.7-10.4) L Total Protein 4.6 g/dL (5.7-8.2) L Coagulation Test 02/24/25 10:49 02/24/25 16:56 02/25/25 00:20 02/25/25 04:46 Prothrombin Time 12.3 sec (9.3-11.8) H 11.9 sec (9.3-11.8) H 11.9 sec (9.3-11.8) H 12.0 sec (9.3-11.8) H Prothrombin Time INR 1.18 (0.9-1.15) H 1.14 (0.9-1.15) 1.14 (0.9-1.15) 1.15 (0.9-1.15) Activated Partial Thromboplast Time 63.6 SEC (24.5-34.5) H 47.5 SEC (24.5-34.5) H 60.9 SEC (24.5-34.5) H 56.9 SEC (24.5-34.5) H LFT Test 02/25/25 04:46 Alanine Aminotransferase (ALT) 68 U/L (7-40) H Alkaline Phosphatase 82 U/L (46-116) Aspartate Amino Transferase (AST) 58 U/L (<34) H Total Bilirubin 0.6 mg/dL (0.2-1.0) Urinalysis Test 02/24/25 13:00 Urine Color Yellow (Yellow) Urine Clarity Clear (Clear) Urine pH 6.0 (5.0-9.0) Urine Specific [place] 1.016 (1.001-1.035) Urine Protein 1+ (Negative) H Urine Ketones Negative (Negative) Urine Blood 1+ /uL (Negative) H Urine Nitrite Negative (Negative) Urine Bilirubin Negative (Negative) Urine Urobilinogen 6 mg/dL (Negative) Urine Leukocyte Esterase Negative /uL (Negative) Urine RBC 24 /hpf (0 - 3) Urine Microscopic WBC 6 /HPF (0-3) H Urine Squamous Epithelial Cells Few /hpf (<5) Urine Bacteria None seen /hpf (None Seen) Urine Creatinine 62.63 mg/dL (30.0-125.0) Urine Protein/Creatinine Ratio 1.14 Urine Sodium 76 mmol/L (40-220) Urine Glucose Normal mg/dL (Normal) Urine Total Protein 71.4 mg/dL (1-14) H Microbiology Microbiology Date/Time Source Procedure Growth Status 02/22/25 04:05 Blood Blood Culture - Final Klebsiella pneumoniae Complete Labs and/or images reviewed: Labs reviewed by me, Image(s) reviewed by me Assessment/Plan Assessment/Plan Syncope Type B influenza: Tamiflu Sepsis secondary to community-acquired pneumonia: Rocephin azithromycin NSTEMI type 1 versus type 2: Cardiology consult by Dr. Benjamin appreciated on heparin, scheduled for left heart catheterization on 02/25/2025Friday S/p mechanical fall Thrombocytopenia platelets 72 K, will watch Hypoalbuminemia albumin 2.9 History of congestive heart failure S/p mechanical mitral valve on Coumadin Right shoulder pain status post mechanical fall: X-ray neg: [place] Essential hypertension History of CABG History of CVA Dehydration Severe malnutrition Will check D-dimer CT head negative Carotid ultrasound negative Chest x-ray negative Right shoulder x-ray negative Time spent 55 minutes Advanced care planning time 20 mts Patient is full code Continue current manage Plan discussed with: Patient My Orders Orders - WOLFGANG SANTIAGO MD Procedure Category Date Status Time *[facility] CONS 02/24/25 Transmitted -[place] 09:44 Urine Bacterial TOD 02/24/25 In Process Culture 13:32 Type And Screen BBK 02/25/25 In Process 04:00 Date of Service: Feb 25, 2025 Billing Provider: WOLFGANG SANTIAGO MD Common Visit Codes: [id number] INP/OBS CARE(HIGH) WOLFGANG SANTIAGO MD Feb 25, 2025 08:43
--- NOTE | 2025-02-25 12:11 | DVHPN2 ---
Progress Note Date Seen: Feb 25, 2025 Medical Necessity Reason Pt with a Central, PICC or Fol: No Subjective Patient reports: No new complaints Review of Systems: Deferred Objective vital signs Vital Sign Date Time Temp Pulse Resp B/P (MAP) Pulse Ox O2 Delivery O2 Flow Rate FiO2 02/25/25 09:00 98.6 70 18 128/78 (95) 96 98.6 02/25/25 08:00 Room Air* 0 21 Total Intake and Output 02/24/25 02/24/25 02/25/25 15:00 23:00 07:00 Intake Total 50 ml 800 ml 336 ml Output Total 950 ml 600 ml Balance 50 ml -150 ml -264 ml medications Current Medications Medications Dose Ordered Sig/Ophelia Route Start Time Stop Time Status Last Admin Dose Admin Ondansetron HCl 4 mg Q4HP PRN IV 02/22/25 09:15 Docusate Sodium 100 mg BIDPRN PRN PO 02/22/25 09:15 Acetaminophen 650 mg Q6HP PRN PO 02/22/25 09:15 02/25/25 11:04 650 MG Nitroglycerin 0.4 mg Q5MINP PRN SL 02/22/25 09:15 Morphine Sulfate 2 mg Q30M PRN IV 02/22/25 09:15 Carvedilol 12.5 mg BID PO 02/22/25 10:00 Hold Hydralazine HCl 25 mg TID PO 02/22/25 14:00 02/24/25 21:30 25 MG Atorvastatin Calcium 40 mg HS PO 02/22/25 22:00 02/24/25 21:30 40 MG Patient Own Medication 1 tab DAILY PO 02/22/25 10:00 Ceftriaxone Sodium 50 ml @ 100 mls/hr DAILY@09 IV 02/22/25 10:00 02/25/25 08:42 100 MLS/HR Aspirin 81 mg DAILY PO 02/23/25 10:00 02/23/25 09:52 81 MG Ipratropium [place] 0.5 mg Q6HWA NEB 02/23/25 12:00 02/25/25 07:57 0.5 MG Albuterol 2.5 mg Q6HWA NEB 02/23/25 12:00 02/25/25 07:56 2.5 MG Lidocaine 1 patch DAILY TOP 02/24/25 10:00 02/25/25 10:52 1 PATCH Oseltamivir Phosphate 30 mg Q24H PO 02/23/25 22:00 02/28/25 21:59 02/24/25 21:30 30 MG Sodium Chloride 1,000 ml @ 30 mls/hr Q24H IV 02/23/25 16:00 Hold 02/23/25 16:21 30 MLS/HR Acetaminophen/ Hydrocodone Bitart 1 tab Q4HP PRN PO 02/23/25 16:45 Acetaminophen/ Hydrocodone Bitart 1 tab Q6HPRN PRN PO 02/23/25 16:45 Heparin Sodium/ Dextrose 250 ml @ 8 mls/hr Q24H IV 02/24/25 18:15 02/24/25 18:42 8 MLS/HR Examination: GENERAL:Abnormal, CVS:Abnormal (murmur) laboratory and microbiology Laboratory Tests 02/25/25 04:46 Test 02/25/25 04:46 Range/Units Serum Glucose 101 74-106 mg/dL Microbiology Date/Time Source Procedure Growth Status 02/24/25 13:00 Urine - Midstream Clean Catch Urine Culture - Preliminary Resulted 02/22/25 04:05 Blood Blood Culture - Final Klebsiella pneumoniae Complete Problem List/Assessment/Plan Problem List/Assessment/Plan Acute kidney injury superimposed Chronic Kidney Disease secondary hemodynamic mediated in the setting of sepsis [id number] -sees Bladder mass Sepsis Klebsiella bacteremia Hypertension NSTEMI CVA Anemia of chronic of Kidney disease Thrombocytopenia Elevated liver enzymes Hypoalbuminemia Positive influenza recommendations Continue IV fluids Urology consult for bladder mass evaluation Renally dose antibiotics for GFR Kidney ultrasound noted 1 g proteinuria approximately Plan discussed with: Patient SUSHIL ROMERO MD Feb 25, 2025 12:11
[2025-02-25] MEDS: SODIUM CHLORIDE 0.9% 1,000 ML IV SCH ×2 (12:15→19:00)
[2025-02-25 12:36] LABS: INR 1.13 (0.9-1.15); Partial Thromboplastin Time 56.7 SEC (24.5-34.5); Prothrombin Time 11.8 sec (9.3-11.8)
[2025-02-25] MEDS: IODIXANOL 320MG/ML 100ML BTL IV ONE (13:18)
[2025-02-25] MEDS: ANGIOMAX 250 MG VIAL IV ONE (13:51)
[2025-02-25] MEDS: fentaNYL CITRATE 100 MCG/2 ML VL ONE (13:52)
[2025-02-25] MEDS: LIDOCAINE 2%HCL (LOCAL ANESTH.) INJ 20ML MDV ONE (13:52)
[2025-02-25] MEDS: SODIUM CHL 0.9% 0 ML ONE (13:52)
[2025-02-25] MEDS: MIDAZOLAM HCL 2MG/2ML 2ml VIAL (1mg/ml) ONE (13:52)
[2025-02-25] MEDS: HEPARIN SODIUM (PORCINE) 5000 UNITS/ML 1ML VIAL ONE (14:28)
--- NOTE | 2025-02-25 14:58 | DVHINCON2 ---
Date of service: Feb 25, 2025 Referring Physician Hospitalist Reason for Consultation Bladder mass noted on US History of Present Illness 84-year-old male with past medical history of mechanical valve replacement on Coumadin, CVA, hypertension, and hyperlipidemia, who came to the hospital S/P fall x 2 with injury. Patient states he was at home attempting to use the restroom when he became dizzy and fell. His family member was able to catch him and help breath his fall so he did not hit the ground to hard, but he still hit on the right side of his body. He has a small abrasion to the right side of his face, and complains of severe pain to his right shoulder and difficulty moving the arm. Patient s known to urology service for history of high-grade nonmuscle invasive bladder cancer who underwent TURBT in October of 2023 and status post BCG instillations. Subsequent surveillance cystoscopies and repeat resection of suspicious lesions were negative for malignancy. His last TURBT with mitomycin C instillation was on 10/14/2024. Pathology was negative for malignancy. He has significant overactive bladder/nocturia refractory to medical therapy with VESIcare. He is tentatively scheduled for a sacral nerve stimulation trial next month. He has next surveillance cystoscopy was scheduled for February 03, 2025 which she missed. 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 Bladder cancer Overactive bladder Past Surgical History TURBT/TURP Past Surgical History: Cholecystectomy, Other (Open heart surgery-mechanical valve, PTCA-cardiac stents) Family History: Cardiovascular disease G8 FATHER Diabetes mellitus G8 FATHER Allergies: Coded Allergies: NO KNOWN ALLERGIES (Unverified , 03/20/21) Home Meds Reported Medications Solifenacin Succinate (Solifenacin Succinate) 10 Mg Tab, 10 MG PO DAILY, TAB 10/08/24 Hydralazine Hcl (Hydralazine Hcl) 50 Mg Tab, 25 MG PO, TAB 05/17/24 Carvedilol (Carvedilol) 6.25 Mg Tab, 1 TAB PO DAILY 02/08/24 Warfarin Sodium (Warfarin Sodium) 7.5 Mg Tab, 7.5 MG PO HS for CAD TAKE 1 TABLET PO EVERY DAY EXCEPT 0.5 TABLET ON SUN & Friday03/31/18 Atorvastatin Calcium (Lipitor) 40 Mg Tab, 1 TAB PO QPM for HIGH CHOLESTEROL 11/13/17 Current Medications Current Medications Medications (Trade) Dose Ordered Sig/Ophelia Route PRN Reason Start Time Stop Time Status Last Admin Heparin Sodium/ Dextrose 250 ml @ 8 mls/hr Q24H IV 02/24/25 18:15 02/24/25 18:42 Sodium Chloride 1,000 ml @ 50 mls/hr Q20H IV 02/25/25 12:15 Review of Systems Constitutional: No: Fever, Chills, Sweats, Weakness, Malaise, Other Eyes: No: Pain, Vision change, Conjunctivae inflammation, Eyelid inflammation, Other, Redness ENT: No: Ear pain, Ear discharge, Nose pain, Nose discharge, Nose congestion, Mouth pain, Mouth swelling, Throat pain, Throat swelling, Other Respiratory: No: Cough, Dry, Shortness of breath, SOB with excertion, Wheezing, Hemoptysis, Pleuritic Pain, Sputum, Wheezing, Other Cardiovascular: No: Chest Pain, Palpitations, Orthopnea, Paroxysmal Noc. Dysp obie, Edema, Lt Headedness, Other Gastrointestinal: No: Nausea, Vomiting, Abdominal Pain, Diarrhea, Constipation, Melena, Hematochezia, Other Genitourinary: No Dysuria, No Frequency, No Incontinence, No Hematuria, No Retention, No Other Musculoskeletal: No: other, neck pain, shoulder pain, arm pain, back pain, hand pain, leg pain, foot pain Skin: No: Rash, Lesions, Jaundice, Bruising, Other Neurological: Weakness, Incoordination, Other (Dizziness); No: Numbness, Change in speech, Confusion, Seizures Allergies: Coded Allergies: NO KNOWN ALLERGIES (Unverified , 02/22/25) Medications Current Medications Medications Dose Ordered Sig/Ophelia Route Start Time Stop Time Status Last Admin Dose Admin Acetaminophen/ Hydrocodone Bitart 1 tab Q4HP PRN PO 02/22/25 09:15 UNV Vital Signs Vital Signs Date Time Temp Pulse Resp B/P (MAP) Pulse Ox O2 Delivery O2 Flow Rate FiO2 02/25/25 13:00 98.7 70 20 136/52 (80) 90 98.7 02/25/25 08:00 Room Air* 0 21 Physical Exam Exam Exam Vital Signs Vital Signs Date Time Temp Pulse Resp B/P (MAP) Pulse Ox O2 Delivery O2 Flow Rate FiO2 02/22/25 08:00 90 02/22/25 07:30 98.0 20 106/52 (70) 94 98.0 02/22/25 04:03 Room Air* 0 21 General Appearance: Alert, Oriented X3, Cooperative, mild distress HEENT: Atraumatic, PERRLA Respiratory: Clear to auscultation, Normal air movement Cardiovascular: Regular rate, Normal S1, Normal S2 Abdominal: Normal bowel sounds, Soft, No tenderness Extremities: No clubbing, No cyanosis, No edema, Normal pulses, Other (right shoulder pain) Skin: No rashes, No breakdown, No significant lesion Neuro: Normal speech Psych/Mental Status: Mental status NL, Mood NL Labs/Diagnostic Data Labs Test 02/25/25 12:00 02/25/25 04:46 02/24/25 13:00 02/24/25 05:05 Range/Units Prothrombin Time 11.8 9.3-11.8 sec Prothrombin Time INR 1.13 0.9-1.15 Activated Partial Thromboplast Time 56.7 H 24.5-34.5 SEC White Blood Count 8.1 4.4-10.8 10^3/uL Red Blood Count 3.17 L 4.5-5.90 10^6/uL Hemoglobin 9.9 L 13.5-17.5 g/dL Hematocrit 28.1 L 41.0-53.0 % Mean Corpuscular Volume 88.6 80.0-100.0 fL Mean Corpuscular Hemoglobin 31.1 28.0-32.0 pg Mean Corpuscular Hemoglobin Concent 35.1 32.0-36.0 g/dL Red Cell Distribution Width 15.0 H 11.8-14.3 % Platelet Count 81 L 140-450 10^3/uL Mean Platelet Volume 9.0 6.9-10.8 fL Neutrophils (%) (Auto) 70.4 37.0-80.0 % Lymphocytes (%) (Auto) 9.2 L 10.0-50.0 % Monocytes (%) (Auto) 15.0 H 0.0-12.0 % Eosinophils (%) (Auto) 4.9 0.0-7.0 % Basophils (%) (Auto) 0.5 0.0-2.0 % Neutrophils # (Auto) 5.7 1.6-8.6 10 ^3/uL Lymphocytes # (Auto) 0.7 0.4-5.4 10 ^3/uL Monocytes # (Auto) 1.2 0-1.3 10 ^3/uL Eosinophils # (Auto) 0.4 0-0.8 10 ^3/uL Basophils # (Auto) 0 0-0.2 10 ^3/uL Nucleated Red Blood Cells 0.1 % Sodium Level 140 136-145 mmol/L Potassium Level 4.4 3.5-5.1 mmol/L Chloride Level 110 H 98-107 mmol/L Carbon Dioxide Level 21 20-31 mmol/L Anion Gap 9 5-15 Blood Urea Nitrogen 53 H 9-23 mg/dL Creatinine 1.52 H 0.700-1.30 mg/dL Glomerular Filtration Rate Calc 45 >90 mL/min BUN/Creatinine Ratio 34.9 H 10.0-20.0 Serum Glucose 101 74-106 mg/dL Calcium Level 8.4 L 8.7-10.4 mg/dL Total Bilirubin 0.6 0.2-1.0 mg/dL Aspartate Amino Transferase (AST) 58 H <34 U/L Alanine Aminotransferase (ALT) 68 H 7-40 U/L Alkaline Phosphatase 82 46-116 U/L Total Protein 4.6 L 5.7-8.2 g/dL Albumin 2.8 L 3.2-4.8 g/dL Urine Color Yellow Yellow Urine Clarity Clear Clear Urine pH 6.0 5.0-9.0 Urine Specific [place] 1.016 1.001-1.035 Urine Protein 1+ H Negative Urine Ketones Negative Negative Urine Blood 1+ H Negative /uL Urine Nitrite Negative Negative Urine Bilirubin Negative Negative Urine Urobilinogen 6 Negative mg/dL Urine Leukocyte Esterase Negative Negative /uL Urine RBC 24 0 - 3 /hpf Urine Microscopic WBC 6 H 0-3 /HPF Urine Squamous Epithelial Cells Few <5 /hpf Urine Bacteria None seen None Seen /hpf Urine Creatinine 62.63 30.0-125.0 mg/dL Urine Protein/Creatinine Ratio 1.14 Urine Sodium 76 40-220 mmol/L Urine Glucose Normal Normal mg/dL Urine Total Protein 71.4 H 1-14 mg/dL Vitamin D 25-Hydroxy 27.5 L 30.0-100 ng/mL Parathyroid Hormone (Intact) 153.1 H 18.4-80.1 pg/mL Test 02/24/25 05:02 02/23/25 10:56 02/23/25 05:02 02/22/25 18:03 Range/Units Phosphorus Level 2.7 2.4-5.1 mg/dL Magnesium Level 2.1 1.6-2.6 mg/dL D-Dimer, Quantitative 1.34 H 0.0-0.49 mg/L FEU Troponin I High Sensitivity 1030 *H </=54 ng/L Differential Total Cells Counted 100.0 100 Neutrophils % (Manual) 77 37.0-80.0 Band Neutrophils % (Manual) 11 Lymphocytes % (Manual) 6 L 10.0-50.0 Monocytes % (Manual) 5 0-12 Eosinophils % (Manual) 1 0-7 Basophils % (Manual) 0 0.0-2.0 Metamyelocytes % (manual) 0 Myelocytes % (Manual) 0 Promyelocytes % (Manual) 0 Blast Cells % (Manual) 0 Reactive Lymphocytes 0 Platelet Estimate Decreased Test 02/22/25 16:30 02/22/25 06:23 02/22/25 04:04 Range/Units Influenza Type A Antigen Negative Negative Influenza Type B Antigen Positive Negative SARS-CoV-2 Antigen (Rapid) Negative NEGATIVE Lactic Acid Level 2.1 *H 0.4-2.0 mmol/L Hemoglobin A1c 5.2 <5.7 % A1C B-Type Natriuretic Peptide 544.70 0-100 pg/mL Triglycerides Level 99 < 150 mg/dL Cholesterol Level 91 < 200 mg/dL LDL Cholesterol 46 < 100 mg/dL HDL Cholesterol 22 L 40-59 mg/dL Thyroid Stimulating Hormone (TSH) 1.34 0.55-4.78 uIU/mL Microbiology Date/Time Source Procedure Growth Status 02/24/25 13:00 Urine - Midstream Clean Catch Urine Culture - Preliminary Resulted 02/22/25 04:05 Blood Blood Culture - Final Klebsiella pneumoniae Complete Assessment History of bladder cancer Overactive bladder Plan/Recommendation CT scan abdomen and pelvis Cystogram Diagnostic cystoscopy in Clinic to be arranged Plan discussed with: Patient, Other DAYANA ADHIKARI MD Feb 25, 2025 14:58
--- NOTE | 2025-02-25 15:28 | DVHOP2 ---
Operative Report - 2 Report Details Date: 02/25/25 Preop Diagnosis: CAD. Prosthetic mitral valve. Postop Diagnosis: CAD. Prosthetic mitral valve. Surgeon: Allen Grier MD Anesthesiologist: Conscious sedation Anesthesia: Mac, Local Consent: The patient was informed of the risks and benefits of the procedure. These include but are not limited to complications of anesthesia, postoperative infection, incomplete relief of symptoms, recurrence of symptoms, damage to blood vessels, nerves and tendons, deep venous thrombosis, pulmonary embolism and possible need for repeat surgery in the future. Complications: No complications Findings: Moderate CAD Name of Procedure Performed Chest pain shortness of breath Procedure Details Procedure Details: Prior local anesthesia with 2% lidocaine to the right groin and full informed consent obtained the patient was prepped and draped in usual fashion followed by placement of a six [place] sheath into the femoral vein and a six [place] sheath into the femoral artery. This was accessed under fluoroscopic and ultrasound guidance. A six [place]ones[place]roft-Maria Del Carmen catheter was advanced into the right atrium right ventricle pulmonary artery capillary wedge pressure positions where pressures were obtained and recorded. O2 saturations were not obtained. Through the arterial sheath six [place]onese Suhail catheters used to cannulate both right and left coronary ostium and an LCB was used to cannulate the left coronary bypass graft. Patient tolerated procedure well there were no complications. Hemodynamics: Aortic blood pressure was 131 over 80. End-diastolic pressure was 12. There was no gradient across the aortic valve on pullback. Right atrial pressure was eight. Right ventricular pressure was 30/8. Pulmonary artery pressure was 34/22. Capillary wedge pressure was 18. There was no gradient across in the of the valves. Cardiac output was 3.6 by the thermodilution technique. Coronary anatomy RCA is a large vessel it is patent in its proximal mid and distal segments. The midportion has been stented without in stent restenosis. PDA and posterolateral branches are normal. Left main is large and normal. Left anterior descending is a large vessel it is occluded proximally. The circumflex is occluded in its proximal to mid section. A large diagonal branch is patent without disease The left internal mammary artery is anastomosed to the proximal to mid LAD with excellent antegrade and retrograde flow. No lesions noted in the LAD or internal mammary artery. The saphenous venous graft to the obtuse marginal branch is patent. Ventriculography in the [place]STA projection shows an EF of about 25-30%. There was an enlarged left ventricle. Impression Normal left ventricular end-diastolic pressure at rest with no gradient across the left system. End-diastolic pressure and capillary wedge pressure concordance. No significant pulmonary hypertension. Normal ejection fraction. Normal coronaries. Recommendations: Continue medical therapy. Condition Good Disposition Still a Patient Date of Service: Feb 25, 2025 Billing Provider: ALLEN GRIER Sr., MD Cardiology Common Codes: [id number] INP/OBS CARE (High) Cardiology Procedure Codes: [id number] VESSEL W/I VASC FAM, 62096-W/R & L HEART CATH FOR LVG ALLEN GRIER Sr., MD Feb 25, 2025 15:28
--- NOTE | 2025-02-25 17:13 | DVH ---
Exam: CT CT AB PEL WO CON-NO ORAL OR IV History: Bladder mass Comparison Study: CT CT AB PEL WO CON-NO ORAL OR IV on DOS: 02/07/24, CT CT AB PEL WO CON-NO ORAL OR IV on DOS: 10/25/23, CT CT AB PEL WO CON-NO ORAL OR IV on DOS: 07/16/23 TECHNIQUE: Multidetector CT of the abdomen and pelvis without IV contrast. Axial, coronal and sagitta l multiplanar reformats were obtained from the axial data set by the technologist. Radiation Dose Information: CT Dose: CTDI volume is 11.5 mGy. Dose-length product is 613.11 mGy*cm FINDINGS: Small bilateral pleural effusions with associated atelectasis. Moderate cardiomegaly. Mitral annulus calcification. Moderate atherosclerotic calcification of the coronary arteries. Pneumobilia. Otherwise, liver, spleen, pancreas unremarkable. Status post cholecystectomy. Mild bilateral perinephric fat stranding. 1.2 cm left renal cyst. Contrast is noted within the bilat eral renal pelvis and bilateral renal collecting systems . No contrast is noted within segmental pro ximal right ureter which may be from peristalsis with contrast noted proximal and distal to the segme nt. The remainder of the bilateral ureters are contrast filled. Mild left zzdu-hiecnja-rczm-right hyd roureteronephrosis with no obstructing calculus noted. There is contrast opacification of the urinary bladder with mild urinary bladder wall thickening and mild fat stranding adjacent to the urinary declan dder. There is 1.3 x 0.9 x 1 cm filling defect of the right lateral wall of the urinary bladder. Wide neck diverticulum of the superior urinary bladder. Enlarged prostate measuring 4.5 x 5.1 by 4.9 cm w ith Foci of calcification. Contrast is noted extending into the prostatic ureter. Stomach is unremarkable. Small bowel loops are unremarkable. Appendix is not definitely visualized. Without complete visualization of the appendix, can not exclude acute appendicitis. Small to moderat e amount of fecal material within the colon. Scattered colonic diverticulosis without diverticulitis. No evidence of intraperitoneal free air or free fluid. No evidence of aortic aneurysm. Heavy atherosclerotic calcification of the aorta and bilateral iliacs . No significant lymphadenopathy. Moderate fat containing bilateral inguinal hernias with fat stranding within the mfztt-adynsta-hoek-l eft inguinal hernias. Minimal body wall edema. Mild subcutaneous fat stranding with foci of air of th e right inguinal region. Sclerotic focus over the left L2 vertebral body which may represent a bone i sland with a blastic lesion not excluded. Diffuse demineralization. No evidence of acute osseous abno rmalities. IMPRESSION: Mild Rpce-cwdyrzs-tcql-right hydroureteronephrosis with no obstructing calculus noted. 1.3 x 0.9 x 1 cm filling defect over the right lateral wall of the urinary bladder. Correlate for is neoplasm. Mild wall thickening of the urinary bladder which may be due to inadequate distention with cystitis n ot excluded. Enlarged prostate. Recommend correlation with PSA. Small bilateral pleural effusions with associated atelectasis. Additional findings as above.
--- NOTE | 2025-02-25 19:15 | DVH ---
Exam: XY CYSTOGRAM Comparison: None History: Bladder mass x Techniques/Findings: An AP broadcast operations engineer view of the pelvis was obtained.x Water soluble contrast was infused into the bladder via the Gannon catheter utilizing gravity, under f luoroscopic evaluation. Spot images were obtained. There was normal filling of the bladder without evidence for contrast extravasation to suggest a perf oration or leak. No definite vesicoureteral reflux identified. The contrast was then removed and AP and oblique images of the pelvis were then obtained. The patient tolerated the procedure well. IMPRESSION: Unremarkable fluoroscopic cystography. END IMPRESSION:
[2025-02-26] VITALS (14 sets, daily range): BP systolic 120–151; BP diastolic 55–85; PULSE 68–80; RESP 16–19; TEMP 97.7–99.4; O2SAT 96–100
[2025-02-26 07:52] LABS: INR 1.07 (0.9-1.15); Partial Thromboplastin Time 27.6 SEC (24.5-34.5); Prothrombin Time 11.3 sec (9.3-11.8)
[2025-02-26 07:55] LABS: Basophils # (auto) 0 10 ^3/uL (0-0.2); Basophils % (auto) 0.4 % (0.0-2.0); Eosinophils # (auto) 0.3 10 ^3/uL (0-0.8); Hematocrit 30.5 % (41.0-53.0); Hemoglobin 10.3 g/dL (13.5-17.5); Lymphocytes % (auto) 10.2 % (10.0-50.0); Mean Corpuscular Hemoglobin 29.9 pg (28.0-32.0); Mean Corpuscular Hgb Conc. 33.7 g/dL (32.0-36.0); Mean Corpuscular Volume 88.5 fL (80.0-100.0); Monocytes # (auto) 1.4 10 ^3/uL (0-1.3); Monocytes % (auto) 13.9 % (0.0-12.0); Neutrophils # (auto) 7.1 10 ^3/uL (1.6-8.6); Neutrophils % (auto) 72.5 % (37.0-80.0); Nucleated Red Blood Cells % 0.1 %; Platelet Count (auto) 155 10^3/uL (140-450); Red Blood Cells 3.45 10^6/uL (4.5-5.90); White Blood Cell 9.7 10^3/uL (4.4-10.8)
[2025-02-26 08:01] LABS: Alkaline Phosphatase 84 U/L (46-116); Anion Gap 10 (5-15); BUN/Creatinine Ratio 27.4 (10.0-20.0); Calcium 9.2 mg/dL (8.7-10.4); Carbon Dioxide 22 mmol/L (20-31); Potassium 4.3 mmol/L (3.5-5.1); Sodium 140 mmol/L (136-145)
[2025-02-26 08:02] LABS: Albumin 3.3 g/dL (3.2-4.8); Bilirubin, Total 0.8 mg/dL (0.2-1.0)
[2025-02-26 08:15] LABS: Alanine Aminotransferase 65 U/L (7-40); Aspartate Aminotransferase 42 U/L (<34); Blood Urea Nitrogen 37 mg/dL (9-23); Chloride 108 mmol/L (98-107); Glucose 112 mg/dL (74-106); Total Protein 5.6 g/dL (5.7-8.2)
[2025-02-26 08:27] LABS: Anisocytosis Slight; Platelet Estimate Adequate
--- NOTE | 2025-02-26 09:06 | DVHPN2 ---
Reviewed: Care Plan, H&P, Labs, Medications, Previous Orders, Radiology Changes from previous H/P or p: No Changes Eyes: No Pain, No Vision change, No Conjunctivae inflammation, No Eyelid inflammation, No Other, No Redness ENT: No Ear pain, No Ear discharge, No Nose pain, No Nose discharge, No Nose congestion, No Mouth pain, No Mouth swelling, No Throat pain, No Throat swelling, No Other Cardiovascular: No Chest Pain, No Palpitations, No Orthopnea, No Paroxysmal Noc. Dyspnea, No Edema, No Lt Headedness, No Other Respiratory: No Cough, No Dry, No Shortness of breath, No SOB with excertion, No Wheezing, No Hemoptysis, No Pleuritic Pain, No Sputum, No Other Gastrointestinal: No Nausea, No Vomiting, No Abdominal Pain, No Diarrhea, No Constipation, No Melena, No Hematochezia, No Other Genitourinary: No Dysuria, No Frequency, No Incontinence, No Hematuria, No Retention, No Other Musculoskeletal: No other, No neck pain, No shoulder pain, No arm pain, No back pain, No hand pain, No leg pain, No foot pain Skin: No Rash, No Lesions, No Jaundice, No Bruising, No Other Objective Vitals Vital Signs Date Time Temp Pulse Resp B/P (MAP) Pulse Ox O2 Delivery O2 Flow Rate FiO2 02/26/25 06:32 77 16 100 02/26/25 06:25 Nasal Cannula 1.0 02/26/25 06:25 24 02/26/25 05:38 150/55 02/26/25 04:48 98.1 98.1 Intake/Output Intake and Output 02/26/25 07:00 Intake Total 720 ml Output Total 1200 ml Balance -480 ml Intake Oral 620 ml IV Total 100 ml Output Urine Total 1200 ml # Voids 2 Medications Current Medications Medications Dose Ordered Sig/Ophelia Route Start Time Stop Time Status Last Admin Dose Admin Ondansetron HCl 4 mg Q4HP PRN IV 02/22/25 09:15 Docusate Sodium 100 mg BIDPRN PRN PO 02/22/25 09:15 Acetaminophen 650 mg Q6HP PRN PO 02/22/25 09:15 02/25/25 11:04 650 MG Nitroglycerin 0.4 mg Q5MINP PRN SL 02/22/25 09:15 Morphine Sulfate 2 mg Q30M PRN IV 02/22/25 09:15 Carvedilol 12.5 mg BID PO 02/22/25 10:00 Hold Hydralazine HCl 25 mg TID PO 02/22/25 14:00 02/26/25 05:38 25 MG Atorvastatin Calcium 40 mg HS PO 02/22/25 22:00 02/25/25 21:41 40 MG Patient Own Medication 1 tab DAILY PO 02/22/25 10:00 Ceftriaxone Sodium 50 ml @ 100 mls/hr DAILY@09 IV 02/22/25 10:00 02/25/25 08:42 100 MLS/HR Aspirin 81 mg DAILY PO 02/23/25 10:00 02/23/25 09:52 81 MG Ipratropium [place] 0.5 mg Q6HWA [facility] 02/23/25 12:00 02/26/25 06:29 0.5 MG Albuterol 2.5 mg Q6HWA [facility] 02/23/25 12:00 02/26/25 06:29 2.5 MG Lidocaine 1 patch DAILY TOP 02/24/25 10:00 02/25/25 10:52 1 PATCH Oseltamivir Phosphate 30 mg Q24H PO 02/23/25 22:00 02/28/25 21:59 02/25/25 21:41 30 MG Acetaminophen/ Hydrocodone Bitart 1 tab Q4HP PRN PO 02/23/25 16:45 Heparin Sodium/ Dextrose 250 ml @ 8 mls/hr Q24H IV 02/24/25 18:15 02/26/25 05:45 8 MLS/HR Sodium Chloride 1,000 ml @ 75 mls/hr [id number] IV 02/25/25 19:00 02/25/25 22:00 75 MLS/HR Laboratory Results Laboratory Tests 02/26/25 07:00 Chemistry Test 02/26/25 07:00 Albumin 3.3 g/dL (3.2-4.8) Calcium Level 9.2 mg/dL (8.7-10.4) Total Protein 5.6 g/dL (5.7-8.2) L Coagulation Test 02/25/25 12:00 02/26/25 07:00 Prothrombin Time 11.8 sec (9.3-11.8) 11.3 sec (9.3-11.8) Prothrombin Time INR 1.13 (0.9-1.15) 1.07 (0.9-1.15) Activated Partial Thromboplast Time 56.7 SEC (24.5-34.5) H 27.6 SEC (24.5-34.5) LFT Test 02/26/25 07:00 Alanine Aminotransferase (ALT) 65 U/L (7-40) H Alkaline Phosphatase 84 U/L (46-116) Aspartate Amino Transferase (AST) 42 U/L (<34) H Total Bilirubin 0.8 mg/dL (0.2-1.0) Urinalysis Test 02/24/25 13:00 Urine Color Yellow (Yellow) Urine Clarity Clear (Clear) Urine pH 6.0 (5.0-9.0) Urine Specific [place] 1.016 (1.001-1.035) Urine Protein 1+ (Negative) H Urine Ketones Negative (Negative) Urine Blood 1+ /uL (Negative) H Urine Nitrite Negative (Negative) Urine Bilirubin Negative (Negative) Urine Urobilinogen 6 mg/dL (Negative) Urine Leukocyte Esterase Negative /uL (Negative) Urine RBC 24 /hpf (0 - 3) Urine Microscopic WBC 6 /HPF (0-3) H Urine Squamous Epithelial Cells Few /hpf (<5) Urine Bacteria None seen /hpf (None Seen) Urine Creatinine 62.63 mg/dL (30.0-125.0) Urine Protein/Creatinine Ratio 1.14 Urine Sodium 76 mmol/L (40-220) Urine Glucose Normal mg/dL (Normal) Urine Total Protein 71.4 mg/dL (1-14) H Microbiology Microbiology Date/Time Source Procedure Growth Status 02/24/25 13:00 Urine - Midstream Clean Catch Urine Culture - Preliminary Resulted 02/22/25 04:05 Blood Blood Culture - Final Klebsiella pneumoniae Complete Labs and/or images reviewed: Labs reviewed by me, Image(s) reviewed by me Assessment/Plan Assessment/Plan Syncope Type B influenza: Tamiflu Sepsis secondary to community-acquired pneumonia: Rocephin azithromycin NSTEMI type 1 versus type 2: Cardiology consult by Dr. Benjamin appreciated on heparin, left heart catheterization by Dr. Grier 02-25-25 shows no coronary artery disease, DC heparin, continue Coumadin for mechanical mitral valve S/p mechanical fall Thrombocytopenia platelets 72 K, will watch Hypoalbuminemia albumin 2.9 History of congestive heart failure S/p mechanical mitral valve on Coumadin Right shoulder pain status post mechanical fall: X-ray neg: [place] Essential hypertension ? bladder mass, urology consult appreciated, cystogram x-ray negative History of CABG History of CVA Dehydration Severe malnutrition D-dimer 1.[address] head negative Carotid ultrasound negative Chest x-ray negative Right shoulder x-ray negative Time spent 55 minutes Patient is full code Continue current management Plan discussed with: Patient Date of Service: Feb 26, 2025 Billing Provider: WOLFGANG SANTIAGO MD Common Visit Codes: [id number] CARE 30-74 MIN WOLFGANG SANTIAGO MD Feb 26, 2025 09:06
[2025-02-26] MEDS: HEPARIN DRIP/D5W 100UNITS/ML 250 ML IV SCH (10:30)
--- NOTE | 2025-02-26 10:40 | CONS ---
Pharmacy Clinical Information: HEPARIN DRIP START HEPARIN DRIP AT RATE 8 ML/HR @1030 NEXT aPTT SCHEDULED FOR 02/26 @1630 COMMUNICATED WITH TANYA HURTADO PHARMACIST Feb 26, 2025 10:40
--- NOTE | 2025-02-26 12:09 | DVHPN2 ---
Consult Progress Note Subjective Patient reports: No new complaints Objective vital signs Vital Sign Date Time Temp Pulse Resp B/P (MAP) Pulse Ox O2 Delivery O2 Flow Rate FiO2 02/26/25 11:43 74 16 100 02/26/25 11:38 Nasal Cannula* 1 02/26/25 09:05 97.7 142/70 (94) 97.7 Total Intake and Output 02/25/25 02/25/25 02/26/25 15:00 23:00 07:00 Intake Total 8 ml 8 ml 704 ml Output Total 800 ml 400 ml Balance 8 ml -792 ml 304 ml medications Current Medications Medications Dose Ordered Sig/Ophelia Route Start Time Stop Time Status Last Admin Dose Admin Ondansetron HCl 4 mg Q4HP PRN IV 02/22/25 09:15 Docusate Sodium 100 mg BIDPRN PRN PO 02/22/25 09:15 Acetaminophen 650 mg Q6HP PRN PO 02/22/25 09:15 02/26/25 10:18 650 MG Nitroglycerin 0.4 mg Q5MINP PRN SL 02/22/25 09:15 Morphine Sulfate 2 mg Q30M PRN IV 02/22/25 09:15 Carvedilol 12.5 mg BID PO 02/22/25 10:00 Hold Hydralazine HCl 25 mg TID PO 02/22/25 14:00 02/26/25 05:38 25 MG Atorvastatin Calcium 40 mg HS PO 02/22/25 22:00 02/25/25 21:41 40 MG Patient Own Medication 1 tab DAILY PO 02/22/25 10:00 Ceftriaxone Sodium 50 ml @ 100 mls/hr DAILY@09 IV 02/22/25 10:00 02/26/25 10:10 100 MLS/HR Aspirin 81 mg DAILY PO 02/23/25 10:00 02/26/25 10:10 81 MG Ipratropium [place] 0.5 mg Q6HWA NE[facility] 02/23/25 12:00 02/26/25 11:38 0.5 MG Albuterol 2.5 mg Q6HWA NEB 02/23/25 12:00 02/26/25 11:37 2.5 MG Lidocaine 1 patch DAILY TOP 02/24/25 10:00 02/26/25 10:10 1 PATCH Oseltamivir Phosphate 30 mg Q24H PO 02/23/25 22:00 02/28/25 21:59 02/25/25 21:41 30 MG Acetaminophen/ Hydrocodone Bitart 1 tab Q4HP PRN PO 02/23/25 16:45 Sodium Chloride 1,000 ml @ 75 mls/hr [id number] IV 02/25/25 19:00 02/25/25 22:00 75 MLS/HR Warfarin Sodium RX PROTOCOL PER PHARMACY PO 02/26/25 09:30 Heparin Sodium/ Dextrose 250 ml @ 8 mls/hr Q24H IV 02/26/25 10:30 laboratory and microbiology Laboratory Tests 02/26/25 07:00 Test 02/26/25 07:00 Range/Units Serum Glucose 112 H 74-106 mg/dL Problem List/Assessment/Plan Problem List/Assessment/Plan Problem List/Assessment/Plan Problem List/Assessment/Plan NSTEMI likely type 1 S/p mechanical fall Possible upper respiratory tract infection Acute on chronic systolic heart failure with reduced ejection fraction 35% Moderate degree pulmonary hypertension S/p mechanical mitral valve, prosthetic mitral valve functioning well on echocardiogram Essential hypertension History of CABG History of CVA Dehydration Possible pneumonia Questionable sepsis due to above? Subtherapeutic INR 1.49 Plan: Restart warfarin Heparin per pharmacy protocol for bridging with warfarin until INR therapeutic 2.5-3.5 S/p right and left heart catheterization, coronary angiogram showing normal coronaries. Due to patient having a very high pre-Oswald score, low to minimal IV fluid hydration at 30 cc per hour currently holding Nephrology consultation recommended to optimize renal function Negative head CT Echocardiogram Monitor blood pressure Pain management Rest of the plan as per course of hospitalization Echo reviewed, EF 35% with global LV hypokinesis. Normal functioning prosthetic mitral valve. Moderate pulmonary hypertension. RVSP 42 mmHg. Restart GDMT Coreg 6.25 mg p.o. twice daily. Ernesto/Arb and SG LT2 held for now in setting of elevated kidney function, plan to initiate once kidney function stable, cleared by Nephrology. Monitor close fluid volume status with gentle IV hydration for ERICKA. Follow up nephrology recs for diuresis on discharge. Thank you so much for the opportunity to consult on your patient. Cardiology team will follow the patient. In case of any questions or concerns please feel free to reach out. Plan discussed with Dr. Grier Plan discussed with: Patient Date of Service: Feb 26, 2025 Billing Provider: MANE MARIE Common Visit Codes: [id number] INP/OBS CARE(HIGH) MANE MARIE Feb 26, 2025 12:09
[2025-02-26] MEDS: CARVEDILOL 3.125 MG TAB PO ONE (13:06)
[2025-02-26 17:04] LABS: INR 1.19 (0.9-1.15); Partial Thromboplastin Time 53.3 SEC (24.5-34.5); Prothrombin Time 12.4 sec (9.3-11.8)
[2025-02-26] MEDS: WARFARIN SODIUM 5 MG TAB PO ONE (17:33)
--- NOTE | 2025-02-26 18:09 | DVHPN2 ---
Progress Note Date Seen: Feb 26, 2025 Medical Necessity Reason Pt with a Central, PICC or Fol: No Subjective Patient reports: No new complaints Review of Systems: HEENT:Normal, CVS:Normal, RESPIRATORY:Normal, GI:Normal, :Normal, MSK:Normal, NEURO:Normal Objective vital signs Vital Sign Date Time Temp Pulse Resp B/P (MAP) Pulse Ox O2 Delivery O2 Flow Rate FiO2 02/26/25 17:00 98.0 68 19 120/85 (97) 97 98.0 02/26/25 14:53 1.0 24 02/26/25 11:38 Nasal Cannula* Total Intake and Output 02/25/25 02/25/25 02/26/25 15:00 23:00 07:00 Intake Total 8 ml 8 ml 704 ml Output Total 800 ml 400 ml Balance 8 ml -792 ml 304 ml medications Current Medications Medications Dose Ordered Sig/Ophelia Route Start Time Stop Time Status Last Admin Dose Admin Ondansetron HCl 4 mg Q4HP PRN IV 02/22/25 09:15 Docusate Sodium 100 mg BIDPRN PRN PO 02/22/25 09:15 Acetaminophen 650 mg Q6HP PRN PO 02/22/25 09:15 02/26/25 10:18 650 MG Nitroglycerin 0.4 mg Q5MINP PRN SL 02/22/25 09:15 Morphine Sulfate 2 mg Q30M PRN IV 02/22/25 09:15 Atorvastatin Calcium 40 mg HS PO 02/22/25 22:00 02/25/25 21:41 40 MG Patient Own Medication 1 tab DAILY PO 02/22/25 10:00 02/26/25 17:34 1 TAB Ceftriaxone Sodium 50 ml @ 100 mls/hr DAILY@09 IV 02/22/25 10:00 02/26/25 10:10 100 MLS/HR Aspirin 81 mg DAILY PO 02/23/25 10:00 02/26/25 10:10 81 MG Ipratropium [place] 0.5 mg Q6HWA NEB 02/23/25 12:00 02/26/25 11:38 0.5 MG Albuterol 2.5 mg Q6HWA NEB 02/23/25 12:00 02/26/25 11:37 2.5 MG Lidocaine 1 patch DAILY TOP 02/24/25 10:00 02/26/25 10:10 1 PATCH Oseltamivir Phosphate 30 mg Q24H PO 02/23/25 22:00 02/28/25 21:59 02/25/25 21:41 30 MG Acetaminophen/ Hydrocodone Bitart 1 tab Q4HP PRN PO 02/23/25 16:45 Sodium Chloride 1,000 ml @ 75 mls/hr [id number] IV 02/25/25 19:00 02/25/25 22:00 75 MLS/HR Warfarin Sodium RX PROTOCOL PER PHARMACY PO 02/26/25 09:30 Heparin Sodium/ Dextrose 250 ml @ 8 mls/hr Q24H IV 02/26/25 10:30 02/26/25 10:30 8 MLS/HR Carvedilol 6.25 mg Q12HR PO 02/26/25 22:00 laboratory and microbiology Laboratory Tests 02/26/25 07:00 Test 02/26/25 07:00 Range/Units Serum Glucose 112 H 74-106 mg/dL Microbiology Date/Time Source Procedure Growth Status 02/24/25 13:00 Urine - Midstream Clean Catch Urine Culture - Preliminary Resulted 02/22/25 04:05 Blood Blood Culture - Final Klebsiella pneumoniae Complete Problem List/Assessment/Plan Problem List/Assessment/Plan Acute kidney injury superimposed Chronic Kidney Disease secondary hemodynamic mediated in the setting of sepsis [id number] Bladder mass Sepsis Klebsiella bacteremia Hypertension NSTEMI CVA Anemia of chronic of Kidney disease Thrombocytopenia Elevated liver enzymes Hypoalbuminemia Positive influenza recommendations IV fluids Urology consult for bladder mass evaluation --- Renally dose antibiotics for GFR Kidney ultrasound noted 1 g proteinuria approximately Plan discussed with: Patient, Daughter My Orders My Orders Orders - SUSHIL ROMERO MD Procedure Category Date Status Time Sodium Chloride 0.9% PHA 02/25/25 In Process 19:00 Dietary Evaluation Review Recommendations by RD: Protein Supplementation Comments: 1) Initiate Ensure Enlive qd 2) Encourage optimal PO intake 3) Follow-up with nephrology and cardiology 4) Continue to monitor I&O, labs, and skin integrity Expected Outcomes/Goals: 1) appetite and labs to improve 2) f/u in 3-5 days SUSHIL ROMERO MD Feb 26, 2025 18:09
[2025-02-26] MEDS: CARVEDILOL 3.125 MG TAB PO SCH (21:25)
[2025-02-26 23:34] LABS: INR 1.14 (0.9-1.15); Partial Thromboplastin Time 69.9 SEC (24.5-34.5); Prothrombin Time 11.9 sec (9.3-11.8)
[2025-02-27] VITALS (15 sets, daily range): BP systolic 131–157; BP diastolic 64–76; PULSE 58–74; RESP 14–19; TEMP 97.1–99.8; O2SAT 95–100
[2025-02-27 06:33] LABS: Basophils # (auto) 0.1 10 ^3/uL (0-0.2); Basophils % (auto) 0.7 % (0.0-2.0); Eosinophils # (auto) 0.2 10 ^3/uL (0-0.8); Eosinophils % (auto) 3.3 % (0.0-7.0); Hemoglobin 9.7 g/dL (13.5-17.5); Lymphocytes # (auto) 0.8 10 ^3/uL (0.4-5.4); Lymphocytes % (auto) 10.9 % (10.0-50.0); Mean Corpuscular Hemoglobin 30.7 pg (28.0-32.0); Mean Corpuscular Hgb Conc. 34.7 g/dL (32.0-36.0); Mean Corpuscular Volume 88.3 fL (80.0-100.0); Monocytes # (auto) 1.2 10 ^3/uL (0-1.3); Monocytes % (auto) 16.4 % (0.0-12.0); Neutrophils # (auto) 5.2 10 ^3/uL (1.6-8.6); Neutrophils % (auto) 68.7 % (37.0-80.0); Nucleated Red Blood Cells % 0.1 %; Platelet Count (auto) 125 10^3/uL (140-450); Red Blood Cells 3.18 10^6/uL (4.5-5.90); Red Cell Distribution Width 14.7 % (11.8-14.3); White Blood Cell 7.6 10^3/uL (4.4-10.8)
[2025-02-27 06:48] LABS: INR 1.19 (0.9-1.15); Partial Thromboplastin Time 64.7 SEC (24.5-34.5); Prothrombin Time 12.4 sec (9.3-11.8)
--- NOTE | 2025-02-27 08:27 | DVHPN2 ---
Reviewed: Care Plan, H&P, Labs, Medications, Previous Orders, Radiology Changes from previous H/P or p: No Changes Eyes: No Pain, No Vision change, No Conjunctivae inflammation, No Eyelid inflammation, No Other, No Redness ENT: No Ear pain, No Ear discharge, No Nose pain, No Nose discharge, No Nose congestion, No Mouth pain, No Mouth swelling, No Throat pain, No Throat swelling, No Other Cardiovascular: No Chest Pain, No Palpitations, No Orthopnea, No Paroxysmal Noc. Dyspnea, No Edema, No Lt Headedness, No Other Respiratory: No Cough, No Dry, No Shortness of breath, No SOB with excertion, No Wheezing, No Hemoptysis, No Pleuritic Pain, No Sputum, No Other Gastrointestinal: No Nausea, No Vomiting, No Abdominal Pain, No Diarrhea, No Constipation, No Melena, No Hematochezia, No Other Genitourinary: No Dysuria, No Frequency, No Incontinence, No Hematuria, No Retention, No Other Musculoskeletal: No other, No neck pain, No shoulder pain, No arm pain, No back pain, No hand pain, No leg pain, No foot pain Skin: No Rash, No Lesions, No Jaundice, No Bruising, No Other Objective Vitals Vital Signs Date Time Temp Pulse Resp B/P (MAP) Pulse Ox O2 Delivery O2 Flow Rate FiO2 02/27/25 05:43 145/69 (94) 02/27/25 05:28 66 18 99 02/27/25 05:22 Room Air* 0 21 21 02/27/25 05:00 99.0 99.0 Intake/Output Intake and Output 02/27/25 07:00 Intake Total 3514 ml Output Total 2550 ml Balance 964 ml Intake Oral 2400 ml IV Total 1114 ml Output Urine Total 2550 ml # Bowel Movements 1 Medications Current Medications Medications Dose Ordered Sig/Ophelia Route Start Time Stop Time Status Last Admin Dose Admin Ondansetron HCl 4 mg Q4HP PRN IV 02/22/25 09:15 Docusate Sodium 100 mg BIDPRN PRN PO 02/22/25 09:15 Acetaminophen 650 mg Q6HP PRN PO 02/22/25 09:15 02/26/25 10:18 650 MG Nitroglycerin 0.4 mg Q5MINP PRN SL 02/22/25 09:15 Morphine Sulfate 2 mg Q30M PRN IV 02/22/25 09:15 Atorvastatin Calcium 40 mg HS PO 02/22/25 22:00 02/26/25 21:26 40 MG Patient Own Medication 1 tab DAILY PO 02/22/25 10:00 02/26/25 17:34 1 TAB Ceftriaxone Sodium 50 ml @ 100 mls/hr DAILY@09 IV 02/22/25 10:00 02/26/25 10:10 100 MLS/HR Aspirin 81 mg DAILY PO 02/23/25 10:00 02/26/25 10:10 81 MG Ipratropium [place] 0.5 mg Q6HWA [facility] 02/23/25 12:00 02/27/25 05:21 0.5 MG Albuterol 2.5 mg Q6HWA [facility] 02/23/25 12:00 02/27/25 05:21 2.5 MG Lidocaine 1 patch DAILY TOP 02/24/25 10:00 02/26/25 10:10 1 PATCH Oseltamivir Phosphate 30 mg Q24H PO 02/23/25 22:00 02/28/25 21:59 02/26/25 21:26 30 MG Acetaminophen/ Hydrocodone Bitart 1 tab Q4HP PRN PO 02/23/25 16:45 Sodium Chloride 1,000 ml @ 75 mls/hr [id number] IV 02/25/25 19:00 02/25/25 22:00 75 MLS/HR Warfarin Sodium RX PROTOCOL PER PHARMACY PO 02/26/25 09:30 Heparin Sodium/ Dextrose 250 ml @ 8 mls/hr Q24H IV 02/26/25 10:30 02/26/25 10:30 8 MLS/HR Carvedilol 6.25 mg Q12HR PO 02/26/25 22:00 02/26/25 21:25 6.25 MG Laboratory Results Laboratory Tests 02/26/25 07:00 02/27/25 04:56 Coagulation Test 02/26/25 16:30 02/26/25 22:59 02/27/25 04:56 Prothrombin Time 12.4 sec (9.3-11.8) H 11.9 sec (9.3-11.8) H 12.4 sec (9.3-11.8) H Prothrombin Time INR 1.19 (0.9-1.15) H 1.14 (0.9-1.15) 1.19 (0.9-1.15) H Activated Partial Thromboplast Time 53.3 SEC (24.5-34.5) H 69.9 SEC (24.5-34.5) H 64.7 SEC (24.5-34.5) H Urinalysis Test 02/24/25 13:00 Urine Color Yellow (Yellow) Urine Clarity Clear (Clear) Urine pH 6.0 (5.0-9.0) Urine Specific [place] 1.016 (1.001-1.035) Urine Protein 1+ (Negative) H Urine Ketones Negative (Negative) Urine Blood 1+ /uL (Negative) H Urine Nitrite Negative (Negative) Urine Bilirubin Negative (Negative) Urine Urobilinogen 6 mg/dL (Negative) Urine Leukocyte Esterase Negative /uL (Negative) Urine RBC 24 /hpf (0 - 3) Urine Microscopic WBC 6 /HPF (0-3) H Urine Squamous Epithelial Cells Few /hpf (<5) Urine Bacteria None seen /hpf (None Seen) Urine Creatinine 62.63 mg/dL (30.0-125.0) Urine Protein/Creatinine Ratio 1.14 Urine Sodium 76 mmol/L (40-220) Urine Glucose Normal mg/dL (Normal) Urine Total Protein 71.4 mg/dL (1-14) H Microbiology Microbiology Date/Time Source Procedure Growth Status 02/24/25 13:00 Urine - Midstream Clean Catch Urine Culture - Preliminary Resulted 02/22/25 04:05 Blood Blood Culture - Final Klebsiella pneumoniae Complete Labs and/or images reviewed: Labs reviewed by me, Image(s) reviewed by me Assessment/Plan Assessment/Plan Syncope Type B influenza: Tamiflu Sepsis secondary to community-acquired pneumonia: Rocephin azithromycin NSTEMI type 1 versus type 2: Cardiology consult by Dr. Benjamin appreciated on heparin, left heart catheterization by Dr. Grier 02-25-25 shows no coronary artery disease, DC heparin, continue Coumadin for mechanical mitral valve S/p mechanical fall Thrombocytopenia platelets 72 K, will watch Hypoalbuminemia albumin 2.9 History of congestive heart failure S/p mechanical mitral valve on Coumadin Right shoulder pain status post mechanical fall: X-ray neg: [place] Essential hypertension ? bladder mass, urology consult appreciated, cystogram x-ray negative History of CABG History of CVA Dehydration Severe malnutrition D-dimer 1.[address] head negative Carotid ultrasound negative Chest x-ray negative Right shoulder x-ray negative Time spent 55 minutes Patient is full code Continue current management Daughter at bed side Plan discussed with: Patient My Orders Orders - WOLFGANG SANTIAGO MD Procedure Category Date Status Time Warfarin Per Rx PHA 02/26/25 In Process Protocol (Coumadin 09:30 Coumadin Per Pharmacy ROBYN 02/26/25 In Process Protcol 17:00 Notify Provider NOTICE 02/26/25 Transmitted Malnutrition 16:54 Nutritional NOURISH 02/26/25 Transmitted Supplements 16:54 Dietary NOTICE 02/26/25 Transmitted Recommendations 16:54 Date of Service: Feb 27, 2025 Billing Provider: WOLFGANG SANTIAGO MD Common Visit Codes: [id number] INP/OBS CARE(HIGH) WOLFGANG SANTIAGO MD Feb 27, 2025 08:27
--- NOTE | 2025-02-27 10:45 | DVHPN2 ---
Consult Progress Note Subjective Patient reports: No new complaints Review of Systems: CVS:Normal (Denies any active overnight cardiac symptoms chest pain, palpitations, shortness or breath) Objective vital signs Vital Sign Date Time Temp Pulse Resp B/P (MAP) Pulse Ox O2 Delivery O2 Flow Rate FiO2 02/27/25 09:54 97.9 71 19 149/76 (100) 98 97.9 02/27/25 08:00 Room Air* 0 21 Total Intake and Output 02/26/25 02/26/25 02/27/25 15:00 23:00 07:00 Intake Total 50 ml 2664 ml 800 ml Output Total 1700 ml 850 ml Balance 50 ml 964 ml -50 ml medications Current Medications Medications Dose Ordered Sig/Ophelia Route Start Time Stop Time Status Last Admin Dose Admin Ondansetron HCl 4 mg Q4HP PRN IV 02/22/25 09:15 Docusate Sodium 100 mg BIDPRN PRN PO 02/22/25 09:15 Acetaminophen 650 mg Q6HP PRN PO 02/22/25 09:15 02/26/25 10:18 650 MG Nitroglycerin 0.4 mg Q5MINP PRN SL 02/22/25 09:15 Morphine Sulfate 2 mg Q30M PRN IV 02/22/25 09:15 Atorvastatin Calcium 40 mg HS PO 02/22/25 22:00 02/26/25 21:26 40 MG Patient Own Medication 1 tab DAILY PO 02/22/25 10:00 02/26/25 17:34 1 TAB Ceftriaxone Sodium 50 ml @ 100 mls/hr DAILY@09 IV 02/22/25 10:00 02/27/25 09:09 100 MLS/HR Aspirin 81 mg DAILY PO 02/23/25 10:00 02/27/25 09:09 81 MG Ipratropium [place] 0.5 mg Q6HWA NEB 02/23/25 12:00 02/27/25 05:21 0.5 MG Albuterol 2.5 mg Q6HWA NEB 02/23/25 12:00 02/27/25 05:21 2.5 MG Lidocaine 1 patch DAILY TOP 02/24/25 10:00 02/27/25 09:09 1 PATCH Oseltamivir Phosphate 30 mg Q24H PO 02/23/25 22:00 02/28/25 21:59 02/26/25 21:26 30 MG Acetaminophen/ Hydrocodone Bitart 1 tab Q4HP PRN PO 02/23/25 16:45 Sodium Chloride 1,000 ml @ 75 mls/hr [id number] IV 02/25/25 19:00 02/25/25 22:00 75 MLS/HR Warfarin Sodium RX PROTOCOL PER PHARMACY PO 02/26/25 09:30 Heparin Sodium/ Dextrose 250 ml @ 8 mls/hr Q24H IV 02/26/25 10:30 02/27/25 09:31 8 MLS/HR Carvedilol 6.25 mg Q12HR PO 02/26/25 22:00 02/27/25 09:08 6.25 MG Examination: LUNGS:Abnormal, CVS:Normal (Telemetry reviewed, consistent with sinus rhythm at 71 beats per minute. 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 Subtherapeutic INR 1.49 Positive influenza B Plan: Restart warfarin Heparin per pharmacy protocol for bridging with warfarin until INR therapeutic 2.5-3.5 S/p right and left heart catheterization, coronary angiogram showing normal coronaries. Due to patient having a very high pre-Oswald score, low to minimal IV fluid hydration at 30 cc per hour currently holding Nephrology consultation recommended to optimize renal function Negative head CT Monitor blood pressure Pain management Rest of the plan as per course of hospitalization Echo reviewed, EF 35% with global LV hypokinesis. Normal functioning prosthetic mitral valve. Moderate pulmonary hypertension. RVSP 42 mmHg. Restart GDMT Coreg 6.25 mg p.o. twice daily. Ernesto/Arb and SG LT2 held for now in setting of elevated kidney function, plan to initiate once kidney function stable, cleared by Nephrology. Monitor close fluid volume status with gentle IV hydration for ERICKA. Follow up nephrology recs for diuresis on discharge. Kidney function improving, breathing stable on room air. Plan to start on Entresto once kidney function improves/resolves and if cleared by Nephrology. Patient is stable from Cardiology standpoint once INR therapeutic. Thank you so much for the opportunity to consult on your patient. Cardiology team will follow the patient. In case of any questions or concerns please feel free to reach out. Plan discussed with Dr. Grier Plan discussed with: Patient Dietary Evaluation Review Recommendations by RD: Protein Supplementation Comments: 1) Initiate Ensure Enlive qd 2) Encourage optimal PO intake 3) Follow-up with nephrology and cardiology 4) Continue to monitor I&O, labs, and skin integrity Expected Outcomes/Goals: 1) appetite and labs to improve 2) f/u in 3-5 days Date of Service: Feb 27, 2025 Billing Provider: MANE MARIE Common Visit Codes: [id number] INP/OBS CARE(HIGH) MANE MARIE Feb 27, 2025 10:45
--- NOTE | 2025-02-27 11:42 | DVHPN2 ---
Progress Note Date Seen: Feb 27, 2025 Medical Necessity Reason Pt with a Central, PICC or Fol: No Subjective Patient reports: No new complaints Review of Systems: Deferred Objective vital signs Vital Sign Date Time Temp Pulse Resp B/P (MAP) Pulse Ox O2 Delivery O2 Flow Rate FiO2 02/27/25 11:26 65 18 100 02/27/25 11:20 Room Air 0.0 02/27/25 11:20 21 21 02/27/25 10:08 147/73 02/27/25 09:54 97.9 97.9 Total Intake and Output 02/26/25 02/26/25 02/27/25 15:00 23:00 07:00 Intake Total 50 ml 2664 ml 800 ml Output Total 1700 ml 850 ml Balance 50 ml 964 ml -50 ml medications Current Medications Medications Dose Ordered Sig/Ophelia Route Start Time Stop Time Status Last Admin Dose Admin Ondansetron HCl 4 mg Q4HP PRN IV 02/22/25 09:15 Docusate Sodium 100 mg BIDPRN PRN PO 02/22/25 09:15 Acetaminophen 650 mg Q6HP PRN PO 02/22/25 09:15 02/26/25 10:18 650 MG Nitroglycerin 0.4 mg Q5MINP PRN SL 02/22/25 09:15 Morphine Sulfate 2 mg Q30M PRN IV 02/22/25 09:15 Atorvastatin Calcium 40 mg HS PO 02/22/25 22:00 02/26/25 21:26 40 MG Patient Own Medication 1 tab DAILY PO 02/22/25 10:00 02/27/25 11:20 1 TAB Ceftriaxone Sodium 50 ml @ 100 mls/hr DAILY@09 IV 02/22/25 10:00 02/27/25 09:09 100 MLS/HR Aspirin 81 mg DAILY PO 02/23/25 10:00 02/27/25 09:09 81 MG Ipratropium [place] 0.5 mg Q6HWA NEB 02/23/25 12:00 02/27/25 11:20 0.5 MG Albuterol 2.5 mg Q6HWA NEB 02/23/25 12:00 02/27/25 11:20 2.5 MG Lidocaine 1 patch DAILY TOP 02/24/25 10:00 02/27/25 09:09 1 PATCH Oseltamivir Phosphate 30 mg Q24H PO 02/23/25 22:00 02/28/25 21:59 02/26/25 21:26 30 MG Acetaminophen/ Hydrocodone Bitart 1 tab Q4HP PRN PO 02/23/25 16:45 Sodium Chloride 1,000 ml @ 75 mls/hr [id number] IV 02/25/25 19:00 02/27/25 11:23 75 MLS/HR Warfarin Sodium RX PROTOCOL PER PHARMACY PO 02/26/25 09:30 Heparin Sodium/ Dextrose 250 ml @ 8 mls/hr Q24H IV 02/26/25 10:30 02/27/25 09:31 8 MLS/HR Carvedilol 6.25 mg Q12HR PO 02/26/25 22:00 02/27/25 09:08 6.25 MG Examination: GENERAL:Normal, HEENT:Normal, NECK:Normal, LUNGS:Abnormal, CVS:Normal, ABDOMEN:Normal, MSK:Normal, SKIN:Normal, NEURO:Normal, :Normal laboratory and microbiology Laboratory Tests 02/27/25 04:56 02/26/25 07:00 Test 02/26/25 07:00 Range/Units Serum Glucose 112 H 74-106 mg/dL Microbiology Date/Time Source Procedure Growth Status 02/24/25 13:00 Urine - Midstream Clean Catch Urine Culture - Final Complete 02/22/25 04:05 Blood Blood Culture - Final Klebsiella pneumoniae Complete Problem List/Assessment/Plan Problem List/Assessment/Plan Acute kidney injury superimposed Chronic Kidney Disease secondary hemodynamic mediated in the setting of sepsis [id number] -sees Bladder cancer --sees Sepsis Klebsiella bacteremia Hypertension NSTEMI CVA Anemia of chronic of Kidney disease Thrombocytopenia Elevated liver enzymes Hypoalbuminemia Positive influenza recommendations dc IV fluids Urology consult for bladder cancer ---eval noted ---seeing as outpt --- Renally dose antibiotics for GFR Kidney ultrasound noted 1 g proteinuria approximately Plan discussed with: Patient, Daughter Dietary Evaluation Review Recommendations by RD: Protein Supplementation Comments: 1) Initiate Ensure Enlive qd 2) Encourage optimal PO intake 3) Follow-up with nephrology and cardiology 4) Continue to monitor I&O, labs, and skin integrity Expected Outcomes/Goals: 1) appetite and labs to improve 2) f/u in 3-5 days SUSHIL ROMERO MD Feb 27, 2025 11:42
[2025-02-27] MEDS: WARFARIN SODIUM 5 MG TAB PO ONE (17:36)
[2025-02-27] MEDS: HYDROcodone-ACET 5/325MG TAB PO PRN (22:29)
[2025-02-28] VITALS (9 sets, daily range): BP systolic 142–157; BP diastolic 69–70; PULSE 63–72; RESP 15–18; TEMP 97.5–98.6; O2SAT 95–100
[2025-02-28 06:10] LABS: Basophils # (auto) 0.1 10 ^3/uL (0-0.2); Basophils % (auto) 0.8 % (0.0-2.0); Eosinophils # (auto) 0.4 10 ^3/uL (0-0.8); Eosinophils % (auto) 4.8 % (0.0-7.0); Hematocrit 27.8 % (41.0-53.0); Hemoglobin 9.8 g/dL (13.5-17.5); Lymphocytes # (auto) 1.1 10 ^3/uL (0.4-5.4); Lymphocytes % (auto) 15.1 % (10.0-50.0); Mean Corpuscular Hemoglobin 30.8 pg (28.0-32.0); Mean Corpuscular Hgb Conc. 35.3 g/dL (32.0-36.0); Mean Corpuscular Volume 87.3 fL (80.0-100.0); Monocytes # (auto) 1.1 10 ^3/uL (0-1.3); Monocytes % (auto) 14.6 % (0.0-12.0); Neutrophils # (auto) 4.9 10 ^3/uL (1.6-8.6); Neutrophils % (auto) 64.7 % (37.0-80.0); Platelet Count (auto) 174 10^3/uL (140-450); Red Blood Cells 3.18 10^6/uL (4.5-5.90); Red Cell Distribution Width 14.5 % (11.8-14.3); White Blood Cell 7.5 10^3/uL (4.4-10.8)
[2025-02-28 06:20] LABS: INR 1.25 (0.9-1.15); Partial Thromboplastin Time 41.9 SEC (24.5-34.5)
[2025-02-28] MEDS: HEPARIN DRIP/D5W 100UNITS/ML 250 ML IV SCH (07:30)
[2025-02-28] MEDS ORDERED: LEVO500T91 PO (09:09)
--- NOTE | 2025-02-28 09:11 | DVHPN2 ---
Reviewed: Care Plan, H&P, Labs, Medications, Previous Orders, Radiology Changes from previous H/P or p: No Changes Eyes: No Pain, No Vision change, No Conjunctivae inflammation, No Eyelid inflammation, No Other, No Redness ENT: No Ear pain, No Ear discharge, No Nose pain, No Nose discharge, No Nose congestion, No Mouth pain, No Mouth swelling, No Throat pain, No Throat swelling, No Other Cardiovascular: No Chest Pain, No Palpitations, No Orthopnea, No Paroxysmal Noc. Dyspnea, No Edema, No Lt Headedness, No Other Respiratory: No Cough, No Dry, No Shortness of breath, No SOB with excertion, No Wheezing, No Hemoptysis, No Pleuritic Pain, No Sputum, No Other Gastrointestinal: No Nausea, No Vomiting, No Abdominal Pain, No Diarrhea, No Constipation, No Melena, No Hematochezia, No Other Genitourinary: No Dysuria, No Frequency, No Incontinence, No Hematuria, No Retention, No Other Musculoskeletal: No other, No neck pain, No shoulder pain, No arm pain, No back pain, No hand pain, No leg pain, No foot pain Skin: No Rash, No Lesions, No Jaundice, No Bruising, No Other Objective Vitals Vital Signs Date Time Temp Pulse Resp B/P (MAP) Pulse Ox O2 Delivery O2 Flow Rate FiO2 02/28/25 07:48 68 16 99 02/28/25 07:42 Room Air 0.0 02/28/25 07:42 21 02/28/25 05:00 98.6 151/69 (96) 98.6 Intake/Output Intake and Output 02/28/25 07:00 Intake Total 1017 ml Output Total 576 ml Balance 441 ml Intake Oral 625 ml IV Total 392 ml Output Urine Total 575 ml Stool Total 1 ml # Voids 6 Medications Current Medications Medications Dose Ordered Sig/Ophelia Route Start Time Stop Time Status Last Admin Dose Admin Ondansetron HCl 4 mg Q4HP PRN IV 02/22/25 09:15 Docusate Sodium 100 mg BIDPRN PRN PO 02/22/25 09:15 Acetaminophen 650 mg Q6HP PRN PO 02/22/25 09:15 02/26/25 10:18 650 MG Nitroglycerin 0.4 mg Q5MINP PRN SL 02/22/25 09:15 Morphine Sulfate 2 mg Q30M PRN IV 02/22/25 09:15 Atorvastatin Calcium 40 mg HS PO 02/22/25 22:00 02/27/25 21:09 40 MG Patient Own Medication 1 tab DAILY PO 02/22/25 10:00 02/27/25 11:20 1 TAB Ceftriaxone Sodium 50 ml @ 100 mls/hr DAILY@09 IV 02/22/25 10:00 02/27/25 09:09 100 MLS/HR Aspirin 81 mg DAILY PO 02/23/25 10:00 02/27/25 09:09 81 MG Ipratropium [place] 0.5 mg Q6HWA [facility] 02/23/25 12:00 02/28/25 07:42 0.5 MG Albuterol 2.5 mg Q6HWA [facility] 02/23/25 12:00 02/28/25 07:42 2.5 MG Lidocaine 1 patch DAILY TOP 02/24/25 10:00 02/27/25 09:09 1 PATCH Oseltamivir Phosphate 30 mg Q24H PO 02/23/25 22:00 02/28/25 21:59 02/27/25 21:10 30 MG Acetaminophen/ Hydrocodone Bitart 1 tab Q4HP PRN PO 02/23/25 16:45 02/27/25 22:29 1 TAB Warfarin Sodium RX PROTOCOL PER PHARMACY PO 02/26/25 09:30 Carvedilol 6.25 mg Q12HR PO 02/26/25 22:00 02/27/25 21:10 6.25 MG Heparin Sodium/ Dextrose 250 ml @ 10 mls/hr Q24H IV 02/28/25 07:30 02/28/25 07:30 10 MLS/HR Laboratory Results Laboratory Tests 02/26/25 07:00 02/28/25 04:55 Coagulation Test 02/28/25 04:55 Prothrombin Time 13.0 sec (9.3-11.8) H Prothrombin Time INR 1.25 (0.9-1.15) H Activated Partial Thromboplast Time 41.9 SEC (24.5-34.5) H Urinalysis Test 02/24/25 13:00 Urine Color Yellow (Yellow) Urine Clarity Clear (Clear) Urine pH 6.0 (5.0-9.0) Urine Specific [place] 1.016 (1.001-1.035) Urine Protein 1+ (Negative) H Urine Ketones Negative (Negative) Urine Blood 1+ /uL (Negative) H Urine Nitrite Negative (Negative) Urine Bilirubin Negative (Negative) Urine Urobilinogen 6 mg/dL (Negative) Urine Leukocyte Esterase Negative /uL (Negative) Urine RBC 24 /hpf (0 - 3) Urine Microscopic WBC 6 /HPF (0-3) H Urine Squamous Epithelial Cells Few /hpf (<5) Urine Bacteria None seen /hpf (None Seen) Urine Creatinine 62.63 mg/dL (30.0-125.0) Urine Protein/Creatinine Ratio 1.14 Urine Sodium 76 mmol/L (40-220) Urine Glucose Normal mg/dL (Normal) Urine Total Protein 71.4 mg/dL (1-14) H Microbiology Microbiology Date/Time Source Procedure Growth Status 02/24/25 13:00 Urine - Midstream Clean Catch Urine Culture - Final Complete 02/22/25 04:05 Blood Blood Culture - Final Klebsiella pneumoniae Complete Labs and/or images reviewed: Labs reviewed by me, Image(s) reviewed by me Assessment/Plan Assessment/Plan Syncope Type B influenza: Tamiflu Sepsis secondary to community-acquired pneumonia: Rocephin azithromycin Bacteremia with Klebsiella pneumoniae sensitive to Rocephin and Levaquin NSTEMI type 1 versus type 2: Cardiology consult by Dr. Benjamin appreciated on heparin, left heart catheterization by Dr. Grier 02-25-25 shows no coronary artery disease, DC heparin, continue Coumadin for mechanical mitral valve S/p mechanical fall Thrombocytopenia platelets 72 K, will watch Hypoalbuminemia albumin 2.9 History of congestive heart failure S/p mechanical mitral valve on Coumadin Right shoulder pain status post mechanical fall: X-ray neg: [place] Essential hypertension ? bladder mass, urology consult appreciated, cystogram x-ray negative History of CABG History of CVA Dehydration Severe malnutrition D-dimer 1.[address] head negative Carotid ultrasound negative Chest x-ray negative Right shoulder x-ray negative Time spent 55 minutes Patient is full code Continue current management Daughter at bed side Plan discussed with: Patient My Orders Orders - WOLFGANG SANTIAGO MD Procedure Category Date Status Time Coumadin Per Pharmacy ROBYN 02/27/25 In Process Protcol 17:00 Date of Service: Feb 28, 2025 Billing Provider: WOLFGANG SANTIAGO MD Common Visit Codes: [id number]/[id number] DISCH DAY >30min WOLFGANG SANTIAGO MD Feb 28, 2025 09:11
--- NOTE | 2025-02-28 09:16 | DVHDS2 ---
Discharge Summary Date of Admission Feb 22, 2025 at 09:08 Date of Discharge: Feb 28, 2025 Admitting Diagnosis Syncope Wounds: Left heart catheterization Labs/Diagnostic Data: Laboratory Results Test 02/28/25 04:55 02/26/25 07:00 02/24/25 13:00 02/24/25 05:05 White Blood Count 7.5 10^3/uL (4.4-10.8) Red Blood Count 3.18 10^6/uL (4.5-5.90) Hemoglobin 9.8 g/dL (13.5-17.5) Hematocrit 27.8 % (41.0-53.0) Mean Corpuscular Volume 87.3 fL (80.0-100.0) Mean Corpuscular Hemoglobin 30.8 pg (28.0-32.0) Mean Corpuscular Hemoglobin Concent 35.3 g/dL (32.0-36.0) Red Cell Distribution Width 14.5 % (11.8-14.3) Platelet Count 174 10^3/uL (140-450) Mean Platelet Volume 8.6 fL (6.9-10.8) Neutrophils (%) (Auto) 64.7 % (37.0-80.0) Lymphocytes (%) (Auto) 15.1 % (10.0-50.0) Monocytes (%) (Auto) 14.6 % (0.0-12.0) Eosinophils (%) (Auto) 4.8 % (0.0-7.0) Basophils (%) (Auto) 0.8 % (0.0-2.0) Neutrophils # (Auto) 4.9 10 ^3/uL (1.6-8.6) Lymphocytes # (Auto) 1.1 10 ^3/uL (0.4-5.4) Monocytes # (Auto) 1.1 10 ^3/uL (0-1.3) Eosinophils # (Auto) 0.4 10 ^3/uL (0-0.8) Basophils # (Auto) 0.1 10 ^3/uL (0-0.2) Nucleated Red Blood Cells 0.0 % Prothrombin Time 13.0 sec (9.3-11.8) Prothrombin Time INR 1.25 (0.9-1.15) Activated Partial Thromboplast Time 41.9 SEC (24.5-34.5) Platelet Estimate Adequate Clumped Platelets Few Anisocytosis (manual) Slight Sodium Level 140 mmol/L (136-145) Potassium Level 4.3 mmol/L (3.5-5.1) Chloride Level 108 mmol/L (98-107) Carbon Dioxide Level 22 mmol/L (20-31) Anion Gap 10 (5-15) Blood Urea Nitrogen 37 mg/dL (9-23) Creatinine 1.35 mg/dL (0.700-1.30) Glomerular Filtration Rate Calc 51 mL/min (>90) BUN/Creatinine Ratio 27.4 (10.0-20.0) Serum Glucose 112 mg/dL (74-106) Calcium Level 9.2 mg/dL (8.7-10.4) Total Bilirubin 0.8 mg/dL (0.2-1.0) Aspartate Amino Transferase (AST) 42 U/L (<34) Alanine Aminotransferase (ALT) 65 U/L (7-40) Alkaline Phosphatase 84 U/L (46-116) Total Protein 5.6 g/dL (5.7-8.2) Albumin 3.3 g/dL (3.2-4.8) Urine Color Yellow (Yellow) Urine Clarity Clear (Clear) Urine pH 6.0 (5.0-9.0) Urine Specific [place] 1.016 (1.001-1.035) Urine Protein 1+ (Negative) Urine Ketones Negative (Negative) Urine Blood 1+ /uL (Negative) Urine Nitrite Negative (Negative) Urine Bilirubin Negative (Negative) Urine Urobilinogen 6 mg/dL (Negative) Urine Leukocyte Esterase Negative /uL (Negative) Urine RBC 24 /hpf (0 - 3) Urine Microscopic WBC 6 /HPF (0-3) Urine Squamous Epithelial Cells Few /hpf (<5) Urine Bacteria None seen /hpf (None Seen) Urine Creatinine 62.63 mg/dL (30.0-125.0) Urine Protein/Creatinine Ratio 1.14 Urine Sodium 76 mmol/L (40-220) Urine Glucose Normal mg/dL (Normal) Urine Total Protein 71.4 mg/dL (1-14) Vitamin D 25-Hydroxy 27.5 ng/mL (30.0-100) Parathyroid Hormone (Intact) 153.1 pg/mL (18.4-80.1) Test 02/24/25 05:02 02/23/25 10:56 02/23/25 05:02 02/22/25 18:03 Phosphorus Level 2.7 mg/dL (2.4-5.1) Magnesium Level 2.1 mg/dL (1.6-2.6) D-Dimer, Quantitative 1.34 mg/L FEU (0.0-0.49) Troponin I High Sensitivity 1030 ng/L (</=54) Differential Total Cells Counted 100.0 (100) Neutrophils % (Manual) 77 (37.0-80.0) Band Neutrophils % (Manual) 11 Lymphocytes % (Manual) 6 (10.0-50.0) Monocytes % (Manual) 5 (0-12) Eosinophils % (Manual) 1 (0-7) Basophils % (Manual) 0 (0.0-2.0) Metamyelocytes % (manual) 0 Myelocytes % (Manual) 0 Promyelocytes % (Manual) 0 Blast Cells % (Manual) 0 Reactive Lymphocytes 0 Test 02/22/25 16:30 02/22/25 06:23 02/22/25 04:04 Influenza Type A Antigen Negative (Negative) Influenza Type B Antigen Positive (Negative) SARS-CoV-2 Antigen (Rapid) Negative (NEGATIVE) Lactic Acid Level 2.1 mmol/L (0.4-2.0) Hemoglobin A1c 5.2 % A1C (<5.7) B-Type Natriuretic Peptide 544.70 pg/mL (0-100) Triglycerides Level 99 mg/dL (< 150) Cholesterol Level 91 mg/dL (< 200) LDL Cholesterol 46 mg/dL (< 100) HDL Cholesterol 22 mg/dL (40-59) Thyroid Stimulating Hormone (TSH) 1.34 uIU/mL (0.55-4.78) Other Laboratory Tests 02/28/25 04:55 02/26/25 07:00 Brief Hx & Hospital Course: 84-year-old with multiple medical problems including congestive heart failure status post mechanical mitral valve on Coumadin hypotension CABG CVA severe malnutrition burden for syncopal episode. Found to have type B influenza treated with the Tamiflu patient also had sepsis secondary to community-acquired pneumonia also bacteremia with a Klebsiella pneumoniae treated with Rocephin also sensitive to Levaquin non ST-elevation [place] type 1 underwent left heart catheterization by Dr. Grier 02/25/2025 showed no coronary artery disease he was on heparin which was discontinued and Coumadin was resumed patient has chronic thrombocytopenia platelets 72 K. patient complained of pain in the right shoulder x-ray was negative D-dimer is elevated 1.[address] head negative carotid ultrasound negative chest x-ray was negative. At the time of discharge vital signs are stable afebrile. Discharged home. He will resume all his home medications including Coumadin and follow up with his primary Dr and loop drier operator. General condition poor but satisfactory at the time of discharge Consults/Reason for consult Cardiology Dr. Grier Operations or Procedures Left heart catheterization Condition at Discharge: Fair Final Diagnosis/Problems List Syncope Type B influenza: Tamiflu Sepsis secondary to community-acquired pneumonia: Rocephin azithromycin Bacteremia with Klebsiella pneumoniae sensitive to Rocephin and Levaquin NSTEMI type 1 versus type 2: Cardiology consult by Dr. Benjamin appreciated on heparin, left heart catheterization by Dr. Grier 02-25-25 shows no coronary artery disease, DC heparin, continue Coumadin for mechanical mitral valve S/p mechanical fall Thrombocytopenia platelets 72 K, will watch Hypoalbuminemia albumin 2.9 History of congestive heart failure S/p mechanical mitral valve on Coumadin Right shoulder pain status post mechanical fall: X-ray neg: [place] Essential hypertension ? bladder mass, urology consult appreciated, cystogram x-ray negative History of CABG History of CVA Dehydration Severe malnutrition D-dimer 1.[address] head negative Carotid ultrasound negative Chest x-ray negative Right shoulder x-ray negative Discharge Disposition: Home Discharge Instruct/Medications Diet: Cardiac 2g Na,low cholest Activity: Light activity Follow Up/Referral: Follow up with the primary Dr Dr. Bo in one week Follow up with the loop drier operator Dr. Grier in two weeks Resume all previous home medications including Coumadin Medications: Levaquin Transmitted to pharmacy 39 (Time taken for discharge summary 39 minutes) Discharge Statement: "Patient was advised to return to the ER or call 911 if any headaches, dizziness, shortness of breath, chest pain, abdominal pain, bleeding, fevers, or worsening of medical condition. Patient was counseled about treatment plan, medications, possible side effects, patientverbalized understanding. All questions were answered to the best of my ability. This discharge took greater then 30 minutes in planning, reviewing documentation, counseling the patient, and discussing with other team members." ASSESSMENT ASSESSMENT Hospital Course Improved Assessment Syncope Type B influenza: Tamiflu Sepsis secondary to community-acquired pneumonia: Rocephin azithromycin Bacteremia with Klebsiella pneumoniae sensitive to Rocephin and Levaquin NSTEMI type 1 versus type 2: Cardiology consult by Dr. Benjamin appreciated on heparin, left heart catheterization by Dr. Grier 02-25-25 shows no coronary artery disease, DC heparin, continue Coumadin for mechanical mitral valve S/p mechanical fall Thrombocytopenia platelets 72 K, will watch Hypoalbuminemia albumin 2.9 History of congestive heart failure S/p mechanical mitral valve on Coumadin Right shoulder pain status post mechanical fall: X-ray neg: [place] Essential hypertension ? bladder mass, urology consult appreciated, cystogram x-ray negative History of CABG History of CVA Dehydration Severe malnutrition D-dimer 1.[address] head negative Carotid ultrasound negative Chest x-ray negative Right shoulder x-ray negative Date of Service: Feb 28, 2025 Billing Provider: WOLFGANG SANTIAGO MD Common Visit Codes: 26497-BTO/OBS DISCH DAY >30min WOLFGANG SANTIAGO MD Feb 28, 2025 09:16
--- NOTE | 2025-02-28 10:41 | DVHPN2 ---
Progress Note Date Seen: Feb 28, 2025 Medical Necessity Reason Pt with a Central, PICC or Fol: No Objective vital signs Vital Sign Date Time Temp Pulse Resp B/P (MAP) Pulse Ox O2 Delivery O2 Flow Rate FiO2 02/28/25 09:13 68 157/69 02/28/25 09:00 97.5 16 95 97.5 02/28/25 07:42 Room Air 0.0 02/28/25 07:42 21 Total Intake and Output 02/27/25 02/27/25 02/28/25 15:00 23:00 07:00 Intake Total 200 ml 321 ml 496 ml Output Total 150 ml 425 ml 1 ml Balance 50 ml -104 ml 495 ml medications Current Medications Medications Dose Ordered Sig/Ophelia Route Start Time Stop Time Status Last Admin Dose Admin Ondansetron HCl 4 mg Q4HP PRN IV 02/22/25 09:15 Docusate Sodium 100 mg BIDPRN PRN PO 02/22/25 09:15 Acetaminophen 650 mg Q6HP PRN PO 02/22/25 09:15 02/26/25 10:18 650 MG Nitroglycerin 0.4 mg Q5MINP PRN SL 02/22/25 09:15 Morphine Sulfate 2 mg Q30M PRN IV 02/22/25 09:15 Atorvastatin Calcium 40 mg HS PO 02/22/25 22:00 02/27/25 21:09 40 MG Patient Own Medication 1 tab DAILY PO 02/22/25 10:00 02/27/25 11:20 1 TAB Ceftriaxone Sodium 50 ml @ 100 mls/hr DAILY@09 IV 02/22/25 10:00 02/28/25 09:13 100 MLS/HR Aspirin 81 mg DAILY PO 02/23/25 10:00 02/28/25 09:13 81 MG Ipratropium [place] 0.5 mg Q6HWA NEB 02/23/25 12:00 02/28/25 07:42 0.5 MG Albuterol 2.5 mg Q6HWA NEB 02/23/25 12:00 02/28/25 07:42 2.5 MG Lidocaine 1 patch DAILY TOP 02/24/25 10:00 02/27/25 09:09 1 PATCH Oseltamivir Phosphate 30 mg Q24H PO 02/23/25 22:00 02/28/25 21:59 02/27/25 21:10 30 MG Acetaminophen/ Hydrocodone Bitart 1 tab Q4HP PRN PO 02/23/25 16:45 02/27/25 22:29 1 TAB Warfarin Sodium RX PROTOCOL PER PHARMACY PO 02/26/25 09:30 Carvedilol 6.25 mg Q12HR PO 02/26/25 22:00 02/28/25 09:13 6.25 MG Heparin Sodium/ Dextrose 250 ml @ 10 mls/hr Q24H IV 02/28/25 07:30 02/28/25 07:30 10 MLS/HR Examination: GENERAL:Normal, CVS:Normal laboratory and microbiology Laboratory Tests 02/28/25 04:55 02/26/25 07:00 Test 02/26/25 07:00 Range/Units Serum Glucose 112 H 74-106 mg/dL Microbiology Date/Time Source Procedure Growth Status 02/24/25 13:00 Urine - Midstream Clean Catch Urine Culture - Final Complete 02/22/25 04:05 Blood Blood Culture - Final Klebsiella pneumoniae Complete Problem List/Assessment/Plan Problem List/Assessment/Plan Acute kidney injury superimposed Chronic Kidney Disease secondary hemodynamic mediated in the setting of sepsis [id number] -sees Bladder cancer --sees Sepsis Klebsiella bacteremia Hypertension NSTEMI CVA Anemia of chronic of Kidney disease Thrombocytopenia Elevated liver enzymes Hypoalbuminemia Positive influenza Urology consult for bladder cancer ---eval noted ---seeing as outpt --- Renally dose antibiotics for GFR Kidney ultrasound noted 1 g proteinuria approximately return to renal clinic after Dc total care time 35mins Plan discussed with: Patient My Orders My Orders Orders - WILLAM HURD MD Procedure Category Date Status Time Basic Metabolic Panel LAB 02/28/25 Transmitted 10:37 Basic Metabolic Panel LAB 03/01/25 Verified 04:00 Dietary Evaluation Review Recommendations by RD: Protein Supplementation Comments: 1) Initiate Ensure Enlive qd 2) Encourage optimal PO intake 3) Follow-up with nephrology and cardiology 4) Continue to monitor I&O, labs, and skin integrity Expected Outcomes/Goals: 1) appetite and labs to improve 2) f/u in 3-5 days WILLAM HURD MD Feb 28, 2025 10:41
[2025-02-28 11:05] LABS: Potassium 4.3 mmol/L (3.5-5.1); Sodium 138 mmol/L (136-145)
[2025-02-28 11:06] LABS: Anion Gap 7 (5-15); Carbon Dioxide 23 mmol/L (20-31)
[2025-02-28 11:09] LABS: Chloride 108 mmol/L (98-107)
[2025-02-28 11:11] LABS: BUN/Creatinine Ratio 21.1 (10.0-20.0); Glucose 100 mg/dL (74-106)
[2025-02-28 11:15] LABS: Blood Urea Nitrogen 28 mg/dL (9-23)
[2025-02-28] MEDS ORDERED: WARFARIN SODIUM 5 MG TAB PO ONE (17:00)
== END 2025-02-28 13:30 | disposition home or self-care (01) | DRG 871 ==
LOC: ER 03:38 → EDBD 03:38 → OVERFLOW 09:08 → EDUNIT# 09:08 → TELE-WESTW 14:05 → TELE-CENTR 19:54
PROVIDERS: ADMIT Family Medicine; ATTEND Family Medicine
PROC: 4A023N8 Measurement of Cardiac Sampling and Pressure, Bilateral, Percutaneous Approach (ICD-10-PCS; principal; 2025-02-25)
PROC: B211YZZ Fluoroscopy of Multiple Coronary Arteries using Other Contrast (ICD-10-PCS; 2025-02-25)
PROC: B215YZZ Fluoroscopy of Left Heart using Other Contrast (ICD-10-PCS; 2025-02-25)
PROC: B213YZZ Fluoroscopy of Multiple Coronary Artery Bypass Grafts using Other Contrast (ICD-10-PCS; 2025-02-25)
DX: A41.59 Other Gram-negative sepsis (principal); E43 Unspecified severe protein-calorie malnutrition; J18.9 Pneumonia, unspecified organism; J10.00 Influenza due to other identified influenza virus with unspecified type of pneumonia; I50.23 Acute on chronic systolic (congestive) heart failure; I21.A1 Myocardial infarction type 2; E87.20 Acidosis, unspecified; N17.9 Acute kidney failure, unspecified; I13.0 Hypertensive heart and chronic kidney disease with heart failure and stage 1 through stage 4 chronic kidney disease, or unspecified chronic kidney disease; Z20.822 Contact with and (suspected) exposure to COVID-19; I25.10 Atherosclerotic heart disease of native coronary artery without angina pectoris; E86.0 Dehydration; D69.6 Thrombocytopenia, unspecified; I27.20 Pulmonary hypertension, unspecified; E88.09 Other disorders of plasma-protein metabolism, not elsewhere classified; N32.81 Overactive bladder; D63.1 Anemia in chronic kidney disease; E78.5 Hyperlipidemia, unspecified; I50.9 Heart failure, unspecified; N18.30 Chronic kidney disease, stage 3 unspecified; S00.81XA Abrasion of other part of head, initial encounter; Z86.73 Personal history of transient ischemic attack (TIA), and cerebral infarction without residual deficits; Z90.49 Acquired absence of other specified parts of digestive tract; Z95.5 Presence of coronary angioplasty implant and graft; Z95.2 Presence of prosthetic heart valve; Z68.21 Body mass index [BMI] 21.0-21.9, adult; Z95.1 Presence of aortocoronary bypass graft; Z85.51 Personal history of malignant neoplasm of bladder; Z83.3 Family history of diabetes mellitus; Z82.49 Family history of ischemic heart disease and other diseases of the circulatory system; W18.39XA Other fall on same level, initial encounter; Y93.89 Activity, other specified; Y92.89 Other specified places as the place of occurrence of the external cause; Y99.8 Other external cause status
CPT/HCPCS: 36415; 70450; 71045; 73030; 74176; 74430; 76775; 80048; 80053; 80061; 81001; 82306; 82570; 83036; 83605; 83735; 83880; 83970; 84100; 84156; 84300; 84443; 84484; 85007; 85014; 85018; 85025; 85027; 85379; 85610; 85730; 86850; 86900; 86901; 87040; 87077; 87086; 87186; 87426; 87804; 93005; 93306; 93461; 93886; 93970; 94640; 96365; 97163; 99152; 99291; G0378; G9035; J0692; J2250; Q9967

== ENCOUNTER 2025-04-12 10:38 | Outpatient (CLI) | payer OTHER ==
[~2025-04-12 10:38] MED LIST changes: +LEVO500T91 PO
[2025-04-12 10:57] LABS: Hematocrit 37.3 % (41.0-53.0); Hemoglobin 12.8 g/dL (13.5-17.5); Mean Corpuscular Hemoglobin 30.6 pg (28.0-32.0); Mean Corpuscular Volume 89.3 fL (80.0-100.0); Nucleated Red Blood Cells % 0.1 %
[2025-04-12 11:35] LABS: Alanine Aminotransferase 19 U/L (7-40); Albumin 4.0 g/dL (3.2-4.8); Alkaline Phosphatase 76 U/L (46-116); Anion Gap 8 (5-15); BUN/Creatinine Ratio 17.8 (10.0-20.0); Bilirubin, Total 0.8 mg/dL (0.2-1.0); Calcium 9.4 mg/dL (8.7-10.4); Carbon Dioxide 25 mmol/L (20-31); Potassium 5.0 mmol/L (3.5-5.1); Sodium 142 mmol/L (136-145); Total Protein 6.4 g/dL (5.7-8.2)
[2025-04-12 11:37] LABS: Blood Urea Nitrogen 29 mg/dL (9-23); Chloride 109 mmol/L (98-107); Glucose 125 mg/dL (74-106)
== END 2025-04-12 17:00 | disposition home or self-care (01) ==
LOC: LAB 10:38
PROVIDERS: ATTEND Internal Medicine
DX: I50.22 Chronic systolic (congestive) heart failure (principal); R63.0 Anorexia
CPT/HCPCS: 36415; 80053; 84153; 84443; 85025

== ENCOUNTER 2025-04-18 13:59 | Outpatient (CLI) | payer OTHER ==
[2025-04-18 14:25] LABS: Hematocrit 34.9 % (41.0-53.0); Hemoglobin 11.9 g/dL (13.5-17.5); Mean Corpuscular Hemoglobin 30.6 pg (28.0-32.0); Mean Corpuscular Volume 89.5 fL (80.0-100.0); Nucleated Red Blood Cells % 0.0 %
[2025-04-18 14:30] LABS: Urine Protein, UAD Negative (Negative)
[2025-04-18 14:35] LABS: Potassium 4.9 mmol/L (3.5-5.1); Sodium 141.0 mmol/L (136-145)
[2025-04-18 14:36] LABS: Anion Gap 7.0 (5-15); Carbon Dioxide 27.0 mmol/L (20-31)
[2025-04-18 14:37] LABS: Calcium 9.0 mg/dL (8.7-10.4); Chloride 107.0 mmol/L (98-107)
[2025-04-18 14:41] LABS: BUN/Creatinine Ratio 16.6 (10.0-20.0)
[2025-04-18 14:43] LABS: Albumin 3.8 g/dL (3.2-4.8)
[2025-04-18 14:44] LABS: Blood Urea Nitrogen 24.0 mg/dL (9-23); Glucose 114.0 mg/dL (74-106)
[2025-04-18 14:54] LABS: Microalb/Creat Ratio, Urine 48.0
[2025-04-18 15:23] LABS: Uric Acid 7.4 mg/dL (3.7-9.2)
== END 2025-04-18 17:00 | disposition home or self-care (01) ==
LOC: LAB 13:59
PROVIDERS: ATTEND Internal Medicine
DX: E11.22 Type 2 diabetes mellitus with diabetic chronic kidney disease (principal); E11.21 Type 2 diabetes mellitus with diabetic nephropathy; N18.30 Chronic kidney disease, stage 3 unspecified; E21.3 Hyperparathyroidism, unspecified; N39.0 Urinary tract infection, site not specified; E55.9 Vitamin D deficiency, unspecified; D63.1 Anemia in chronic kidney disease; M10.9 Gout, unspecified; R80.9 Proteinuria, unspecified
CPT/HCPCS: 36415; 80069; 81001; 82043; 82570; 83970; 84550; 85025

== ENCOUNTER → 2025-04-25 | Outpatient (CLI) | payer OTHER | END | disposition home or self-care (01) | LOC: LAB 04-22 12:15 | PROVIDERS: ATTEND Internal Medicine | DX: Z01.812 Encounter for preprocedural laboratory examination (principal); D48.5 Neoplasm of uncertain behavior of skin ==

== ENCOUNTER 2025-05-18 09:59 | Outpatient (CLI) | payer OTHER ==
[2025-05-18 10:33] LABS: Sodium 141 mmol/L (136-145)
[2025-05-18 10:34] LABS: Anion Gap 7 (5-15); Calcium 9.1 mg/dL (8.7-10.4); Carbon Dioxide 25 mmol/L (20-31)
[2025-05-18 10:39] LABS: BUN/Creatinine Ratio 18.2 (10.0-20.0)
[2025-05-18 10:56] LABS: Blood Urea Nitrogen 32 mg/dL (9-23); Chloride 109 mmol/L (98-107); Glucose 152 mg/dL (74-106)
[2025-05-18 10:58] LABS: Potassium 5.6 mmol/L (3.5-5.1)
== END 2025-05-18 17:00 | disposition home or self-care (01) ==
LOC: LAB 09:59
PROVIDERS: ATTEND Internal Medicine
DX: N17.9 Acute kidney failure, unspecified (principal); N18.32 Chronic kidney disease, stage 3b; E78.5 Hyperlipidemia, unspecified
CPT/HCPCS: 36415; 80048

== ENCOUNTER 2025-05-20 12:27 | Emergency (ER) | payer OTHER ==
[~2025-05-20] VITALS: Ht 160 cm; Wt 55.9 kg
--- NOTE | 2025-05-20 12:33 | ED.PDOC ---
History of Present Illness HPI Comments 84-year-old male presents here for abnormal labs. Patient states that he had blood work done earlier in the week and got a phone call that his potassium was high. He is otherwise asymptomatic. Patient has no complaint. Patient is also on Coumadin. Time Seen by MD: 14:25 Primary Care Provider: PARIS Evans Notes: Medications, Allergies Allergies: Coded Allergies: NO KNOWN ALLERGIES (Unverified , 03/20/21) Home Meds Active Scripts Levofloxacin Hemihydrate (LEVAQUIN 500 MG) 500 Mg Tab, 1 TAB PO DAILY, #10 TAB Prov:WOLFGANG SANTIAGO MD 02/28/25 Reported Medications Solifenacin Succinate (Solifenacin Succinate) 10 Mg Tab, 10 MG PO DAILY, TAB 10/08/24 Hydralazine Hcl (Hydralazine Hcl) 50 Mg Tab, 25 MG PO, TAB 05/17/24 Carvedilol (Carvedilol) 6.25 Mg Tab, 1 TAB PO DAILY 02/08/24 Warfarin Sodium (Warfarin Sodium) 7.5 Mg Tab, 7.5 MG PO HS for CAD TAKE 1 TABLET PO EVERY DAY EXCEPT 0.5 TABLET ON SUN & Friday03/31/18 Atorvastatin Calcium (Lipitor) 40 Mg Tab, 1 TAB PO QPM for HIGH CHOLESTEROL 11/13/17 Information Source: Patient, Relative Mode of Arrival: Ambulatory Severity: Moderate Timing: Hours Duration: Since onset Prehospital treatment: None Past Medical History PAST MEDICAL HISTORY: CVA, HTN Surgical History: Denies all surgeries Family History Family History: Unknown Social History Smoker: Non-Smoker Alcohol: Denies ETOH Use Drugs: Denies Drug Use Lives In: Home, Assisted Care Constitutional: denies: chills, diaphoresis, fatigue, fever, malaise, sweats, weakness, others EENTM: denies: blurred vision, double vision, ear bleeding, ear discharge, ear drainage, ear pain, ear ringing, eye pain, eye redness, hearing loss, mouth pain, mouth swelling, nasal discharge, nose bleeding, nose congestion, nose pain, photophobia, tearing, throat pain, throat swelling, voice changes, others Respiratory: denies: cough, hemoptysis, orthopnea, SOB at rest, shortness of breath, SOB with excertion, stridor, wheezing, others Cardiovascular: denies: chest pain, dizzy spells, diaphoresis, Dyspnea on exertion, edema, irregular heart beat, left arm pain, lightheadedness, pa lpitations, PND, syncope, others Gastrointestinal: denies: abdomen distended, abdominal pain, blood streaked bowels, constipated, diarrhea, dysphagia, difficulty swallowing, hematemesis, melena, nausea, poor appetite, poor fluid intake, rectal bleeding, rectal pain, vomiting, others Genitourinary: denies: burning, dysuria, flank pain, frequency, hematuria, incontinence, penile discharge, penile sore, pain, testicle pain, testicle swelling, urgency, others Neurological: reports: headache; denies: dizziness, fainting, left sided numbness, left sided weakness, numbness, paresthesia, pre-existing deficit, right sided numbness, right sided weakness, seizure, speech problems, tingling, tremors, weakness, others Musculoskeletal: denies: back pain, gout, joint pain, joint swelling, muscle pain, muscle stiffness, neck pain, others Integumetry: denies: bruises, change in color, change in hair/nails, dryness, laceration, lesions, lumps, rash, wounds, others Allergic/Immunocompromised: denies: Difficulty Healing, Frequent Infections, Hives, Itching, others Hematologic/Lymphatic: denies: anemia, blood clots, easy bleeding, easy bruising, swollen glands, others Endocrine: denies: excessive hunger, excessive sweating, excessive thirst, excessive urination, flushing, intolerance to cold, intolerance to heat, unexplained weight gain, unexplained weight loss, others Psychiatric: denies: anxiety, bipolar disorder, depression, hopeless, panic disorder, schizophrenia, sleepless, suicidal, others All Other Systems: Reviewed and Negative Physical Exam General Appearance: No Apparent Distress, Normal HEENT: Normal ENT Inspection, Pharynx Normal, TMs Normal Neck: Full Range of Motion, Non-Tender, Normal, Normal Inspection Respiratory: Chest Non-Tender, Lungs Clear, No Accessory Muscle Use, No Respiratory Distress, Normal Breath Sounds Cardiovascular: No Edema, No JVD, No Murmur, No Gallop, Normal Peripheral Pulses, Regular Rate/Rhythm Breast Exam: Deferred Gastrointestinal: No Organomegaly, Non Tender, No Pulsatile Mass, Normal Bowel Sounds, Soft Genitalia: Deferred Pelvic: Deferred Rectal: Deferred Extremities: No calf tenderness, Normal capillary refill, Normal inspection, Normal range of motion, Non-tender, No pedal edema Musculoskeletal : Apperance: Normal Neurologic: Alert, private equity analyst II-XII nml as Tested, No Motor Deficits, Normal Affect, Normal Mood, No Sensory Deficits Cerebellar Function: Normal Reflexes: Normal Skin: Dry, Normal Color, Warm Lymphatic: No Adenopathy Was a procedure done? Was a procedure done?: No EKG EKG : Comments Rate of 63 sinus rhythm, nonspecific ST changes Differential Dx Considerations may include: Hyperkalemia supratherapeutic INR X-Ray, Labs, Meds, VS Vital Signs Date Time Temp Pulse Resp B/P (MAP) Pulse Ox O2 Delivery O2 Flow Rate FiO2 05/20/25 12:48 63 05/20/25 12:33 98.3 68 16 138/66 98 98.3 Lab Test 05/20/25 13:03 Range/Units White Blood Count 5.5 4.4-10.8 10^3/uL Red Blood Count 4.01 L 4.5-5.90 10^6/uL Hemoglobin 12.2 L 13.5-17.5 g/dL Hematocrit 35.5 L 41.0-53.0 % Mean Corpuscular Volume 88.5 80.0-100.0 fL Mean Corpuscular Hemoglobin 30.4 28.0-32.0 pg Mean Corpuscular Hemoglobin Concent 34.4 32.0-36.0 g/dL Red Cell Distribution Width 14.8 H 11.8-14.3 % Platelet Count 168 140-450 10^3/uL Mean Platelet Volume 8.2 6.9-10.8 fL Neutrophils (%) (Auto) 66.6 37.0-80.0 % Lymphocytes (%) (Auto) 19.2 10.0-50.0 % Monocytes (%) (Auto) 9.7 0.0-12.0 % Eosinophils (%) (Auto) 3.7 0.0-7.0 % Basophils (%) (Auto) 0.8 0.0-2.0 % Neutrophils # (Auto) 3.7 1.6-8.6 10 ^3/uL Lymphocytes # (Auto) 1.1 0.4-5.4 10 ^3/uL Monocytes # (Auto) 0.5 0-1.3 10 ^3/uL Eosinophils # (Auto) 0.2 0-0.8 10 ^3/uL Basophils # (Auto) 0 0-0.2 10 ^3/uL Nucleated Red Blood Cells 0.0 % Prothrombin Time 29.3 H 9.3-11.8 sec Prothrombin Time INR 3.09 H 0.9-1.15 Sodium Level 140 136-145 mmol/L Potassium Level 4.9 3.5-5.1 mmol/L Chloride Level 107 98-107 mmol/L Carbon Dioxide Level 24 20-31 mmol/L Anion Gap 9 5-15 Blood Urea Nitrogen 30 H 9-23 mg/dL Creatinine 1.60 H 0.700-1.30 mg/dL Glomerular Filtration Rate Calc 42 >90 mL/min BUN/Creatinine Ratio 18.8 10.0-20.0 Serum Glucose 113 H 74-106 mg/dL Calcium Level 9.2 8.7-10.4 mg/dL 84-year-old male presents here for lab work. He states earlier in the week he was told his potassium was high. Blood work has been done today including a CBC BMP and INR. His BUN is 30 and creatinine is 1.6. Patient does follow up with Dr. Stephen ahuja with the [facility]. Suspect this is likely within normal limits. His potassium is within normal limits at 4.9 today. EKG with no peaked T-waves. INR is 3. He states he normally takes 7.5 mg daily and sometimes takes half pill depending on what the doctor tells him to just 2. At this time I advised him to take only half a pill the next 3 days and then return back to his normal 7.5 mg daily dose. Daughter is at bedside who understands and is agreeable to the plan. Patient otherwise asymptomatic. Time of 1ST Reevaluation: 14:55 Reevaluation 1ST: Unchanged Patient Education/Counseling: Diagnosis, Treatment Family Education/Counseling: Diagnosis, Treatment SEPSIS Sepsis Screen Physician Orders Electrocardigram (05/20/25 12:38) Vital Signs Date Time Temp Pulse Resp B/P (MAP) Pulse Ox O2 Delivery O2 Flow Rate FiO2 05/20/25 12:48 63 05/20/25 12:33 98.3 68 16 138/66 98 98.3 Laboratory Tests Test 05/20/25 13:03 White Blood Count 5.5 10^3/uL (4.4-10.8) Departure 1 Departure Time of Disposition: 15:17 Impression: Primary Impression: Chronic kidney disease Qualified Codes: N18.9 - Chronic kidney disease, unspecified Additional Impression: Elevated INR Disposition: HOME / SELF CARE / HOMELESS Condition: Stable Additional Instructions: Your potassium is within normal limits today. Please follow up with your epic cup[facility] analyst for your kidney function. Also for the next 3 days please only take half pill of your Coumadin. Then continue taking your normal dose of 7.5 mg daily. Discharged With: Self, Relative Critical Care Note Critical Care Time?: No Stability Stability form required: No Heart Score Heart Score: Heart Score Response (Comments) Value History N/A 0 EKG N/A 0 Age N/A 0 Risk Factors N/A 0 Troponin N/A 0 Total 0 I personally scribed for GINA VANCE MD ([email or web address]) on 05/20/25 at 12:33. Electronically submitted by Monica Robison ([email or web address]). I personally scribed for GINA VANCE MD ([email or web address]) on 05/20/25 at 14:24. Electronically submitted by Monica Robison ([email or web address]). I personally scribed for GINA VANCE MD ([email or web address]) on 05/20/25 at 15:05. Electronically submitted by Monica Robison ([email or web address]). GINA VANCE MD May 20, 2025 12:33
[2025-05-20 13:16] LABS: Hematocrit 35.5 % (41.0-53.0); Hemoglobin 12.2 g/dL (13.5-17.5); Mean Corpuscular Hemoglobin 30.4 pg (28.0-32.0); Mean Corpuscular Volume 88.5 fL (80.0-100.0); Nucleated Red Blood Cells % 0.0 %
[2025-05-20 13:27] LABS: Potassium 4.9 mmol/L (3.5-5.1); Sodium 140 mmol/L (136-145)
[2025-05-20 13:28] LABS: Anion Gap 9 (5-15); Calcium 9.2 mg/dL (8.7-10.4); Carbon Dioxide 24 mmol/L (20-31)
[2025-05-20 13:30] LABS: INR 3.09 (0.9-1.15); Prothrombin Time 29.3 sec (9.3-11.8)
[2025-05-20 13:33] LABS: BUN/Creatinine Ratio 18.8 (10.0-20.0)
[2025-05-20 13:35] LABS: Blood Urea Nitrogen 30 mg/dL (9-23); Chloride 107 mmol/L (98-107); Glucose 113 mg/dL (74-106)
[2025-05-20 15:44] VITALS: BP 148/55; PULSE 51; RESP 16; TEMP 97.4; O2SAT 96
--- NOTE | 2025-05-23 08:51 | ECG ---
[facility] Test Date: 2025-05-20 Test Time: 12:45:35 Pat Name: SAMUEL MORELOS Department: ED Room: Gender: M Application Spec: GISELLE : 1940 Requested By: GINA VANCE Order Number: [id number] Reading MD: Jaiden Grier Measurements Intervals [place] Rate: 63 P: -26 [place]: 315 QRS: 66 QRSD: 115 T: 99 QT: 393 QTc: 403 Interpretive Statements Sinus rhythm Prolonged [place] interval Nonspecific intraventricular conduction delay Borderline repolarization abnormality Baseline wander in lead(s) V3 Electronically Signed On 05-23-2025 18:45:44 PDT by Jaiden Grier Please click the below link to view image of tracing.
== END 2025-05-20 15:49 | disposition home or self-care (01) ==
LOC: ER 12:27
DX: I12.9 Hypertensive chronic kidney disease with stage 1 through stage 4 chronic kidney disease, or unspecified chronic kidney disease (principal); N18.9 Chronic kidney disease, unspecified; R79.1 Abnormal coagulation profile; Z86.73 Personal history of transient ischemic attack (TIA), and cerebral infarction without residual deficits; Z79.899 Other long term (current) drug therapy; Z79.01 Long term (current) use of anticoagulants
CPT/HCPCS: 36415; 80048; 85025; 85610; 93005

== ENCOUNTER 2025-06-07 08:09 | Day surgery (SDC) | payer OTHER ==
[2025-06-03 14:44] LABS: Urine Protein, UAD Negative (Negative)
[2025-06-03 14:47] LABS: Hematocrit 36.6 % (41.0-53.0); Hemoglobin 12.5 g/dL (13.5-17.5); Mean Corpuscular Hemoglobin 30.6 pg (28.0-32.0); Mean Corpuscular Volume 89.7 fL (80.0-100.0); Nucleated Red Blood Cells % 0.1 %
[2025-06-03 14:54] LABS: INR 1.57 (0.9-1.15); Partial Thromboplastin Time 28.9 SEC (24.5-34.5); Prothrombin Time 15.9 sec (9.3-11.8)
[2025-06-03 14:58] LABS: Alanine Aminotransferase 19 U/L (7-40); Albumin 4.0 g/dL (3.2-4.8); Alkaline Phosphatase 72 U/L (46-116); Anion Gap 7 (5-15); BUN/Creatinine Ratio 18.0 (10.0-20.0); Bilirubin, Total 0.7 mg/dL (0.2-1.0); Calcium 9.1 mg/dL (8.7-10.4); Carbon Dioxide 27 mmol/L (20-31); Potassium 5.1 mmol/L (3.5-5.1); Sodium 141 mmol/L (136-145); Total Protein 6.6 g/dL (5.7-8.2)
[2025-06-03 15:01] LABS: Blood Urea Nitrogen 27 mg/dL (9-23); Chloride 107 mmol/L (98-107); Glucose 120 mg/dL (74-106)
[~2025-06-07] VITALS: Ht 160 cm; Wt 59.0 kg
[~2025-06-07 08:09] MED LIST changes: -HYDR50TA47 PO; -LEVO500T91 PO; +SACU1TAB PO
[2025-06-07] MEDS ORDERED: PROPOFOL 10 MG/ML 20 ML IV ONE (10:51)
[2025-06-07] MEDS ORDERED: fentaNYL CITRATE 100 MCG/2 ML VL ONE (10:51)
[2025-06-07] MEDS: CIPROFLOXACIN 400MG/200ML 200 ML IV ONE (11:15)
[2025-06-07 11:39] VITALS: PULSE 65; RESP 12; TEMP 97; O2SAT 100
--- NOTE | 2025-06-07 11:55 | DVHNC2 ---
Procedure - OPERATIVE REPORT Pre-op. Diagnosis: Bladder tumor, recurrence Post-op. Diagnosis: Same as pre-op diagnosis Operation: Transurethral en bloc resection of bladder tumor Intravesical instillation of Mitomycin C Anesthesia: General Indications: Patient has recurrent bladder tumors on recent cystoscopy. Indications, risks, complications, alternatives and benefits of transurethral resection of bladder tumor(s) are discusse with the patient. All questions were encouraged and answered. Patient is aware of risks/complications including but not limited to infection, bleeding, bladder injury requiring additional procedures, urinary incontinence and possible need for additional procedures. Patient consented to proceed. Details of Procedure: Patient is taken to the operating room and underwent appropriate anesthesia. After positioning in lithotomy, area of the genitalia is prepped and draped in usual sterile fashion. Resecting element on the resectoscope with 30 degree lens is used to access the bladder and remove the identified bladder tumor via en bloc technique. NS irrigation is used with bipolar cautery unit for hemostasis. The resecting element and resectoscope are removed in entirety. 18 F Gannon catheter was inserted and Mitomycin C 40 mg in 80 ml Sterile water instillation was performed. Specimens: Bladder tumor- left posterior wall lesion 5 mm Complications: None Findings: Notes: Unclamp Gannon catheter after 30 minutes of instillation of chemotherapeutic agent. DAYANA ADHIKARI MD Jun 07, 2025 11:55
--- NOTE | 2025-06-07 11:56 | DVHDS2 ---
New Physician D'charge PN Admitting Diagnosis Admitting Diagnosis Recurrent bladder tumor Discharge Diagnosis Same Operations or Procedures Trans urethral and block resection of bladder tumor Mitomycin C instillation Reason(s) For Hospitalization Surgery Treatment Plan Discharge Condition of Discharge Good Disposition Home Discharge Instructions Diet: Regular Activity: Light activity Activity comment: Catheter management Medications: Given Follow Up Care Follow Up/Referral: Voiding trial on postop day 1. Discharge Statement: "Patient was advised to return to the ER or call 911 if any headaches, dizziness, shortness of breath, chest pain, abdominal pain, bleeding, fevers, or worsening of medical condition. Patient was counseled about treatment plan, medications, possible side effects, patientverbalized understanding. All questions were answered to the best of my ability. This discharge took greater then 30 minutes in planning, reviewing documentation, counseling the patient, and discussing with other team members." DAYANA ADHIKARI MD Jun 07, 2025 11:56
[2025-06-07] MEDS ORDERED: ONDANSETRON HCL 4 MG/2 ML VIAL IV PRN (12:30)
[2025-06-07] MEDS ORDERED: MORPHINE SULFATE 4 MG/ML SYR/VIAL IV PRN (12:30)
[2025-06-07] MEDS ORDERED: HYDROmorphone HCL 2 MG/ML VL/or syr IV PRN (12:30)
[2025-06-07] MEDS: HYDROmorphone HCL 2 MG/ML VL/or syr IV PRN (12:34)
[2025-06-07] MEDS ORDERED: HYDROmorphone HCL 2 MG/ML VL/or syr ONE (12:35)
[2025-06-07] MEDS ORDERED: MORPHINE SULFATE INJ 2 MG/ml SYRG IV PRN (13:12)
[2025-06-07 13:15] VITALS: BP 155/54; PULSE 59; RESP 17; O2SAT 97
== END 2025-06-07 13:40 | disposition home or self-care (01) ==
LOC: SUR 08:09
PROVIDERS: ATTEND Urology
DX: N30.00 Acute cystitis without hematuria (principal); N30.20 Other chronic cystitis without hematuria; D49.4 Neoplasm of unspecified behavior of bladder; I12.9 Hypertensive chronic kidney disease with stage 1 through stage 4 chronic kidney disease, or unspecified chronic kidney disease; N18.30 Chronic kidney disease, stage 3 unspecified; I25.2 Old myocardial infarction; I25.10 Atherosclerotic heart disease of native coronary artery without angina pectoris; Z86.73 Personal history of transient ischemic attack (TIA), and cerebral infarction without residual deficits; Z79.899 Other long term (current) drug therapy
CPT/HCPCS: 36415; 51720; 52224; 80053; 81001; 85025; 85610; 85730; 87086; 88305; 88342; A4344; J0744; J1171; J2704; J3010; J9280; 93458

== ENCOUNTER 2025-08-15 10:08 | Outpatient (CLI) | payer OTHER ==
[2025-08-15 10:34] LABS: Hematocrit 34.3 % (41.0-53.0); Hemoglobin 11.6 g/dL (13.5-17.5); Mean Corpuscular Hemoglobin 30.7 pg (28.0-32.0); Mean Corpuscular Volume 91.0 fL (80.0-100.0); Nucleated Red Blood Cells % 0.0 %
[2025-08-15 10:43] LABS: Urine Protein, UAD Negative (Negative)
[2025-08-15 11:09] LABS: Protein, Urine 12.2 mg/dL (1-14)
[2025-08-15 11:13] LABS: Alanine Aminotransferase 17 U/L (7-40); Albumin 3.8 g/dL (3.2-4.8); Alkaline Phosphatase 83 U/L (46-116); Anion Gap 7 (5-15); BUN/Creatinine Ratio 19.4 (10.0-20.0); Calcium 9.4 mg/dL (8.7-10.4); Carbon Dioxide 25 mmol/L (20-31); Sodium 140 mmol/L (136-145); Total Protein 6.7 g/dL (5.7-8.2)
[2025-08-15 11:14] LABS: Bilirubin, Total 0.6 mg/dL (0.2-1.0)
[2025-08-15 11:43] LABS: Blood Urea Nitrogen 44 mg/dL (9-23); Chloride 108 mmol/L (98-107); Glucose 114 mg/dL (74-106)
[2025-08-15 11:45] LABS: Potassium 6.8 mmol/L (3.5-5.1)
== END 2025-08-15 17:00 | disposition home or self-care (01) ==
LOC: LAB 10:08
PROVIDERS: ATTEND Internal Medicine
DX: E11.22 Type 2 diabetes mellitus with diabetic chronic kidney disease (principal); N18.30 Chronic kidney disease, stage 3 unspecified; E11.21 Type 2 diabetes mellitus with diabetic nephropathy; N39.0 Urinary tract infection, site not specified; D63.1 Anemia in chronic kidney disease; E21.3 Hyperparathyroidism, unspecified; E55.9 Vitamin D deficiency, unspecified; M10.9 Gout, unspecified; R80.9 Proteinuria, unspecified
CPT/HCPCS: 36415; 80053; 81001; 82306; 82570; 83970; 84156; 85025; 87086